=== PATIENT | male | born 1930 | race Caucasian/White ===

== ENCOUNTER → 2016-09-06 | Outpatient (CLI) | payer OTHER ==
[~2016-09-06] MED LIST: ACET-1311 PO; APR10 PO; ARC5 PO; ASPI81TA28 PO; CEPH500C2 PO; CEPH500T PO; FERR1TAB62 PO; FRS/40 PO; LISI-729 PO; LISI5TAB3 PO; LVQ500 PO; MECL1TAB40 PO; MIRT15TA3 PO; MULT-506 PO; NEOMOIN3 TOP; NTRGSL/4 UT; OMEP40CA PO; OMEP40CA41 PO; POLY335019 PO; PRVC40 PO; SENN-65 PO; SITA50TA3 PO; SULF800T23 PO; SYN25 PO; TRAM-10 PO; TRMCR515 TOP
[2016-09-06 15:57] LABS: BASO % 0.8 %; BASO ABS # 0.06 K/uL (0-0.2); COMPLETE YES; EOS % 3.6 %; HEMATOCRIT 30.8 % (42-52); IG% 0.3 %; LYMPH % 10.7 %; LYMPH ABS # 0.78 K/uL (1.2-3.4); MEAN CELL VOLUME 99.7 fL (80-100); MEAN CORPUSCULAR HGB CONC 33.1 g/dl (32-36); MEAN PLATELET VOLUME 11.6 fL (7.4-10.4); MONO % 6.4 %; NEUT % 78.2 %; PLATELET COUNT 205 K/uL (130-400); RED BLOOD COUNT 3.09 M/uL (4.7-6.1); WHITE BLOOD COUNT 7.29 K/uL (4.8-10.8)
[2016-09-06 16:05] LABS: BLOOD UREA NITROGEN 54 mg/dl (7-18); BUN/CREATININE RATIO 19.5 (10-20); CALCIUM 8.8 mg/dl (8.5-10.1); CARBON DIOXIDE 26 mmol/L (21-32); CHLORIDE 106 mmol/L (98-107); GLUCOSE 136 mg/dl (70-99); POTASSIUM 5.2 mmol/L (3.5-5.1); SODIUM 142 mmol/L (136-145)
== END | disposition home or self-care (01) ==
LOC: C.LABSPEC 14:30
PROVIDERS: ATTEND Family Medicine
DX: I50.33 Acute on chronic diastolic (congestive) heart failure (principal); I25.10 Atherosclerotic heart disease of native coronary artery without angina pectoris; D62 Acute posthemorrhagic anemia

== ENCOUNTER 2016-09-29 13:12 | Inpatient (IN) | payer OTHER ==
[~2016-09-29] VITALS: Ht 177.8 cm; Wt 74.9 kg
[~2016-09-29 13:12] MED LIST changes: -ARC5 PO; -CEPH500C2 PO; -CEPH500T PO; -FERR1TAB62 PO; +FERR325T PO; -LISI-729 PO; -LVQ500 PO; -NEOMOIN3 TOP; -OMEP40CA41 PO
--- NOTE | 2016-09-29 13:59 | DIAGNOSTIC IMAGING REPORT ---
CHEST ONE VIEW PORTABLE HISTORY: EVALUATE RESPIRATORY DISTRESS.DYSPNEA COMPARISON: Chest 08/08/2016. FINDINGS: The heart is mildly enlarged. Trace left pleural effusion is unchanged. Extensive bilateral calcified pleural plaques remain unchanged. No new focal lung consolidations. No pneumothorax. Right lower lobe density in the small right pleural effusion have slightly progressed. IMPRESSION: 1. Slight increase in size in the small right pleural effusion with associated right basilar density. This could represent compressive atelectasis from the pleural fluid. Recommend follow-up to ensure complete resolution. 2. Trace left pleural effusion persist. 3. Extensive bilateral pleural plaques, unchanged. Electronically signed by: Jimmy Aaron M.D. 09/29/2016 1:58 PM Dictated Date/Time: 09/29/2016 1:56 PM
[2016-09-29 14:02] LABS: BASO % 0.5 %; BASO ABS # 0.04 K/uL (0-0.2); COMPLETE YES; HEMATOCRIT 27.6 % (42-52); IG% 0.3 %; LYMPH % 5.8 %; LYMPH ABS # 0.45 K/uL (1.2-3.4); MEAN CELL VOLUME 96.8 fL (80-100); MEAN CORPUSCULAR HEMOGLOBIN 32.6 pg (25-34); MEAN CORPUSCULAR HGB CONC 33.7 g/dl (32-36); MEAN PLATELET VOLUME 11.5 fL (7.4-10.4); MONO % 14.9 %; NEUT % 77.5 %; PLATELET COUNT 201 K/uL (130-400); RED BLOOD COUNT 2.85 M/uL (4.7-6.1); WHITE BLOOD COUNT 7.72 K/uL (4.8-10.8)
[2016-09-29] MEDS ORDERED: ATROPINE SULFATE 0.1 MG/ML 5ML SYR IV STA (14:09)
[2016-09-29] MEDS ORDERED: ATROPINE SULFATE 0.1 MG/ML 5ML SYR ONE (14:10)
[2016-09-29 14:14] LABS: CKMB/CK RATIO 1.4 (0-3.0)
[2016-09-29] MEDS ORDERED: SODIUM BICARB 8.4% INJ 50 MEQ/50 ML SYR IV STA (14:26)
[2016-09-29] MEDS ORDERED: NovoLIN-R INSULIN PER UNIT CHARGE IV STA (14:26)
[2016-09-29] MEDS ORDERED: DEXTROSE 50% 50 ML SYR IV STA (14:26)
[2016-09-29] MEDS ORDERED: CALCIUM GLUCONATE 10% 10 ML VIAL IV STA (14:26)
[2016-09-29 14:37] LABS: ISTAT CREATININE 4.3 mg/dl (0.6-1.3); ISTAT HEMOGLOBIN 9.2 g/dl (14.0-18.0); ISTAT IONIZED CALCIUM 1.06 mmol/l (1.12-1.32)
[2016-09-29 14:46] LABS: BUN/CREATININE RATIO 15.1 (10-20); CALCIUM 8.7 mg/dl (8.5-10.1); CREATININE 4.3 mg/dl (0.60-1.40)
[2016-09-29 14:47] LABS: POTASSIUM 6.5 mmol/L (3.5-5.1)
[2016-09-29] MEDS ORDERED: SODIUM CHLORIDE 0.9% 500ML 500 ML IV STA (14:52)
[2016-09-29 15:06] LABS: INR 1.1 (0.9-1.1); PROTHROMBIN TIME (PATIENT) 11.8 SECONDS (9.0-12.0)
[2016-09-29] MEDS ORDERED: GLUCAGON FOR INJ 1 MG VIAL SQ PRN (15:30)
[2016-09-29] MEDS ORDERED: GLUCOSE 40% GEL 15 GM TUBE PO PRN (15:30)
[2016-09-29] MEDS ORDERED: GLUCOSE 10 TABS/TUBE PO PRN (15:30)
[2016-09-29] MEDS ORDERED: ACETAMINOPHEN 325 MG TAB PO PRN (15:30)
[2016-09-29] MEDS ORDERED: ONDANSETRON INJ 2 MG/ML 2 ML VIAL IV PRN (15:30)
[2016-09-29] MEDS ORDERED: DEXTROSE 50% 50 ML SYR IV PRN (15:30)
[2016-09-29] MEDS ORDERED: MECLIZINE HCL 12.5 MG TAB PO PRN (15:45)
[2016-09-29] MEDS ORDERED: NITROGLYCERIN 0.4 MG SL PER TAB CHARGE UT PRN (15:45)
[2016-09-29] MEDS ORDERED: POLYETHYLENE (MIRALAX) 17 GM PACK PO PRN (15:45)
[2016-09-29] MEDS ORDERED: TRAMADOL HCL 50 MG TAB PO PRN (15:45)
[2016-09-29] MEDS ORDERED: TRIAMCINOLONE ACET 0.5% CR 15 GM TUBE EXT PRN (15:45)
[2016-09-29] MEDS ORDERED: SODIUM POLYST. SULF SUSP 15G/60ML PO STA (15:54)
[2016-09-29] MEDS: INSULIN HUMAN REGULAR SC SCH ×2 (16:00→21:00)
[2016-09-29 16:05] VITALS: BP 94/52; PULSE 52; TEMP 36.3; O2SAT 93
--- NOTE | 2016-09-29 16:05 | EMERGENCY ROOM VISIT NOTE ---
History Report prepared by Silvio: Gabino Benedict Under the Supervision of: Dr. Latrell Barker M.D. First contact with patient: 13:15 Chief Complaint: SHORTNESS OF BREATH Stated Complaint: SOB, WEAK, DISORIENTED, ABNORMAL LABS History of Present Illness The patient is an 86 year old male who presents to the Emergency Room with recurrent hypoxia for the past week. The patient's oxygen saturation drops to the low 80s at time, especially when he is in the prone position. The patient has also been experiencing bradycardia and worsening generalized weakness. The patient saw Dr. Watt (Cardiology) and Dr. Ellison (Family Practice) yesterday, who both referred him to the ED. The patient initially refused to come to the ED until his son brought him in today. Dr. Ellison recommends a pacemaker for the patient. The patient does not wear oxygen at home. The patient recently had lab work that showed elevated potassium. 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 Pt denies LOC, headache, fevers, chills, diaphoresis, visual changes, neck pain, chest pain, nausea, vomiting, abdominal pain, back pain, melena, urinary symptoms, numbness, rash, or other complaints. Source of History: patient, family (son) Onset: one week Position: other (respiratory) Symptom Intensity: O2 saturation in the 80s Quality: other (hypoxia) Timing: other (recurrent) Modifying Factors (Worsening): other (laying flat) Associated Symptoms: + weakness Review of Systems See HPI for pertinent positives and negatives. A total of ten systems were reviewed and were otherwise negative. Past Medical & Surgical Medical Problems: (1) Abdominal aortic aneurysm (2) Acute exacerbation of CHF (congestive heart failure) (3) Asbestosis (4) Atrial fibrillation (5) Benign hypertension (6) Benign paroxysmal positional vertigo (7) Bradyarrhythmia (8) Cerebrovascular disease, arteriosclerotic, post-stroke (9) Chronic kidney disease stage 3 (10) Coronary artery disease (11) Dieulafoy lesion of stomach (12) DM type 2 (diabetes mellitus, type 2) (13) Dyslipidemia (14) HTN (hypertension) (15) Hx of gastric ulcer (16) Hyperkalemia Surgical Problems: (1) H/O cardiac catheterization (2) H/O esophagogastroduodenoscopy (3) H/O exploratory laparotomy (4) H/O hemicolectomy (5) S/p shoulder avulsion repair (6) S/P tonsillectomy (7) S/P total knee replacement Family History Patient reports no known family medical history. Social History Smoking Status: Former Smoker Alcohol Use: none Drug Use: none Marital Status: Occupation Status: retired Current/Historical Medications Scheduled Acetaminophen (Tylenol), 650 MG PO Q6 Aspirin (Aspirin Ec), 81 MG PO DAILY Ferrous Sulfate (Ferrous Sulfate), 325 MG PO BID Furosemide (Lasix), 40 MG PO DAILY Hydralazine HCl (Hydralazine HCl), 10 MG PO TID Levothyroxine Sodium (Synthroid), 25 MCG PO DAILYBB Lisinopril (Zestril), 5 MG PO DAILY Mirtazapine (Remeron), 15 MG PO HS Multivitamin (Multivitamin), 1 TAB PO DAILY Nitroglycerin (Nitrostat), 0.4 MG UT PRN Omeprazole (Prilosec), 40 MG PO BID Pravastatin Sod (Pravastatin Sodium), 40 MG PO HS Sitagliptin (Januvia), 50 MG PO DAILY Sulfa/Trimethoprim (Bactrim Ds 800MG/160MG), 1 TAB PO BID Scheduled PRN Meclizine Hcl (Meclizine Hcl), 12.5 MG PO Q8 PRN Polyethylene Glycol 3350 (Miralax), 17 GM PO DAILY PRN for Constipation Senna/Docusate Sod (Senokot S), 1 TAB PO DAILY PRN for Constipation Tramadol (Ultram), 25-50 MG PO TID PRN for Pain Triamcinolone Acet (Triamcinolone Acetonide), 1 APPLN TOP BID PRN for rash Allergies Coded Allergies: No Known Allergies (Unverified , 09/29/16) Physical Exam Vital Signs Date Time Temp Pulse Resp B/P Pulse Ox O2 Delivery O2 Flow Rate FiO2 09/29/16 15:54 46 18 93/51 96 09/29/16 15:21 47 18 92/48 97 Nasal Cannula 2.0 09/29/16 15:06 51 16 98/42 97 Nasal Cannula 2.0 09/29/16 14:54 51 16 83/41 97 Nasal Cannula 2.0 09/29/16 14:51 50 16 79/44 97 Nasal Cannula 2.0 09/29/16 14:41 51 18 98/46 09/29/16 14:23 64 18 122/60 09/29/16 14:09 39 18 82/48 09/29/16 14:08 40 09/29/16 13:45 93 Nasal Cannula 2.0 09/29/16 13:45 93 Nasal Cannula 2.0 09/29/16 13:14 36.6 59 20 96/54 95 Room Air Physical Exam GENERAL: Awake, alert, tired appearing, in no distress HENT: Normocephalic, atraumatic. Oropharynx unremarkable. EYES: Normal conjunctiva. Sclera non-icteric. NECK: Supple. No nuchal rigidity. FROM. No JVD. RESPIRATORY: Clear to auscultation. CARDIAC: Borderline bradycardic, normal rhythm. Extremities warm and well perfused. Pulses equal. Systolic ejection murmur. ABDOMEN: Soft, non-distended. No tenderness to palpation. No rebound or guarding. No masses. RECTAL: Deferred. MUSCULOSKELETAL: Chest examination reveals no tenderness. The back is kyphotic on inspection without obvious abnormality. There is no CVA tenderness to palpation. 1+ lower extremity edema. Chronic venous discoloration. Calves are equal size bilaterally and non-tender. There is an ulceration noted on the right lateral foot. No cellulitis. NEURO: Normal sensorium. No sensory or motor deficits noted. SKIN: No rash or jaundice noted. Medical Decision & Procedures ER Provider Diagnostic Interpretation: X-ray: Per my interpretation, radiologist review. CHEST ONE VIEW PORTABLE HISTORY: EVALUATE RESPIRATORY DISTRESS.DYSPNEA COMPARISON: Chest 08/08/2016. FINDINGS: The heart is mildly enlarged. Trace left pleural effusion is unchanged. Extensive bilateral calcified pleural plaques remain unchanged. No new focal lung consolidations. No pneumothorax. Right lower lobe density in the small right pleural effusion have slightly progressed. IMPRESSION: 1. Slight increase in size in the small right pleural effusion with associated right basilar density. This could represent compressive atelectasis from the pleural fluid. Recommend follow-up to ensure complete resolution. 2. Trace left pleural effusion persist. 3. Extensive bilateral pleural plaques, unchanged. Electronically signed by: Jimmy Aaron M.D. 09/29/2016 1:58 PM Dictated Date/Time: 09/29/2016 1:56 PM Laboratory Results 09/29/16 13:40 Red Blood Count 2.85, Mean Corpuscular Volume 96.8, Mean Corpuscular Hemoglobin 32.6, Mean Corpuscular Hemoglobin Concent 33.7, Mean Platelet Volume 11.5, Neutrophils (%) (Auto) 77.5, Lymphocytes (%) (Auto) 5.8, Monocytes (%) (Auto) 14.9, Eosinophils (%) (Auto) 1.0, Basophils (%) (Auto) 0.5, Neutrophils # (Auto ) 5.98, Lymphocytes # (Auto) 0.45, Monocytes # (Auto) 1.15, Eosinophils # (Auto ) 0.08, Basophils # (Auto) 0.04 Test 09/29/16 13:40 09/29/16 14:19 09/29/16 16:00 White Blood Count 7.72 K/uL (4.8-10.8) Red Blood Count 2.85 M/uL (4.7-6.1) Hemoglobin 9.3 g/dL (14.0-18.0) Hematocrit 27.6 % (42-52) Mean Corpuscular Volume 96.8 fL (80-100) Mean Corpuscular Hemoglobin 32.6 pg (25-34) Mean Corpuscular Hemoglobin Concent 33.7 g/dl (32-36) Platelet Count 201 K/uL (130-400) Mean Platelet Volume 11.5 fL (7.4-10.4) Neutrophils (%) (Auto) 77.5 % Lymphocytes (%) (Auto) 5.8 % Monocytes (%) (Auto) 14.9 % Eosinophils (%) (Auto) 1.0 % Basophils (%) (Auto) 0.5 % Neutrophils # (Auto) 5.98 K/uL (1.4-6.5) Lymphocytes # (Auto) 0.45 K/uL (1.2-3.4) Monocytes # (Auto) 1.15 K/uL (0.11-0.59) Eosinophils # (Auto) 0.08 K/uL (0-0.5) Basophils # (Auto) 0.04 K/uL (0-0.2) RDW Standard Deviation 54.7 fL (36.4-46.3) RDW Coefficient of Variation 15.6 % (11.5-14.5) Immature Granulocyte % (Auto) 0.3 % Immature Granulocyte # (Auto) 0.02 K/uL (0.00-0.02) Prothrombin Time 11.8 SECONDS (9.0-12.0) Prothromb Time International Ratio 1.1 (0.9-1.1) Activated Partial Thromboplast Time 27.0 SECONDS (21.0-31.0) Partial Thromboplastin Ratio 1.0 Est Creatinine Clear Calc Drug Dose 12.0 ml/min Total Bilirubin 0.3 mg/dl (0.2-1) Direct Bilirubin 0.2 mg/dl (0-0.2) Aspartate Amino Transf (AST/SGOT) 101 U/L (15-37) Alanine Aminotransferase (ALT/SGPT) 86 U/L (12-78) Alkaline Phosphatase 230 U/L (45-117) Total Creatine Kinase 213 U/L (39-308) Creatine Kinase MB 2.9 ng/ml (0.5-3.6) Creatine Kinase MB Ratio 1.4 (0-3.0) Troponin I 0.037 ng/ml (0-0.045) Total Protein 6.9 gm/dl (6.4-8.2) Albumin 3.1 gm/dl (3.4-5.0) Bedside Hemoglobin 9.2 g/dl (14.0-18.0) Bedside Hematocrit 27 % (42-52) Bedside Sodium 139 mEq/L (135-144) Bedside Potassium 6.8 mEq/L (3.3-5.0) Bedside Chloride 108 mEq/L (101-112) Bedside Total CO2 26 mEq/l (24-31) Bedside Blood Urea Nitrogen 57 mg/dl (7-18) Bedside Creatinine 4.3 mg/dl (0.6-1.3) Bedside Glucose (other) 74 mg/dl (70-99) Bedside Ionized Calcium (Tasha) 1.06 mmol/l (1.12-1.32) Laboratory results reviewed by me Medications Administered Medications (Trade) Dose Ordered Sig/Perla Route Start Time Stop Time Status Last Admin Dose Admin Atropine Sulfate (Atropine Sulfate 0.1MG/Ml Inj) 0.5 mg NOW STAT IV 09/29/16 14:09 09/29/16 14:10 DC 09/29/16 14:24 0.5 MG Calcium Gluconate (Calcium Gluconate 10%) 1,000 mg NOW STAT IV 09/29/16 14:26 09/29/16 14:28 DC 09/29/16 14:36 1,000 MG Sodium Bicarbonate (Sodium Bicarbonate 8.4% Inj) 50 ml NOW STAT IV 09/29/16 14:26 09/29/16 14:28 DC 09/29/16 14:36 50 ML Insulin Human Regular (novoLIN-R U-100 PER UNIT) 10 units NOW STAT IV 09/29/16 14:26 09/29/16 14:28 DC 09/29/16 14:35 10 UNITS Dextrose 50 ml 50 ml NOW STAT IV 09/29/16 14:26 09/29/16 14:28 DC 09/29/16 14:36 50 ML Sodium Chloride (Nss 500ml) 500 ml @ 999 mls/hr Q31M STAT IV 09/29/16 14:52 09/29/16 15:22 DC 09/29/16 15:00 999 MLS/HR ECG Indication: bradycardia Rate (beats per minute): 60 Rhythm: sinus rhythm Findings: 1st degree AV block, no acute ischemic change, left axis deviation, no ectopy, other (Non-specific intraventricular block.) ED Course 1325: The patient was evaluated in room A10. A complete history and physical exam was performed. 1409: Atropine Sulfate 0.5 mg IV. 1410: The patient became bradycardic. His mental status is normal. Repeat EKG showed idioventricular rhythm at 39, LAFB, no ischemic changes. 1415: Third EKG: Sinus rhythm at 64, 1st degree AV block, nonspecific intraventricular block, no ischemic changes. 1421: Discussed the case with Dr. Matute, Clinical Documentation Developer. He will offer consult. 1426: Dextrose 50% 50 ml IV, Insulin Human Regular 10 units IV, Sodium Bicarbonate 8.4% 50 ml Iv, Calcium Gluconate 10% 1000 mg IV. 1429: Discuss[facility] the case with Dr[facility] Gallagher[facility] The patient will be evaluated. 1450: The patient's blood pressure was lower after receiving his medications. He feels the same. The patient is getting a [address] Gallagher is in the room with the patient. 1452: NSS 500 ml @ 999 mls/hr. Medical Decision Triage Nursing notes reviewed. The patient's presentation and history were concerning for bradycardia and abnormal labs. Etiologies such as metabolic, infection, hypo/hyperglycemia, electrolyte abnormalities, cardiac sources, intracerebral event, toxicologic, neurologic, as well as others were entertained. The patient was evaluated. She was mildly bradycardic. He was generally weak. He had to be assisted by 3 staff members to get in bed. The patient has hyperkalemia and renal insufficiency noted on outpatient laboratory testing. An IV was established. The patient had an ECG performed. Blood work was obtained. An i-STAT was performed and he was found to be hyperkalemic to 6.8. The patient then became bradycardic with a junctional rhythm. Pacer pads applied. He received IV atropine. Repeat ECG revealed a sinus rhythm with a significant first-degree AV block. The patient was given IV dextrose, IV insulin, IV calcium, and IV bicarbonate. His blood pressure was mildly low as well and was given 500 mL of normal saline. Coags were normal. The patient's LFTs are mildly elevated. BNP was significantly elevated concerning for CHF. The patient also has an elevated d-dimer. Consultation was made with cardiology and internal medicine. The patient was evaluated in the Emergency Room and admitted for further treatment. The chart was completed utilizing [employer] Speech voice recognition software. Grammatical errors, random word insertions, pronoun errors, and incomplete sentences are an occasional consequence of this system due to software limitations, ambient noise, and hardware issues. Any formal questions or concerns about the content, text, or information contained within the body of this dictation should be directly addressed to the physician for clarification. Consults Time Called: 1415 Consulting Physician: Dr. Matute, Clinical Documentation Developer Returned Call: 1421 1421: Discussed the case with Dr. Matute Clinical Documentation Developer. He will offer consult. He recommended treating the hyperkalemia. Additional Consults: Time Called: 1422 Consulted Physician: Dr. Gallagher [facility] Returned Call: 1420 Additional Comments: 1429: Discussed the case with Dr. Gallagher [facility]. The patient will be evaluated. Impression Primary Impression: Hyperkalemia Additional Impressions: Bradycardia Renal failure Critical Care I have personally spent greater than 75 minutes of critical care time in the direct management of this patient. This includes bedside care, interpretation of diagnostic studies, and testing, discussion with consultants, patient, and family members, and other required patient management activities. This 75 minutes is in excess of all separately billable procedures. Scribe Attestation The scribe's documentation has been prepared under my direction and personally reviewed by me in its entirety. I confirm that the note above accurately reflects all work, treatment, procedures, and medical decision making performed by me. Departure Information Dispostion Being Evaluated By Hospitalist Referrals Spenser Ellison M.D. (MEDICAL) (PCP) Patient Instructions [facility] Problem Qualifiers
--- NOTE | 2016-09-29 16:06 | Progress Note ---
Progress Note ATTENDING NOTE : pt seen and examined, in agreement with above H&P by Bonnie fischer PA-C labs, images reviewed , 86 yo M with complex past medical hx of CKD stage 3-4 , Chronic diastolic heart failure , Type 2 Dm , Afib not on anticoagulation , rt foot wound sent to [facility] with abnormal lab finding in [facility] K 6.5 /Cr 3.8 ( Cr 1.6 on 07/20 ) found to be in Junctional rhythms HR in 39 , given atropine, Insulin, Dextrose , Bicarb , Ca gluconate for bradyarrhythmia was hypotensive HR in low 70's improved to 90's with 500 ml IV fluid bolus P/E: gen : chronically ill appearing HEENT: sclera non icteric HT: S1/S2 lungs: CTA , no rales , or wheeze abdomen : soft, non tender Ext : multiple skin tears in upper and lower ext left lower leg/deng area skin tear form fall -healed scab , mild surrounding erythema Rt foot : Rt 4th toe -toe nail absent -nail bed red with serosanguineous drainage -wound culture obtained white base ulcer in rt upper lateral foot approx 1 cm -wound culture obtained no sacral /pressure ulcer noted neuro: able to answer questions , as per son has baseline dementia, no focal neurological deficit noted A/P Junctional bradycardia : due to electrolyte derangements Hyperkalemia /JO given Insulin, Dextrose , Bicarb , Ca gluconate for bradyarrhythmia Admit to tele 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 pt was seen by Cardiology Dr Watt yesterday 09/28/16 -found to have symptomatic bradycardia with dizzy spell frequent falls pt refused to have any treatment of intervention refused to come to hospital for further evaluation after discussing with Son present at bedside , pt is willing to stay in hospital for treatment Hyperkalemia : due to worsening of renal function -due to dehydration /poor PO intake has not been eating or drinking for past few weeks acute management provided in ED Nephrology consulted -case D/w Dr Shabazz pt will be continued with Hco3 gtt , will order Kayexalate, ordered 1 x 20 mg Iv Lasix follow PPR q 4 hrs hold ACEI Acute renal failure on CKD stage 4 due to poor PO intake /dehydration IV fluid follow PRP Nephrology consulted Hypotension : due to dehydration R/o sepsis has rt foot infection blood culture rt foot wound culture ordered cont IV fluid Rt foot infection : has been going on for months wound culture ordered wound care consulted empiric abx with Zosyn /vancomycin Ambulatory dysfunction : bed bound on power chair , dose transfers only multiple falls at home PT/OT when appropriate Code status : DNR Disposition : over all very poor prognosis pt does not want to come to hospital for treatment or admission office of aging involved as pt was found not safe at home social service consulted for discharge planning
[2016-09-29] MEDS ORDERED: PIPERACILL/TAZOBAC CONSULT ACTIVE PRN (16:15)
[2016-09-29] MEDS ORDERED: VANCOMYCIN CONSULT ACTIVE PRN (16:15)
[2016-09-29] MEDS ORDERED: CALCIUM GLUCONATE IV ONE (16:30)
[2016-09-29] MEDS ORDERED: SODIUM CHLORIDE 0.9% IV ONE (16:30)
[2016-09-29] MEDS ORDERED: FUROSEMIDE INJ 20 MG in SYRINGE 0 ML IV ONE (16:30)
--- NOTE | 2016-09-29 16:32 | History and Physical ---
History & Physical Date & Time of Service: Sep 29, 2016 at 15:38 Chief Complaint: Sob, Weak, Disoriented, Abnormal Labs Primary Care Physician: Spenser Ellison M.D. (MEDICAL) History of Present Illness Source: patient This is an 86 y/o male with PMHx of CKD stage 3, DM 2, Chromic Afib, CAD, h/o CVA, Hypothyroidism, HTN, Dyslipidemia and other problems as outlined below who presents to the ED with worsening functional status. History is obtained from both patient and son at bedside. For the past month patient has fallen multiple times due to progressive generalized weakness. Generalized weakness is assoc with worsening exertional SOB and decreased appetite. Per son, patient is not on oxygen at home and O2 saturations have dipped down to 82% at times, especially when he is in prone position. Pt was on Metoprolol and Amiodarone for chronic afib however both meds were discontinued by cardiology in August due to bradycardia. Patient was seen by Dr. Watt (Cardiology) and Dr. Ellison ( Family Practice) yesterday, who both referred him to the ED. The patient initially refused to come to the ED until his son brought him in today. Dr. Ellison recommends a pacemaker for the patient for persistent bradycardia. Labwork drawn yesterday showed elevated potassium. 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 He goes to wound clinic every other week and is currently on 30 day course of Bactrim. Pt currently lives at home with significant other. He is wheelchair bound. Nursing coming to house three times weekly and son lives next door. Pt denies fever/chills, diaphoresis, chest pain , palpitations, wheezing, abd pain, N/V, constipation, diarrhea, hematochezia, melena, dysuria, LE edema, calf pain, lightheadedness/dizziness. In the ED, pt is kenia and hypotensive on arrival. HgB 9.3. K+ 6.8. creat 4.3. CXR + R pleural effusion. EKG junctional rhythm. Pt will be admitted for further evaluation and treatment. Past Medical/Surgical History Medical Problems: (1) Abdominal aortic aneurysm Status: Chronic (2) Asbestosis Status: Chronic (3) Atrial fibrillation Status: Chronic (4) Benign hypertension Status: Chronic (5) Benign paroxysmal positional vertigo Status: Chronic (6) Cerebrovascular disease, arteriosclerotic, post-stroke Status: Chronic (7) Chronic kidney disease stage 3 Status: Chronic (8) Coronary artery disease Status: Chronic (9) Dieulafoy lesion of stomach Status: Chronic (10) DM type 2 (diabetes mellitus, type 2) Status: Chronic (11) Dyslipidemia Status: Chronic (12) HTN (hypertension) Status: Chronic (13) Hx of gastric ulcer Status: Chronic Surgical Problems: (1) H/O cardiac catheterization Status: Resolved (2) H/O exploratory laparotomy Status: Resolved (3) H/O hemicolectomy Status: Resolved (4) S/p shoulder avulsion repair Status: Resolved (5) S/P tonsillectomy Status: Resolved (6) S/P total knee replacement Status: Resolved Family History Patient reports no known family medical history. Social History Smoking Status: Former Smoker (20 pack years; quit 1959) Alcohol Use: none Drug Use: none Marital Status: Housing status: lives with significant other Occupational Status: retired Immunizations History of Influenza Vaccine: Yes Influenza Vaccine Date: Oct 16, 2012 History of Tetanus Vaccine?: Unknown History of Pneumococcal: Yes History of Hepatitis B Vaccine: Unknown Allergies Coded Allergies: No Known Allergies (Unverified , 09/29/16) Home Medications Scheduled Acetaminophen (Tylenol), 650 MG PO Q6 Aspirin (Aspirin Ec), 81 MG PO DAILY Ferrous Sulfate (Ferrous Sulfate), 325 MG PO BID Furosemide (Lasix), 40 MG PO DAILY Hydralazine HCl (Hydralazine HCl), 10 MG PO TID Levothyroxine Sodium (Synthroid), 25 MCG PO DAILYBB Lisinopril (Zestril), 5 MG PO DAILY Mirtazapine (Remeron), 15 MG PO HS Multivitamin (Multivitamin), 1 TAB PO DAILY Nitroglycerin (Nitrostat), 0.4 MG UT PRN Omeprazole (Prilosec), 40 MG PO BID Pravastatin Sod (Pravastatin Sodium), 40 MG PO HS Sitagliptin (Januvia), 50 MG PO DAILY Sulfa/Trimethoprim (Bactrim Ds 800MG/160MG), 1 TAB PO BID Scheduled PRN Meclizine Hcl (Meclizine Hcl), 12.5 MG PO Q8 PRN Polyethylene Glycol 3350 (Miralax), 17 GM PO DAILY PRN for Constipation Senna/Docusate Sod (Senokot S), 1 TAB PO DAILY PRN for Constipation Tramadol (Ultram), 25-50 MG PO TID PRN for Pain Triamcinolone Acet (Triamcinolone Acetonide), 1 APPLN TOP BID PRN for rash Review of Systems Constitutional: + fatigue, + weakness, No chills, No fever, No sweats Eyes: No worsening of vision ENT: No hearing loss Respiratory: + dyspnea on exertion, + shortness of breath, No cough, No hemoptysis, No sputum, No wheezing Cardiovascular: No chest pain, No claudication, No edema, No palpitations Abdomen: + nausea, No GI bleeding, No constipation, No diarrhea, No pain, No vomiting Musculoskeletal: No calf pain, No swelling Genitourinary - Male: No dysuria Neurologic: + weakness Psychiatric: No depression symptoms Endocrine: + fatigue Hematologic / Lymphatic: No abnormal bleeding/bruising Integumentary: + new/changing skin lesions (see HPI) Physical Exam Vital Signs Date Time Temp Pulse Resp B/P Pulse Ox O2 Delivery O2 Flow Rate FiO2 09/29/16 15:21 47 18 92/48 97 Nasal Cannula 2.0 09/29/16 15:06 51 16 98/42 97 Nasal Cannula 2.0 09/29/16 14:54 51 16 83/41 97 Nasal Cannula 2.0 09/29/16 14:51 50 16 79/44 97 Nasal Cannula 2.0 09/29/16 14:41 51 18 98/46 09/29/16 14:23 64 18 122/60 09/29/16 14:09 39 18 82/48 09/29/16 14:08 40 09/29/16 13:45 93 Nasal Cannula 2.0 09/29/16 13:45 93 Nasal Cannula 2.0 09/29/16 13:14 36.6 59 20 96/54 95 Room Air General Appearance: WD/WN, no apparent distress, + pertinent finding (Pt is sitting up in bed with son at bedside; lethargic) Head: normocephalic, atraumatic Eyes: normal inspection, PERRL, EOMI ENT: hearing grossly normal Neck: supple Respiratory/Chest: chest non-tender, lungs clear, normal breath sounds, no respiratory distress Cardiovascular: no edema, no murmur, + bradycardia Abdomen/GI: normal bowel sounds, non tender, soft Back: normal inspection Extremities/Musculoskelatal: no calf tenderness, no pedal edema Neurologic/Psych: alert, normal mood/affect, oriented x 3, + pertinent finding (lethargic) Skin: + pallor, + pertinent finding (open wound noted to lateral aspect of R foot and 4th toe; scattered healing skin tears on upper and lower extremities) Diagnostics Laboratory Results Results Past 24 Hours Test 09/29/16 13:40 09/29/16 14:19 Range/Units White Blood Count 7.72 4.8-10.8 K/uL Red Blood Count 2.85 4.7-6.1 M/uL Hemoglobin 9.3 14.0-18.0 g/dL Hematocrit 27.6 42-52 % Mean Corpuscular Volume 96.8 80-100 fL Mean Corpuscular Hemoglobin 32.6 25-34 pg Mean Corpuscular Hemoglobin Concent 33.7 32-36 g/dl Platelet Count 201 130-400 K/uL Mean Platelet Volume 11.5 7.4-10.4 fL Neutrophils (%) (Auto) 77.5 % Lymphocytes (%) (Auto) 5.8 % Monocytes (%) (Auto) 14.9 % Eosinophils (%) (Auto) 1.0 % Basophils (%) (Auto) 0.5 % Neutrophils # (Auto) 5.98 1.4-6.5 K/uL Lymphocytes # (Auto) 0.45 1.2-3.4 K/uL Monocytes # (Auto) 1.15 0.11-0.59 K/uL Eosinophils # (Auto) 0.08 0-0.5 K/uL Basophils # (Auto) 0.04 0-0.2 K/uL RDW Standard Deviation 54.7 36.4-46.3 fL RDW Coefficient of Variation 15.6 11.5-14.5 % Immature Granulocyte % (Auto) 0.3 % Immature Granulocyte # (Auto) 0.02 0.00-0.02 K/uL Prothrombin Time 11.8 9.0-12.0 SECONDS Prothromb Time International Ratio 1.1 0.9-1.1 Activated Partial Thromboplast Time 27.0 21.0-31.0 SECONDS Partial Thromboplastin Ratio 1.0 Sodium Level 141 136-145 mmol/L Potassium Level 6.5 3.5-5.1 mmol/L Chloride Level 108 98-107 mmol/L Carbon Dioxide Level 21 21-32 mmol/L Anion Gap 12.0 12.0 16-25 mmol/L Blood Urea Nitrogen 65 7-18 mg/dl Creatinine 4.30 0.60-1.40 mg/dl Est Creatinine Clear Calc Drug Dose 12.0 ml/min Estimated GFR () 13.4 Estimated GFR (Non- 11.6 BUN/Creatinine Ratio 15.1 10-20 Random Glucose 70 70-99 mg/dl Calcium Level 8.7 8.5-10.1 mg/dl Total Bilirubin 0.3 0.2-1 mg/dl Direct Bilirubin 0.2 0-0.2 mg/dl Aspartate Amino Transf (AST/SGOT) 101 15-37 U/L Alanine Aminotransferase (ALT/SGPT) 86 12-78 U/L Alkaline Phosphatase 230 45-117 U/L Total Creatine Kinase 213 39-308 U/L Creatine Kinase MB 2.9 0.5-3.6 ng/ml Creatine Kinase MB Ratio 1.4 0-3.0 Troponin I 0.037 0-0.045 ng/ml Total Protein 6.9 6.4-8.2 gm/dl Albumin 3.1 3.4-5.0 gm/dl Bedside Hemoglobin 9.2 14.0-18.0 g/dl Bedside Hematocrit 27 42-52 % Bedside Sodium 139 135-144 mEq/L Bedside Potassium 6.8 3.3-5.0 mEq/L Bedside Chloride 108 101-112 mEq/L Bedside Total CO2 26 24-31 mEq/l Bedside Blood Urea Nitrogen 57 7-18 mg/dl Bedside Creatinine 4.3 0.6-1.3 mg/dl Bedside Glucose (other) 74 70-99 mg/dl Bedside Ionized Calcium (Tasha) 1.06 1.12-1.32 mmol/l Microbiology Results 09/29/16 Blood Culture, Received Pending 09/29/16 Blood Culture, Received Pending Diagnostic Radiology CXR IMPRESSION: 1. Slight increase in size in the small right pleural effusion with associated right basilar density. This could represent compressive atelectasis from the pleural fluid. Recommend follow-up to ensure complete resolution. 2. Trace left pleural effusion persist. 3. Extensive bilateral pleural plaques, unchanged. EKG EKG: junctional rhythm at 64bpm with LAD; junctional rhythm has replaced idioventricular rhythm when compared to previous EKG from 09/29/16 14:02 Impression Assessment and Plan BRADYCARDIA/JUNCTIONAL RHYTHM -admit to telemetry -? sinus node abnormality/electrolyte derangement -EKG: junctional rhythm -pt refusing intervention with pacemaker at this time -supportive care -consult cardiology, Dr. Matute->recommend holding off on serial enzymes and echo -continuos monitoring on tele HYPERKALEMIA -K+ 6.8; may be due to worsening renal function -EKG + peaked T waves -calcium gluconate, sodium bicarb and dextrose given in ED -give Kayexalate and one dose Lasix now -prp q 4 hrs -nephro consulted, Dr. Shabazz-appreciate input JO WITH H/O CKD STAGE 3 -baseline creatinine is 1.6; creatinine currently 4.3; likely elevated due to dehydration from decreased PO intake -hold PO Lasix, hydralazine and lisinopril -continue to monitor with prp and avoid nephrotoxic agents when able -nephro consulted HYPOTENSION -hypotensive in ED; h/o HTN on lisinopril and hydralazine at home -possibly due to infection; probable 2* wound; CXR no evidence of infection; will check UA -blood cx-pending -check lactic acid -broad spectrum abx coverage with Zosyn and Vanco -hold Lasix, hydralazine and lisinopril -cont IVF -monitor CXR R FOOT ULCER -wound present for 1 month; follows with wound clinic every other week; on Bactrim -wound cx + Group B beta strep and staph aureus -wound cx collected here is pending -start IV Vanco and Zosyn -consult wound care nurse ELEVATED LFTs -AST 101, ALT 86, Alk Phos 230 -hold statin -monitor LFTs CHRONIC AFIB -EKG + junctional rhythm -recently taken off metoprolol and amiodarone due to bradycardia -no longer on anticoagulation due to fall risk -cardio consulted -monitor WELL-CONTROLLED DM 2 -recent A1C 5.1 -hold Januvia -start ISS -monitor BSG AC HS CHRONIC DIASTOLIC HEART FAILURE -pt does not appear fluid overloaded -recent echo 08/2016 EF 55-60% with mod aortic regurg, mod-severe aortic stenosis and mod pulm hypertension -hold lasix and hydralazine for now -monitor volume status closely with I&Os and daily weights CORONARY ARTERY DISEASE -cont ASA -pt not on BB due to bradycardia -pt currently denies chest pain H/O CVA -cont ASA HYPOTHYROIDISM -cont levothyroxine DYSLIPIDEMIA -hold statin due to elevated LFTs DVT PROPHYLAXIS -subq heparin CODE STATUS -DNR per discussion with patient upon admission DISPO -discharge eval, PT/OT consults placed -Pt seen in collaboration with Dr. Gallagher. Please see her addendum for further details. Thanks! -Of note: patient will be followed by Dr. Kelsey starting tomorrow AM. ATTENDING NOTE : pt seen and examined, in agreement with above H&P by Bonnie fischer PA-C labs, images reviewed , 86 yo M with complex past medical hx of CKD stage 3-4 , Chronic diastolic heart failure , Type 2 Dm , Afib not on anticoagulation , rt foot wound sent to [facility] with abnormal lab finding in [facility] K 6.5 /Cr 3.8 ( Cr 1.6 on 07/20 ) found to be in Junctional rhythms HR in 39 , given atropine, Insulin, Dextrose , Bicarb , Ca gluconate for bradyarrhythmia was hypotensive HR in low 70's improved to 90's with 500 ml IV fluid bolus P/E: gen : chronically ill appearing HEENT: sclera non icteric HT: S1/S2 lungs: CTA , no rales , or wheeze abdomen : soft, non tender Ext : multiple skin tears in upper and lower ext left lower leg/deng area skin tear form fall -healed scab , mild surrounding erythema Rt foot : Rt 4th toe -toe nail absent -nail bed red with serosanguineous drainage -wound culture obtained white base ulcer in rt upper lateral foot approx 1 cm -wound culture obtained no sacral /pressure ulcer noted neuro: able to answer questions , as per son has baseline dementia, no focal neurological deficit noted A/P Junctional bradycardia : due to electrolyte derangements Hyperkalemia /JO given Insulin, Dextrose , Bicarb , Ca gluconate for bradyarrhythmia Admit to tele 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 pt was seen by Cardiology Dr Watt yesterday 09/28/16 -found to have symptomatic bradycardia with dizzy spell frequent falls pt refused to have any treatment of intervention refused to come to hospital for further evaluation after discussing with Son present at bedside , pt is willing to stay in hospital for treatment Hyperkalemia : due to worsening of renal function -due to dehydration /poor PO intake has not been eating or drinking for past few weeks acute management provided in ED Nephrology consulted -case D/w Dr Shabazz pt will be continued with Hco3 gtt , will order Kayexalate, ordered 1 x 20 mg Iv Lasix follow PPR q 4 hrs hold ACEI Acute renal failure on CKD stage 4 due to poor PO intake /dehydration IV fluid follow PRP Nephrology consulted Hypotension : due to dehydration R/o sepsis has rt foot infection blood culture rt foot wound culture ordered cont IV fluid Rt foot infection : has been going on for months wound culture ordered wound care consulted empiric abx with Zosyn /vancomycin Ambulatory dysfunction : bed bound on power chair , dose transfers only multiple falls at home PT/OT when appropriate Code status : DNR Disposition : over all very poor prognosis pt does not want to come to hospital for treatment or admission office of aging involved as pt was found not safe at home social service consulted for discharge planning Level of Care Telemetry Resuscitation Status DO NOT RESUSCITATE VTE Prophylaxis VTE Risk Assessment Done? Y/N: Yes Risk Level: Moderate Given or contraindicated: Unfractionated heparin SQ
[2016-09-29] MEDS ORDERED: PIPERACILL/TAZOBAC IV 3.375 GM in DEXTROSE 5% 100ML IV ONE (16:45)
[2016-09-29] MEDS ORDERED: VANCOMYCIN INJ 1,400 MG in SODIUM CHLORIDE 0.9% 500ML 500 ML IV ONE (16:45)
[2016-09-29 16:51] LABS: BUN/CREATININE RATIO 15.4 (10-20); CALCIUM 8.5 mg/dl (8.5-10.1); CREATININE 4.2 mg/dl (0.60-1.40); POTASSIUM 5.8 mmol/L (3.5-5.1)
[2016-09-29] MEDS: SODIUM BICARBONATE 8.4% INJ 150 MEQ in DEXTROSE 5% 1000ML 1,000 ML IV SCH (17:18)
[2016-09-29 17:23] LABS: URINE APPEARANCE CLEAR (CLEAR); URINE BILIRUBIN NEG (NEG); URINE COLOR YELLOW; URINE EPITHELIAL CELL AUTO 20-30 /lpf (0-5); URINE NITRITE NEG (NEG); URINE SPECIFIC GRAVITY 1.015 (1.000-1.030); UROBILINOGEN NEG (NEG); ZZUR CULT IF INDIC CLEAN CATCH NO
[2016-09-29] MEDS ORDERED: DAPTOMYCIN CONSULT ACTIVE PRN ×2 (17:30)
[2016-09-29] MEDS ORDERED: LEVOFLOXACIN CONSULT ACTIVE PRN (17:30)
[2016-09-29 17:33] LABS: MANUAL MICROSCOPIC REQUIRED? NO; REVIEW REQ? YES
[2016-09-29 17:34] VITALS: BP 94/52; PULSE 52; TEMP 36.3; Ht 177.8 cm; Wt 74.9 kg
[2016-09-29] MEDS ORDERED: SODIUM CHLORIDE 0.9% 500ML 500 ML IV ONE (18:00)
[2016-09-29] MEDS ORDERED: LEVOFLOXACIN 750MG / D5W IV ONE (18:00)
[2016-09-29] MEDS ORDERED: DAPTOmycin IV 275 MG in SODIUM CHLORIDE 0.9% 50ML 50 ML IV SCH (18:00)
[2016-09-29] MEDS ORDERED: DAPTOmycin IV 300 MG in SODIUM CHLORIDE 0.9% 50ML 50 ML IV SCH (18:00)
--- NOTE | 2016-09-29 18:03 | DIAGNOSTIC IMAGING REPORT ---
BILIARY ULTRASOUND CLINICAL HISTORY: Elevated liver function tests COMPARISON STUDY: CT scan dated 03/18/2013 FINDINGS: The study is performed in a portable fashion. The patient was unresponsive, and therefore not cooperative. The liver measures 15.7 cm in length. 2 hepatic calcifications are visualized. There is a septated hepatic cyst measuring 26 mm. This is present on the prior March 2013 CT scan. Hepatic calcifications are also visualized at that time. No pancreatic masses are visualized. No gallstones are visualized. There is no gallbladder wall thickening. There is no pericholecystic fluid. The common bile duct measured 5 mm. There is no right-sided hydronephrosis. The right kidney demonstrating cortical thinning. There is increased echogenicity consistent with medical renal disease.. IMPRESSION: 1. Septated 26 mm hepatic cyst, unchanged in size from 2013 2. No gallstones identified. No evidence of ductal dilatation. 3. Right renal cortical thinning. Increased right renal cortical echogenicity consistent with medical renal disease Electronically signed by: Travis Ramires M.D. 09/29/2016 6:01 PM Dictated Date/Time: 09/29/2016 5:59 PM
--- NOTE | 2016-09-29 18:09 | Progress Note ---
Progress Note ATTENDING NOTE : 1600 lab reviewed K improved to 5.8 , Cr remains unchanged Lactic acid elevated 2.1 possible due to persisted hypotension , need to rule out sepsis ( rt foot infection -no fever , normal white count ) ordered for IVF NSS 500 ml bolus increase IV NSS 100 ml /hr on Hco3 gtt 50 ml /hr follow lactic acid q 4hrs Abx adjusted to Levaquin /Daptomycin past wound culture 09/16/16 : coag negative staph , Stenotrophomonas ID consulted remains bradycardic , bed side atropine ordered Very poor Prognosis
[2016-09-29] MEDS ORDERED: ATROPINE SO4 1 MG/ML 1ML VIAL IV PRN (18:15)
[2016-09-29] MEDS ORDERED: NURSING VERBAL MED ORDER ONE (18:45)
[2016-09-29] MEDS: SODIUM CHLORIDE 0.9% 1000ML 1,000 ML IV SCH (19:32)
--- NOTE | 2016-09-29 19:47 | Progress Note ---
Progress Note ATTENDING NOTE : D/w Son Mr Herb Cantrell phone # [phone] updated pt's status and possible need for treatment for sepsis /hypotension with ongoing IV fluid resuscitation IV Dopamine gtt if needed which may need transfer to ICU SON ( POA ) is in agreement with above will cont to support pt with IV fluids , correct hyperkalemia if condition decline pt will be transferred to ICU Director Translational and night time seasonal package handler updated pt may need IV Dopamine gtt low dose 5 mcg /kg/min
[2016-09-29 19:48] VITALS: BP 111/60; PULSE 63; TEMP 36.3; O2SAT 96
[2016-09-29] MEDS: PANTOprazole SOD 40 MG TAB PO SCH (20:25)
[2016-09-29] MEDS: FERROUS SULFATE 325 MG TAB PO SCH (20:25)
[2016-09-29] MEDS: HEPARIN SOD 5000 UNIT/0.5 ML CARP SQ SCH (20:37)
[2016-09-29] MEDS ORDERED: PRAVASTATIN SOD 40 MG TAB PO SCH (21:00)
[2016-09-29 21:01] LABS: CREATININE 4.2 mg/dl (0.60-1.40)
[2016-09-29 21:02] LABS: BUN/CREATININE RATIO 15.7 (10-20); CALCIUM 8.9 mg/dl (8.5-10.1); POTASSIUM 5.8 mmol/L (3.5-5.1)
[2016-09-30] VITALS (9 sets, daily range): BP systolic 96–131; BP diastolic 51–68; PULSE 54–60; TEMP 36.4–36.6; O2SAT 92–98
[2016-09-30 00:23] LABS: BUN/CREATININE RATIO 15.3 (10-20); CALCIUM 8.6 mg/dl (8.5-10.1); POTASSIUM 5.6 mmol/L (3.5-5.1)
--- NOTE | 2016-09-30 02:13 | CARDIOLOGY CONSULTATION ---
DATE OF CONSULTATION: 09/29/2016 REFERRING PHYSICIAN: Dr. Yolande Gallagher. REASON FOR CONSULTATION: Bradycardia. HISTORY OF PRESENT ILLNESS: Mr. Cantrell is a complex 86-year-old gentleman who was brought to the Emergency Department by his family. The patient had been seen by his outpatient post doctoral fellow yesterday and found to be significantly bradycardic. His ECG demonstrated junctional bradycardia during that visit. He was recommended transfer to the Emergency Department; however, the patient declined. Outpatient lab testing demonstrated acute renal failure with hyperkalemia. The patient denies any loss of consciousness, chest discomfort or palpitations. He is a poor historian. He has a chronic right foot ulcer which has been present for several months. On admission through the Emergency Department, he was found to have acute renal failure, hyperkalemia as well as intermittent bradycardia. His heart rates have dipped down into the 30s intermittently. During his office visit with Dr. Watt yesterday, the patient voiced his wishes to become a DNR. He declined the possibility of any invasive therapies. There is no family at the bedside currently. The patient's heart rate is currently 50 beats per minute and appears to be in junctional rhythm. Systolic blood pressure currently 94 mmHg. The patient's initial labs listed below including a lactic acid level of 2.1. REVIEW OF SYSTEMS: Unable to obtain accurate review of systems as there is no family at bedside and the patient is a poor historian. PAST MEDICAL HISTORY: 1. Coronary artery disease, status post Cypher stents to the RCA in 2004, total of 5 stents implanted. 2. Multiple other cardiac catheterizations. 3. PCI to the circumflex with a Promus stent October 2011. 4. Residual coronary disease with significant LAD stenosis deemed non-hemodynamically significant with an FFR of 0.91. 5. Ischemic cardiomyopathy, ejection fraction as low as 20% in the past, now 50-54%. 6. Abdominal aortic aneurysm. 7. Paroxysmal atrial fibrillation -- anticoagulation recently discontinued due to recurrent GI bleeds. 8. History of asbestosis. 9. Hypertension. 10. Hyperlipidemia. 11. Mitral regurgitation. 12. Aortic stenosis / regurgitation. 13. Tricuspid regurgitation. 14. Pulmonary hypertension. 15. Diabetes type 2. 16. Hyperkalemia. PAST SURGICAL HISTORY: 1. Catheterization with PCI as noted above. 2. EGD. 3. Exploratory laparotomy. 4. Hemicolectomy. 5. Shoulder avulsion repair. 6. Tonsillectomy. 7. Total knee replacement. FAMILY HISTORY: Negative for premature CAD or sudden cardiac , however, noncontributory given the patient's advanced age. SOCIAL HISTORY: Former tobacco abuse. ALLERGIES: No known drug allergies. CURRENT OUTPATIENT MEDICATIONS: 1. Bactrim-DS 1 tablet twice daily. 2. Hydralazine 10 mg 3 times daily. 3. Pravachol 40 mg daily. 4. Lasix 40 mg Monday, Monday, , Monday and Monday, 20 mg on Wednesdays and Fridays. 5. Synthroid 25 mcg daily. 6. Prilosec 40 mg 2 times daily. 7. Tramadol 50 mg daily. 8. Januvia 50 mg daily. 9. Lisinopril 5 mg daily. 10. Antivert 12.5 mg every 8 hours as needed. 11. Aspirin 81 mg daily. 12. Ferrous sulfate 325 daily. ECG ON ADMISSION: Sinus rhythm with a first-degree AV block, nonspecific intraventricular conduction delay. Repeat ECG performed at 1414 demonstrates junctional bradycardia, heart rate of 39 beats per minute. ECG performed at 1417 demonstrates sinus rhythm with a first-degree AV block. Telemetry currently demonstrates intermittent sinus rhythm with first-degree AV block as well as junctional rhythm. LABORATORY DATA: Lactic acid 2.1. Sodium is 139, potassium is 6.8, chloride is 108, CO2 is 26, BUN is 57, creatinine is 4.3. White blood cell count is 7.72, his hemoglobin is 9.2, his platelet count is 201. Chest x-ray on admission demonstrates small right pleural effusion with right basilar density, trace left pleural effusion, extensive bilateral pleural plaques which are unchanged. Lower extremity wound culture and blood cultures are pending at this time. Urinalysis positive for leukocyte esterase. CURRENT INPATIENT MEDICATIONS: Include Levaquin IV, aspirin 81 mg, Synthroid 25 mcg, subcu heparin, daptomycin IV, ferrous sulfate p.o. twice daily, sodium bicarbonate infusion, insulin sliding scale, normal saline infusion. PHYSICAL EXAMINATION: VITAL SIGNS: Temperature is 36.3 degrees centigrade, pulse 52 beats per minute and regular, respiratory rate is 18 breaths per minute, blood pressure currently 94/52, SaO2 is 93% on 2 liters. GENERAL: Chronically ill, acutely ill. He is in no acute distress. HEENT: His mucous membranes are dry. No scleral icterus. Conjunctivae pink. NECK: Supple. There is no JVD or HJR. No carotid bruit appreciated. HEART: Regular with a normal S1 and S2. There is a 2-3/6 systolic murmur heard best at the cardiac base. LUNGS: Demonstrate diminished breath sounds at the bases. No rhonchi, rales or wheeze. ABDOMEN: Soft and nontender. No rebound or guarding. Normal bowel sounds. EXTREMITIES: Warm and dry, no edema, open wound on the lateral aspect of the right foot fourth toe, multiple healing skin tears of the lower extremities. NEUROLOGIC: Unable to assess, the patient is not cooperative. FINAL IMPRESSION: 1. Junctional bradycardia secondary to electrolyte derangement, hyperkalemia, acidosis, in setting of acute kidney injury. 2. Chronic right lower extremity wound. 3. Acute renal failure. 4. Hypotension secondary to volume depletion, also suspected sepsis related to right lower extremity infection. 5. History of chronic complex coronary artery disease as noted above. 6. History of paroxysmal atrial fibrillation, no longer a Coumadin candidate. 7. Moderate to severe aortic stenosis 8. Overall poor prognosis. PLAN AND RECOMMENDATIONS: Primary focus of acute treatment is to reduce serum potassium and rehydrate the patient. Nephrology input appreciated. Heart rate is stable currently. Recommend low- dose dopamine infusion at 5 mcg/kg/min for heart rate and blood pressure support if needed. Recommend maintain MAP > 65mmHg and HR > 49BPM. The patient previously declined invasive procedures. He is currently a DNR. Continue empiric antibiotics and follow cultures. ID consultation pending. We will continue to follow during hospitalization. KIYA
[2016-09-30] MEDS ORDERED: PIPERACILL/TAZOBAC IV 3.375 GM in DEXTROSE 5% 100ML IV SCH (03:00)
[2016-09-30 04:16] LABS: HEMATOCRIT 25.9 % (42-52); MEAN CELL VOLUME 98.5 fL (80-100); MEAN CORPUSCULAR HEMOGLOBIN 32.7 pg (25-34); MEAN CORPUSCULAR HGB CONC 33.2 g/dl (32-36); MEAN PLATELET VOLUME 10.7 fL (7.4-10.4); PLATELET COUNT 169 K/uL (130-400); RED BLOOD COUNT 2.63 M/uL (4.7-6.1); WHITE BLOOD COUNT 6.91 K/uL (4.8-10.8)
[2016-09-30 04:34] LABS: BUN/CREATININE RATIO 15.6 (10-20); CALCIUM 8.5 mg/dl (8.5-10.1); CREATININE 3.8 mg/dl (0.60-1.40); MAGNESIUM 2.6 mg/dl (1.8-2.4); POTASSIUM 5.3 mmol/L (3.5-5.1)
[2016-09-30] MEDS: LEVOTHYROXINE 25 MCG TAB PO SCH (06:04)
[2016-09-30] MEDS: SODIUM CHLORIDE 0.9% 1000ML 1,000 ML IV SCH ×2 (06:04→13:09)
[2016-09-30 07:06] LABS: ESTIMATED AVERAGE GLUCOSE 111 mg/dl; HA1C FLAG Normal (Normal)
[2016-09-30] MEDS: INSULIN HUMAN REGULAR SC SCH ×4 (07:40→20:22)
[2016-09-30] MEDS: DOCUSATE SODIUM/SENNA 50/8.6MG TAB PO PRN (07:41)
[2016-09-30] MEDS: ASPIRIN 81 MG ECTAB PO SCH (07:41)
[2016-09-30] MEDS: FERROUS SULFATE 325 MG TAB PO SCH ×2 (07:42→20:27)
[2016-09-30] MEDS: PANTOprazole SOD 40 MG TAB PO SCH (07:42)
[2016-09-30] MEDS: MULTIVITAMIN TAB PO SCH (07:42)
[2016-09-30] MEDS: HEPARIN SOD 5000 UNIT/0.5 ML CARP SQ SCH ×2 (07:46→20:27)
--- NOTE | 2016-09-30 08:40 | Clinical Documentation Query ---
Dr. [facility] : CLINICAL DOCUMENTATION QUERY Patient is an 86 year old male admitted with bradycardia in the setting of JO and hyperkalemia. Patient has recieved multiple IVF boluses (in both ED and in telemetry) and initial lactic acid on ED arrival was elevated. Antibiotics were adjusted to Levaquin and Daptomycin. Consideration of dopamine infusion and ICU transfer was entertained. Infectious disease consultation pending. Additionally, documentation includes "right foot ulcer", not otherwise specified. Wound clinic documentation from 09/23/16 characterizes this wound as "Salazar grade 2 diabetic foot ulcer,...,". Please clarify as clinically appropriate. Thank you. In your clinical opinion is this patient being managed for: (X ) (Likely/suspected ) Early sepsis due to staphylococcal infection of right lateral foot Salazar grade 2 diabetic foot ulcer ( ) Other explanation of clinical findings (Please Explain) ( ) Unable to determine (Please Define) ( ) Need to Discuss ( ) Not Agree The medical record reflects the following clinical findings, treatment, and risk factors. Clinical Indicators: As above Treatment: Serial labs, IVF, IV boluses, IV antibiotics, cultures Risk Factors: Age, DM type 2, known ulceration of right lateral foot. Please clarify and document your clinical opinion in the progress notes and discharge summary. Terms such as "probable", "suspected", "likely", "questionable", "possible", or "still to be ruled out" are acceptable. IF IN AGREEMENT, YOU MUST DOCUMENT ABOVE DIAGNOSTIC STATEMENT IN DAILY PROGRESS NOTES AND DISCHARGE SUMMARY. This document is not part of the patient's record. Thank You, Jesus Granados, ALBINO [phone]
--- NOTE | 2016-09-30 08:50 | NEPHROLOGY CONSULTATION ---
DATE OF CONSULTATION: 09/30/2016 ATTENDING OF RECORD: Dr. Gallagher. REASON FOR CONSULTATION: Hyperkalemia and JO. HISTORY OF PRESENT ILLNESS: This is an 86-year-old male who was last seen by my partner, Dr. Sole Cook in 2013. At that time, the patient had CKD stage III with microalbuminuria with diabetes since 2004, hypertension since 2004, heart disease x13 stents, AFib requiring cardioversion in 2012 on Coumadin at that time, history of AAA, history of gout, history of a perforated colon as well as calcium stones. He was living at [facility] at that time and moved here from [place] in September 2012 and was essentially wheelchair bound in 2013 and used Naprosyn on a daily basis from [phone]. The patient's creatinine at that time was around 1.8 and he is trying to control the blood pressure and diabetes as well as possible as well as control the significant edema and try to prevent future calcium kidney stones. However, the patient did not come back for any further followup visits. During this admission, the patient came in with shortness of breath, weakness and confusion, having fallen multiple times. The patient lives independently with a friend, was having generalized weakness and worsening shortness of breath and decreased appetite. The patient was having noted bradycardia with meds recently adjusted in August 2016. There is recommendation for a pacemaker; however, by cardiology who spoke to him last night-the patient does not want any aggressive measures including dialysis and/or a pacemaker. The patient continues to have decreased appetite. The patient on presentation was bradycardic, hypotensive with potassium level 6.8 and a creatinine of 4.3 with a junctional rhythm and pacemaker pads were placed, medications were given to help lower the potassium and as well as raise the blood pressure. Blood pressure is now up to 104/61 with a junctional rhythm in the 50s. The patient is awake and talking and eating breakfast, answering questions appropriately and overall looks remarkably better now compared to admission. PAST MEDICAL HISTORY: AAA, atrial fibrillation, hypertension, history of a stroke in the past and CKD stage III with baseline creatinine in the 2s, coronary artery disease with 13 stents in the past per patient. Per previous notes, diabetes, hyperlipidemia. PAST SURGICAL HISTORY: Hemicolectomy, multiple cardiac procedures, tonsillectomy, total knee replacements. FAMILY HISTORY: No renal disease in family. SOCIAL HISTORY: Former smoker, quit in 1959. No alcohol, no drugs. He is and lives with a friend now independently. HOME MEDICATIONS: Significant for Lisinopril 5 mg a day and was on Bactrim 1 tab p.o. twice a day. CURRENT MEDICATIONS: Levaquin 500 mg IV q. 48 hours, aspirin 81 mg a day, multivitamin daily, levothyroxine 25 mcg daily, heparin 5000 units subQ q.12, iron 325 mg p.o. b.i.d., Protonix 40 mg p.o. b.i.d., daptomycin 275 mg IV q. 48 hours, D5W with 150 mEq with bicarbonate at 50 mL an hour. REVIEW OF SYSTEMS: Positive fatigue. Positive decreased appetite. Positive shortness of breath with exertion. Positive falls. Positive ambulatory dysfunction. No nausea, vomiting, no chest pain. No rash or itching. No vision abnormalities. No difficulty swallowing. No diarrhea or constipation. All other review of systems otherwise negative. PHYSICAL EXAMINATION: VITAL SIGNS: Temperature 36.5, pulse 54, respiratory rate is 21, blood pressure is 104/61, and satting 92% on 2 liters. GENERAL: Awake, alert, oriented x3, much improved compared to admission. EYES: No scleral icterus. HEENT: Moist mucous membranes. NECK: Supple. PULMONARY: Decreased breath sounds at the bases. CARDIAC: Irregularly irregular and bradycardic. ABDOMEN: Bowel sounds positive, soft, nontender. EXTREMITIES: No clubbing, cyanosis or edema. NEUROLOGIC: Nonfocal. DERMATOLOGIC: No rash or ulcers noted. LABORATORY AND IMAGING DATA: Sodium is 144, potassium is 5.3, chloride is 108, bicarb is 26, BUN is 59, creatinine is 3.8, glucose 125. Latest lactic acid 1, on admission was 2.1. Magnesium level is elevated at 2.6, albumin is 2.5. White count 6.9, H\T\H 8.6 and 25.9, platelet count is 169. UA shows trace leukocyte esterase, 10-30 hyalines, 20-30 epithelials. INR is 1.1. Cultures are pending. Liver ultrasound showed a septated hepatic cyst unchanged from 2013. No gallstones as well as right renal cortical thinning, increased right renal cortical echogenicity consistent with medical renal disease. Chest x-ray shows extensive bilateral pleural plaques, trace left pleural effusion, small right pleural effusion. IMPRESSION: 1. Acute kidney injury on chronic kidney disease stage IV with a baseline creatinine around 1.8 to 2 and presents with a creatinine of 4.3 in the setting of hypotension and bradycardia. Likely acute kidney injury secondary to hemodynamic profusion abnormalities. Trying to raise the blood pressure through hydration. Attempting to improve the bradycardia by improving the hyperkalemia. Cardiology discussed options with the patient and patient currently does not want aggressive measures, i.e., no pacemaker, no dialysis. No indication for emergent dialysis at this time. We would continue the current IV fluids. Urine output is good. Patient with nonoliguric Acute kidney injury from hemodynamic profusion abnormalities with a blood pressure that is improving, kidney function that is also improving, and as a result, potassium levels should also improve as well. 2. Hyperkalemia. The patient is on D5W with 3 amps of bicarbonate and last bicarbonate was 26, up from 21 on presentation. If bicarb levels continue to trend up, we would eventually stop the bicarbonate drip and then switch over to just normal saline. Currently lowering the potassium through calcium, insulin, D50, Kayexalate and bicarbonate. I appreciate consultation. KIYA
[2016-09-30] MEDS ORDERED: SITAGLIPTIN 50 MG PO SCH (09:00)
[2016-09-30 09:14] LABS: BUN/CREATININE RATIO 15.3 (10-20); CALCIUM 8.3 mg/dl (8.5-10.1); CREATININE 3.8 mg/dl (0.60-1.40); MAGNESIUM 2.4 mg/dl (1.8-2.4); POTASSIUM 5.1 mmol/L (3.5-5.1)
--- NOTE | 2016-09-30 10:40 | Progress Note ---
Progress Note ID Consult Dictated #[id number] A/P: 1. Right foot ulcer 2. CKD with JO, likely related to outpt bactrim therapy -Continue IV abx for now, follow wound culture and adjust as needed -Continue local wound care -Suspect increased creat and K+ are secondary to bactrim, withhold additional bactrim -Will follow, thank you
--- NOTE | 2016-09-30 10:55 | INFECT. DISEASE CONSULTATION ---
DATE OF CONSULTATION: 09/30/2016 REQUESTING PHYSICIAN: Dr. Gallagher. HISTORY OF PRESENT ILLNESS: This is an 86-year-old gentleman who was admitted from home after he was found to be increasingly lethargic at home. He did follow up with both his sensitometrist and primary care physician and it was recommended that he be admitted to the hospital. He recently has been treated at the wound care center for right foot ulceration. He does have a wound culture from the 16 of September which grew Stenotrophomonas which was pansensitive and coagulase negative Staph. There were no sensitivities for the coag negative Staph. He was placed on Bactrim by the wound care center sometime ago. He has not been followed by infectious diseases there. He does have a history of chronic kidney disease with a baseline creatinine of 1.8. Upon admission yesterday, he was found to have a remarkably elevated creatinine of 4.3. He was also found to be hyperkalemic with potassium of 6.8. He was bradycardic and found to be in sinus rhythm which was thought to be secondary to his electrolyte abnormalities. He has been treated for his hyperkalemia and today his repeat potassium was 5.1. Today, he states he is feeling significantly better. He denies any chest pain, cough, shortness of breath, nausea, vomiting, diarrhea or abdominal pain. He states his appetite has been stable at home. He does not have any urinary complaints. He states that he did have significant aching in his right foot, but since he has been on antibiotics, this has improved significantly. He does admit to minimal drainage at home, but overall, states this has improved. He has not had any fevers or chills. He is currently on Levaquin and daptomycin. He initially received vancomycin and Zosyn over here. His white blood cell count was normal at 6.9. He does have blood cultures from the ER which are pending. The wound culture from the Emergency Room does have gram positive cocci on Gram stain, but the wound culture is pending at this time. The urinalysis was unremarkable. All remaining review of systems are reviewed and are negative except as noted. PAST MEDICAL HISTORY: Significant for aortic aneurysm, history of asbestosis, AFib, hypertension, vertigo, CVA, chronic kidney disease with a baseline creatinine of 1.8, coronary artery disease, type 2 diabetes, high cholesterol and history of gastric ulcer. PAST SURGICAL HISTORY: Significant for cardiac catheterization, exploratory laparotomy, hemicolectomy, shoulder surgery, tonsillectomy, and knee replacement. FAMILY HISTORY: Noncontributory. SOCIAL HISTORY: Significant for history of tobacco use. He quit in 1959. He denies any alcohol or drug use. He does live with his significant other and denies any sick contacts. ALLERGIES: He has no known drug allergies. CURRENT MEDICATIONS: Include levofloxacin every 48 hours, aspirin, multivitamins, Synthroid, subQ heparin, iron therapy, Protonix, daptomycin, sodium bicarbonate, insulin, Senokot, Ultram, Antivert, MiraLax, Tylenol, Zofran. PHYSICAL EXAMINATION: VITAL SIGNS: He is afebrile, pulse 57, respiratory rate is 27, blood pressure is 122/68, and oxygen saturation is 98% on 2 liters nasal cannula. GENERAL: He is awake, alert and oriented x3. On my exam, he is in no acute distress. HEENT: Mucous membranes are moist. HEART: Regular with systolic ejection murmur. LUNGS: Clear bilaterally. ABDOMEN: Soft, nontender, and nondistended. EXTREMITIES: There is no lower extremity edema. There is a superficial scabbing of the left lower extremity and examination of the right foot does reveal 2 x 2 cm ulceration at the area of the fifth toe. There is minimal weeping on the dressing; however, I am unable to express any drainage. There is no surrounding warmth, erythema, induration, edema or bleeding. LABORATORY AND IMAGING STUDIES: CBC today reveals a white blood cell count of 6.9, hemoglobin 8.6, hematocrit 25.9, and platelets of 169. Chemistry panel today reveals sodium of 144, potassium 5.1, chloride 107, bicarbonate 24, anion gap 13, BUN 58, creatinine 3.8 down from 4.3 on admission. Glucose is 81. LFTs were elevated on admission with an AST of 101 and an ALT of 86 and this has improved. LFTs done this morning revealed AST down to 74 and ALT is normal at 67. Again, urinalysis is unremarkable with 1-5 WBCs. Blood cultures are pending. Wound culture has moderate gram positive cocci and no white blood cells on Gram stain. Final wound culture is pending. Chest x-ray done in the Emergency Room shows a small increase in the right pleural effusion with no infiltrate. A Liver ultrasound shows no obstruction. ASSESSMENT AND PLAN: Right foot ulceration. He can remain on empiric IV antibiotics for now pending final results. I do suspect that his increasing creatinine as well as his hyperkalemia are likely due to outpatient Bactrim therapy and this should be withheld. Final recommendations will be made based on final culture results. Thank you for this consultation.
--- NOTE | 2016-09-30 11:03 | CARDIOLOGY PROGRESS NOTE ---
DATE: 09/30/2016 DATE: 09/30/2016. SUBJECTIVE: The patient is seen and examined at the bedside more alert today. He has received treatment for his hyperkalemia, hypotension and presumed sepsis. Blood pressure has improved. His heart rate has also improved overnight. Telemetry demonstrates sinus bradycardia with a first degree AV block. His ECG this morning confirms sinus bradycardia with a first degree AV block. Serum potassium this a.m. is 5.1. His blood pressure has now improved into the 120s. He denies any lightheadedness or dizziness. No chest pain or shortness of breath. Chronic right lower extremity wound is dressed and unchanged. ID consult has been obtained. He remains on empiric antibiotics. Blood cultures pending, as well as wound gram stains at this time. MEDICATIONS: Reviewed via EMR. Please see list for details. LABORATORY DATA: Sodium 144, potassium 5.1, chloride is 107, CO2 is 24, BUN is 58, creatinine 3.80. Repeat lactic acid level performed this a.m. is 1.0. Magnesium is 2.4. INR is 1.1. White blood cell count 6.91. His hemoglobin is 8.6. His platelet count is 169. PHYSICAL EXAMINATION: VITAL SIGNS: Temperature is 36.5 degrees centigrade, pulse 57 beats per minute and regular, respiratory rate is 21 breaths per minute, blood pressure 122/68, SAO2 is 98% on 2 liters. GENERAL: Chronically ill, no acute distress. HEAD, EYES, EARS, NOSE, AND THROAT: His mucous membranes are dry. No scleral icterus. Conjunctivae pink. NECK: Supple. There is no JVD or HJR in a supine position. HEART: Regular with a normal S1 and S2. There is a 2-3/6 systolic ejection murmur heard best at the right second intercostal space, although is audible throughout the precordium. LUNGS: Demonstrate diminished breath sounds at the bases. No rhonchi, rales, or wheeze. ABDOMEN: Soft and nontender. No distention. No rebound or guarding. EXTREMITIES: Warm and dry with right lateral foot wound which is dressed currently. NEUROLOGIC EXAMINATION: Demonstrates no focal motor deficit. FINAL IMPRESSION: 1. Complex 86-year-old patient admitted with hypotension, acute renal insufficiency, hyperkalemia, presumed sepsis with lactic acidosis and symptomatic bradycardia. His heart rate has improved with treatment of his underlying metabolic derangement. Blood pressure has also improved this a.m. Telemetry demonstrates sinus bradycardia with first degree AV block. 2. History of chronic complex coronary artery disease. 3. History of paroxysmal atrial fibrillation, however, no longer a long-term anticoagulation candidate. 4. Hisory of modrate to severe aortic stenosis and moderate AI. 5. Diabetes type 2. 6. Hyperkalemia -- resolved. PLAN AND RECOMMENDATIONS: We will continue to monitor telemetry closely for recurrent significant and symptomatic bradycardia. He appears stable in sinus bradycardia with a first degree AV block. There is no overt indication for pacemaker implantation at this time; however, will continue to follow closely and reassess on a daily basis. He has a chronic foot wound that requires attention. Cultures are pending as well at this time. Agree with continued empiric antibiotics. All AV faith blocking agents will be avoided at this time. I will continue to follow closely during hospitalization. The resting 2D transthoracic echo will be performed to assess aortic stenosis well as history of cardiomyopathy. KIYA
--- NOTE | 2016-09-30 16:12 | Progress Note ---
Internal Med Progress Note Date of Service: Sep 30, 2016. Provider Documentation: SUBJECTIVE: Patient is sitting in his bed in no apparent distress. he is confused about time , place but does recognize his son. No SOB & denies any chest pain/pressure. OBJECTIVE: Vital Signs-as noted below Examination General Appearance: WD/WN, no apparent distress, Pt is sitting up in bed with son at bedside; lethargic. Head: normocephalic, atraumatic Eyes: normal inspection, PERRL, EOMI ENT: Ears, Nose , Throat are normal looking. hard of hearing present. Neck: supple, Midline trachea, No JVD. Respiratory/Chest: chest non-tender, lungs clear, normal breath sounds, no respiratory distress, Decreased BS at lung bases. Cardiovascular: Regular rate, Normal S1,S2, a systolic ejection III/ murmur heard best at the right second intercostal space Abdomen/GI: normal bowel sounds, non tender, soft Back: normal inspection Extremities/Musculoskeletal: no calf tenderness, no pedal edema Neurologic/Psych: alert, normal mood/affect, Not well orented. Skin: open wound noted to lateral aspect of R foot and 4th toe; scattered healing skin tears on upper and lower extremities) Lab data as noted below. ASSESSMENT & PLAN: Bradycardia/Junctional Rhythm: HR is gradually improving now. -? sinus node abnormality/electrolyte derangement -EKG: junctional rhythm -Patient refusing intervention with pacemaker at this time but again his mental status is questionable. Son is POA. -Reviewed cardiology consult. Thanks for input. -Continuos monitoring on tele Hyperkalemia: Resolved. K+ 6.8; may be due to worsening renal function -EKG + peaked T waves which are normalizing in AM today. -calcium gluconate, sodium bicarb and dextrose given in ED -give Kayexalate and one dose Lasix now -Reviewed input by Nephrology. Thanks Dr. Leigh. Acute Kidney Injury With CKD Stage III: Baseline creatinine is 1.6; creatinine currently 4.3; likely elevated due to dehydration from decreased PO intake -Holding PO Lasix, hydralazine and lisinopril -continue to monitor with prp and avoid nephrotoxic agents when able History CAD: No acute cardiac issue. -Continue ASA -Patient not on BB due to bradycardia -Patient currently denies chest pain Hypotension: Hypotensive in ED; h/o HTN on lisinopril and hydralazine at home. Gradually improving. -Possibly due to infection; probable 2* wound; CXR no evidence of infection; will check UA -blood cx-pending -Lactic acid is normal -Continue Zosyn, Levaquin and Vanco -Hold Lasix, hydralazine and lisinopril -Cont IVF under close monitoring Right Foot Ulcer: Wound present for 1 month; follows with wound clinic every other week; on Bactrim which has been stopped. -wound cx growing Staph aureus. Will follow sensitivity -MRSA is negative -Continue current antibiotics for now & will change as per sensitivity. -Wound care is following the patient Elevated LFT: Reviewed Liver U/S. No clear etiology. -Holding Statin. Chronic Diastolic Heart Failure: No sign of fluid overload -Recent echo 08/2016 EF 55-60% with mod aortic regurg, mod-severe aortic stenosis and mod pulm hypertension -Holding lasix and hydralazine for now -monitor volume status closely with I&Os and daily weights - Chronic Atrial Fibrillation: EKG + junctional rhythm -Recently taken off metoprolol and amiodarone due to bradycardia -No longer on anticoagulation due to fall risk -Will follow Cardiology recommendations., Well Controlled Diabetes: Recent A1C 5.1 -Holding Januvia -Monitoring BS and cover as per Sliding scale. H/O CVA : Continue Aspirin. Hypothyroidism: Continue levothyroxine Dyslipidemia: Holding statin due to elevated LFTs Dementia: Likely due to Alzheimer. -Started Aricept 5 mg at bedtime. -Use Risperdal as needed for agitation. -Check B12/Folate DVT Prophylaxis: Sq Heparin CODE STATUS: DNR per discussion with patient upon admission Disposition: Pending. PT/OT evaluation in process. Discussed in detail with son who is POA. Vital Signs: Date Time Temp Pulse Resp B/P Pulse Ox O2 Delivery O2 Flow Rate FiO2 09/30/16 15:15 36.4 54 16 120/65 98 2.0 09/30/16 12:00 Nasal Cannula 2.0 09/30/16 12:00 Nasal Cannula 2.0 09/30/16 11:40 36.4 57 20 114/62 94 Nasal Cannula 2.0 09/30/16 08:00 98 Nasal Cannula 2.0 09/30/16 07:56 36.5 57 27 122/68 98 Nasal Cannula 2.0 09/30/16 04:01 36.5 54 21 104/61 92 Nasal Cannula 2.0 09/30/16 04:00 Room Air 09/30/16 00:30 36.6 55 21 96/51 93 Room Air 09/29/16 23:59 Room Air 09/29/16 19:54 Room Air 09/29/16 19:48 36.3 63 19 111/60 96 Nasal Cannula 2.0 09/29/16 17:34 36.3 52 18 94/52 Nasal Cannula 2.0 Lab Results: Results Past 24 Hours Test 09/29/16 16:45 09/29/16 16:58 09/29/16 17:17 09/29/16 20:15 Range/Units Urine Color YELLOW Urine Appearance CLEAR CLEAR Urine pH 6.0 4.5-7.5 Urine Specific [place] 1.015 1.000-1.030 Urine Protein TRACE NEG Urine Glucose (UA) NEG NEG Urine Ketones NEG NEG Urine Occult Blood NEG NEG Urine Nitrite NEG NEG Urine Bilirubin NEG NEG Urine Urobilinogen NEG NEG Urine Leukocyte Esterase TRACE NEG Urine WBC (Auto) 1-5 0-5 /hpf Urine RBC (Auto) 0-4 0-4 /hpf Urine Hyaline Casts (Auto) 10-30 0-5 /lpf Urine Epithelial Cells (Auto) 20-30 0-5 /lpf Urine Bacteria (Auto) NEG NEG Urine Pathogenic Casts 0 /lpf Lactic Acid Level 2.1 1.3 0.4-2.0 mmol/L Bedside Glucose 145 70-99 mg/dl Sodium Level 144 136-145 mmol/L Potassium Level 5.8 3.5-5.1 mmol/L Chloride Level 109 98-107 mmol/L Carbon Dioxide Level 24 21-32 mmol/L Anion Gap 11.0 3-11 mmol/L Blood Urea Nitrogen 66 7-18 mg/dl Creatinine 4.20 0.60-1.40 mg/dl Est Creatinine Clear Calc Drug Dose 12.3 ml/min Estimated GFR () 13.8 Estimated GFR (Non- 11.9 BUN/Creatinine Ratio 15.7 10-20 Random Glucose 97 70-99 mg/dl Calcium Level 8.9 8.5-10.1 mg/dl Test 09/29/16 21:07 09/29/16 23:58 09/30/16 04:06 09/30/16 06:41 Range/Units Bedside Glucose 125 79 70-99 mg/dl Sodium Level 146 144 136-145 mmol/L Potassium Level 5.6 5.3 3.5-5.1 mmol/L Chloride Level 109 108 98-107 mmol/L Carbon Dioxide Level 25 26 21-32 mmol/L Anion Gap 12.0 10.0 3-11 mmol/L Blood Urea Nitrogen 61 59 7-18 mg/dl Creatinine 4.00 3.80 0.60-1.40 mg/dl Est Creatinine Clear Calc Drug Dose 12.9 13.6 ml/min Estimated GFR () 14.6 15.5 Estimated GFR (Non- 12.6 13.4 BUN/Creatinine Ratio 15.3 15.6 10-20 Random Glucose 82 73 70-99 mg/dl Lactic Acid Level 1.3 1.0 0.4-2.0 mmol/L Calcium Level 8.6 8.5 8.5-10.1 mg/dl White Blood Count 6.91 4.8-10.8 K/uL Red Blood Count 2.63 4.7-6.1 M/uL Hemoglobin 8.6 14.0-18.0 g/dL Hematocrit 25.9 42-52 % Mean Corpuscular Volume 98.5 80-100 fL Mean Corpuscular Hemoglobin 32.7 25-34 pg Mean Corpuscular Hemoglobin Concent 33.2 32-36 g/dl RDW Standard Deviation 56.3 36.4-46.3 fL RDW Coefficient of Variation 15.8 11.5-14.5 % Platelet Count 169 130-400 K/uL Mean Platelet Volume 10.7 7.4-10.4 fL Estimated Average Glucose 111 mg/dl Hemoglobin A1c 5.5 4.5-5.6 % Magnesium Level 2.6 1.8-2.4 mg/dl Total Bilirubin 0.3 0.2-1 mg/dl Direct Bilirubin 0.2 0-0.2 mg/dl Aspartate Amino Transf (AST/SGOT) 74 15-37 U/L Alanine Aminotransferase (ALT/SGPT) 67 12-78 U/L Alkaline Phosphatase 187 45-117 U/L Total Protein 5.8 6.4-8.2 gm/dl Albumin 2.5 3.4-5.0 gm/dl Test 09/30/16 08:46 09/30/16 11:41 Range/Units Sodium Level 144 136-145 mmol/L Potassium Level 5.1 3.5-5.1 mmol/L Chloride Level 107 98-107 mmol/L Carbon Dioxide Level 24 21-32 mmol/L Anion Gap 13.0 3-11 mmol/L Blood Urea Nitrogen 58 7-18 mg/dl Creatinine 3.80 0.60-1.40 mg/dl Est Creatinine Clear Calc Drug Dose 14.1 ml/min Estimated GFR () 15.5 Estimated GFR (Non- 13.4 BUN/Creatinine Ratio 15.3 10-20 Random Glucose 81 70-99 mg/dl Calcium Level 8.3 8.5-10.1 mg/dl Magnesium Level 2.4 1.8-2.4 mg/dl Bedside Glucose 87 70-99 mg/dl Microbiology Results 09/29/16 MRSA DNA Surveillance Screen - Final, Complete Specimen Negative for MRSA by DNA Probe
[2016-09-30] MEDS ORDERED: RISPERIDONE 1 MG TAB PO PRN (16:15)
[2016-09-30] MEDS: SODIUM BICARBONATE 8.4% INJ 150 MEQ in DEXTROSE 5% 1000ML 1,000 ML IV SCH (18:42)
[2016-09-30 18:55] LABS: CALCIUM 7.9 mg/dl (8.5-10.1); CREATININE 3.7 mg/dl (0.60-1.40); POTASSIUM 5.2 mmol/L (3.5-5.1)
[2016-09-30] MEDS: DONEPEZIL HCL 5 MG TAB PO SCH (20:28)
[2016-10-01] VITALS (8 sets, daily range): BP systolic 97–133; BP diastolic 57–86; PULSE 52–108; TEMP 36–36.7; O2SAT 92–98
[2016-10-01] MEDS ORDERED: LEVALBUTEROL 0.63MG/3 ML NEB INH ONE (00:47)
[2016-10-01] MEDS ORDERED: LEVALBUTEROL 0.63MG/3 ML NEB INH PRN (01:00)
[2016-10-01] MEDS ORDERED: FUROSEMIDE INJ 80 MG in SYRINGE 0 ML IV STA (01:50)
[2016-10-01] MEDS: LEVOTHYROXINE 25 MCG TAB PO SCH (06:21)
[2016-10-01 06:43] LABS: HEMATOCRIT 28.1 % (42-52); MEAN CELL VOLUME 100.7 fL (80-100); MEAN CORPUSCULAR HGB CONC 32.7 g/dl (32-36); MEAN PLATELET VOLUME 11.3 fL (7.4-10.4); PLATELET COUNT 184 K/uL (130-400); RED BLOOD COUNT 2.79 M/uL (4.7-6.1); WHITE BLOOD COUNT 10.64 K/uL (4.8-10.8)
--- NOTE | 2016-10-01 06:51 | DIAGNOSTIC IMAGING REPORT ---
CHEST ONE VIEW PORTABLE CLINICAL HISTORY: SOB COMPARISON STUDY: 09/29/2016 FINDINGS: The heart is enlarged. There are calcified pleural plaques. There are bilateral pleural effusions right greater than left. Underlying pulmonary vascular congestion is suspected. There are right basilar airspace opacities, likely atelectatic.[ IMPRESSION: Cardiomegaly, bilateral pleural effusions, calcified pleural plaques, and persistent right basilar airspace opacities. Electronically signed by: Travis Ramires M.D. 10/01/2016 6:50 AM Dictated Date/Time: 10/01/2016 6:48 AM
[2016-10-01] MEDS: INSULIN HUMAN REGULAR SC SCH ×4 (07:00→20:14)
[2016-10-01 07:12] LABS: BUN/CREATININE RATIO 14.9 (10-20); CALCIUM 8.3 mg/dl (8.5-10.1); CREATININE 3.5 mg/dl (0.60-1.40); MAGNESIUM 2.5 mg/dl (1.8-2.4); POTASSIUM 4.6 mmol/L (3.5-5.1)
[2016-10-01] MEDS: DOCUSATE SODIUM/SENNA 50/8.6MG TAB PO PRN (08:04)
[2016-10-01] MEDS: FERROUS SULFATE 325 MG TAB PO SCH (08:04)
[2016-10-01] MEDS: MULTIVITAMIN TAB PO SCH (08:05)
[2016-10-01] MEDS: ASPIRIN 81 MG ECTAB PO SCH (08:05)
[2016-10-01] MEDS: PANTOprazole SOD 40 MG TAB PO SCH (08:05)
[2016-10-01] MEDS: HEPARIN SOD 5000 UNIT/0.5 ML CARP SQ SCH ×2 (08:06→20:17)
--- NOTE | 2016-10-01 08:59 | Cardiology Follow-Up ---
Subjective General Date of Service: Oct 01, 2016. Pt evaluation today including: conversation w/ patient, physical exam, chart review, lab review, review of studies, review of inpatient medication list History of Present Illness The patient is a 86 year old male seen in follow up. Heart rate continues to improve. No significant bradycardia on telemetry. Serum K WNL today. ECG demonstrates baseline artifact, probable sinus rhythm with PVC's. Patient offers no complaints. Allergies Coded Allergies: No Known Allergies (Unverified , 09/29/16) Social History Smoking Status: Former Smoker Hx Tobacco Use In Past Year?: No Hx Alcohol Use - Type And Amou: No Hx Substance Use - Type And Am: No Problem List Medical Problems: (1) Bradycardia Status: Acute (2) Bradycardia Status: Acute (3) Bradycardia Status: Acute (4) CHF (congestive heart failure) Status: Acute (5) GI bleed Status: Acute (6) Melena Status: Acute (7) Renal failure Status: Acute (8) Renal failure Status: Acute (9) Respiratory distress Status: Acute (10) SOB (shortness of breath) Status: Acute Review of Systems Respiratory: No cough, No dyspnea at rest, No hemoptysis, No shortness of breath, No wheezing Cardiac: No PND, No chest pain, No edema, No orthopnea, No palpitations Physical Exam Vital Signs Last Vital Signs Documentation Date Time Temp Pulse Resp B/P Pulse Ox O2 Delivery O2 Flow Rate FiO2 10/01/16 07:45 36.5 73 20 133/75 94 Nasal Cannula 2.5 Physical Exam Constitutional: General Apperance: too thin Level of Distress: chronically ill ENMT: normal ENT inspection Neck: supple, trachea midline Lungs: Auscultation: no wheezing, no rales/crackles, no rhonchi Cardiovascular: Heart Auscultation: RRR, normal S1, normal S2, III/ MARITZA Abdomen: Inspection & Palpation: soft, non-distended Extremities: no cyanosis, no edema, ulcers, pertinent finding (RLE chronic wound) Neurologic: Cranial Nerves: grossly intact Assessment and Plan Assessment and Plan IMPRESSION: 1. Complex 86-year-old patient admitted with hypotension, acute renal insufficiency, hyperkalemia, presumed sepsis with lactic acidosis and symptomatic bradycardia. - serum K now WNL - heart rate / rhythm stable 2. History of chronic complex coronary artery disease. 3. History of paroxysmal atrial fibrillation, however, no longer a long-term anticoagulation candidate. 4. Moderate to severe aortic stenosis with moderate aortic regurgitation. 5. Chronic RLE ulcer with +MSSA culture 6. DM-2 PLAN AND RECOMMENDATIONS: 2D echocardiogram. No indication for PPM currently. Avoid AV faith blocking agents. Antibiotics per ID. Continue telemetry monitoring. Repeat ECG in AM. Laboratory Results Last 24 Hours Test 09/30/16 11:41 09/30/16 17:31 09/30/16 18:24 09/30/16 20:07 Bedside Glucose 87 mg/dl 117 mg/dl 94 mg/dl Sodium Level 143 mmol/L Potassium Level 5.2 mmol/L Chloride Level 106 mmol/L Carbon Dioxide Level 24 mmol/L Anion Gap 13.0 mmol/L Blood Urea Nitrogen 55 mg/dl Creatinine 3.70 mg/dl Est Creatinine Clear Calc Drug Dose 14.5 ml/min Estimated GFR () 16.1 Estimated GFR (Non- 13.9 BUN/Creatinine Ratio 15.0 Random Glucose 92 mg/dl Calcium Level 7.9 mg/dl Test 10/01/16 05:55 10/01/16 06:50 White Blood Count 10.64 K/uL Red Blood Count 2.79 M/uL Hemoglobin 9.2 g/dL Hematocrit 28.1 % Mean Corpuscular Volume 100.7 fL Mean Corpuscular Hemoglobin 33.0 pg Mean Corpuscular Hemoglobin Concent 32.7 g/dl RDW Standard Deviation 57.0 fL RDW Coefficient of Variation 15.9 % Platelet Count 184 K/uL Mean Platelet Volume 11.3 fL Sodium Level 140 mmol/L Potassium Level 4.6 mmol/L Chloride Level 104 mmol/L Carbon Dioxide Level 27 mmol/L Anion Gap 9.0 mmol/L Blood Urea Nitrogen 52 mg/dl Creatinine 3.50 mg/dl Est Creatinine Clear Calc Drug Dose 15.4 ml/min Estimated GFR () 17.2 Estimated GFR (Non- 14.8 BUN/Creatinine Ratio 14.9 Random Glucose 104 mg/dl Calcium Level 8.3 mg/dl Magnesium Level 2.5 mg/dl Iron Level 35 mcg/dl Total Iron Binding Capacity 245 mcg/dl Total Bilirubin 0.4 mg/dl Direct Bilirubin 0.2 mg/dl Aspartate Amino Transf (AST/SGOT) 68 U/L Alanine Aminotransferase (ALT/SGPT) 62 U/L Alkaline Phosphatase 195 U/L Total Protein 6.3 gm/dl Albumin 2.7 gm/dl Vitamin B12 Level 852 pg/mL Folate 20.27 ng/mL Bedside Glucose 112 mg/dl
[2016-10-01] MEDS ORDERED: LEVOFLOXACIN 500 MG TAB PO SCH (11:00)
[2016-10-01] MEDS ORDERED: PERFLUTREN LIPID MICROSPHERE (DEFINITY) IV ONE (11:05)
[2016-10-01] MEDS ORDERED: NURSING VERBAL MED ORDER ONE (11:45)
--- NOTE | 2016-10-01 12:46 | ECHOCARDIOGRAM REPORT ---
*NOTICE TO RECEIVING REPUBLICAN AGENCY This information is strictly Confidential and protected under [place] law. [place] law prohibits you from making any further disclosure of this information unless further disclosure is expressly permitted by the written consent of the person to whom it pertains or is authorized by law. A general authorization for the release of medical or other information is not sufficient for this purpose. Hospital accepts no responsibility if the information is made available to any other person, INCLUDING THE PATIENT. Interpretation Summary * Name: KATHARINE GREEN Study Date: 10/01/2016 10:18 AM BP: 133/75 mmHg * [facility] HR: 73 * : 1930 (M/d/yyyy) Gender: Male Height: 70 in * Age: 86 yrs Ethnicity: CA Weight: 168 lb * Performed By: Rajni Cline RDCS * * Reason For Study: MURMURS * BSA: 1.9 m2 * History: MURMURS * The study was technically adequate. * Compared to prior study, there is no significant change. * -- Conclusions -- * Ejection Fraction = 60-65%. * There is mild concentric left ventricular hypertrophy. * The left atrium is mildly dilated. * Moderate to severe valvular aortic stenosis. * Mild to moderate aortic regurgitation. * Calcified mitral apparatus. * There is mild tricuspid regurgitation. * The estimated systolic PAP is 64mmHg. Procedure Details * A complete two-dimensional transthoracic echocardiogram was performed (2D, M-mode, Doppler and color flow Doppler). Left Ventricle * The left ventricle is normal in size. * There is mild concentric left ventricular hypertrophy. * Ejection Fraction = 60-65%. * Left ventricular systolic function is normal. * The left ventricular wall motion is normal. Right Ventricle * The right ventricle is normal size. * The right ventricular systolic function is normal as assessed by tricuspid annular plane systolic excursion (TAPSE) (normal >1.5 cm). Atria * The left atrium is mildly dilated. * Right atrial size is normal. * There is no evidence of atrial septal defect, but resolution does not allow assessment for a patent foramen ovale. Mitral Valve * There is mild mitral annular calcification. * Moderate focal calcification of the anterior mitral valve leaflet. * Calcified mitral apparatus. * There is no mitral valve stenosis. * Significant mitral regurgitation is absent. Tricuspid Valve * The tricuspid valve is normal. * There is no tricuspid stenosis. * There is mild tricuspid regurgitation. * The estimated systolic PAP is 64mmHg. Aortic Valve * The aortic valve is trileaflet. * Moderate to severe valvular aortic stenosis. * Mild to moderate aortic regurgitation. Pulmonic Valve * The pulmonary valve is not well seen, but the Doppler examination is normal without significant regurgitation or stenosis. Great Vessels * The aortic root and proximal ascending aorta are normal sized. Pericardium/Pleural * There is no pericardial effusion. Great Vessels * Dilated IVC with normal inspiratory collapse suggesting RA pressure of 8mmHg. Left Ventricular Diastolic Function * Pulse wave TDI of the anterior and posterior mitral annulas demonstrates abnormal LV relaxation MMode 2D Measurements and Calculations IVSd 1.5 cm IVSs 2.1 cm LVIDd 4.4 cm LVIDs 2.8 cm LVPWd 1.9 cm LVPWs 2.2 cm IVS/LVPW 0.79 FS 36.5 % EDV(Teich) 88.7 ml ESV(Teich) 29.7 ml EF(Teich) 66.5 % EDV(cubed) 86.4 ml ESV(cubed) 22.1 ml EF(cubed) 74.4 % % IVS thick 37.3 % % LVPW thick 15.9 % LV mass(C)d 333.5 grams LV mass(C)dI 172.0 grams/m\S\2 LV mass(C)s 283.0 grams LV mass(C)sI 146.0 grams/m\S\2 SV(Teich) 58.9 ml SI(Teich) 30.4 ml/m\S\2 SV(cubed) 64.3 ml SI(cubed) 33.2 ml/m\S\2 LA dimension 2.7 cm LVOT diam 2.0 cm LVOT area 3.3 cm\S\2 LVAd ap4 27.5 cm\S\2 LVLd ap4 7.8 cm EDV(MOD-sp4) 79.3 ml EDV(sp4-el) 82.5 ml LVAs ap4 14.8 cm\S\2 LVLs ap4 6.8 cm ESV(MOD-sp4) 26.5 ml ESV(sp4-el) 27.2 ml EF(MOD-sp4) 66.5 % EF(sp4-el) 67.1 % LVAd ap2 33.7 cm\S\2 LVLd ap2 8.9 cm EDV(MOD-sp2) 102.3 ml EDV(sp2-el) 108.5 ml LVAs ap2 18.4 cm\S\2 LVLs ap2 6.9 cm ESV(MOD-sp2) 40.8 ml ESV(sp2-el) 42.0 ml EF(MOD-sp2) 60.2 % EF(sp2-el) 61.3 % LVLd %diff 12.6 % EDV(MOD-bp) 96.6 ml LVLs %diff 0.91 % ESV(MOD-bp) 32.7 ml EF(MOD-bp) 66.2 % SV(MOD-sp4) 52.7 ml SI(MOD-sp4) 27.2 ml/m\S\2 SV(MOD-sp2) 61.5 ml SI(MOD-sp2) 31.7 ml/m\S\2 SV(MOD-bp) 63.9 ml SI(MOD-bp) 33.0 ml/m\S\2 SV(sp4-el) 55.4 ml SI(sp4-el) 28.6 ml/m\S\2 SV(sp2-el) 66.5 ml SI(sp2-el) 34.3 ml/m\S\2 Doppler Measurements and Calculations MV E max kei 134.8 cm/sec MV dec time 0.18 sec Ao V2 max 386.9 cm/sec Ao max PG 59.9 mmHg Ao max PG (full) 56.8 mmHg Ao V2 mean 265.3 cm/sec Ao mean PG 31.7 mmHg Ao mean PG (full) 30.2 mmHg Ao V2 VTI 89.7 cm DEVI(I,A) 0.78 cm\S\2 DEVI(I,D) 0.78 cm\S\2 DEVI(V,A) 0.74 cm\S\2 DEVI(V,D) 0.74 cm\S\2 LV V1 max PG 3.1 mmHg LV V1 mean PG 1.5 mmHg LV V1 max 87.8 cm/sec LV V1 mean 57.2 cm/sec LV V1 VTI 21.5 cm SV(LVOT) 70.4 ml SI(LVOT) 36.3 ml/m\S\2 TR max kei 373.8 cm/sec
--- NOTE | 2016-10-01 15:34 | Progress Note ---
Internal Med Progress Note Date of Service: Oct 01, 2016. Provider Documentation: SUBJECTIVE: Patient is lying in his bed in no apparent distress but is sleepy today. Confused about time, place but does recognize his son. No SOB & denies any chest pain/pressure.Son is at bedside. OBJECTIVE: Vital Signs-as noted below Examination General Appearance: WD/WN, no apparent distress, Pt is sitting up in bed with son at bedside; lethargic. Head: normocephalic, atraumatic Eyes: normal inspection, PERRL, EOMI ENT: Ears, Nose , Throat are normal looking. hard of hearing present. Neck: supple, Midline trachea, No JVD. Respiratory/Chest: chest non-tender, lungs clear, normal breath sounds, no respiratory distress, Decreased BS at lung bases. Cardiovascular: Regular rate, Normal S1,S2, a systolic ejection III/ murmur heard best at the right second intercostal space Abdomen/GI: normal bowel sounds, non tender, soft Back: normal inspection Extremities/Musculoskeletal: no calf tenderness, no pedal edema Neurologic/Psych: alert, normal mood/affect, Not well orented. Skin: open wound noted to lateral aspect of R foot and 4th toe; scattered healing skin tears on upper and lower extremities) Lab data as noted below. ASSESSMENT & PLAN: Echocardiogram Ejection Fraction = 60-65%. There is mild concentric left ventricular hypertrophy. The left atrium is mildly dilated. Moderate to severe valvular aortic stenosis. Mild to moderate aortic regurgitation. Calcified mitral apparatus. There is mild tricuspid regurgitation. The estimated systolic PAP is 64mmHg. SOURCE: ULCER ENTR: 09/29/16-[address]: Spenser Ellison M.D. (MEDICAL) SPDESC: FOOT RIGHT Paul Matute , Latrell Lloyd MD Mainali, Roshan, M.D. ORDERED: SURF WND CU/SMR COMMENTS: Has Specimen Been Obtained/Collected? Y Procedure Result Verified Site GRAM STAIN Final 09/30/16 RESULT MODERATE GRAM POSITIVE COCCI NO WBCs SEEN SURFACE WOUND CULTURE Preliminary 10/01/16 Organism 1 STAPHYLOCOCCUS AUREUS QUANITY MANY SENS SENSITIVITY TO FOLLOW +MIXWOUND PLUS HIGH COUNTS OF PROBABLE SKIN JENNY Organism 2 GRAM NEGATIVE BACILLI QUANITY MODERATE SENS SENSITIVITY TO FOLLOW 1. STAPHYLOCOCCUS AUREUS Target Route Dose RX AB Cost M.I.C. IQ ------ ----- ------ -- ------ -------- - ------ TRIMET/SULFA S <=0.5/ 9.5 * OXACILLIN S 0.5 VANCOMYCIN S 1 ERYTHROMYCIN S <=0.5 TETRACYCLINE S <=4 CLINDAMYCIN S <=0.5 DAPTOMYCIN S <=0.5 S = SENSITIVE I = INTERMEDIATE R = RESISTANT Bradycardia/Junctional Rhythm: HR is gradually improving now. -? sinus node abnormality/electrolyte derangement -EKG: junctional rhythm -Patient refusing intervention with pacemaker at this time but again his mental status is questionable. Son is POA. -Reviewed cardiology consult. Thanks for input. -Continuos monitoring on tele -Reviewed Echocardiogram Hyperkalemia: Resolved. K+ 6.8 on admission; may be due to worsening renal function -EKG + peaked T waves which are normalizing in AM today. -calcium gluconate, sodium bicarb and dextrose given in ED -give Kayexalate and one dose Lasix now -Reviewed input by Nephrology. Thanks Dr. Leigh. Acute Kidney Injury With CKD Stage III: Baseline creatinine is 1.6; creatinine currently 3.5; likely elevated due to dehydration from decreased PO intake -Holding PO Lasix, hydralazine and lisinopril -continue to monitor with prp and avoid nephrotoxic agents when able History CAD: No acute cardiac issue. -Continue ASA -Patient not on BB due to bradycardia -Patient currently denies chest pain Hypotension: Hypotensive in ED; h/o HTN on lisinopril and hydralazine at home. Gradually improving. -Possibly due to infection; probable 2* wound; CXR no evidence of infection; will check UA -blood cx-pending -Lactic acid is normal -Continue Zosyn, Levaquin and Vanco -Hold Lasix, hydralazine and lisinopril -Cont IVF under close monitoring Right Foot Ulcer: Wound present for 1 month; follows with wound clinic every other week; on Bactrim which has been stopped. -wound cx growing Staph aureus. Continue Daptomycin (Day # 2) as per sensitivity. D/Cd Levaquin. -MRSA is negative -Continue current antibiotics for now & will change as per sensitivity. -Wound care is following the patient Elevated LFT: Reviewed Liver U/S. No clear etiology. -Holding Statin. Chronic Diastolic Heart Failure: No sign of fluid overload -Recent echo 08/2016 EF 55-60% with mod aortic regurg, mod-severe aortic stenosis and mod pulm hypertension -Holding lasix and hydralazine for now -monitor volume status closely with I&Os and daily weights - Chronic Atrial Fibrillation: EKG + junctional rhythm -Recently taken off metoprolol and amiodarone due to bradycardia -No longer on anticoagulation due to fall risk -Will follow Cardiology recommendations., Well Controlled Diabetes: Recent A1C 5.1 -Holding Januvia -Monitoring BS and cover as per Sliding scale. H/O CVA : Continue Aspirin. Hypothyroidism: Continue levothyroxine Dyslipidemia: Holding statin due to elevated LFTs Dementia: Likely due to Alzheimer. -Started Aricept 5 mg at bedtime. -Use Risperdal as needed for agitation. -B12/Folate are normal. DVT Prophylaxis: Sq Heparin CODE STATUS: DNR per discussion with patient upon admission Disposition: Pending. PT/OT evaluation in process. Discussed in detail with son who is POA. Requested Palliative Care. Vital Signs: Date Time Temp Pulse Resp B/P Pulse Ox O2 Delivery O2 Flow Rate FiO2 10/01/16 12:34 Nasal Cannula 2.0 10/01/16 11:03 36.1 64 16 128/57 97 Nasal Cannula 2.0 1/28/17 08:00 Nasal Cannula 2.0 10/01/16 07:45 36.5 73 20 133/75 94 Nasal Cannula 2.5 10/01/16 04:15 36.5 76 18 97/60 92 Nasal Cannula 2.0 10/01/16 04:00 Nasal Cannula 2.0 10/01/16 01:02 66 18 96 Nasal Cannula 09/30/16 23:59 Nasal Cannula 2.0 09/30/16 23:35 36.6 60 18 118/59 96 Nasal Cannula 09/30/16 20:00 Nasal Cannula 2.0 09/30/16 19:39 36.6 60 16 131/67 95 2.0 09/30/16 16:00 98 Nasal Cannula 2.0 Lab Results: Results Past 24 Hours Test 09/30/16 17:31 09/30/16 18:24 09/30/16 20:07 10/01/16 05:55 Range/Units Bedside Glucose 117 94 70-99 mg/dl Sodium Level 143 140 136-145 mmol/L Potassium Level 5.2 4.6 3.5-5.1 mmol/L Chloride Level 106 104 98-107 mmol/L Carbon Dioxide Level 24 27 21-32 mmol/L Anion Gap 13.0 9.0 3-11 mmol/L Blood Urea Nitrogen 55 52 7-18 mg/dl Creatinine 3.70 3.50 0.60-1.40 mg/dl Est Creatinine Clear Calc Drug Dose 14.5 15.4 ml/min Estimated GFR () 16.1 17.2 Estimated GFR (Non- 13.9 14.8 BUN/Creatinine Ratio 15.0 14.9 10-20 Random Glucose 92 104 70-99 mg/dl Calcium Level 7.9 8.3 8.5-10.1 mg/dl White Blood Count 10.64 4.8-10.8 K/uL Red Blood Count 2.79 4.7-6.1 M/uL Hemoglobin 9.2 14.0-18.0 g/dL Hematocrit 28.1 42-52 % Mean Corpuscular Volume 100.7 80-100 fL Mean Corpuscular Hemoglobin 33.0 25-34 pg Mean Corpuscular Hemoglobin Concent 32.7 32-36 g/dl RDW Standard Deviation 57.0 36.4-46.3 fL RDW Coefficient of Variation 15.9 11.5-14.5 % Platelet Count 184 130-400 K/uL Mean Platelet Volume 11.3 7.4-10.4 fL Magnesium Level 2.5 1.8-2.4 mg/dl Iron Level 35 35-175 mcg/dl Total Iron Binding Capacity 245 250-450 mcg/dl Total Bilirubin 0.4 0.2-1 mg/dl Direct Bilirubin 0.2 0-0.2 mg/dl Aspartate Amino Transf (AST/SGOT) 68 15-37 U/L Alanine Aminotransferase (ALT/SGPT) 62 12-78 U/L Alkaline Phosphatase 195 45-117 U/L Total Protein 6.3 6.4-8.2 gm/dl Albumin 2.7 3.4-5.0 gm/dl Vitamin B12 Level 852 211-911 pg/mL Folate 20.27 >5.38 ng/mL Test 10/01/16 06:50 10/01/16 11:34 Range/Units Bedside Glucose 112 126 70-99 mg/dl
[2016-10-01] MEDS ORDERED: DAPTOmycin IV 300 MG in SODIUM CHLORIDE 0.9% 50ML 50 ML IV SCH (16:00)
[2016-10-01] MEDS: SODIUM FERRIC GLUCONATE IV 125 MG in SODIUM CHLORIDE 0.9% 100ML 100 ML IV SCH (16:45)
[2016-10-01] MEDS ORDERED: LEVOFLOXACIN 500MG / D5W IV SCH (18:00)
[2016-10-01] MEDS: DONEPEZIL HCL 5 MG TAB PO SCH (20:13)
[2016-10-01] MEDS ORDERED: RISPERIDONE 0.5 MG TAB PO PRN (21:00)
[2016-10-02] VITALS (7 sets, daily range): BP systolic 113–126; BP diastolic 52–70; PULSE 52–57; TEMP 36.2–36.8; O2SAT 93–98
[2016-10-02] MEDS: LEVOTHYROXINE 25 MCG TAB PO SCH (05:24)
[2016-10-02 06:17] LABS: HEMATOCRIT 27.6 % (42-52); MEAN CELL VOLUME 98.9 fL (80-100); MEAN CORPUSCULAR HEMOGLOBIN 32.3 pg (25-34); MEAN CORPUSCULAR HGB CONC 32.6 g/dl (32-36); MEAN PLATELET VOLUME 10.9 fL (7.4-10.4); PLATELET COUNT 166 K/uL (130-400); RED BLOOD COUNT 2.79 M/uL (4.7-6.1); WHITE BLOOD COUNT 6.89 K/uL (4.8-10.8)
[2016-10-02 06:42] LABS: BUN/CREATININE RATIO 16.1 (10-20); CALCIUM 8.1 mg/dl (8.5-10.1); CREATININE 3.1 mg/dl (0.60-1.40); MAGNESIUM 2.2 mg/dl (1.8-2.4)
[2016-10-02 06:45] LABS: ALB/GLOB RATIO 0.7 (0.9-2)
[2016-10-02] MEDS: INSULIN HUMAN REGULAR SC SCH ×4 (07:00→19:56)
[2016-10-02] MEDS: MULTIVITAMIN TAB PO SCH (07:20)
[2016-10-02] MEDS: ASPIRIN 81 MG ECTAB PO SCH (07:20)
[2016-10-02] MEDS: PANTOprazole SOD 40 MG TAB PO SCH (07:21)
[2016-10-02] MEDS: HEPARIN SOD 5000 UNIT/0.5 ML CARP SQ SCH ×2 (07:22→20:07)
--- NOTE | 2016-10-02 08:03 | Progress Note ---
Subjective Date of Service: Oct 02, 2016. Subjective wound with mssa and gnr, ID and sensitivities pending. levaquin stopped. remains on dapto, creat slightly improved to 3.10 blood cultures negative, afebrile. no events overnight. Problem List Medical Problems: (1) Bradycardia Status: Acute (2) Bradycardia Status: Acute (3) Bradycardia Status: Acute (4) CHF (congestive heart failure) Status: Acute (5) GI bleed Status: Acute (6) Melena Status: Acute (7) Renal failure Status: Acute (8) Renal failure Status: Acute (9) Respiratory distress Status: Acute (10) SOB (shortness of breath) Status: Acute Objective Vital Signs Date Time Temp Pulse Resp B/P Pulse Ox O2 Delivery O2 Flow Rate FiO2 10/02/16 07:36 36.4 57 18 113/62 96 2.0 10/02/16 04:12 36.4 54 18 113/52 93 Nasal Cannula 3.0 10/02/16 04:00 95 Nasal Cannula 2.0 10/01/16 23:59 Nasal Cannula 2.0 10/01/16 23:48 36.5 52 20 112/58 97 Nasal Cannula 2.0 10/01/16 20:00 95 Nasal Cannula 2.0 10/01/16 19:33 36.3 60 18 117/59 95 Nasal Cannula 2.0 10/01/16 16:08 36.0 55 18 133/76 98 Nasal Cannula 2.0 10/01/16 16:00 Nasal Cannula 2.0 10/01/16 12:34 Nasal Cannula 2.0 10/01/16 11:03 36.1 64 16 128/57 97 Nasal Cannula 2.0 Laboratory Results Last 24 Hours Test 10/01/16 11:34 10/01/16 16:13 10/01/16 20:13 10/02/16 05:30 Bedside Glucose 126 mg/dl 118 mg/dl 93 mg/dl White Blood Count 6.89 K/uL Red Blood Count 2.79 M/uL Hemoglobin 9.0 g/dL Hematocrit 27.6 % Mean Corpuscular Volume 98.9 fL Mean Corpuscular Hemoglobin 32.3 pg Mean Corpuscular Hemoglobin Concent 32.6 g/dl RDW Standard Deviation 56.5 fL RDW Coefficient of Variation 15.8 % Platelet Count 166 K/uL Mean Platelet Volume 10.9 fL Sodium Level 142 mmol/L Potassium Level 5.0 mmol/L Chloride Level 105 mmol/L Carbon Dioxide Level 27 mmol/L Anion Gap 10.0 mmol/L Blood Urea Nitrogen 50 mg/dl Creatinine 3.10 mg/dl Est Creatinine Clear Calc Drug Dose 17.3 ml/min Estimated GFR () 19.9 Estimated GFR (Non- 17.2 BUN/Creatinine Ratio 16.1 Random Glucose 61 mg/dl Calcium Level 8.1 mg/dl Magnesium Level 2.2 mg/dl Total Bilirubin 0.3 mg/dl Aspartate Amino Transf (AST/SGOT) 89 U/L Alanine Aminotransferase (ALT/SGPT) 66 U/L Alkaline Phosphatase 178 U/L Total Protein 5.9 gm/dl Albumin 2.5 gm/dl Globulin 3.4 gm/dl Albumin/Globulin Ratio 0.7 Test 10/02/16 07:01 Bedside Glucose 69 mg/dl Assessment and Plan (1) Foot ulcer Assessment & Plan: will change to ancef and restart levaquin pending ID of gnr , previous wound culture done as outpt grew stenotrophomonas, was previously on bactrim for this. would suggest x ray of foot r/o osteo.
--- NOTE | 2016-10-02 08:19 | DIAGNOSTIC IMAGING REPORT ---
CHEST ONE VIEW PORTABLE HISTORY: Short of breath. Follow up CHF COMPARISON: Chest 10/01/2016. FINDINGS: No pneumothorax. Bilateral calcified pleural plaques are again noted. Small moderate right and trace left pleural effusions are again noted. Right lower lobe airspace opacity remains unchanged. The heart is enlarged. IMPRESSION: No change compared to the prior study. Bilateral pleural effusions and right basilar density persists. Electronically signed by: Jimmy Aaron M.D. 10/02/2016 8:18 AM Dictated Date/Time: 10/02/2016 8:16 AM
[2016-10-02] MEDS: SODIUM FERRIC GLUCONATE IV 125 MG in SODIUM CHLORIDE 0.9% 100ML 100 ML IV SCH (10:07)
--- NOTE | 2016-10-02 10:37 | Cardiology Follow-Up ---
Subjective General Date of Service: Oct 02, 2016. Pt evaluation today including: conversation w/ patient, physical exam, chart review, lab review, review of studies, review of inpatient medication list History of Present Illness The patient is a 86 year old male seen in follow up. Sinus rhythm and sinus bradycardia with 1st degree AVB on telemetry. Patient resting comfortably. Awakens to verbal stimuli. Denies CP or SOB. Creatinine trending downward. Allergies Coded Allergies: No Known Allergies (Unverified , 09/29/16) Social History Smoking Status: Former Smoker Hx Tobacco Use In Past Year?: No Hx Alcohol Use - Type And Amou: No Hx Substance Use - Type And Am: No Problem List Medical Problems: (1) Bradycardia Status: Acute (2) Bradycardia Status: Acute (3) Bradycardia Status: Acute (4) CHF (congestive heart failure) Status: Acute (5) GI bleed Status: Acute (6) Melena Status: Acute (7) Renal failure Status: Acute (8) Renal failure Status: Acute (9) Respiratory distress Status: Acute (10) SOB (shortness of breath) Status: Acute Review of Systems Respiratory: No cough, No dyspnea at rest, No dyspnea on exertion, No hemoptysis, No shortness of breath, No sputum, No wheezing Cardiac: No PND, No chest pain, No claudication, No edema, No orthopnea, No palpitations Physical Exam Vital Signs Last Vital Signs Documentation Date Time Temp Pulse Resp B/P Pulse Ox O2 Delivery O2 Flow Rate FiO2 10/02/16 08:06 Nasal Cannula 2.0 10/02/16 07:36 36.4 57 18 113/62 96 Physical Exam Constitutional: General Apperance: too thin Level of Distress: chronically ill Head: normocephalic, atraumatic ENMT: normal ENT inspection Neck: supple, trachea midline Lungs: Auscultation: no wheezing, no rales/crackles, no rhonchi Cardiovascular: Heart Auscultation: RRR, normal S1, normal S2, III/ MARITZA Abdomen: Inspection & Palpation: soft, non-distended Extremities: no cyanosis, no edema, ulcers, pertinent finding (RLE chronic wound) Neurologic: Cranial Nerves: grossly intact Assessment and Plan Assessment and Plan IMPRESSION: 1. Complex 86-year-old patient admitted with hypotension, acute renal insufficiency, hyperkalemia, presumed sepsis with lactic acidosis and symptomatic bradycardia. - serum K now WNL - heart rate / rhythm stable - SR/SB with 1st degree AVB 2. History of chronic complex coronary artery disease. 3. History of paroxysmal atrial fibrillation, however, no longer a long-term anticoagulation candidate. 4. Moderate to severe aortic stenosis with moderate aortic regurgitation. 5. Chronic RLE ulcer with +MSSA culture 6. DM-2 PLAN AND RECOMMENDATIONS: No indication for PPM currently. Will continue to monitor telemetry. Avoid AV faith blocking agents. Antibiotics per ID. Repeat ECG in AM. Laboratory Results Last 24 Hours Test 10/01/16 11:34 10/01/16 16:13 10/01/16 20:13 10/02/16 05:30 Bedside Glucose 126 mg/dl 118 mg/dl 93 mg/dl White Blood Count 6.89 K/uL Red Blood Count 2.79 M/uL Hemoglobin 9.0 g/dL Hematocrit 27.6 % Mean Corpuscular Volume 98.9 fL Mean Corpuscular Hemoglobin 32.3 pg Mean Corpuscular Hemoglobin Concent 32.6 g/dl RDW Standard Deviation 56.5 fL RDW Coefficient of Variation 15.8 % Platelet Count 166 K/uL Mean Platelet Volume 10.9 fL Sodium Level 142 mmol/L Potassium Level 5.0 mmol/L Chloride Level 105 mmol/L Carbon Dioxide Level 27 mmol/L Anion Gap 10.0 mmol/L Blood Urea Nitrogen 50 mg/dl Creatinine 3.10 mg/dl Est Creatinine Clear Calc Drug Dose 17.3 ml/min Estimated GFR () 19.9 Estimated GFR (Non- 17.2 BUN/Creatinine Ratio 16.1 Random Glucose 61 mg/dl Calcium Level 8.1 mg/dl Magnesium Level 2.2 mg/dl Total Bilirubin 0.3 mg/dl Aspartate Amino Transf (AST/SGOT) 89 U/L Alanine Aminotransferase (ALT/SGPT) 66 U/L Alkaline Phosphatase 178 U/L Total Protein 5.9 gm/dl Albumin 2.5 gm/dl Globulin 3.4 gm/dl Albumin/Globulin Ratio 0.7 Test 10/02/16 07:01 Bedside Glucose 69 mg/dl
[2016-10-02] MEDS: CEFAZOLIN IV 500 MG in DEXTROSE 5% 50ML 50 ML IV SCH ×2 (11:50→19:56)
--- NOTE | 2016-10-02 12:53 | Progress Note ---
Internal Med Progress Note Date of Service: Oct 02, 2016. Provider Documentation: SUBJECTIVE: Patient is lying in his bed in no apparent distress but is sleepy today. Confused about time, place but does recognize his son. Ate his breakfast earlier today. No SOB & denies any chest pain/pressure.Son is at bedside. OBJECTIVE: Vital Signs-as noted below Examination General Appearance: WD/WN, no apparent distress, Pt is sitting up in bed with son at bedside; lethargic. Head: normocephalic, atraumatic Eyes: normal inspection, PERRL, EOMI ENT: Ears, Nose , Throat are normal looking. hard of hearing present. Neck: supple, Midline trachea, No JVD. Respiratory/Chest: chest non-tender, lungs clear, normal breath sounds, no respiratory distress, Decreased BS at lung bases. Cardiovascular: Regular rate, Normal S1,S2, a systolic ejection III/ murmur heard best at the right second intercostal space Abdomen/GI: normal bowel sounds, non tender, soft Back: normal inspection Extremities/Musculoskeletal: no calf tenderness, no pedal edema Neurologic/Psych: alert, normal mood/affect, Not well orented. Skin: open wound noted to lateral aspect of R foot and 4th toe; scattered healing skin tears on upper and lower extremities) Lab data as noted below. ASSESSMENT & PLAN: SOURCE: ULCER ENTR: 09/29/[address]: Spenser Ellison M.D. (MEDICAL) SPDESC: FOOT RIGHT Paul Matute , Latrell Lloyd MD Mainali, Roshan, M.D. ORDERED: SURF WND CU/[facility] COMMENTS: Has Specimen Been Obtained/Collected? Y Procedure Result Verified Site GRAM STAIN Final 09/30/16-820 RESULT MODERATE GRAM POSITIVE COCCI NO WBCs SEEN SURFACE WOUND CULTURE Preliminary 10/01/16-1244 Organism 1 STAPHYLOCOCCUS AUREUS QUANITY MANY SENS SENSITIVITY TO FOLLOW +MIXWOUND PLUS HIGH COUNTS OF PROBABLE SKIN JENNY Organism 2 GRAM NEGATIVE BACILLI QUANITY MODERATE SENS SENSITIVITY TO FOLLOW 1. STAPHYLOCOCCUS AUREUS Target Route Dose RX AB Cost M.I.C. IQ ------ ----- ------ -- ------ -------- - ------ TRIMET/SULFA S <=0.5/ 9.5 * OXACILLIN S 0.5 VANCOMYCIN S 1 ERYTHROMYCIN S <=0.5 TETRACYCLINE S <=4 CLINDAMYCIN S <=0.5 DAPTOMYCIN S <=0.5 S = SENSITIVE I = INTERMEDIATE R = RESISTANT Echocardiogram Ejection Fraction = 60-65%. There is mild concentric left ventricular hypertrophy. The left atrium is mildly dilated. Moderate to severe valvular aortic stenosis. Mild to moderate aortic regurgitation. Calcified mitral apparatus. There is mild tricuspid regurgitation. The estimated systolic PAP is 64mmHg. Bradycardia/Junctional Rhythm: HR is gradually improving now. -? sinus node abnormality/electrolyte derangement -EKG: junctional rhythm -Patient refusing intervention with pacemaker at this time but again his mental status is questionable. Son is POA. -Reviewed cardiology consult. Thanks for input. -Continuos monitoring on tele -Reviewed Echocardiogram Hyperkalemia: Resolved. K+ 6.8 on admission; may be due to worsening renal function -EKG + peaked T waves which are normalizing in AM today. -calcium gluconate, sodium bicarb and dextrose given in ED -give Kayexalate and one dose Lasix now -Reviewed input by Nephrology. Thanks Dr. Leigh. Acute Kidney Injury With CKD Stage III: Baseline creatinine is 1.6; creatinine currently 3.1; likely elevated due to dehydration from decreased PO intake -Holding PO Lasix, hydralazine and lisinopril -continue to monitor with prp and avoid nephrotoxic agents when able History CAD: No acute cardiac issue. -Continue ASA -Patient not on BB due to bradycardia -Patient currently denies chest pain Hypotension: Hypotensive in ED; h/o HTN on lisinopril and hydralazine at home. Gradually improving. -Possibly due to infection; probable 2* wound; CXR no evidence of infection; will check UA -blood cx-pending -Lactic acid is normal -Continue Zosyn, Levaquin and Vanco -Hold Lasix, hydralazine and lisinopril -Cont IVF under close monitoring Right Foot Ulcer: Wound present for 1 month; follows with wound clinic every other week; on Bactrim which has been stopped. -wound cx results reviewed. Off Daptomycin (Day # 2) and is on Ancef and Levaquin as per ID. -MRSA is negative -Continue current antibiotics for now & will change as per sensitivity. -Wound care is following the patient Elevated LFT: Reviewed Liver U/S. No clear etiology. -Holding Statin. Chronic Diastolic Heart Failure: No sign of fluid overload -Recent echo 08/2016 EF 55-60% with mod aortic regurg, mod-severe aortic stenosis and mod pulm hypertension -Holding lasix and hydralazine for now -monitor volume status closely with I&Os and daily weights - Chronic Atrial Fibrillation: EKG + junctional rhythm -Recently taken off metoprolol and amiodarone due to bradycardia -No longer on anticoagulation due to fall risk -Will follow Cardiology recommendations., Well Controlled Diabetes: Recent A1C 5.1 -Holding Januvia -Monitoring BS and cover as per Sliding scale. H/O CVA : Continue Aspirin. Hypothyroidism: Continue levothyroxine Dyslipidemia: Holding statin due to elevated LFTs Dementia: Likely due to Alzheimer. -Started Aricept 5 mg at bedtime. -Use Risperdal as needed for agitation. -B12/Folate are normal. DVT Prophylaxis: Sq Heparin CODE STATUS: DNR per discussion with patient upon admission Disposition: Pending. PT/OT evaluation in process. Discussed in detail with son who is POA. Requested Palliative Care. Vital Signs: Date Time Temp Pulse Resp B/P Pulse Ox O2 Delivery O2 Flow Rate FiO2 10/02/16 12:26 Nasal Cannula 2.0 10/02/16 11:28 36.6 52 18 120/55 94 Room Air 10/02/16 08:06 Nasal Cannula 2.0 10/02/16 07:36 36.4 57 18 113/62 96 2.0 10/02/16 04:12 36.4 54 18 113/52 93 Nasal Cannula 3.0 10/02/16 04:00 95 Nasal Cannula 2.0 10/01/16 23:59 Nasal Cannula 2.0 10/01/16 23:48 36.5 52 20 112/58 97 Nasal Cannula 2.0 10/01/16 20:00 95 Nasal Cannula 2.0 10/01/16 19:33 36.3 60 18 117/59 95 Nasal Cannula 2.0 10/01/16 16:08 36.0 55 18 133/76 98 Nasal Cannula 2.0 10/01/16 16:00 Nasal Cannula 2.0 Lab Results: Results Past 24 Hours Test 10/01/16 16:13 10/01/16 20:13 10/02/16 05:30 10/02/16 07:01 Range/Units Bedside Glucose 118 93 69 70-99 mg/dl White Blood Count 6.89 4.8-10.8 K/uL Red Blood Count 2.79 4.7-6.1 M/uL Hemoglobin 9.0 14.0-18.0 g/dL Hematocrit 27.6 42-52 % Mean Corpuscular Volume 98.9 80-100 fL Mean Corpuscular Hemoglobin 32.3 25-34 pg Mean Corpuscular Hemoglobin Concent 32.6 32-36 g/dl RDW Standard Deviation 56.5 36.4-46.3 fL RDW Coefficient of Variation 15.8 11.5-14.5 % Platelet Count 166 130-400 K/uL Mean Platelet Volume 10.9 7.4-10.4 fL Sodium Level 142 136-145 mmol/L Potassium Level 5.0 3.5-5.1 mmol/L Chloride Level 105 98-107 mmol/L Carbon Dioxide Level 27 21-32 mmol/L Anion Gap 10.0 3-11 mmol/L Blood Urea Nitrogen 50 7-18 mg/dl Creatinine 3.10 0.60-1.40 mg/dl Est Creatinine Clear Calc Drug Dose 17.3 ml/min Estimated GFR () 19.9 Estimated GFR (Non- 17.2 BUN/Creatinine Ratio 16.1 10-20 Random Glucose 61 70-99 mg/dl Calcium Level 8.1 8.5-10.1 mg/dl Magnesium Level 2.2 1.8-2.4 mg/dl Total Bilirubin 0.3 0.2-1 mg/dl Aspartate Amino Transf (AST/SGOT) 89 15-37 U/L Alanine Aminotransferase (ALT/SGPT) 66 12-78 U/L Alkaline Phosphatase 178 45-117 U/L Total Protein 5.9 6.4-8.2 gm/dl Albumin 2.5 3.4-5.0 gm/dl Globulin 3.4 2.5-4.0 gm/dl Albumin/Globulin Ratio 0.7 0.9-2 Test 10/02/16 11:06 Range/Units Bedside Glucose 105 70-99 mg/dl
--- NOTE | 2016-10-02 17:53 | DIAGNOSTIC IMAGING REPORT ---
RIGHT FOOT MIN 3 VIEWS ROUTINE CLINICAL HISTORY: R/O Osteomyelitis Right COMPARISON: None. DISCUSSION: Severe degenerative change of all major osseous structures. Potential erosive changes distal aspect fifth metatarsal, proximal and distal aspect fifth proximal phalanx, with similar but less prominent findings seen at the distal aspect proximal phalanx great toe. Mild generalized soft tissue edema. IMPRESSION: Severe degenerative change throughout all major osseous structures. 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 A component of osteomyelitis at any of the regions noted is possible Electronically signed by: Carlitos Kuhn M.D. 10/02/2016 5:52 PM Dictated Date/Time: 10/02/2016 5:50 PM
[2016-10-02] MEDS: DONEPEZIL HCL 5 MG TAB PO SCH (19:54)
[2016-10-03] VITALS (8 sets, daily range): BP systolic 107–142; BP diastolic 61–71; PULSE 54–57; TEMP 36.4–36.9; O2SAT 90–100
[2016-10-03] MEDS: LEVOTHYROXINE 25 MCG TAB PO SCH (06:00)
[2016-10-03 06:24] LABS: HEMATOCRIT 26.9 % (42-52); MEAN CELL VOLUME 100.4 fL (80-100); MEAN CORPUSCULAR HEMOGLOBIN 32.8 pg (25-34); MEAN CORPUSCULAR HGB CONC 32.7 g/dl (32-36); MEAN PLATELET VOLUME 10.9 fL (7.4-10.4); PLATELET COUNT 159 K/uL (130-400); RED BLOOD COUNT 2.68 M/uL (4.7-6.1); WHITE BLOOD COUNT 6.12 K/uL (4.8-10.8)
[2016-10-03 06:59] LABS: BUN/CREATININE RATIO 15.9 (10-20); CALCIUM 8.3 mg/dl (8.5-10.1); CREATININE 2.9 mg/dl (0.60-1.40); MAGNESIUM 2.3 mg/dl (1.8-2.4); POTASSIUM 5.2 mmol/L (3.5-5.1)
[2016-10-03] MEDS: INSULIN HUMAN REGULAR SC SCH ×4 (07:00→21:18)
[2016-10-03] MEDS: ASPIRIN 81 MG ECTAB PO SCH (08:07)
[2016-10-03] MEDS: DOCUSATE SODIUM/SENNA 50/8.6MG TAB PO PRN (08:07)
[2016-10-03] MEDS: MULTIVITAMIN TAB PO SCH (08:08)
[2016-10-03] MEDS: PANTOprazole SOD 40 MG TAB PO SCH (08:08)
[2016-10-03] MEDS: HEPARIN SOD 5000 UNIT/0.5 ML CARP SQ SCH ×2 (08:11→21:37)
[2016-10-03] MEDS: CEFAZOLIN IV 500 MG in DEXTROSE 5% 50ML 50 ML IV SCH ×2 (08:12→22:06)
[2016-10-03] MEDS: SODIUM FERRIC GLUCONATE IV 125 MG in SODIUM CHLORIDE 0.9% 100ML 100 ML IV SCH (09:00)
--- NOTE | 2016-10-03 09:42 | Cardiology Follow-Up ---
Subjective Subjective Date of Service: Oct 03, 2016. Pt evaluation today including: conversation w/ patient, physical exam, chart review, lab review, review of studies, review of inpatient medication list Additional Details: Pt seen and examined, states that he's feeling well. Cut his lip shaving this morning. Denies cp, sob, palpitations, lightheadedness or dizziness. Tele reviewed: sinus rhythm without arrhythmia or significant pauses/blocks. Problem List Medical Problems: (1) Bradycardia Status: Acute (2) Bradycardia Status: Acute (3) Bradycardia Status: Acute (4) CHF (congestive heart failure) Status: Acute (5) GI bleed Status: Acute (6) Melena Status: Acute (7) Renal failure Status: Acute (8) Renal failure Status: Acute (9) Respiratory distress Status: Acute (10) SOB (shortness of breath) Status: Acute Review of Systems ENT: + problem reported Respiratory: No cough, No dyspnea at rest, No dyspnea on exertion, No hemoptysis, No shortness of breath, No sputum, No wheezing Cardiac: No PND, No chest pain, No claudication, No edema, No orthopnea, No palpitations Objective Vital Signs Last Vital Signs Documentation Date Time Temp Pulse Resp B/P Pulse Ox O2 Delivery O2 Flow Rate FiO2 10/03/16 09:00 Nasal Cannula 2.0 10/03/16 07:23 36.5 55 16 123/63 99 Physical Exam: General Appearance: WD/WN, no apparent distress, + pertinent finding (lip bleeding) Eyes: bilateral eyes EOMI, bilateral eyes PERRL, bilateral eyes normal inspection ENT: normal ENT inspection, hearing grossly normal, pharynx normal Neck: supple, no adenopathy, thyroid normal, no JVD, no carotid bruits, trachea midline Respiratory/Chest: chest non-tender, lungs clear, normal breath sounds, no respiratory distress, no accessory muscle use Cardiovascular: regular rate, rhythm, no edema, no JVD, + systolic murmur Abdomen: normal bowel sounds, non tender, soft Extremities: normal inspection, no pedal edema 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 foot osteomyelitis palliative care consulted agree with this 2. 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 ben improving will sign off, please call with questions or concerns.
--- NOTE | 2016-10-03 10:17 | Progress Note ---
Internal Med Progress Note Date of Service: Oct 03, 2016. Provider Documentation: SUBJECTIVE: Patient is lying in his bed in no apparent distress & is very awake/ alert.Remembers me and knows that he is in hospital. Ate his breakfast earlier today. No SOB & denies any chest pain/pressure. OBJECTIVE: Vital Signs-as noted below Examination General Appearance: WD/WN, no apparent distress, Pt is sitting up in bed with son at bedside; lethargic. Head: normocephalic, atraumatic Eyes: normal inspection, PERRL, EOMI ENT: Ears, Nose , Throat are normal looking. hard of hearing present. Neck: supple, Midline trachea, No JVD. Respiratory/Chest: chest non-tender, lungs clear, normal breath sounds, no respiratory distress, Decreased BS at lung bases. Cardiovascular: Regular rate, Normal S1,S2, a systolic ejection III/ murmur heard best at the right second intercostal space Abdomen/GI: normal bowel sounds, non tender, soft Back: normal inspection Extremities/Musculoskeletal: no calf tenderness, no pedal edema Neurologic/Psych: alert, normal mood/affect, Not well orented. Skin: open wound noted to lateral aspect of R foot and 4th toe; scattered healing skin tears on upper and lower extremities) Lab data as noted below. ASSESSMENT & PLAN: SOURCE: ULCER ENTR: 09/29/[address]: Spenser Ellison M.D. (MEDICAL) SPDESC: FOOT RIGHT Paul Matute , Latrell Lloyd MD Mainali, Roshan, M.D. ORDERED: SURF [facility] COMMENTS: Has Specimen Been Obtained/Collected? Y Procedure Result Verified Site GRAM STAIN Final 09/30/16-820 RESULT MODERATE GRAM POSITIVE COCCI NO WBCs SEEN SURFACE WOUND CULTURE Preliminary 10/01/16-5654 Organism 1 STAPHYLOCOCCUS AUREUS QUANITY MANY SENS SENSITIVITY TO FOLLOW +MIXWOUND PLUS HIGH COUNTS OF PROBABLE SKIN JENNY Organism 2 GRAM NEGATIVE BACILLI QUANITY MODERATE SENS SENSITIVITY TO FOLLOW 1. STAPHYLOCOCCUS AUREUS Target Route Dose RX AB Cost M.I.C. IQ ------ ----- ------ -- ------ -------- - ------ TRIMET/SULFA S <=0.5/ 9.5 * OXACILLIN S 0.5 VANCOMYCIN S 1 ERYTHROMYCIN S <=0.5 TETRACYCLINE S <=4 CLINDAMYCIN S <=0.5 DAPTOMYCIN S <=0.5 S = SENSITIVE I = INTERMEDIATE R = RESISTANT Echocardiogram Ejection Fraction = 60-65%. There is mild concentric left ventricular hypertrophy. The left atrium is mildly dilated. Moderate to severe valvular aortic stenosis. Mild to moderate aortic regurgitation. Calcified mitral apparatus. There is mild tricuspid regurgitation. The estimated systolic PAP is 64mmHg. Bradycardia/Junctional Rhythm: HR is gradually improving now. -? sinus node abnormality/electrolyte derangement -EKG: junctional rhythm -Patient refusing intervention with pacemaker at this time but again his mental status is questionable. Son is POA. -Reviewed cardiology consult. Thanks for input. -Continuos monitoring on tele -Reviewed Echocardiogram Hyperkalemia: Resolved. K+ 6.8 on admission; may be due to worsening renal function -EKG + peaked T waves which are normalizing in AM today. -calcium gluconate, sodium bicarb and dextrose given in ED -give Kayexalate and one dose Lasix now -Reviewed input by Nephrology. Thanks Dr. Leigh. Acute Kidney Injury With CKD Stage III: Baseline creatinine is 1.6; creatinine currently 2.9; likely elevated due to dehydration from decreased PO intake -Holding PO Lasix, hydralazine and lisinopril -continue to monitor with prp and avoid nephrotoxic agents when able History CAD: No acute cardiac issue. -Continue ASA -Patient not on BB due to bradycardia -Patient currently denies chest pain Hypotension: Hypotensive in ED; h/o HTN on lisinopril and hydralazine at home. Gradually improving. -Possibly due to infection; probable 2* wound; CXR no evidence of infection; will check UA -blood cx-pending -Lactic acid is normal -Continue Zosyn, Levaquin and Vanco -Hold Lasix, hydralazine and lisinopril -Cont IVF under close monitoring Right Foot Ulcer: Has Osteomyelitis as per X-Ray. Wound present for 1 month; follows with wound clinic every other week; on Bactrim which has been stopped. -wound cx results reviewed. Off Daptomycin ( 2 days) and is on Ancef and Levaquin as per ID. -MRSA is negative -Continue current antibiotics for now & will change as per sensitivity. -Wound care is following the patient -Requested Orthopedics evaluation Elevated LFT: Reviewed Liver U/S. No clear etiology. -Holding Statin. Chronic Diastolic Heart Failure: No sign of fluid overload -Recent echo 08/2016 EF 55-60% with mod aortic regurg, mod-severe aortic stenosis and mod pulm hypertension -Holding lasix and hydralazine for now -monitor volume status closely with I&Os and daily weights - Chronic Atrial Fibrillation: EKG + junctional rhythm -Recently taken off metoprolol and amiodarone due to bradycardia -No longer on anticoagulation due to fall risk -Will follow Cardiology recommendations., Well Controlled Diabetes: Recent A1C 5.1 -Holding Januvia -Monitoring BS and cover as per Sliding scale. H/O CVA : Continue Aspirin. Hypothyroidism: Continue levothyroxine Dyslipidemia: Holding statin due to elevated LFTs Dementia: Likely due to Alzheimer. -Started Aricept 5 mg at bedtime. -Use Risperdal as needed for agitation. -B12/Folate are normal. DVT Prophylaxis: Sq Heparin CODE STATUS: DNR per discussion with patient upon admission Disposition: Pending. PT/OT evaluation in process. Discussed in detail with son who is POA. Requested Palliative Care at son's request to clarify goals.. Vital Signs: Date Time Temp Pulse Resp B/P Pulse Ox O2 Delivery O2 Flow Rate FiO2 10/03/16 09:00 Nasal Cannula 2.0 10/03/16 07:23 36.5 55 16 123/63 99 Room Air 10/03/16 04:00 36.5 57 18 107/61 94 Nasal Cannula 10/03/16 04:00 95 Nasal Cannula 2.0 10/03/16 00:13 36.9 56 18 113/66 96 Nasal Cannula 2.0 10/02/16 23:59 96 Nasal Cannula 2.0 10/02/16 20:00 Nasal Cannula 2.0 10/02/16 19:19 36.8 54 16 126/62 96 Nasal Cannula 3.0 10/02/16 16:06 Nasal Cannula 2.0 10/02/16 15:24 36.2 53 16 125/70 98 Nasal Cannula 3.0 10/02/16 12:26 Nasal Cannula 2.0 10/02/16 11:28 36.6 52 18 120/55 94 Room Air Lab Results: Results Past 24 Hours Test 10/02/16 11:06 10/02/16 16:42 10/02/16 20:16 10/03/16 05:50 Range/Units Bedside Glucose 105 104 123 70-99 mg/dl White Blood Count 6.12 4.8-10.8 K/uL Red Blood Count 2.68 4.7-6.1 M/uL Hemoglobin 8.8 14.0-18.0 g/dL Hematocrit 26.9 42-52 % Mean Corpuscular Volume 100.4 80-100 fL Mean Corpuscular Hemoglobin 32.8 25-34 pg Mean Corpuscular Hemoglobin Concent 32.7 32-36 g/dl RDW Standard Deviation 57.6 36.4-46.3 fL RDW Coefficient of Variation 15.9 11.5-14.5 % Platelet Count 159 130-400 K/uL Mean Platelet Volume 10.9 7.4-10.4 fL Sodium Level 143 136-145 mmol/L Potassium Level 5.2 3.5-5.1 mmol/L Chloride Level 105 98-107 mmol/L Carbon Dioxide Level 29 21-32 mmol/L Anion Gap 9.0 3-11 mmol/L Blood Urea Nitrogen 46 7-18 mg/dl Creatinine 2.90 0.60-1.40 mg/dl Est Creatinine Clear Calc Drug Dose 18.5 ml/min Estimated GFR () 21.6 Estimated GFR (Non- 18.6 BUN/Creatinine Ratio 15.9 10-20 Random Glucose 72 70-99 mg/dl Calcium Level 8.3 8.5-10.1 mg/dl Magnesium Level 2.3 1.8-2.4 mg/dl Test 10/03/16 07:02 Range/Units Bedside Glucose 81 70-99 mg/dl
[2016-10-03] MEDS ORDERED: GELATIN SPONGE 12-7MM ONE (10:32)
[2016-10-03] MEDS ORDERED: NURSING VERBAL MED ORDER ONE (11:30)
--- NOTE | 2016-10-03 11:41 | Progress Note ---
Subjective Date of Service: Oct 03, 2016. Subjective Pt evaluation today including: conversation w/ patient, conversation w/ family , physical exam, chart review, lab review pt seen in follow up. cut his lip this morning while shaving, now bleeding. no pain. no f/c. tolerating abx. change to ancef and levaquin yesterday. wound culture with mssa and stenotrophomonas. tolerating abx. Foot x ray with possible osteo. creat improving, wbc nml 6.1, blood cultures remain negative. no pain, no n/v/d, eating well. all remaining ros reviewed and are negative. Problem List Medical Problems: (1) Bradycardia Status: Acute (2) Bradycardia Status: Acute (3) Bradycardia Status: Acute (4) CHF (congestive heart failure) Status: Acute (5) GI bleed Status: Acute (6) Melena Status: Acute (7) Renal failure Status: Acute (8) Renal failure Status: Acute (9) Respiratory distress Status: Acute (10) SOB (shortness of breath) Status: Acute Objective Vital Signs Date Time Temp Pulse Resp B/P Pulse Ox O2 Delivery O2 Flow Rate FiO2 10/03/16 09:00 Nasal Cannula 2.0 10/03/16 07:23 36.5 55 16 123/63 99 Room Air 10/03/16 04:00 36.5 57 18 107/61 94 Nasal Cannula 10/03/16 04:00 95 Nasal Cannula 2.0 10/03/16 00:13 36.9 56 18 113/66 96 Nasal Cannula 2.0 10/02/16 23:59 96 Nasal Cannula 2.0 10/02/16 20:00 Nasal Cannula 2.0 10/02/16 19:19 36.8 54 16 126/62 96 Nasal Cannula 3.0 10/02/16 16:06 Nasal Cannula 2.0 10/02/16 15:24 36.2 53 16 125/70 98 Nasal Cannula 3.0 10/02/16 12:26 Nasal Cannula 2.0 Physical Exam General Appearance: WD/WN, no apparent distress Eyes: EOMI Neck: supple Respiratory/Chest: lungs clear Cardiovascular: no edema, + systolic murmur Abdomen: non tender, soft Extremities: no pedal edema Neurologic/Psychiatric: alert, oriented x 3 Laboratory Results Item Value Date Time Gram Stain - Final Complete 09/29/16 1510 Ulcer Foot Right Blood Culture - Preliminary Resulted 09/29/16 1430 Blood NO GROWTH TO DATE. Blood Culture - Preliminary Resulted 09/29/16 1340 Blood NO GROWTH TO DATE. Last 24 Hours Test 10/02/16 16:42 10/02/16 20:16 10/03/16 05:50 10/03/16 07:02 Bedside Glucose 104 mg/dl 123 mg/dl 81 mg/dl White Blood Count 6.12 K/uL Red Blood Count 2.68 M/uL Hemoglobin 8.8 g/dL Hematocrit 26.9 % Mean Corpuscular Volume 100.4 fL Mean Corpuscular Hemoglobin 32.8 pg Mean Corpuscular Hemoglobin Concent 32.7 g/dl RDW Standard Deviation 57.6 fL RDW Coefficient of Variation 15.9 % Platelet Count 159 K/uL Mean Platelet Volume 10.9 fL Sodium Level 143 mmol/L Potassium Level 5.2 mmol/L Chloride Level 105 mmol/L Carbon Dioxide Level 29 mmol/L Anion Gap 9.0 mmol/L Blood Urea Nitrogen 46 mg/dl Creatinine 2.90 mg/dl Est Creatinine Clear Calc Drug Dose 18.5 ml/min Estimated GFR () 21.6 Estimated GFR (Non- 18.6 BUN/Creatinine Ratio 15.9 Random Glucose 72 mg/dl Calcium Level 8.3 mg/dl Magnesium Level 2.3 mg/dl Test 10/03/16 11:07 Bedside Glucose 95 mg/dl Assessment and Plan (1) Foot ulcer Assessment & Plan: would continue abx for now, upon d/c can change to po levaquin and keflex. will continue with wound care post d/c, can follow with ID at wound center as well. would give 30 days and continue follow up as outpt. No contraindication to d/c from ID standpoint when medically clear
[2016-10-03] MEDS ORDERED: LEVOFLOXACIN / D5W 500 MG in PREMIXED IN D5W 100 ML IV SCH (12:00)
[2016-10-03] MEDS ORDERED: GELATIN SPONGE 12-7MM EXT PRN (12:30)
--- NOTE | 2016-10-03 12:33 | ORTHOPEDIC CONSULTATION REPORT ---
DATE OF CONSULTATION: 10/03/2016 CHIEF COMPLAINT: Right foot ulcer with osteomyelitis. HISTORY OF PRESENT ILLNESS: This 86-year-old white male who is seen in room 234 for evaluation of his right foot. The patient has had an ulcer on the lateral aspect of his right foot for approximately a month. He has been treated at the wound care center and is currently receiving dressing changes every 3 days. The patient was admitted through the ED on 09/29/2016 for shortness of breath, abnormal labs, and abnormal cardiac rhythm. He has a known history of chronic renal failure as well as atrial fibrillation. He currently states that his right foot hurts if it is pressed on, otherwise there is no significant discomfort. He denies any fevers or chills. No sweats. The wound was dressed this morning by the wound care nurse. He denies any numbness or tingling. No other ulcerations are reported. PAST MEDICAL HISTORY: Significant for history of abdominal aortic aneurysm, CHF, asbestoses, atrial fibrillation, hypertension, benign paroxysmal positional vertigo, bradyarrhythmia, arteriosclerotic cerebral vascular disease, chronic kidney disease stage III, coronary artery disease, peripheral artery disease, Dieulafoy lesion of stomach, type 2 diabetes, elevated lipids, history of gastric ulcer, and hyperkalemia. PREVIOUS SURGERIES: Cardiac catheterization, esophagogastroduodenoscopy, exploratory laparotomy, hemicolectomy, bilateral knee replacement in 1992, right knee total knee replacement revision [place] [address] Gage, tonsillectomy, and shoulder repair. FAMILY HISTORY: Noncontributory. SOCIAL HISTORY: The patient is . Retired. No tobacco use, no ETOH use. Former smoker. CURRENT MEDICATIONS: Ancef q. 12 hours IV, Levaquin q. 48 hours IV, Risperdal 0.5 mg t.i.d. p.r.n., iron IV daily, Protonix 40 mg p.o. daily, Xopenex inhaler q. 2 hours p.r.n., Aricept 5 mg p.o. at bedtime, aspirin 81 mg p.o. daily, multivitamin daily, Synthroid 25 mcg p.o. daily, regular insulin sliding scale, nitroglycerin 0.4 mg sublingual p.r.n. chest pain, Senokot 1 tablet p.o. daily p.r.n. constipation, tramadol 25 mg p.o. t.i.d. p.r.n., Kenalog 0.5% cream applied b.i.d., meclizine 12.5 mg p.o. q. 8 hours p.r.n., MiraLax powder 17 grams p.o. daily p.r.n., Tylenol 650 mg p.o. q. 4 hours p.r.n., Zofran 4 mg IV q. 6 hours p.r.n., and glucose rescue gel and tablets p.r.n. hypoglycemia. ALLERGIES: NKDA. REVIEW OF SYSTEMS: Significant for above-stated conditions, otherwise unremarkable. PHYSICAL EXAMINATION: GENERAL: Well-developed, well-nourished elderly white male in no acute distress. Sitting in a bed. Alert and oriented. In no acute distress. MUSCULOSKELETAL: Right lower extremity reveals no peripheral edema. He does have chronic venous stasis changes. He has a 15 x 15 mm ulceration present at the lateral aspect of the fifth metatarsal distally. It is at the MTP joint. There is a surrounding area of softened skin approximately 5 mm larger in all directions. Area is tender to touch. There is a stable base in the ulceration. No fluid is expressible. No significant drainage. An Aquacel dressing is in place. Upon removal, the base is stable to probing with a sterile Q-tip. No surrounding warmth or erythema. No edema. Bone is not visible. The patient does have some minor scabbing present on his left anterior deng as well as around his toes. No additional ulcerations are noted. Webspaces are clean. He does have some nail fungus present. Third toe nail is partially broken and fourth toe nail is absent. The patient has no pain with palpation on the plantar surface or dorsal surface of this foot. Motor function of the toes is intact. Ankle function is also intact. NEUROLOGIC: Gross sensation is intact across all aspects of the foot and toes by soft touch. He has some decreased subjective sensation toward the distal portion of his foot, but gross sensation is clearly intact. Peripheral pulses are 2+. Dorsalis pedis and tibialis posterior are clearly palpable. DATA: Radiographic imaging previously obtained shows obvious erosive arthritic changes at the great toe, fourth toe, and fifth MTP joint. Possibility of osteomyelitis was acknowledged. Labs show a normal white count of 6.1 with an H\T\H of 8.8 and 26.9. Coagulation is currently 1.1 INR, glucose currently controlled at 95. Hemoglobin A1c is 5.5, potassium currently elevated at 5.2, BUN and creatinine are both elevated at 46 and 2.9. IMPRESSION: 1. Right foot fifth metatarsal ulceration with likely osteomyelitis of the fifth metatarsal and proximal phalanx of the fifth toe. 2. Diabetes type 2. 3. Chronic renal insufficiency 4. Anemia. PLAN: The patient was educated regarding today's findings. Conservative care measures were discussed. Wound was redressed using the Aquacel. Treatment options were discussed with the patient. He is emphatic that he does not want surgical intervention at this time. Given his comorbidities, it is reasonable to address this with IV antibiotics. Infectious disease has already been involved with his care. He is already on Ancef and Levaquin. It was explained to the patient that he may ultimately require surgical intervention. He again is adamant that he does not want surgery at this time. Ulcer cultures from September 29 were reviewed. He has staph aureus as well as high counts of probable skin valencia and gram negative bacilli. Staph aureus is sensitive to Bactrim, clindamycin, tetracycline, erythromycin, oxacillin, and vancomycin. MRSA culture is negative. The patient will be seen later today by Dr. Hua to confirm his desire for treatment. Continue with wound care nursing evaluation. KIYA
--- NOTE | 2016-10-03 14:40 | Palliative Care Consultation ---
Consultation Date of Consultation: Oct 03, 2016. Requesting Physician: Dr. Kelsey Attending Physician: Dr. Kelsey Reason for Consultation: Goals of care History of Present Illness This 86 year old male patient presented to the ED four days ago with complaints of shortness of breath. History obtained from record and from family. Apparently this patient was recently hospitalized with upper GI bleed at which time he received 4 units of packed RBCs. EGD at that time showed a bleeding gastric ulcer which couldn't be stabilized. Patient was sent to [facility] in [place] where he had a Dieulafoy's lesion clipped. He was discharged on 08/02. He became short of breath on 08/04 which progressed over the next few days. He returned to the hospital on 08/08 with CHF exac and bradycardia per the son, Herb. At that time, patient refused a pacemaker which was recommended by physicians. He was discharged back to his apartment where he has nursing coming in a few times a week. Over the past month, the patient has fallen several times. He lives with his girlfriend who is also elderly and is unable able to help the patient up. The son, Herb, has had to go to patient's house to pick him up off the floor, and the most recent time Herb's had to come as well because the patient was so weak. Recently, he's had progressive weakness and shortness of breath. Was seen on the day of admission by his PCP and popcorn candy maker who both advised patient to come to the emergency room. Here, patient has had a kenia/junctional arrhythmia, had hypotension, increased creatinine of 4.3, and hyperkalemia. Of note, patient was on outpatient Bactrim for a chronic right foot ulcer, which Dr. Mayen (infectious disease) believes could have been causing the increased creatinine and hyperkalemia. Dr. Leigh also following patient for the JO-- patient is non-oliguric and creatinine has been improving. The patient again does not want a pacemaker and does not want any aggressive treatment. With his overall decline recently, palliative care was consulted to assist with goals of care. I met with the patient's son, Herb, and girlfriend, first Liliane. They state that the patient in fact does not want any aggressive or heroic measures and declines a pacemaker. The patient just wants to be at home and be comfortable. However, the patient is too much for Liliane to handle at home with his increased weakness, decreased functional status, and frequent falls. The patient has been adamantly refusing placement or even rehab. I then met with the patient. He confirmed with me that he would not want aggressive medical treatment such as invasive procedures or surgeries, CPR, intubation, feeding tube and most likely would not want dialysis either. He wants to be home and be comfortable. We discussed his medical issues and also safety concerns for home. Patient is willing to go to SNF (preferably [facility]) for rehab and use that time to evaluation if he is going to be able to go home safely. I presented options such as long-term placement at SNF vs. home with hospice if possible. The family will talk about this. I also discussed advance directive issues and encouraged the son, Herb, to look for patient's will so we could go over it and be sure it coincides with patient's wishes. I explained POLST and sent one home with Herb to look over. Past Medical/Surgical History Medical History: CAD Ischemic cardiomyopathy Valvular heart disease Paroxysmal atrial fibrillation- no anticoagulation Bradycardia GI Bleed Asbestos exposure with pleural plaque BPPVertigo CVA Gastric ulcer (Dieulafoy) DM type 2 AAA Surgical History: Knee replacement Tonsillectomy Cardiac catheterization Exploratory laparotomy Hemicolectomy Right shoulder repair Social History Smoking Status: Former Smoker History of Alcohol Use: No Drug Use: none Marital Status: Housing Status: lives with significant other Occupation Status: retired Review of Systems Constitutional: + weakness, No chills, No fever Respiratory: No cough, No dyspnea on exertion (improved), No shortness of breath Cardiac: No chest pain, No edema Abdomen: No nausea, No pain, No vomiting Male : No problem reported Psychiatric: No anxiety Allergies Coded Allergies: No Known Allergies (Unverified , 09/29/16) Medications Current Inpatient Medications Medications (Trade) Dose Ordered Sig/Perla Route Start Time Stop Time Status Last Admin Dose Admin Heparin Sodium (Porcine) (Heparin Sq 5000 Unit/0.5ml) 5,000 unit Q12 SQ 09/29/16 21:00 10/29/16 20:59 10/03/16 08:11 5,000 UNIT Acetaminophen (Tylenol Tab) 650 mg Q4H PRN PO 09/29/16 15:30 10/29/16 15:29 10/02/16 07:25 650 MG Ondansetron HCl (Zofran Inj) 4 mg Q6H PRN IV 09/29/16 15:30 10/29/16 15:29 Insulin Human Regular (novoLIN-R) SLIDING SCALE IF C... ACHS SC 09/29/16 16:00 10/29/16 15:59 Glucose (Glucose 40% Gel) 15-30 GRAMS 15 GRAMS... UD PRN PO 09/29/16 15:30 10/29/16 15:29 Glucose (Glucose Chew Tab) 4-8 Tablets 4 Tabl... UD PRN PO 09/29/16 15:30 10/29/16 15:29 Dextrose (Dextrose 50% 50ML Syringe) 25-50ML OF 50% DW IV FOR... UD PRN IV 09/29/16 15:30 10/29/16 15:29 09/29/16 17:19 50 ML Glucagon (Glucagon Inj) 1 mg UD PRN SQ 09/29/16 15:30 10/29/16 15:29 Aspirin (Ecotrin Tab) 81 mg DAILY PO 09/30/16 09:00 10/30/16 08:59 10/03/16 08:07 81 MG Levothyroxine Sodium (Synthroid Tab) 25 mcg DAILYBB PO 09/30/16 06:00 10/30/16 06:59 10/03/16 06:00 25 MCG Multivitamins (Multivitamin Tab) 1 tab DAILY PO 09/30/16 09:00 10/30/16 08:59 10/03/16 08:08 1 TAB Nitroglycerin (Nitrostat Tab) 0.4 mg UD PRN UT 09/29/16 15:45 10/29/16 15:44 Senna/Docusate Sodium (Senokot S Tab) 1 tab DAILY PRN PO 09/29/16 15:45 10/29/16 15:44 10/03/16 08:07 1 TAB Triamcinolone Acetonide (Kenalog 0.5% Crm) 1 appln BID PRN EXT 09/29/16 15:45 10/29/16 15:44 Meclizine HCl (Antivert Tab) 12.5 mg Q8 PRN PO 09/29/16 15:45 10/29/16 15:44 Polyethylene (Miralax Powder Packet) 17 gm DAILY PRN PO 09/29/16 15:45 10/29/16 15:44 Pantoprazole Sodium (Protonix Tab) 40 mg DAILY PO 10/01/16 09:00 10/31/16 08:59 10/03/16 08:08 40 MG Donepezil HCl (Aricept Tab) 5 mg HS PO 09/30/16 21:00 10/30/16 20:59 10/02/16 19:54 5 MG Levalbuterol (Xopenex 0.63 Mg/ 3 Ml Neb) 0.63 mg Q2H PRN INH 10/01/16 01:00 10/31/16 00:59 Risperidone 0.5 mg 0.5 mg TID PRN PO 10/01/16 21:00 10/31/16 20:59 Ferric Sodium Gluconate 125 mg/ Sodium Chloride 110 ml @ 110 mls/hr DAILY IV 10/01/16 16:00 10/03/16 09:59 10/03/16 09:00 110 MLS/HR Levofloxacin 500 mg/Prmx 100 ml @ 100 mls/hr Q48H IV 10/03/16 12:00 10/13/16 11:59 10/03/16 12:50 100 MLS/HR Cefazolin Sodium/ Dextrose (Ancef Iv/D5 50ml) 52.5 ml @ 100 mls/hr Q12 IV 10/02/16 10:00 10/12/16 09:59 10/03/16 08:12 100 MLS/HR Gelatin (Surgifoam Sponge 12-7MM (SMALL)) 1 ea DAILY PRN EXT 10/03/16 12:30 11/02/16 12:29 Physical Exam Date Time Temp Pulse Resp B/P Pulse Ox O2 Delivery O2 Flow Rate FiO2 10/03/16 12:16 Nasal Cannula 1.0 10/03/16 11:33 36.4 57 16 142/70 99 Room Air 10/03/16 09:00 Nasal Cannula 2.0 10/03/16 07:23 36.5 55 16 123/63 99 Room Air 10/03/16 04:00 36.5 57 18 107/61 94 Nasal Cannula 10/03/16 04:00 95 Nasal Cannula 2.0 10/03/16 00:13 36.9 56 18 113/66 96 Nasal Cannula 2.0 10/02/16 23:59 96 Nasal Cannula 2.0 10/02/16 20:00 Nasal Cannula 2.0 10/02/16 19:19 36.8 54 16 126/62 96 Nasal Cannula 3.0 10/02/16 16:06 Nasal Cannula 2.0 10/02/16 15:24 36.2 53 16 125/70 98 Nasal Cannula 3.0 General Appearance: no apparent distress Neck: no JVD, trachea midline Respiratory: no respiratory distress, no accessory muscle use, + decreased breath sounds, + pertinent finding (2LNC) Cardiovascular: regular rate, rhythm, no edema, + systolic murmur Abdomen: normal bowel sounds, non tender, soft Musculoskeletal: pertinent finding (weakness) Neurologic/Psychiatric: alert, normal mood/affect, oriented x 3 Skin: + pertinent finding (right lateral foot ulcer covered with dressing, C/D/ I) Laboratory Results Last 24 Hours Test 10/02/16 16:42 10/02/16 20:16 10/03/16 05:50 10/03/16 07:02 Bedside Glucose 104 mg/dl 123 mg/dl 81 mg/dl White Blood Count 6.12 K/uL Red Blood Count 2.68 M/uL Hemoglobin 8.8 g/dL Hematocrit 26.9 % Mean Corpuscular Volume 100.4 fL Mean Corpuscular Hemoglobin 32.8 pg Mean Corpuscular Hemoglobin Concent 32.7 g/dl RDW Standard Deviation 57.6 fL RDW Coefficient of Variation 15.9 % Platelet Count 159 K/uL Mean Platelet Volume 10.9 fL Sodium Level 143 mmol/L Potassium Level 5.2 mmol/L Chloride Level 105 mmol/L Carbon Dioxide Level 29 mmol/L Anion Gap 9.0 mmol/L Blood Urea Nitrogen 46 mg/dl Creatinine 2.90 mg/dl Est Creatinine Clear Calc Drug Dose 18.5 ml/min Estimated GFR () 21.6 Estimated GFR (Non- 18.6 BUN/Creatinine Ratio 15.9 Random Glucose 72 mg/dl Calcium Level 8.3 mg/dl Magnesium Level 2.3 mg/dl Test 10/03/16 11:07 Bedside Glucose 95 mg/dl Assessment & Plan Problem list: Weakness, frequent falls at home Decreased PO intake SOB/VENEGAS Bradycardia/junctional rhythm- refuses pacemaker Acute kidney injury Hypotension Right foot ulcer with osteomyelitis Elevated LFT CHF Chronic atrial fibrillation Goals of care (Z51.5) Palliative care plan: After a lengthy discussion between myself, case sealer, patient's son/POCleveland Estevez Tamia, and patient's significant other Liliane, the family and patient are on board with rehab at SNF. Patient prefers [facility]. The patient tells me that his goal is to stay out of the hospital, he ultimately would like to be at home. However, with patient's weakness and falls at home, he understands that this may not be a possibility. We did discuss hospice, but the patient is not ready for that as of yet. We started conversation on patient's wishes as far as medical care, we will continue this tomorrow. For now, continue to give support to patient and family. He remains a DNR/DNI, would not want a feeding tube, and most likely would not want dialysis. He denies any pain or discomfort at this time, his right foot only hurts when it's been touched. Thank you for this consult. I will continue to follow.
--- NOTE | 2016-10-03 18:22 | Nephrology Progress Note ---
Nephrology Progress Note Date of Service: Oct 03, 2016. Subjective seen on rounds this am 0815; concern for osteomyelitis R foot on XR as of this am -- palliative care, ortho, and ID following actively today. pt w/ few complaints this am > ate most breakfast; still dyspneic but stable; no musculoskeletal or chest or abd pain. he had worsenign dyspnea over the weekend adn his bicarb gtt was shut off 10/01 early AM > had a dose of lasix at that time too. Objective Date Time Temp Pulse Resp B/P Pulse Ox O2 Delivery O2 Flow Rate FiO2 10/03/16 16:40 36.5 54 18 117/71 90 Room Air 10/03/16 16:23 36.4 54 16 95 2.0 10/03/16 16:01 95 Room Air 10/03/16 15:45 36.4 54 16 122/64 100 Nasal Cannula 2.0 10/03/16 12:16 Nasal Cannula 1.0 10/03/16 11:33 36.4 57 16 142/70 99 Room Air 10/03/16 09:00 Nasal Cannula 2.0 10/03/16 07:23 36.5 55 16 123/63 99 Room Air 10/03/16 04:00 36.5 57 18 107/61 94 Nasal Cannula 10/03/16 04:00 95 Nasal Cannula 2.0 10/03/16 00:13 36.9 56 18 113/66 96 Nasal Cannula 2.0 10/02/16 23:59 96 Nasal Cannula 2.0 10/02/16 20:00 Nasal Cannula 2.0 10/02/16 19:19 36.8 54 16 126/62 96 Nasal Cannula 3.0 Physical Exam: GENERAL: Awake, interactive, appropriate, sitting in bed EYES: No scleral icterus. HEENT: Moist mucous membranes. NECK: Supple. PULMONARY: minimal air mvt through out with L crackles CARDIAC: RRR in 50s; III/ SM ABDOMEN: Bowel sounds positive, soft, nontender. vargas present EXTREMITIES: No edema. NEUROLOGIC: butler, fluent/slightly delayed speech; ? insight? DERMATOLOGIC: lateral R heel ulcer and L deng wound both dressed Current Inpatient Medications Medications (Trade) Dose Ordered Sig/Perla Route Start Time Stop Time Status Last Admin Dose Admin Heparin Sodium (Porcine) (Heparin Sq 5000 Unit/0.5ml) 5,000 unit Q12 SQ 09/29/16 21:00 10/29/16 20:59 10/03/16 08:11 5,000 UNIT Acetaminophen (Tylenol Tab) 650 mg Q4H PRN PO 09/29/16 15:30 10/29/16 15:29 10/02/16 07:25 650 MG Ondansetron HCl (Zofran Inj) 4 mg Q6H PRN IV 09/29/16 15:30 10/29/16 15:29 Insulin Human Regular (novoLIN-R) SLIDING SCALE IF C... ACHS SC 09/29/16 16:00 10/29/16 15:59 Glucose (Glucose 40% Gel) 15-30 GRAMS 15 GRAMS... UD PRN PO 09/29/16 15:30 10/29/16 15:29 Glucose (Glucose Chew Tab) 4-8 Tablets 4 Tabl... UD PRN PO 09/29/16 15:30 10/29/16 15:29 Dextrose (Dextrose 50% 50ML Syringe) 25-50ML OF 50% DW IV FOR... UD PRN IV 09/29/16 15:30 10/29/16 15:29 09/29/16 17:19 50 ML Glucagon (Glucagon Inj) 1 mg UD PRN SQ 09/29/16 15:30 10/29/16 15:29 Aspirin (Ecotrin Tab) 81 mg DAILY PO 09/30/16 09:00 10/30/16 08:59 10/03/16 08:07 81 MG Levothyroxine Sodium (Synthroid Tab) 25 mcg DAILYBB PO 09/30/16 06:00 10/30/16 06:59 10/03/16 06:00 25 MCG Multivitamins (Multivitamin Tab) 1 tab DAILY PO 09/30/16 09:00 10/30/16 08:59 10/03/16 08:08 1 TAB Nitroglycerin (Nitrostat Tab) 0.4 mg UD PRN UT 09/29/16 15:45 10/29/16 15:44 Senna/Docusate Sodium (Senokot S Tab) 1 tab DAILY PRN PO 09/29/16 15:45 10/29/16 15:44 10/03/16 08:07 1 TAB Triamcinolone Acetonide (Kenalog 0.5% Crm) 1 appln BID PRN EXT 09/29/16 15:45 10/29/16 15:44 Meclizine HCl (Antivert Tab) 12.5 mg Q8 PRN PO 09/29/16 15:45 10/29/16 15:44 Polyethylene (Miralax Powder Packet) 17 gm DAILY PRN PO 09/29/16 15:45 10/29/16 15:44 Pantoprazole Sodium (Protonix Tab) 40 mg DAILY PO 10/01/16 09:00 10/31/16 08:59 10/03/16 08:08 40 MG Donepezil HCl (Aricept Tab) 5 mg HS PO 09/30/16 21:00 10/30/16 20:59 10/02/16 19:54 5 MG Levalbuterol (Xopenex 0.63 Mg/ 3 Ml Neb) 0.63 mg Q2H PRN INH 10/01/16 01:00 10/31/16 00:59 Risperidone 0.5 mg 0.5 mg TID PRN PO 10/01/16 21:00 10/31/16 20:59 Levofloxacin 500 mg/Prmx 100 ml @ 100 mls/hr Q48H IV 10/03/16 12:00 10/13/16 11:59 10/03/16 12:50 100 MLS/HR Cefazolin Sodium/ Dextrose (Ancef Iv/D5 50ml) 52.5 ml @ 100 mls/hr Q12 IV 10/02/16 10:00 10/12/16 09:59 10/03/16 08:12 100 MLS/HR Gelatin (Surgifoam Sponge 12-7MM (SMALL)) 1 ea DAILY PRN EXT 10/03/16 12:30 11/02/16 12:29 Enteral Nutritional Formula (Boost Breeze Nutritional Drink) 1 box BIDM PO 10/03/16 16:45 11/02/16 16:44 Last 24 Hours Test 10/02/16 20:16 10/03/16 05:50 10/03/16 07:02 10/03/16 11:07 Bedside Glucose 123 mg/dl 81 mg/dl 95 mg/dl White Blood Count 6.12 K/uL Red Blood Count 2.68 M/uL Hemoglobin 8.8 g/dL Hematocrit 26.9 % Mean Corpuscular Volume 100.4 fL Mean Corpuscular Hemoglobin 32.8 pg Mean Corpuscular Hemoglobin Concent 32.7 g/dl RDW Standard Deviation 57.6 fL RDW Coefficient of Variation 15.9 % Platelet Count 159 K/uL Mean Platelet Volume 10.9 fL Sodium Level 143 mmol/L Potassium Level 5.2 mmol/L Chloride Level 105 mmol/L Carbon Dioxide Level 29 mmol/L Anion Gap 9.0 mmol/L Blood Urea Nitrogen 46 mg/dl Creatinine 2.90 mg/dl Est Creatinine Clear Calc Drug Dose 18.5 ml/min Estimated GFR () 21.6 Estimated GFR (Non- 18.6 BUN/Creatinine Ratio 15.9 Random Glucose 72 mg/dl Calcium Level 8.3 mg/dl Magnesium Level 2.3 mg/dl Test 10/03/16 16:46 Bedside Glucose 101 mg/dl Assessment & Plan 86 y/o M w/ CKD 3, a fib, AAA, longstanding DM, HTN, CAD admitted 09/29 w/ K 6.8 , creatinine 4.3 and junctional bradycardia after falling multiple times w/ confusion and dyspnea at home. He refused a pacemaker at admission; baseline creatinine mid-high 1's as recently as 07/2016. 1. nonoliguric acute kidney injury on chronic kidney disease stage IV -likely ischemic origin w/ hypotension/bradycardia -pt refuses aggressive interventions including pacemaker, dialysis > palliative care following -IVF off and his renal function continues to improve slowly 2. Hyperkalemia. on a renal diet; high K had resolved but creeping up again > may need to resume low rate of bicarb gtt if continues to climb at least briefly; if dramatic change, may need more intensive medical therapy but no HD -daily bmp 3. Osteomyelitis to be managed w/ abtx; ID, ortho, primary service following
[2016-10-03] MEDS: BOOST BREEZE NUTRITION DRINK 1 BOX PO SCH (18:30)
--- NOTE | 2016-10-03 18:53 | PROGRESS NOTE ---
DATE: 10/03/2016 The patient is seen in conjunction with Brant Simeon. For further details, please refer to his orthopedic consultation of the same date. He and I saw and evaluated the patient and I am in agreement with the treatment plan. The patient is an 86-year-old male admitted to the hospital for declining functional status. He has multiple medical problems including kidney disease, diabetes, AFib, coronary artery disease, hypothyroidism, hypertension, etc. He has been treated for the past 2 months for an ulceration on the lateral aspect of his right foot which he believes came from shoe wear. He is minimally ambulatory. He transfers from bed to chair using a stick and has a motorized wheelchair. [facility] is [facility]. He has been afebrile for the past several days. He has not had an abnormal white blood cell count. He has excellent range of motion of the ankle. There is no Achilles tightness. He can wiggle his toes. He is examined lying in bed. There does not appear to be any obvious foot deformity. He has intact sensation throughout the foot. Capillary refill is less than 2 seconds. I cannot palpate pedal pulses and they are in the process of being Dopplered by the nurse. He has a 1 cm ulceration over the lateral aspect of the right foot in the region of the MTP joint. The lesion goes through the skin and into the subcutaneous tissues. There is some chalky white substance in the base which could be gout. The area is tender. There is no surrounding erythema. There is no notable swelling. There is no drainage. I cannot palpate any exposed bone. Radiographs of the right foot show soft tissue ulceration. There is radiolucency at the fifth metatarsophalangeal joint, but I do not see any distinct bony destruction, although it could be present. There are some marginally erosive changes noted at the IP joint of the fifth toe and also at the big toe. There is no acute fracture noted. There is calcification of his vessels. Examination of the hand reveals severe arthritis. He also reports having history of gout many years ago. IMPRESSION: 1. Right foot fifth metatarsophalangeal joint ulceration. 2. Possible underlying fifth metatarsophalangeal joint osteomyelitis. 3. Diffuse erosive changes possibly consistent with arthritis/gout. PLAN: I discussed my findings with patient. He does have an ulceration. There are some underlying nearby bone changes. There is no clear cut evidence of cellulitis or ongoing infection. It is possible that he has an infection and if so, I discussed with him that a partial fifth ray resection would likely be necessary. It might be possible to temporarily address this with antibiotics. He is not very eager to proceed with surgery and wanted some time to think about it. There is a chance that this is simply a superficial soft tissue ulceration and that he also has some underlying erosive changes related to gout. I have ordered x-rays of his other foot and both of his hands to further evaluate. For now, I think let us monitor, continue the antibiotics. We will likely repeat an x-ray of his foot at some point to see if there are any changes which might be indicative of osteomyelitis. An MRI could also be considered. There is really not much in the surrounding area which would indicate infection. There is no erythema or drainage noted. There is no swelling. Continue treatments in local treatments for the foot and continue treatments in wound care clinic, continue dressings.
--- NOTE | 2016-10-03 20:29 | DIAGNOSTIC IMAGING REPORT ---
RIGHT HAND MIN 3 VIEWS ROUTINE CLINICAL HISTORY: Right hand pain COMPARISON: None. DISCUSSION: The bones are severely osteopenic. No acute fractures are visualized. There are multiple bony erosions. There is joint space narrowing at the level of the proximal mid and distal interphalangeal joints. There is subluxation at the level the proximal interphalangeal joint of the second finger. The bony erosion involving the first metacarpal head demonstrates overhanging margins. While nonspecific, this appearance raises the possibility of gout. IMPRESSION: Osteopenia. Advanced erosive osteoarthropathy. No acute fractures identified. Subluxation at the level the proximal interphalangeal joint of the second finger joint Electronically signed by: Travis Ramires M.D. 10/03/2016 8:28 PM Dictated Date/Time: 10/03/2016 8:26 PM
--- NOTE | 2016-10-03 20:38 | DIAGNOSTIC IMAGING REPORT ---
LEFT FOOT MIN 3 VIEWS ROUTINE CLINICAL HISTORY: Left foot pain COMPARISON: None. DISCUSSION: The bones are osteopenic. There are bony erosive changes involving the first metatarsal head and proximal phalanx of the great toe. There are overhanging margins. While nonspecific, the radiographic findings raise the possibility of gout. There is soft tissue swelling the region of the Achilles tendon. There are vascular calcifications present. There is an old fracture of the fifth metatarsal tarsal neck. IMPRESSION: 1. Bony erosive changes involving the first metatarsal head and proximal phalanx the great toe. While nonspecific the radiographic findings raise the possibility of gout. Electronically signed by: Travis Ramires M.D. 10/03/2016 8:36 PM Dictated Date/Time: 10/03/2016 8:35 PM
--- NOTE | 2016-10-03 20:44 | DIAGNOSTIC IMAGING REPORT ---
LEFT HAND MIN 3 VIEWS ROUTINE CLINICAL HISTORY: Left hand pain. Arthritis. COMPARISON: None. DISCUSSION: There is joint space narrowing at the level of the metacarpal phalangeal joints. There are multiple cystic/lytic changes present. There are destructive changes involving the middle phalanx of the fifth finger. IMPRESSION: 1. Osteopenia. 2. Multiple cystic/lytic foci. 3. While nonspecific, Gout most be considered.. Electronically signed by: Travis Ramires M.D. 10/03/2016 8:43 PM Dictated Date/Time: 10/03/2016 8:38 PM
[2016-10-03] MEDS: DONEPEZIL HCL 5 MG TAB PO SCH (21:30)
[2016-10-04 00:05] VITALS: BP 155/75; PULSE 58; TEMP 36.6; O2SAT 92
[2016-10-04] MEDS: LEVOTHYROXINE 25 MCG TAB PO SCH (05:43)
[2016-10-04 07:07] VITALS: BP 121/64; PULSE 69; TEMP 36.4; O2SAT 90
[2016-10-04] MEDS: ASPIRIN 81 MG ECTAB PO SCH (07:51)
[2016-10-04] MEDS: MULTIVITAMIN TAB PO SCH (07:52)
[2016-10-04] MEDS: BOOST BREEZE NUTRITION DRINK 1 BOX PO SCH ×2 (07:52→09:06)
[2016-10-04] MEDS: PANTOprazole SOD 40 MG TAB PO SCH (07:52)
[2016-10-04 08:17] LABS: BASO % 0.1 %; BASO ABS # 0.01 K/uL (0-0.2); COMPLETE YES; EOS % 1.1 %; HEMATOCRIT 29.6 % (42-52); IG% 0.6 %; LYMPH % 8.5 %; MEAN CELL VOLUME 100.3 fL (80-100); MEAN CORPUSCULAR HEMOGLOBIN 32.5 pg (25-34); MEAN CORPUSCULAR HGB CONC 32.4 g/dl (32-36); MEAN PLATELET VOLUME 10.7 fL (7.4-10.4); MONO % 9.6 %; NEUT % 80.1 %; PLATELET COUNT 174 K/uL (130-400); RED BLOOD COUNT 2.95 M/uL (4.7-6.1); WHITE BLOOD COUNT 7.05 K/uL (4.8-10.8)
[2016-10-04 08:50] LABS: C-REACTIVE PROTEIN 7.01 mg/dl (0-0.29); CALCIUM 8.4 mg/dl (8.5-10.1); CREATININE 2.5 mg/dl (0.60-1.40); POTASSIUM 4.9 mmol/L (3.5-5.1)
[2016-10-04 08:53] LABS: ALB/GLOB RATIO 0.6 (0.9-2)
[2016-10-04] MEDS: INSULIN HUMAN REGULAR SC SCH ×4 (09:05→22:00)
[2016-10-04] MEDS: CEFAZOLIN IV 500 MG in DEXTROSE 5% 50ML 50 ML IV SCH ×2 (09:06→21:23)
[2016-10-04] MEDS: HEPARIN SOD 5000 UNIT/0.5 ML CARP SQ SCH ×2 (09:32→21:13)
[2016-10-04] MEDS ORDERED: DOCUSATE SODIUM 100 MG CAP PO ONE (09:45)
[2016-10-04] MEDS ORDERED: BISACODYL 5 MG TABEC PO ONE (09:45)
[2016-10-04] MEDS ORDERED: BISACODYL 5 MG TABEC PO PRN (09:45)
--- NOTE | 2016-10-04 10:05 | Progress Note ---
Subjective Date of Service: Oct 04, 2016. Subjective Pt evaluation today including: conversation w/ patient, physical exam, lab review, review of studies, review of inpatient medication list Saw/examined the patient in room 457 Doing well today; no complaints Denies chest pain/palpitations Eager to get out of the hospital Problem List Medical Problems: (1) Bradycardia Status: Acute (2) Bradycardia Status: Acute (3) Bradycardia Status: Acute (4) CHF (congestive heart failure) Status: Acute (5) GI bleed Status: Acute (6) Melena Status: Acute (7) Renal failure Status: Acute (8) Renal failure Status: Acute (9) Respiratory distress Status: Acute (10) SOB (shortness of breath) Status: Acute Review of Systems Constitutional: No chills, No fever Respiratory: No cough, No shortness of breath, No sputum Cardiac: No chest pain, No palpitations Abdomen: No diarrhea, No nausea, No pain, No vomiting Medications Current Inpatient Medications Medications (Trade) Dose Ordered Sig/Perla Route Start Time Stop Time Status Last Admin Dose Admin Heparin Sodium (Porcine) (Heparin Sq 5000 Unit/0.5ml) 5,000 unit Q12 SQ 09/29/16 21:00 10/29/16 20:59 10/04/16 09:32 5,000 UNIT Acetaminophen (Tylenol Tab) 650 mg Q4H PRN PO 09/29/16 15:30 10/29/16 15:29 10/02/16 07:25 650 MG Ondansetron HCl (Zofran Inj) 4 mg Q6H PRN IV 09/29/16 15:30 10/29/16 15:29 Insulin Human Regular (novoLIN-R) SLIDING SCALE IF C... ACHS SC 09/29/16 16:00 10/29/16 15:59 Glucose (Glucose 40% Gel) 15-30 GRAMS 15 GRAMS... UD PRN PO 09/29/16 15:30 10/29/16 15:29 Glucose (Glucose Chew Tab) 4-8 Tablets 4 Tabl... UD PRN PO 09/29/16 15:30 10/29/16 15:29 Dextrose (Dextrose 50% 50ML Syringe) 25-50ML OF 50% DW IV FOR... UD PRN IV 09/29/16 15:30 10/29/16 15:29 09/29/16 17:19 50 ML Glucagon (Glucagon Inj) 1 mg UD PRN SQ 09/29/16 15:30 10/29/16 15:29 Aspirin (Ecotrin Tab) 81 mg DAILY PO 09/30/16 09:00 10/30/16 08:59 10/04/16 07:51 81 MG Levothyroxine Sodium (Synthroid Tab) 25 mcg DAILYBB PO 09/30/16 06:00 10/30/16 06:59 10/04/16 05:43 25 MCG Multivitamins (Multivitamin Tab) 1 tab DAILY PO 09/30/16 09:00 10/30/16 08:59 10/04/16 07:52 1 TAB Nitroglycerin (Nitrostat Tab) 0.4 mg UD PRN UT 09/29/16 15:45 10/29/16 15:44 Senna/Docusate Sodium (Senokot S Tab) 1 tab DAILY PRN PO 09/29/16 15:45 10/29/16 15:44 10/03/16 08:07 1 TAB Triamcinolone Acetonide (Kenalog 0.5% Crm) 1 appln BID PRN EXT 09/29/16 15:45 10/29/16 15:44 Meclizine HCl (Antivert Tab) 12.5 mg Q8 PRN PO 09/29/16 15:45 10/29/16 15:44 Polyethylene (Miralax Powder Packet) 17 gm DAILY PRN PO 09/29/16 15:45 10/29/16 15:44 Pantoprazole Sodium (Protonix Tab) 40 mg DAILY PO 10/01/16 09:00 10/31/16 08:59 10/04/16 07:52 40 MG Donepezil HCl (Aricept Tab) 5 mg HS PO 09/30/16 21:00 10/30/16 20:59 10/03/16 21:30 5 MG Levalbuterol (Xopenex 0.63 Mg/ 3 Ml Neb) 0.63 mg Q2H PRN INH 10/01/16 01:00 10/31/16 00:59 Risperidone 0.5 mg 0.5 mg TID PRN PO 10/01/16 21:00 10/31/16 20:59 Levofloxacin 500 mg/Prmx 100 ml @ 100 mls/hr Q48H IV 10/03/16 12:00 10/13/16 11:59 10/03/16 12:50 100 MLS/HR Cefazolin Sodium/ Dextrose (Ancef Iv/D5 50ml) 52.5 ml @ 100 mls/hr Q12 IV 10/02/16 10:00 10/12/16 09:59 10/04/16 09:06 100 MLS/HR Gelatin (Surgifoam Sponge 12-7MM (SMALL)) 1 ea DAILY PRN EXT 10/03/16 12:30 11/02/16 12:29 Enteral Nutritional Formula (Boost Breeze Nutritional Drink) 1 box BIDM PO 10/03/16 16:45 11/02/16 16:44 10/04/16 09:06 1 BOX Objective Vital Signs Date Time Temp Pulse Resp B/P Pulse Ox O2 Delivery O2 Flow Rate FiO2 10/04/16 07:07 36.4 69 18 121/64 90 Room Air 10/04/16 00:05 36.6 58 18 155/75 92 Room Air 10/03/16 19:20 Room Air 10/03/16 16:40 36.5 54 18 117/71 90 Room Air 10/03/16 16:40 Room Air 10/03/16 16:23 36.4 54 16 95 2.0 10/03/16 16:01 95 Room Air 10/03/16 15:45 36.4 54 16 122/64 100 Nasal Cannula 2.0 10/03/16 12:16 Nasal Cannula 1.0 10/03/16 11:33 36.4 57 16 142/70 99 Room Air Physical Exam General Appearance: no apparent distress ENT: + pertinent finding (hard of hearing) Respiratory/Chest: lungs clear, normal breath sounds, no respiratory distress, no accessory muscle use Cardiovascular: regular rate, rhythm, no edema, + systolic murmur (+2/6 ejection murmur) Abdomen: non tender, soft, + abnormal bowel sounds (decreased bowel sounds) Extremities: no pedal edema, + pertinent finding (+open wound; right lateral fifth toe) Laboratory Results Last 24 Hours Test 10/03/16 11:07 10/03/16 16:46 10/03/16 19:49 10/04/16 07:28 Bedside Glucose 95 mg/dl 101 mg/dl 90 mg/dl 80 mg/dl Test 10/04/16 08:10 White Blood Count 7.05 K/uL Red Blood Count 2.95 M/uL Hemoglobin 9.6 g/dL Hematocrit 29.6 % Mean Corpuscular Volume 100.3 fL Mean Corpuscular Hemoglobin 32.5 pg Mean Corpuscular Hemoglobin Concent 32.4 g/dl Platelet Count 174 K/uL Mean Platelet Volume 10.7 fL Neutrophils (%) (Auto) 80.1 % Lymphocytes (%) (Auto) 8.5 % Monocytes (%) (Auto) 9.6 % Eosinophils (%) (Auto) 1.1 % Basophils (%) (Auto) 0.1 % Neutrophils # (Auto) 5.64 K/uL Lymphocytes # (Auto) 0.60 K/uL Monocytes # (Auto) 0.68 K/uL Eosinophils # (Auto) 0.08 K/uL Basophils # (Auto) 0.01 K/uL RDW Standard Deviation 57.7 fL RDW Coefficient of Variation 15.8 % Immature Granulocyte % (Auto) 0.6 % Immature Granulocyte # (Auto) 0.04 K/uL Sodium Level 140 mmol/L Potassium Level 4.9 mmol/L Chloride Level 105 mmol/L Carbon Dioxide Level 25 mmol/L Anion Gap 10.0 mmol/L Blood Urea Nitrogen 40 mg/dl Creatinine 2.50 mg/dl Est Creatinine Clear Calc Drug Dose 21.5 ml/min Estimated GFR () 25.8 Estimated GFR (Non- 22.3 BUN/Creatinine Ratio 16.0 Random Glucose 74 mg/dl Calcium Level 8.4 mg/dl Total Bilirubin 0.5 mg/dl Aspartate Amino Transf (AST/SGOT) 85 U/L Alanine Aminotransferase (ALT/SGPT) 49 U/L Alkaline Phosphatase 224 U/L C-Reactive Protein 7.01 mg/dl Total Protein 6.4 gm/dl Albumin 2.5 gm/dl Globulin 3.9 gm/dl Albumin/Globulin Ratio 0.6 Vitamin B12 Level 926 pg/mL 25-Hydroxy Vitamin D Total 25.9 ng/ml Assessment and Plan This is an 86 year old male with PMH of CAD, valvular heart disease and diastolic CHF, paroxysmal atrial fibrillation, DM2, CKD stage 3, HTN, HLD, hx. of CVA presented with weakness, falls and functional decline Functional Decline Generalized Weakness Presented due to weakness and multiple falls Appreciate palliative care consult for goals of treatment Pt. is DNR status Plan is for SNF at [facility] Put in for PT/OT evaluation Discharge planning eval Bradycardia/Junctional Rhythm HR is gradually improving now. Likely related to acute kidney injury/electrolyte abnormality Appreciate cardiology input No further intervention needed at this time, no indication for pacemaker Hyperkalemia Patient presented with K > 6; was given calcium gluconate, sodium bicarb and dextrose in the ER likely related to acute tubular injury potassium improving - required Kayexalate and Lasix yesterday (10/03) K < 5 today Acute Kidney Injury superimposed on CKD stage 4 baseline creat at 4.3 on presentation slowly improving down to 2.5 this AM (10/04) hold diuretics appreciate nephrology input Right Foot Ulceration Right Foot X-Ray 1. Right foot fifth metatarsophalangeal joint ulceration. 2. 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 on discharge for 30 days; outpatient wound care and ID input Hx. of CAD No current chest pain clinically stable continue aspirin, hold b-lakia due to junctional/bradycardia Hypotension, resolved Blood pressure improving now Combination of infection and blood pressure medications Lactic acid wnl blood cultures pending Hold lisinopril, hydralazine and Lasix Elevated LFTs, improving Liver U/S done, no clear etiology Statin is held Chronic Diastolic Heart Failure secondary to Valvular Heart Disease No sign of fluid overload Recent echo 08/2016 EF 55-60% with mod aortic regurg, mod-severe aortic stenosis and mod pulm hypertension Holding Lasix and hydralazine for now monitor volume status closely with I&Os and daily weights Chronic Atrial Fibrillation EKG + junctional rhythm Recently taken off metoprolol and amiodarone due to bradycardia No longer on anticoagulation due to fall risk DM2 Last Ha1c ~ 5.0% May need to discontinue Januvia on discharge insulin sliding scale Hypothyroidism Continue levothyroxine Dyslipidemia: Holding statin due to elevated LFTs 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 Use Risperdal as needed for agitation. B12/Folate are normal. DVT ppx subq heparin DNR Discharge planning to [facility] PT/OT evals pending
[2016-10-04 14:51] VITALS: BP 151/76; PULSE 62; TEMP 36.3; O2SAT 93
--- NOTE | 2016-10-04 17:30 | PROGRESS NOTE ---
DATE: 10/04/2016 SUBJECTIVE: Dash is resting comfortably in bed. No problems reported. He is afebrile. His vital signs are stable. White count is 7. His C-reactive protein is 7. The wound is inspected. There is erosion through the skin into the subcutaneous tissues. I do not palpate any bone. There is some chalky substance which could be gout. There is some edema around, but no drainage, odor or erythema. The little toe was not swollen. Radiographs of the other foot and both hands demonstrate diffuse arthritic changes and periarticular erosions consistent with gout. I think that some of these same changes are present in the right foot. IMPRESSION: Ulceration of the right foot fifth metatarsophalangeal joint, possible underlying osteomyelitis, gout. PLAN: Continue with protection in a shoe or boot, offloading, local wound care and followup in the wound care clinic. He should also continue his antibiotics. I would like to see him back in my office in approximately 2 weeks, sooner if his condition were to worsen. At that time, we will get followup x-rays to compare. An MRI might be a consideration if there is any question. 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 I asked him if recommended surgery he would proceed and he said no. We did discuss yesterday about some of the adverse consequences of untreated osteomyelitis if it were present. Follow up in my office in 12-14 days from now.
--- NOTE | 2016-10-04 18:17 | Nephrology Progress Note ---
Nephrology Progress Note Date of Service: Oct 04, 2016. Subjective seen on rounds this am 1015; no complaints this am > ate full breakfast; less dyspnea today; no musculoskeletal or chest or abd pain. moved out of tele Objective Date Time Temp Pulse Resp B/P Pulse Ox O2 Delivery O2 Flow Rate FiO2 10/04/16 16:00 Room Air 10/04/16 14:51 36.3 62 18 151/76 93 Room Air 10/04/16 08:00 Room Air 10/04/16 07:07 36.4 69 18 121/64 90 Room Air 10/04/16 00:05 36.6 58 18 155/75 92 Room Air 10/03/16 19:20 Room Air Physical Exam: GENERAL: Awake, interactive, appropriate, sitting in bed EYES: No scleral icterus. HEENT: Moist mucous membranes. NECK: Supple. PULMONARY: minimal air mvt through out CARDIAC: RRR; III/ SM ABDOMEN: Bowel sounds positive, soft, nontender. vargas present EXTREMITIES: No edema. NEUROLOGIC: butler, fluent/slightly delayed speech; ? insight? DERMATOLOGIC: lateral R heel ulcer and L deng wound both dressed Current Inpatient Medications Medications (Trade) Dose Ordered Sig/Perla Route Start Time Stop Time Status Last Admin Dose Admin Heparin Sodium (Porcine) (Heparin Sq 5000 Unit/0.5ml) 5,000 unit Q12 SQ 09/29/16 21:00 10/29/16 20:59 10/04/16 09:32 5,000 UNIT Acetaminophen (Tylenol Tab) 650 mg Q4H PRN PO 09/29/16 15:30 10/29/16 15:29 10/02/16 07:25 650 MG Ondansetron HCl (Zofran Inj) 4 mg Q6H PRN IV 09/29/16 15:30 10/29/16 15:29 Insulin Human Regular (novoLIN-R) SLIDING SCALE IF C... ACHS SC 09/29/16 16:00 10/29/16 15:59 10/04/16 14:01 2 UNITS Glucose (Glucose 40% Gel) 15-30 GRAMS 15 GRAMS... UD PRN PO 09/29/16 15:30 10/29/16 15:29 Glucose (Glucose Chew Tab) 4-8 Tablets 4 Tabl... UD PRN PO 09/29/16 15:30 10/29/16 15:29 Dextrose (Dextrose 50% 50ML Syringe) 25-50ML OF 50% DW IV FOR... UD PRN IV 09/29/16 15:30 10/29/16 15:29 09/29/16 17:19 50 ML Glucagon (Glucagon Inj) 1 mg UD PRN SQ 09/29/16 15:30 10/29/16 15:29 Aspirin (Ecotrin Tab) 81 mg DAILY PO 09/30/16 09:00 10/30/16 08:59 10/04/16 07:51 81 MG Levothyroxine Sodium (Synthroid Tab) 25 mcg DAILYBB PO 09/30/16 06:00 10/30/16 06:59 10/04/16 05:43 25 MCG Multivitamins (Multivitamin Tab) 1 tab DAILY PO 09/30/16 09:00 10/30/16 08:59 10/04/16 07:52 1 TAB Nitroglycerin (Nitrostat Tab) 0.4 mg UD PRN UT 09/29/16 15:45 10/29/16 15:44 Senna/Docusate Sodium (Senokot S Tab) 1 tab DAILY PRN PO 09/29/16 15:45 10/29/16 15:44 10/03/16 08:07 1 TAB Triamcinolone Acetonide (Kenalog 0.5% Crm) 1 appln BID PRN EXT 09/29/16 15:45 10/29/16 15:44 Meclizine HCl (Antivert Tab) 12.5 mg Q8 PRN PO 09/29/16 15:45 10/29/16 15:44 Polyethylene (Miralax Powder Packet) 17 gm DAILY PRN PO 09/29/16 15:45 10/29/16 15:44 Pantoprazole Sodium (Protonix Tab) 40 mg DAILY PO 10/01/16 09:00 10/31/16 08:59 10/04/16 07:52 40 MG Donepezil HCl (Aricept Tab) 5 mg HS PO 09/30/16 21:00 10/30/16 20:59 10/03/16 21:30 5 MG Levalbuterol (Xopenex 0.63 Mg/ 3 Ml Neb) 0.63 mg Q2H PRN INH 10/01/16 01:00 10/31/16 00:59 Risperidone 0.5 mg 0.5 mg TID PRN PO 10/01/16 21:00 10/31/16 20:59 Cefazolin Sodium/ Dextrose (Ancef Iv/D5 50ml) 52.5 ml @ 100 mls/hr Q12 IV 10/02/16 10:00 10/12/16 09:59 10/04/16 09:06 100 MLS/HR Gelatin (Surgifoam Sponge 12-7MM (SMALL)) 1 ea DAILY PRN EXT 10/03/16 12:30 11/02/16 12:29 Enteral Nutritional Formula (Boost Breeze Nutritional Drink) 1 box BIDM PO 10/03/16 16:45 11/02/16 16:44 10/04/16 09:06 1 BOX Docusate Sodium (coLACE CAP) 100 mg BID PO 10/04/16 20:00 11/03/16 19:59 Senna (Senokot Tab) 8.6 mg QAM PO 10/05/16 08:00 11/04/16 07:59 Bisacodyl (Dulcolax Tab) 5 mg DAILY PRN PO 10/04/16 09:45 11/03/16 09:44 Levofloxacin (Levaquin Tab) 500 mg Q48H PO 10/05/16 11:00 10/13/16 10:59 Last 24 Hours Test 10/03/16 19:49 10/04/16 07:28 10/04/16 08:10 10/04/16 11:33 Bedside Glucose 90 mg/dl 80 mg/dl 157 mg/dl White Blood Count 7.05 K/uL Red Blood Count 2.95 M/uL Hemoglobin 9.6 g/dL Hematocrit 29.6 % Mean Corpuscular Volume 100.3 fL Mean Corpuscular Hemoglobin 32.5 pg Mean Corpuscular Hemoglobin Concent 32.4 g/dl Platelet Count 174 K/uL Mean Platelet Volume 10.7 fL Neutrophils (%) (Auto) 80.1 % Lymphocytes (%) (Auto) 8.5 % Monocytes (%) (Auto) 9.6 % Eosinophils (%) (Auto) 1.1 % Basophils (%) (Auto) 0.1 % Neutrophils # (Auto) 5.64 K/uL Lymphocytes # (Auto) 0.60 K/uL Monocytes # (Auto) 0.68 K/uL Eosinophils # (Auto) 0.08 K/uL Basophils # (Auto) 0.01 K/uL RDW Standard Deviation 57.7 fL RDW Coefficient of Variation 15.8 % Immature Granulocyte % (Auto) 0.6 % Immature Granulocyte # (Auto) 0.04 K/uL Sodium Level 140 mmol/L Potassium Level 4.9 mmol/L Chloride Level 105 mmol/L Carbon Dioxide Level 25 mmol/L Anion Gap 10.0 mmol/L Blood Urea Nitrogen 40 mg/dl Creatinine 2.50 mg/dl Est Creatinine Clear Calc Drug Dose 21.5 ml/min Estimated GFR () 25.8 Estimated GFR (Non- 22.3 BUN/Creatinine Ratio 16.0 Random Glucose 74 mg/dl Calcium Level 8.4 mg/dl Total Bilirubin 0.5 mg/dl Aspartate Amino Transf (AST/SGOT) 85 U/L Alanine Aminotransferase (ALT/SGPT) 49 U/L Alkaline Phosphatase 224 U/L C-Reactive Protein 7.01 mg/dl Total Protein 6.4 gm/dl Albumin 2.5 gm/dl Globulin 3.9 gm/dl Albumin/Globulin Ratio 0.6 Vitamin B12 Level 926 pg/mL 25-Hydroxy Vitamin D Total 25.9 ng/ml Test 10/04/16 16:37 Bedside Glucose 117 mg/dl Assessment & Plan 86 y/o M w/ CKD 3, a fib, AAA, longstanding DM, HTN, CAD admitted 09/29 w/ K 6.8 , creatinine 4.3 and junctional bradycardia after falling multiple times w/ confusion and dyspnea at home. He refused a pacemaker at admission; baseline creatinine mid-high 1's as recently as 07/2016. Foot sores from either gout versus osteomyelitis. 1. nonoliguric acute kidney injury on chronic kidney disease stage IV -likely ischemic origin w/ hypotension/bradycardia -pt refuses aggressive interventions including pacemaker, dialysis > palliative care following -his renal function continues to improve slowly 2. Hyperkalemia. on a renal diet; high K had resolved but creeping up again at high limits of normal > may need to resume low rate of bicarb gtt if continues to climb at least briefly; if dramatic change, may need more intensive medical therapy but no HD -daily bmp 3. Osteomyelitis versus foot lesions other origin to be managed w/ abtx; ID, ortho, primary service following
[2016-10-04] MEDS: DOCUSATE SODIUM 100 MG CAP PO SCH (21:09)
[2016-10-04] MEDS: DONEPEZIL HCL 5 MG TAB PO SCH (22:36)
[2016-10-04 23:51] VITALS: O2SAT 93
[2016-10-05 00:19] VITALS: BP 148/77; PULSE 77; TEMP 36.6; O2SAT 95
[2016-10-05] MEDS: LEVOTHYROXINE 25 MCG TAB PO SCH (05:38)
[2016-10-05 07:29] VITALS: BP 116/71; PULSE 77; TEMP 36.5; O2SAT 96
[2016-10-05] MEDS ORDERED: SENNA 8.6 MG TAB PO SCH (08:00)
[2016-10-05 08:26] LABS: HEMATOCRIT 29.7 % (42-52); MEAN CELL VOLUME 99.3 fL (80-100); MEAN CORPUSCULAR HEMOGLOBIN 32.4 pg (25-34); MEAN CORPUSCULAR HGB CONC 32.7 g/dl (32-36); MEAN PLATELET VOLUME 10.7 fL (7.4-10.4); PLATELET COUNT 163 K/uL (130-400); RED BLOOD COUNT 2.99 M/uL (4.7-6.1); WHITE BLOOD COUNT 7.46 K/uL (4.8-10.8)
[2016-10-05] MEDS: MULTIVITAMIN TAB PO SCH (08:43)
[2016-10-05] MEDS: ASPIRIN 81 MG ECTAB PO SCH (08:43)
[2016-10-05] MEDS: PANTOprazole SOD 40 MG TAB PO SCH (08:44)
[2016-10-05] MEDS: CEFAZOLIN IV 500 MG in DEXTROSE 5% 50ML 50 ML IV SCH (08:45)
[2016-10-05] MEDS: DOCUSATE SODIUM 100 MG CAP PO SCH (08:45)
[2016-10-05] MEDS: BOOST BREEZE NUTRITION DRINK 1 BOX PO SCH (08:45)
[2016-10-05] MEDS: HEPARIN SOD 5000 UNIT/0.5 ML CARP SQ SCH (08:47)
[2016-10-05 08:59] LABS: CREATININE 2.2 mg/dl (0.60-1.40)
[2016-10-05 09:00] LABS: BUN/CREATININE RATIO 14.8 (10-20); CALCIUM 8.5 mg/dl (8.5-10.1); MAGNESIUM 2.1 mg/dl (1.8-2.4)
[2016-10-05] MEDS: INSULIN HUMAN REGULAR SC SCH ×2 (09:09→13:21)
--- NOTE | 2016-10-05 09:09 | Progress Note ---
Subjective Date of Service: Oct 05, 2016. Subjective Pt evaluation today including: conversation w/ patient, physical exam, lab review, review of studies, review of inpatient medication list Saw/examined the patient in room 457 Doing well, no significant complaints Tired this morning Denies any pain Problem List Medical Problems: (1) Bradycardia Status: Acute (2) Bradycardia Status: Acute (3) Bradycardia Status: Acute (4) CHF (congestive heart failure) Status: Acute (5) GI bleed Status: Acute (6) Melena Status: Acute (7) Renal failure Status: Acute (8) Renal failure Status: Acute (9) Respiratory distress Status: Acute (10) SOB (shortness of breath) Status: Acute Review of Systems Constitutional: No chills, No fever Respiratory: No cough, No shortness of breath, No sputum Cardiac: No chest pain, No edema, No palpitations Abdomen: No diarrhea, No nausea, No pain, No vomiting Medications Current Inpatient Medications Medications (Trade) Dose Ordered Sig/Perla Route Start Time Stop Time Status Last Admin Dose Admin Heparin Sodium (Porcine) (Heparin Sq 5000 Unit/0.5ml) 5,000 unit Q12 SQ 09/29/16 21:00 10/29/16 20:59 10/05/16 08:47 5,000 UNIT Acetaminophen (Tylenol Tab) 650 mg Q4H PRN PO 09/29/16 15:30 10/29/16 15:29 10/02/16 07:25 650 MG Ondansetron HCl (Zofran Inj) 4 mg Q6H PRN IV 09/29/16 15:30 10/29/16 15:29 Insulin Human Regular (novoLIN-R) SLIDING SCALE IF C... ACHS SC 09/29/16 16:00 10/29/16 15:59 10/04/16 14:01 2 UNITS Glucose (Glucose 40% Gel) 15-30 GRAMS 15 GRAMS... UD PRN PO 09/29/16 15:30 10/29/16 15:29 Glucose (Glucose Chew Tab) 4-8 Tablets 4 Tabl... UD PRN PO 09/29/16 15:30 10/29/16 15:29 Dextrose (Dextrose 50% 50ML Syringe) 25-50ML OF 50% DW IV FOR... UD PRN IV 09/29/16 15:30 10/29/16 15:29 09/29/16 17:19 50 ML Glucagon (Glucagon Inj) 1 mg UD PRN SQ 09/29/16 15:30 10/29/16 15:29 Aspirin (Ecotrin Tab) 81 mg DAILY PO 09/30/16 09:00 10/30/16 08:59 10/05/16 08:43 81 MG Levothyroxine Sodium (Synthroid Tab) 25 mcg DAILYBB PO 09/30/16 06:00 10/30/16 06:59 10/05/16 05:38 25 MCG Multivitamins (Multivitamin Tab) 1 tab DAILY PO 09/30/16 09:00 10/30/16 08:59 10/05/16 08:43 1 TAB Nitroglycerin (Nitrostat Tab) 0.4 mg UD PRN UT 09/29/16 15:45 10/29/16 15:44 Senna/Docusate Sodium (Senokot S Tab) 1 tab DAILY PRN PO 09/29/16 15:45 10/29/16 15:44 10/03/16 08:07 1 TAB Triamcinolone Acetonide (Kenalog 0.5% Crm) 1 appln BID PRN EXT 09/29/16 15:45 10/29/16 15:44 Meclizine HCl (Antivert Tab) 12.5 mg Q8 PRN PO 09/29/16 15:45 10/29/16 15:44 Polyethylene (Miralax Powder Packet) 17 gm DAILY PRN PO 09/29/16 15:45 10/29/16 15:44 Pantoprazole Sodium (Protonix Tab) 40 mg DAILY PO 10/01/16 09:00 10/31/16 08:59 10/05/16 08:44 40 MG Donepezil HCl (Aricept Tab) 5 mg HS PO 09/30/16 21:00 10/30/16 20:59 10/04/16 22:36 5 MG Levalbuterol (Xopenex 0.63 Mg/ 3 Ml Neb) 0.63 mg Q2H PRN INH 10/01/16 01:00 10/31/16 00:59 Risperidone 0.5 mg 0.5 mg TID PRN PO 10/01/16 21:00 10/31/16 20:59 Cefazolin Sodium/ Dextrose (Ancef Iv/D5 50ml) 52.5 ml @ 100 mls/hr Q12 IV 10/02/16 10:00 10/12/16 09:59 10/05/16 08:45 100 MLS/HR Gelatin (Surgifoam Sponge 12-7MM (SMALL)) 1 ea DAILY PRN EXT 10/03/16 12:30 11/02/16 12:29 Enteral Nutritional Formula (Boost Breeze Nutritional Drink) 1 box BIDM PO 10/03/16 16:45 11/02/16 16:44 10/04/16 09:06 1 BOX Docusate Sodium (coLACE CAP) 100 mg BID PO 10/04/16 20:00 11/03/16 19:59 10/05/16 08:45 100 MG Senna (Senokot Tab) 8.6 mg QAM PO 10/05/16 08:00 11/04/16 07:59 10/05/16 08:46 8.6 MG Bisacodyl (Dulcolax Tab) 5 mg DAILY PRN PO 10/04/16 09:45 11/03/16 09:44 Levofloxacin (Levaquin Tab) 500 mg Q48H PO 10/05/16 11:00 10/13/16 10:59 Objective Vital Signs Date Time Temp Pulse Resp B/P Pulse Ox O2 Delivery O2 Flow Rate FiO2 10/05/16 07:29 36.5 77 20 116/71 96 Nasal Cannula 2.0 10/05/16 00:19 36.6 77 18 148/77 95 2.0 10/04/16 23:51 93 Nasal Cannula 2.0 10/04/16 16:00 Room Air 10/04/16 14:51 36.3 62 18 151/76 93 Room Air Physical Exam General Appearance: no apparent distress, + thin Respiratory/Chest: lungs clear, normal breath sounds, no respiratory distress, no accessory muscle use Cardiovascular: regular rate, rhythm, no edema, no murmur Abdomen: normal bowel sounds, non tender, soft Extremities: normal inspection, no pedal edema, + pertinent finding (+ ulceration on lateral right foot) Neurologic/Psychiatric: no motor/sensory deficits, alert, normal mood/affect Laboratory Results Last 24 Hours Test 10/04/16 11:33 10/04/16 16:37 10/04/16 20:43 2/1/17 07:34 Bedside Glucose 157 mg/dl 117 mg/dl 154 mg/dl 99 mg/dl Test 10/05/16 07:53 White Blood Count 7.46 K/uL Red Blood Count 2.99 M/uL Hemoglobin 9.7 g/dL Hematocrit 29.7 % Mean Corpuscular Volume 99.3 fL Mean Corpuscular Hemoglobin 32.4 pg Mean Corpuscular Hemoglobin Concent 32.7 g/dl RDW Standard Deviation 57.0 fL RDW Coefficient of Variation 15.7 % Platelet Count 163 K/uL Mean Platelet Volume 10.7 fL Sodium Level 141 mmol/L Potassium Level 5.0 mmol/L Chloride Level 106 mmol/L Carbon Dioxide Level 26 mmol/L Anion Gap 9.0 mmol/L Blood Urea Nitrogen 33 mg/dl Creatinine 2.20 mg/dl Est Creatinine Clear Calc Drug Dose 24.4 ml/min Estimated GFR () 30.1 Estimated GFR (Non- 26.0 BUN/Creatinine Ratio 14.8 Random Glucose 93 mg/dl Calcium Level 8.5 mg/dl Magnesium Level 2.1 mg/dl Assessment and Plan This is an 86 year old male with PMH of CAD, valvular heart disease and diastolic CHF, paroxysmal atrial fibrillation, DM2, CKD stage 3, HTN, HLD, hx. of CVA presented with weakness, falls and functional decline Functional Decline Generalized Weakness 10/05 patient presented with weakness continue PT/OT evaluations discharge planning to [facility] 10/04 Presented due to weakness and multiple falls Appreciate palliative care consult for goals of treatment Pt. is DNR status Plan is for SNF at [facility] Put in for PT/OT evaluation Discharge planning eval Bradycardia/Junctional Rhythm HR is gradually improving now. Likely related to acute kidney injury/electrolyte abnormality Appreciate cardiology input No further intervention needed at this time, no indication for pacemaker Hyperkalemia 10/05 K slightly rising again to 5.0 this morning if okay with nephrology, will discharge to [facility] with outpatient labs drawn in a few days to assure potassium level is wnl 10/04 Patient presented with K > 6; was given calcium gluconate, sodium bicarb and dextrose in the ER likely related to acute tubular injury potassium improving - required Kayexalate and Lasix yesterday (10/03) K < 5 today Acute Kidney Injury superimposed on CKD stage 4 10/05 Kidney function continues to improve slowly creat at 2.2 today - a lot closer to baseline 10/04 baseline creat at 4.3 on presentation slowly improving down to 2.5 this AM (10/04) hold diuretics appreciate nephrology input Right Foot Ulceration Right Foot X-Ray 1. Right foot fifth metatarsophalangeal joint ulceration. 2. 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 on discharge for 30 days; outpatient wound care and ID input Hx. of CAD No current chest pain clinically stable continue aspirin, hold b-lakia due to junctional/bradycardia Hypotension, resolved Blood pressure improving now Combination of infection and blood pressure medications Lactic acid wnl blood cultures pending Hold lisinopril, hydralazine and Lasix Elevated LFTs, improving Liver U/S done, no clear etiology Statin is held Chronic Diastolic Heart Failure secondary to Valvular Heart Disease No sign of fluid overload Recent echo 08/2016 EF 55-60% with mod aortic regurg, mod-severe aortic stenosis and mod pulm hypertension Holding Lasix and hydralazine for now monitor volume status closely with I&Os and daily weights Chronic Atrial Fibrillation EKG + junctional rhythm Recently taken off metoprolol and amiodarone due to bradycardia No longer on anticoagulation due to fall risk DM2 Last Ha1c ~ 5.0% May need to discontinue Januvia on discharge insulin sliding scale Hypothyroidism Continue levothyroxine Dyslipidemia: Holding statin due to elevated LFTs 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 Use Risperdal as needed for agitation. B12/Folate are normal. DVT ppx subq heparin DNR Discharge planning to [facility] PT/OT evals pending
[2016-10-05] MEDS ORDERED: LEVOFLOXACIN 500 MG TAB PO SCH (11:00)
[2016-10-05] MEDS ORDERED: LVQ500 PO (11:03)
[2016-10-05] MEDS ORDERED: CEPH500C2 PO (11:03)
[2016-10-05] MEDS ORDERED: ARC5 PO (11:03)
--- NOTE | 2016-10-05 11:05 | Discharge Instructions ---
Discharge Instructions Admission Reason for Admission: Bradyarrhythmia, Hyperkalemia Discharge Discharge Diagnosis / Problem: Osteomyelitis, bradyarrythmias, hyperkalemia, ben on ckd stage iv Discharge Goals Goal(s): Decrease discomfort, Improve function, Diagnostic testing, Therapeutic intervention Activity Recommendations Activity Limitations: resume your previous activity . Instructions / Follow-Up Instructions / Follow-Up Please obtain a basic metabolic profile weekly for the patient to check kidney function and potassium levels Patient will be discharged on Levaquin and Keflex for 30 days - wound care center follow-up as well as ID follow-up regarding right foot Should follow-up with orthopedic surgery in 2 weeks Current Hospital Diet Patient's current hospital diet: Renal Diet, Diabetes Type 2 Diet Discharge Diet Recommended Diet: Renal Diet, Low Potassium Diet (2g K) Pending Studies Studies pending at discharge: no Laboratory Results Hemoglobin A1c Test 09/30/16 04:06 Range/Units Estimated Average Glucose 111 mg/dl Hemoglobin A1c 5.5 4.5-5.6 % Medical Emergencies . Who to Call and When: Medical Emergencies: If at any time you feel your situation is an emergency, please call 911 immediately. . Non-Emergent Contact Non-Emergency issues call your: Primary Care Provider . . "Provider Documentation" section prepared by Nadeem Osuna. VTE Core Measure Inpt VTE Proph given/why not?: Unfractionated heparin SQ
--- NOTE | 2016-10-05 11:07 | Discharge Summary ---
Discharge Summary Admission Date: Sep 29, 2016 at 14:32 Discharge Date: Oct 05, 2016 Discharge Disposition: long-term facility Principal Diagnosis: Osteomyelitis Bradyarrhythmia JO on CKD stage IV Hyperkalemia Medication Reconciliation New Medications: Cephalexin Monohydrate (Keflex) 500 Mg Cap 250 MG PO Q12 for 30 Days, #30 CAP Donepezil HCl (Donepezil HCl) 5 Mg Tab 5 MG PO HS for 30 Days, #30 TAB Levofloxacin (Levofloxacin) 500 Mg Tab 500 MG PO Q48H for 30 Days, #15 TAB Continued Medications: Acetaminophen (Tylenol) 325 Mg Tab 650 MG PO Q6, TAB Aspirin (Aspirin Ec) 81 Mg Tab 81 MG PO DAILY Ferrous Sulfate (Ferrous Sulfate) 325 Mg Tab 325 MG PO BID Furosemide (Lasix) 40 Mg Tab 40 MG PO DAILY, TAB Hydralazine HCl (Hydralazine HCl) 10 Mg Tab 10 MG PO TID for 30 Days, #90 TAB Levothyroxine Sodium (Synthroid) 25 Mcg Tab 25 MCG PO DAILYBB for 30 Days, #30 TAB Lisinopril (Zestril) 5 Mg Tab 5 MG PO DAILY, TAB Meclizine Hcl (Meclizine Hcl) 12.5 Mg Tab 12.5 MG PO Q8 PRN, #30 1 Refill Take as needed for vertigo. Mirtazapine (Remeron) 15 Mg Tab 15 MG PO HS Multivitamin (Multivitamin) Tab 1 TAB PO DAILY, TAB Nitroglycerin (Nitrostat) 0.4 Mg Tab 0.4 MG UT PRN, BTL Omeprazole (Prilosec) 40 Mg Capcr 40 MG PO BID, CAP Polyethylene Glycol 3350 (Miralax) 1 Pow Pow 17 GM PO DAILY PRN for Constipation, #255 GM Pravastatin Sod (Pravastatin Sodium) 40 Mg Tab 40 MG PO HS Senna/Docusate Sod (Senokot S) 1 Tab Tab 1 TAB PO DAILY PRN for Constipation take at noon Sitagliptin (Januvia) 50 Mg Tab 50 MG PO DAILY, TAB Tramadol (Ultram) 50 Mg Tab 25-50 MG PO TID PRN for Pain take with 500-1000mg of acetaminophen Triamcinolone Acet (Triamcinolone Acetonide) 45 Appln/15 Gm Cr 1 APPLN TOP BID PRN for rash, 1 Refill apply to affected area Discontinued Medications: Sulfa/Trimethoprim (Bactrim Ds 800MG/160MG) Tab 1 TAB PO BID, #28 Admission Information HPI (per Admitting provider): This is an 86 y/o male with PMHx of CKD stage 3, DM 2, Chromic Afib, CAD, h/o CVA, Hypothyroidism, HTN, Dyslipidemia and other problems as outlined below who presents to the ED with worsening functional status. History is obtained from both patient and son at bedside. For the past month patient has fallen multiple times due to progressive generalized weakness. Generalized weakness is assoc with worsening exertional SOB and decreased appetite. Per son, patient is not on oxygen at home and O2 saturations have dipped down to 82% at times, especially when he is in prone position. Pt was on Metoprolol and Amiodarone for chronic afib however both meds were discontinued by cardiology in August due to bradycardia. Patient was seen by Dr. Watt (Cardiology) and Dr. Ellison ( Family Practice) yesterday, who both referred him to the ED. The patient initially refused to come to the ED until his son brought him in today. Dr. Ellison recommends a pacemaker for the patient for persistent bradycardia. Labwork drawn yesterday showed elevated potassium. 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 He goes to wound clinic every other week and is currently on 30 day course of Bactrim. Pt currently lives at home with significant other. He is wheelchair bound. Nursing coming to house three times weekly and son lives next door. Pt denies fever/chills, diaphoresis, chest pain , palpitations, wheezing, abd pain, N/V, constipation, diarrhea, hematochezia, melena, dysuria, LE edema, calf pain, lightheadedness/dizziness. In the ED, pt is kenia and hypotensive on arrival. HgB 9.3. K+ 6.8. creat 4.3. CXR + R pleural effusion. EKG junctional rhythm. Pt will be admitted for further evaluation and treatment. Physical Exam (per Admitting): General Appearance: WD/WN, no apparent distress, + pertinent finding (Pt is sitting up in bed with son at bedside; lethargic) Head: normocephalic, atraumatic Eyes: normal inspection, PERRL, EOMI ENT: hearing grossly normal Neck: supple Respiratory/Chest: chest non-tender, lungs clear, normal breath sounds, no respiratory distress Cardiovascular: no edema, no murmur, + bradycardia Abdomen/GI: normal bowel sounds, non tender, soft Back: normal inspection Extremities/Musculoskelatal: no calf tenderness, no pedal edema Neurologic/Psych: alert, normal mood/affect, oriented x 3, + pertinent finding (lethargic) Skin: + pallor, + pertinent finding (open wound noted to lateral aspect of R foot and 4th toe; scattered healing skin tears on upper and lower extremities) Hospital Course This is an 86 year old male with PMH of CAD, valvular heart disease and diastolic CHF, paroxysmal atrial fibrillation, DM2, CKD stage 3, HTN, HLD, hx. of CVA presented with weakness, falls and functional decline Functional Decline Generalized Weakness 2 patient presented with weakness continue PT/OT evaluations discharge planning to [facility] 10/04 Presented due to weakness and multiple falls Appreciate palliative care consult for goals of treatment Pt. is DNR status Plan is for SNF at [facility] Put in for PT/OT evaluation Discharge planning eval Bradycardia/Junctional Rhythm HR is gradually improving now. Likely related to acute kidney injury/electrolyte abnormality Appreciate cardiology input No further intervention needed at this time, no indication for pacemaker Hyperkalemia 10/05 K slightly rising again to 5.0 this morning if okay with nephrology, will discharge to [facility] with outpatient labs drawn in a few days to assure potassium level is wnl 10/04 Patient presented with K > 6; was given calcium gluconate, sodium bicarb and dextrose in the ER likely related to acute tubular injury potassium improving - required Kayexalate and Lasix yesterday (10/03) K < 5 today Acute Kidney Injury superimposed on CKD stage 4 2 Kidney function continues to improve slowly creat at 2.2 today - a lot closer to baseline 10/04 baseline creat at 4.3 on presentation slowly improving down to 2.5 this AM (10/04) hold diuretics appreciate nephrology input Right Foot Ulceration Right Foot X-Ray 1. Right foot fifth metatarsophalangeal joint ulceration. 2. 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 on discharge for 30 days; outpatient wound care and ID input Hx. of CAD No current chest pain clinically stable continue aspirin, hold b-lakia due to junctional/bradycardia Hypotension, resolved Blood pressure improving now Combination of infection and blood pressure medications Lactic acid wnl blood cultures pending Hold lisinopril, hydralazine and Lasix Elevated LFTs, improving Liver U/S done, no clear etiology Statin is held Chronic Diastolic Heart Failure secondary to Valvular Heart Disease No sign of fluid overload Recent echo 08/2016 EF 55-60% with mod aortic regurg, mod-severe aortic stenosis and mod pulm hypertension Holding Lasix and hydralazine for now monitor volume status closely with I&Os and daily weights Chronic Atrial Fibrillation EKG + junctional rhythm Recently taken off metoprolol and amiodarone due to bradycardia No longer on anticoagulation due to fall risk DM2 Last Ha1c ~ 5.0% May need to discontinue Januvia on discharge insulin sliding scale Hypothyroidism Continue levothyroxine Dyslipidemia: Holding statin due to elevated LFTs 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 Use Risperdal as needed for agitation. B12/Folate are normal. DVT ppx subq heparin DNR Discharge planning to [facility] PT/OT evals pending Total time spent on discharge = 45 minutes This includes examination of the patient, discharge planning, medication reconciliation, and communication with other providers. Discharge Instructions Please obtain a basic metabolic profile weekly for the patient to check kidney function and potassium levels Patient will be discharged on Levaquin and Keflex for 30 days - wound care center follow-up as well as ID follow-up regarding right foot Should follow-up with orthopedic surgery in 2 weeks
[2016-10-05 12:01] VITALS: BP 116/71; PULSE 77; TEMP 36.5; O2SAT 96
[2016-10-18] MEDS ORDERED: LEVOFLOXACIN / D5W 750 MG in PREMIXED IN D5W 150 ML IV SCH (15:30)
== END 2016-10-05 13:45 | DRG 872 ==
LOC: ENRESERVTM → ENRESERVDT → C.EDB 13:13 → C.2T 14:32 → C.MS4W 10-03 16:35
PROVIDERS: ADMIT Emergency Medicine; ATTEND Family Medicine
DX: A41.2 Sepsis due to unspecified staphylococcus (principal); M86.9 Osteomyelitis, unspecified; N17.9 Acute kidney failure, unspecified; N18.4 Chronic kidney disease, stage 4 (severe); I13.0 Hypertensive heart and chronic kidney disease with heart failure and stage 1 through stage 4 chronic kidney disease, or unspecified chronic kidney disease; I50.32 Chronic diastolic (congestive) heart failure; E87.2 Acidosis; I49.8 Other specified cardiac arrhythmias; I48.2 Chronic atrial fibrillation; I48.0 Paroxysmal atrial fibrillation; E86.0 Dehydration; I25.10 Atherosclerotic heart disease of native coronary artery without angina pectoris; E87.5 Hyperkalemia; E11.621 Type 2 diabetes mellitus with foot ulcer; E03.9 Hypothyroidism, unspecified; Z79.82 Long term (current) use of aspirin; I25.5 Ischemic cardiomyopathy; Z86.73 Personal history of transient ischemic attack (TIA), and cerebral infarction without residual deficits; R26.9 Unspecified abnormalities of gait and mobility; I35.2 Nonrheumatic aortic (valve) stenosis with insufficiency; Z87.891 Personal history of nicotine dependence; Z51.5 Encounter for palliative care; F02.80 Dementia in other diseases classified elsewhere, unspecified severity, without behavioral disturbance, psychotic disturbance, mood disturbance, and anxiety; G30.9 Alzheimer's disease, unspecified; Z66 Do not resuscitate; I44.0 Atrioventricular block, first degree; E86.1 Hypovolemia; M10.9 Gout, unspecified; Z79.01 Long term (current) use of anticoagulants; E78.00 Pure hypercholesterolemia, unspecified; Z96.659 Presence of unspecified artificial knee joint

== ENCOUNTER → 2016-10-13 | Outpatient (CLI) | payer OTHER ==
[~2016-10-13] MED LIST changes: +ARC5 PO; +CEPH500C2 PO; +LISI-729 PO; +LVQ500 PO; +OMEP40CA41 PO; -SULF800T23 PO
[2016-10-13 09:11] LABS: BASO % 0.6 %; BASO ABS # 0.04 K/uL (0-0.2); COMPLETE YES; EOS % 3.8 %; HEMATOCRIT 27.8 % (42-52); IG% 0.3 %; LYMPH % 13.2 %; LYMPH ABS # 0.84 K/uL (1.2-3.4); MEAN CELL VOLUME 96.5 fL (80-100); MEAN CORPUSCULAR HGB CONC 34.2 g/dl (32-36); MEAN PLATELET VOLUME 11.6 fL (7.4-10.4); MONO % 14.3 %; NEUT % 67.8 %; PLATELET COUNT 123 K/uL (130-400); RED BLOOD COUNT 2.88 M/uL (4.7-6.1); WHITE BLOOD COUNT 6.35 K/uL (4.8-10.8)
[2016-10-13 09:18] LABS: BLOOD UREA NITROGEN 44 mg/dl (7-18); BUN/CREATININE RATIO 18.4 (10-20); CALCIUM 8.5 mg/dl (8.5-10.1); CARBON DIOXIDE 24 mmol/L (21-32); CHLORIDE 102 mmol/L (98-107); GLUCOSE 70 mg/dl (70-99); SODIUM 136 mmol/L (136-145)
== END ==
LOC: C.LABCC 08:07
PROVIDERS: ATTEND Internal Medicine
DX: D64.9 Anemia, unspecified (principal); N18.4 Chronic kidney disease, stage 4 (severe)

== ENCOUNTER 2016-10-18 10:09 | Inpatient (IN) | payer OTHER ==
[~2016-10-18] VITALS: Ht 177.8 cm; Wt 70.2 kg
[~2016-10-18 10:09] MED LIST changes: -LISI-729 PO; -OMEP40CA41 PO
[2016-10-18] MEDS ORDERED: SODIUM CHLORIDE 0.9% 1000ML 1,000 ML IV SCH ×2 (10:34→16:00)
[2016-10-18] MEDS ORDERED: OMEP40CA41 PO (11:00)
[2016-10-18] MEDS ORDERED: LISI-729 PO (11:00)
--- NOTE | 2016-10-18 11:03 | DIAGNOSTIC IMAGING REPORT ---
CHEST ONE VIEW PORTABLE CLINICAL HISTORY: Stroke mental status change COMPARISON STUDY: 10/02/2016 FINDINGS: Chronic fibrocalcific and pleural reactive changes left midlung and right base. Small right pleural effusion and to a lesser extent small left pleural effusion slightly increased in prominence. IMPRESSION: Bilateral pleural effusions slightly increased in volume from the prior study. Chronic pleural and fibrocalcific change. Electronically signed by: Carlitos Kuhn M.D. 10/18/2016 11:01 AM Dictated Date/Time: 10/18/2016 10:58 AM
[2016-10-18 11:09] LABS: HEMATOCRIT 29.1 % (42-52); MEAN CORPUSCULAR HEMOGLOBIN 33.7 pg (25-34); MEAN CORPUSCULAR HGB CONC 33.3 g/dl (32-36); RED BLOOD COUNT 2.88 M/uL (4.7-6.1); WHITE BLOOD COUNT 8.35 K/uL (4.8-10.8)
[2016-10-18 11:28] LABS: MEAN PLATELET VOLUME 11.9 fL (7.4-10.4); PLATELET COUNT 91 K/uL (130-400)
[2016-10-18 11:29] LABS: BASO % 0.2 %; BASO ABS # 0.02 K/uL (0-0.2); COMPLETE YES; EOS % 2.5 %; IG% 0.2 %; LYMPH % 6.2 %; LYMPH ABS # 0.52 K/uL (1.2-3.4); MONO % 10.1 %; NEUT % 80.8 %; PLT ESTIMATE DECREASED
[2016-10-18 11:33] LABS: BUN/CREATININE RATIO 20.8 (10-20); CALCIUM 8.5 mg/dl (8.5-10.1); CKMB/CK RATIO 11.4 (0-3.0); CREATININE 2.5 mg/dl (0.60-1.40); POTASSIUM 5.8 mmol/L (3.5-5.1)
[2016-10-18 12:03] LABS: PARTIAL THROMBOPLASTIN RATIO 1.3; PROTHROMBIN TIME (PATIENT) 11.1 SECONDS (9.0-12.0)
--- NOTE | 2016-10-18 12:06 | DIAGNOSTIC IMAGING REPORT ---
HEAD CT NONCONTRAST CT DOSE: 823.94 mGycm HISTORY: Stroke symptoms. TECHNIQUE: Multiaxial CT images of the head were performed without the use of intravenous contrast. Automated exposure control was utilized for this study. Comparison: Head CT 03/18/2013. Findings: The paranasal sinuses and mastoid air cells are clear. The calvarium and skull base are intact. There is no mass, hematoma, midline shift, acute infarct. White matter hypodensity is nonspecific but suggestive of microvascular ischemic change. The ventricles and sulci demonstrate moderate age-related involutional changes. Impression: No acute intracranial abnormality. Atrophy and microvascular ischemic changes. Electronically signed by: Jimmy Aaron M.D. 10/18/2016 12:05 PM Dictated Date/Time: 10/18/2016 12:00 PM
[2016-10-18] MEDS ORDERED: DEXTROSE 50% 50 ML SYR IV STA (12:11)
[2016-10-18] MEDS ORDERED: NovoLIN-R INSULIN PER UNIT CHARGE IV STA (12:11)
[2016-10-18] MEDS ORDERED: NITROGLYCERIN 0.4 MG SL PER TAB CHARGE SL PRN (13:00)
[2016-10-18] MEDS ORDERED: ACETAMINOPHEN 325 MG TAB PO PRN (13:00)
[2016-10-18] MEDS ORDERED: ONDANSETRON INJ 2 MG/ML 2 ML VIAL IV PRN (13:00)
[2016-10-18] MEDS ORDERED: PHARMACIST DISCHARGE MED REC CONSULT PRN (13:00)
[2016-10-18] MEDS ORDERED: IV FLUIDS COMPLETED PRN (13:15)
[2016-10-18] MEDS ORDERED: TRIAMCINOLONE ACET 0.5% CR 15 GM TUBE EXT PRN (13:45)
[2016-10-18] MEDS ORDERED: MECLIZINE HCL 12.5 MG TAB PO PRN (13:45)
[2016-10-18] MEDS ORDERED: DAPTOMYCIN CONSULT ACTIVE PRN ×4 (13:45→19:15)
[2016-10-18] MEDS ORDERED: DOCUSATE SODIUM/SENNA 50/8.6MG TAB PO PRN (13:45)
[2016-10-18] MEDS ORDERED: TRAMADOL HCL 50 MG TAB PO PRN (13:45)
[2016-10-18] MEDS ORDERED: SODIUM POLYST. SULF SUSP 15G/60ML PO STA (13:45)
[2016-10-18] MEDS ORDERED: HEPARIN SOD 5000 UNIT/0.5 ML CARP SQ SCH (14:00)
[2016-10-18] MEDS ORDERED: DEXTROSE 50% 50 ML SYR IV PRN (14:00)
[2016-10-18] MEDS ORDERED: DAPTOmycin IV 450 MG in SODIUM CHLORIDE 0.9% 50ML 50 ML IV SCH ×2 (14:00→21:00)
[2016-10-18] MEDS ORDERED: GLUCAGON FOR INJ 1 MG VIAL SQ PRN (14:00)
[2016-10-18] MEDS ORDERED: GLUCOSE 10 TABS/TUBE PO PRN (14:00)
[2016-10-18] MEDS ORDERED: LORAZEPAM 0.5 MG TAB PO SCH (14:00)
[2016-10-18] MEDS ORDERED: GLUCOSE 40% GEL 15 GM TUBE PO PRN (14:00)
[2016-10-18 14:09] LABS: ESTIMATED AVERAGE GLUCOSE 97 mg/dl; HA1C FLAG Normal (Normal)
--- NOTE | 2016-10-18 14:22 | EMERGENCY ROOM VISIT NOTE ---
History Report prepared by Silvio: Denis Zepeda Under the Supervision of: Dr. Paul Walter M.D. First contact with patient: 10:15 Chief Complaint: WEAKNESS Stated Complaint: ILLNESS History of Present Illness This HPI is limited as the patient is a poor historian. The patient is an 86 year old male who presents to the Emergency Room with complaints of generalized weakness. He also complains of numbness in his legs and jaw that began last night. Initially the patient stated that the numbness was on the right side of his jaw and legs. Then at one point he said it was both legs. His son had previously indicated that he had complained of left leg numbness. The patient was at the wound clinic this morning before coming to the emergency department. At the wound clinic the patient had a low blood sugar level, and was noted to be very lethargic. The patient's son states that he has been starting to experience memory problems within the past month although denies any history of dementia. 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 Past Medical & Surgical Medical Problems: (1) Abdominal aortic aneurysm (2) Asbestosis (3) Atrial fibrillation (4) Benign hypertension (5) Benign paroxysmal positional vertigo (6) Cerebrovascular disease, arteriosclerotic, post-stroke (7) Chronic kidney disease stage 3 (8) Coronary artery disease (9) Dieulafoy lesion of stomach (10) DM type 2 (diabetes mellitus, type 2) (11) Dyslipidemia (12) Foot ulcer (13) HTN (hypertension) (14) Hx of gastric ulcer (15) Hyperkalemia (16) Weakness Surgical Problems: (1) H/O cardiac catheterization (2) H/O esophagogastroduodenoscopy (3) H/O exploratory laparotomy (4) H/O hemicolectomy (5) S/p shoulder avulsion repair (6) S/P tonsillectomy (7) S/P total knee replacement Family History Patient reports no known family medical history. Social History Smoking Status: Former Smoker Alcohol Use: none Drug Use: none Marital Status: Occupation Status: retired Current/Historical Medications Scheduled Acetaminophen (Tylenol), 650 MG PO Q6 Aspirin (Aspirin Ec), 81 MG PO DAILY Cephalexin Monohydrate (Keflex), 250 MG PO Q12 Donepezil HCl (Donepezil HCl), 5 MG PO HS Ferrous Sulfate (Ferrous Sulfate), 325 MG PO BID Furosemide (Lasix), 40 MG PO DAILY Hydralazine HCl (Hydralazine HCl), 10 MG PO TID Levofloxacin (Levofloxacin), 500 MG PO Q48H Levothyroxine Sodium (Synthroid), 25 MCG PO DAILYBB Lisinopril (Zestril), 5 MG PO DAILY Mirtazapine (Remeron), 15 MG PO HS Multivitamin (Multivitamin), 1 TAB PO DAILY Nitroglycerin (Nitrostat), 0.4 MG UT PRN Omeprazole (Prilosec), 40 MG PO DAILY Pravastatin Sod (Pravastatin Sodium), 40 MG PO HS Sitagliptin (Januvia), 50 MG PO DAILY Scheduled PRN Meclizine Hcl (Meclizine Hcl), 12.5 MG PO Q8 PRN Polyethylene Glycol 3350 (Miralax), 17 GM PO DAILY PRN for Constipation Senna/Docusate Sod (Senokot S), 1 TAB PO DAILY PRN for Constipation Tramadol (Ultram), 25-50 MG PO TID PRN for Pain Triamcinolone Acet (Triamcinolone Acetonide), 1 APPLN TOP BID PRN for rash Allergies Coded Allergies: No Known Allergies (Unverified , 10/18/16) Physical Exam Vital Signs Date Time Temp Pulse Resp B/P Pulse Ox O2 Delivery O2 Flow Rate FiO2 10/18/16 13:56 60 18 104/71 96 Nasal Cannula 2.0 10/18/16 11:29 59 18 126/56 98 Nasal Cannula 2.0 10/18/16 10:54 100 Room Air 10/18/16 10:18 33.7 64 16 98/60 100 Nasal Cannula 2.0 Physical Exam Constitutional: Vital signs reviewed. Eyes: Pupils are equal round reactive to light. Conjunctiva are noninjected. ENT: Pharynx is clear without erythema or exudate. Mucous membranes are dry. Neck supple without meningeal signs. Respiratory: Clear to auscultation bilaterally. Breath sounds are equal bilaterally. Cardiovascular: Regular rate and rhythm. No rubs or gallops. GI: Soft, nondistended with mild left abdominal tenderness without guarding. Bowel sounds are present. Musculoskeletal: No peripheral edema. Right foot and a dressing. Integumentary: No cyanosis. Neurological: The patient is awake and alert. Cranial nerves II-12 are intact. Sensation is intact in all extremities. Motor is 3 out of 3 in the upper extremities. 2 out of 3 in the lower extremities. Psychiatric: Unable to assess. Medical Decision & Procedures ER Provider Diagnostic Interpretation: X-ray results as stated below per interpretation by me and the radiologist: CHEST ONE VIEW PORTABLE CLINICAL HISTORY: Stroke mental status change COMPARISON STUDY: 10/02/2016 FINDINGS: Chronic fibrocalcific and pleural reactive changes left midlung and right base. Small right pleural effusion and to a lesser extent small left pleural effusion slightly increased in prominence. IMPRESSION: Bilateral pleural effusions slightly increased in volume from the prior study. Chronic pleural and fibrocalcific change. Electronically signed by: Carlitos Kuhn M.D. 10/18/2016 11:01 AM Dictated Date/Time: 10/18/2016 10:58 AM+ HEAD CT NONCONTRAST CT DOSE: 823.94 mGycm HISTORY: Stroke symptoms. TECHNIQUE: Multiaxial CT images of the head were performed without the use of intravenous contrast. Automated exposure control was utilized for this study. Comparison: Head CT 03/18/2013. Findings: The paranasal sinuses and mastoid air cells are clear. The calvarium and skull base are intact. There is no mass, hematoma, midline shift, acute infarct. White matter hypodensity is nonspecific but suggestive of microvascular ischemic change. The ventricles and sulci demonstrate moderate age-related involutional changes. Impression: No acute intracranial abnormality. Atrophy and microvascular ischemic changes. Electronically signed by: Jimmy Aaron M.D. 10/18/2016 12:05 PM Dictated Date/Time: 10/18/2016 12:00 PM Laboratory Results 10/18/16 11:02 Red Blood Count 2.88, Mean Corpuscular Volume 101.0, Mean Corpuscular Hemoglobin 33.7, Mean Corpuscular Hemoglobin Concent 33.3, Mean Platelet Volume 11.9, Neutrophils (%) (Auto) 80.8, Lymphocytes (%) (Auto) 6.2, Monocytes (%) ( Auto) 10.1, Eosinophils (%) (Auto) 2.5, Basophils (%) (Auto) 0.2, Neutrophils # (Auto) 6.74, Lymphocytes # (Auto) 0.52, Monocytes # (Auto) 0.84, Eosinophils # ( Auto) 0.21, Basophils # (Auto) 0.02 10/18/16 11:02 10/18/16 11:39 Test 10/18/16 10:20 10/18/16 10:41 10/18/16 11:02 10/18/16 11:39 Bedside Glucose 96 mg/dl (70-99) Bedside Prothrombin Time INR 1.2 (0.9-1.1) White Blood Count 8.35 K/uL (4.8-10.8) Red Blood Count 2.88 M/uL (4.7-6.1) Hemoglobin 9.7 g/dL (14.0-18.0) Hematocrit 29.1 % (42-52) Mean Corpuscular Volume 101.0 fL (80-100) Mean Corpuscular Hemoglobin 33.7 pg (25-34) Mean Corpuscular Hemoglobin Concent 33.3 g/dl (32-36) Platelet Count 91 K/uL (130-400) Mean Platelet Volume 11.9 fL (7.4-10.4) Neutrophils (%) (Auto) 80.8 % Lymphocytes (%) (Auto) 6.2 % Monocytes (%) (Auto) 10.1 % Eosinophils (%) (Auto) 2.5 % Basophils (%) (Auto) 0.2 % Neutrophils # (Auto) 6.74 K/uL (1.4-6.5) Lymphocytes # (Auto) 0.52 K/uL (1.2-3.4) Monocytes # (Auto) 0.84 K/uL (0.11-0.59) Eosinophils # (Auto) 0.21 K/uL (0-0.5) Basophils # (Auto) 0.02 K/uL (0-0.2) RDW Standard Deviation 63.9 fL (36.4-46.3) RDW Coefficient of Variation 17.4 % (11.5-14.5) Immature Granulocyte % (Auto) 0.2 % Immature Granulocyte # (Auto) 0.02 K/uL (0.00-0.02) Platelet Estimate DECREASED Anion Gap 11.0 mmol/L (3-11) Est Creatinine Clear Calc Drug Dose 21.5 ml/min Estimated GFR () 25.8 Estimated GFR (Non- 22.3 BUN/Creatinine Ratio 20.8 (10-20) Estimated Average Glucose 97 mg/dl Hemoglobin A1c 5.0 % (4.5-5.6) Calcium Level 8.5 mg/dl (8.5-10.1) Total Creatine Kinase 58 U/L (39-308) Creatine Kinase MB 6.6 ng/ml (0.5-3.6) Creatine Kinase MB Ratio 11.4 (0-3.0) Troponin I 0.022 ng/ml (0-0.045) Chemistry Specimen Hemolysis Prothrombin Time 11.1 SECONDS (9.0-12.0) Prothromb Time International Ratio 1.0 (0.9-1.1) Activated Partial Thromboplast Time 34.5 SECONDS (21.0-31.0) Partial Thromboplastin Ratio 1.3 Test 10/18/16 13:14 Laboratory results as reviewed by me. Medications Administered Medications (Trade) Dose Ordered Sig/Perla Route Start Time Stop Time Status Last Admin Dose Admin Sodium Chloride (Nss 1000ml) 1,000 ml @ 50 mls/hr Q20H IV 10/18/16 10:34 11/17/16 10:33 10/18/16 10:34 50 MLS/HR Insulin Human Regular (novoLIN-R U-100 PER UNIT) 7 units NOW STAT IV 10/18/16 12:11 10/18/16 12:12 DC 10/18/16 12:28 7 UNITS Dextrose (Dextrose 50% 50ML Syringe) 50 ml NOW STAT IV 10/18/16 12:11 10/18/16 12:12 DC 10/18/16 12:25 50 ML ECG Indication: weakness Rate (beats per minute): 59 Rhythm: sinus bradycardia Findings: 1st degree AV block, no ectopy Comparison ECG Date: 10/05/2016 Change: no significant change ED Course 1019: The patient was evaluated in room B9. A complete history and physical exam was performed. 1034: Ordered Sodium Chloride 1000 mL @ 50 mL/hr IV. 1211: Ordered Dextrose 50 mL IV, Human Insulin Regular 7 units IV. 1214: I checked on the patient at this time. I discussed results with the patient and his family. The are agreeable to hospitalization. 1216: I discussed the case with Dr. Chauncey Sewell, she will evaluate the patient for further treatment. Medical Decision This is an 86-year-old male who presents with generalized weakness, focal numbness and some degree of confusion. Differential diagnosis includes TIA, CVA , intracranial mass, intracranial hemorrhage, metabolic derangement, anemia, infection. I did perform a limited focused review of portions of the patient's old chart on the electronic medical record. The patient was seen by Dr. Mayen earlier today in the wound clinic. The patient was very lethargic at this visit and was exhibiting generalized weakness and numbness in the feet and jaw. He also had a blood sugar of 65. He was admitted to the hospital on September 29 of this year for osteomyelitis of the right foot and was noted to have generalized weakness, bradycardia, and hyperkalemia on this visit. The patient has a history of kidney injury, hypotension, elevated, LFTs, and CHF. I did evaluate the patient as noted above. I did obtain history from the patient as well as his son. Bedside blood sugar is 96. IV access was established. The patient was placed on a continuous bass string winder. I did order and personally review the patient's 12-lead EKG and chest x-ray as described above. I did order and review the patient's blood work as noted in the electronic medical record. He has some chronic findings but his potassium is elevated at 5.8. I did repeat this in case it was secondary to hemolysis. It was still elevated and so the patient was treated with IV glucose and insulin. I did order a CT of the head. I did review the images myself as well as the radiology report as described above. I did discuss the test results with the patient and his family. I did recommend hospitalization for further evaluation of his symptoms. I did discuss the case with the hospitalist and casework supervisor. Consults Time Called: 1212 Consulting Physician: Dr. Chauncey Sewell Returned Call: 1216 I discussed the case with Dr. Chauncey Sewell, she will evaluate the patient for further treatment. Impression Primary Impression: Generalized weakness Additional Impressions: Numbness Chronic kidney disease Hyperkalemia Anemia Thrombocytopenia Scribe Attestation The scribe's documentation has been prepared under my direct and personally reviewed by me in its entirety. I confirm that the note above accurately reflects all work, treatment, procedures, and medical decision making performed by me. Departure Information Dispostion Being Evaluated By Hospitalist Referrals [facility] ([facility] Patient Instructions My [facility] Problem Qualifiers
--- NOTE | 2016-10-18 14:24 | DIAGNOSTIC IMAGING REPORT ---
EFFUSION-CHEST/MEDIASTINUM ULTRASOUND CLINICAL HISTORY: evaluate pleural effusions COMPARISON STUDY: Chest 10/18/2016. FINDINGS: Moderate right pleural effusion with a total of 500 mL of fluid which was marked for thoracentesis. Small left pleural effusion with a total volume of 256 mL. This was not marked for thoracentesis due to the intervening lung. IMPRESSION: 1. Moderate right pleural effusion which was marked for thoracentesis. 2. Small left pleural effusion which was not marked for thoracentesis. Electronically signed by: Jimmy Aaron M.D. 10/18/2016 2:22 PM Dictated Date/Time: 10/18/2016 2:17 PM
[2016-10-18 14:37] VITALS: BP 111/68; PULSE 60; TEMP 33.5; Ht 177.8 cm; Wt 70.2 kg
[2016-10-18] MEDS ORDERED: POLYETHYLENE (MIRALAX) 17 GM PACK PO PRN (15:15)
[2016-10-18] MEDS ORDERED: PIPERACILL/TAZOBAC IV 3.375 GM in DEXTROSE 5% 100ML 100 ML IV SCH (15:15)
[2016-10-18] MEDS ORDERED: LEVOFLOXACIN 500 MG TAB PO SCH (16:00)
--- NOTE | 2016-10-18 16:01 | Neurology Consultation ---
Neurology Consultation Date of Consultation: Oct 18, 2016. Attending Physician: Kwesi Deleon MD Primary Care Physician: Tracey Owusu Reason for Consultation: CVA r/o History of Present Illness Source: patient, friend Dash is an 86 year old male who has a PMH of CKD stage 3, DM 2, Chromic Afib, CAD, Hypothyroidism, HTN, DL presented to his wound clinic with complaints of generalized weakness. He is a poor historian and there is no family in room. He states he has numbness in his legs and jaw. At the wound clinic the patient had a low blood sugar level, and was noted to be very lethargic. It was reported he was experiencing memory problems within the past month. On 09/29 he was admitted for bradycardia, hyperkalemia, JO and R foot osteomyelities, He was discharged to [facility] on Keflex and Levaquin. He reportedly developed R sided weakness and numbness however he states he is just generally weak. He has a history of CVA and on a aspirin daily. he is wheelchair bound. Currently he states he is very cold and it is noted that he is hypothermic. his girlfriend is in the room but she does not know details of event or his medical issues. Past Medical/Surgical History Medical Problems: (1) Anemia Status: Acute (2) Bradycardia Status: Acute (3) Bradycardia Status: Acute (4) Bradycardia Status: Acute (5) CHF (congestive heart failure) Status: Acute (6) Chronic kidney disease Status: Acute (7) Generalized weakness Status: Acute (8) GI bleed Status: Acute (9) Melena Status: Acute (10) Numbness Status: Acute (11) Renal failure Status: Acute (12) Renal failure Status: Acute (13) Respiratory distress Status: Acute (14) SOB (shortness of breath) Status: Acute (15) Thrombocytopenia Status: Acute Social History Smoking Status: Former smoker Drug Use: none Marital Status: Occupation Status: retired Allergies Coded Allergies: No Known Allergies (Unverified , 10/18/16) Current Inpatient Medications Current Inpatient Medications Medications (Trade) Dose Ordered Sig/Perla Route Start Time Stop Time Status Last Admin Dose Admin Miscellaneous Information (Pharmacist Discharge Med Rec Consult) 1 ea UD PRN N/A 10/18/16 13:00 11/17/16 12:59 Acetaminophen (Tylenol Tab) 650 mg Q4H PRN PO 10/18/16 13:00 11/17/16 12:59 Ondansetron HCl (Zofran Inj) 4 mg Q6H PRN IV 10/18/16 13:00 11/17/16 12:59 Nitroglycerin (Nitrostat Tab) 0.4 mg UD PRN SL 10/18/16 13:00 11/17/16 12:59 Miscellaneous (Iv Fluids Completed) 1 ea PRN PRN N/A 10/18/16 13:15 10/18/17 13:14 Clopidogrel Bisulfate (plAVix TAB) 75 mg QAM PO 10/19/16 09:00 11/18/16 08:59 Lorazepam (Ativan Tab) 0.5 mg TODAY@1400 PO 10/18/16 14:00 10/18/16 23:59 Aspirin (Ecotrin Tab) 81 mg DAILY PO 10/19/16 09:00 11/18/16 08:59 Donepezil HCl (Aricept Tab) 5 mg HS PO 10/18/16 21:00 11/17/16 20:59 Levothyroxine Sodium (Synthroid Tab) 25 mcg DAILYBB PO 10/19/16 06:00 11/18/16 06:59 Mirtazapine (Remeron Tab) 15 mg HS PO 10/18/16 21:00 11/17/16 20:59 Pravastatin Sodium (Pravachol Tab) 40 mg HS PO 10/18/16 21:00 11/17/16 20:59 Senna/Docusate Sodium (Senokot S Tab) 1 tab DAILY PRN PO 10/18/16 13:45 11/17/16 13:44 Tramadol HCl (Ultram Tab) 50 mg TID PRN PO 10/18/16 13:45 11/17/16 13:44 Triamcinolone Acetonide (Kenalog 0.5% Crm) 1 appln BID PRN EXT 10/18/16 13:45 11/17/16 13:44 Ferrous Sulfate (Feosol Tab) 325 mg BID PO 10/18/16 21:00 11/17/16 20:59 Meclizine HCl (Antivert Tab) 12.5 mg Q8 PRN PO 10/18/16 13:45 11/17/16 13:44 Pantoprazole Sodium (Protonix Tab) 40 mg QAM PO 10/19/16 09:00 11/18/16 08:59 Polyethylene (Miralax Powder Packet) 17 gm DAILY PRN PO 10/18/16 15:15 11/17/16 15:14 Insulin Aspart (novoLOG ASPART) SLIDING SCALE If C... ACHS SC 10/18/16 16:15 11/17/16 16:14 Glucose (Glucose 40% Gel) 15-30 GRAMS 15 GRAMS... UD PRN PO 10/18/16 14:00 11/17/16 13:59 Glucose (Glucose Chew Tab) 4-8 Tablets 4 Tabl... UD PRN PO 10/18/16 14:00 11/17/16 13:59 Dextrose (Dextrose 50% 50ML Syringe) 25-50ML OF 50% DW IV FOR... UD PRN IV 10/18/16 14:00 11/17/16 13:59 Glucagon 1 mg 1 mg UD PRN SQ 10/18/16 14:00 11/17/16 13:59 Daptomycin 450 mg/ Sodium Chloride 59 ml @ 100 mls/hr DAILY IV 10/18/16 15:15 10/20/16 15:14 UNV Piperacillin Sod/ Tazobactam Sod 3.375 gm/Dextrose 115 ml @ 200 mls/hr Q6 IV 10/18/16 15:15 10/20/16 15:14 UNV Levofloxacin/Prmx (Levaquin / D5W/ Premixed D5W) 150 ml @ 100 mls/hr Q24H IV 10/18/16 15:30 10/20/16 15:29 UNV Physical Exam Vital Signs (Past 24 Hrs): Date Time Temp Pulse Resp B/P Pulse Ox O2 Delivery O2 Flow Rate FiO2 10/18/16 14:37 33.5 60 22 111/68 Nasal Cannula 2.0 10/18/16 13:56 60 18 104/71 96 Nasal Cannula 2.0 10/18/16 11:29 59 18 126/56 98 Nasal Cannula 2.0 10/18/16 10:54 100 Room Air 10/18/16 10:18 33.7 64 16 98/60 100 Nasal Cannula 2.0 Physical Exam: Constitutional: , appearance pale weak ill appearing Ears, Nose, Mouth and Throat: mucous membranes moist, no injection and skin normal, eyes normal Cardiovascular: irregular Respiratory: shallow breath sounds Musculoskeletal: right foot wrapped with gauze, Skin: no stigmata of neurocutaneous disease noted and normal and intact Eyes: extraocular muscles intact (EOMI) and pupils equal, round and reactive to light (PERRL) miotic NEUROLOGIC EXAMINATION: Mental status: Alert and interactive he knows he is in the hospital but not year Cranial Nerves smile slightly a symmetric on right flattening of nasolabial fold, tongue midline Reflexes: decrease reflexes throughout, plantar neutral Sensory: vibration and cool touch decrease bilaterally LE, GT proprioception absent Coordination: finger to nose with dysmetric and essential tremor bilaterally no cogwheeling Gait/Stance: Posture lying in bed Motor: hold hands in air with eyes open Strength: hand psychiatric cns and biceps triceps bilaterally 3/5, hip flex 1/5 bilaterally Laboratory Results Past 24 Hours: 10/18/16 11:02 Red Blood Count 2.88, Mean Corpuscular Volume 101.0, Mean Corpuscular Hemoglobin 33.7, Mean Corpuscular Hemoglobin Concent 33.3, Mean Platelet Volume 11.9, Neutrophils (%) (Auto) 80.8, Lymphocytes (%) (Auto) 6.2, Monocytes (%) ( Auto) 10.1, Eosinophils (%) (Auto) 2.5, Basophils (%) (Auto) 0.2, Neutrophils # (Auto) 6.74, Lymphocytes # (Auto) 0.52, Monocytes # (Auto) 0.84, Eosinophils # ( Auto) 0.21, Basophils # (Auto) 0.02 Test 10/18/16 10:20 10/18/16 10:41 10/18/16 11:02 10/18/16 11:39 Bedside Glucose 96 mg/dl (70-99) Bedside Prothrombin Time INR 1.2 (0.9-1.1) White Blood Count 8.35 K/uL (4.8-10.8) Red Blood Count 2.88 M/uL (4.7-6.1) Hemoglobin 9.7 g/dL (14.0-18.0) Hematocrit 29.1 % (42-52) Mean Corpuscular Volume 101.0 fL (80-100) Mean Corpuscular Hemoglobin 33.7 pg (25-34) Mean Corpuscular Hemoglobin Concent 33.3 g/dl (32-36) Platelet Count 91 K/uL (130-400) Mean Platelet Volume 11.9 fL (7.4-10.4) Neutrophils (%) (Auto) 80.8 % Lymphocytes (%) (Auto) 6.2 % Monocytes (%) (Auto) 10.1 % Eosinophils (%) (Auto) 2.5 % Basophils (%) (Auto) 0.2 % Neutrophils # (Auto) 6.74 K/uL (1.4-6.5) Lymphocytes # (Auto) 0.52 K/uL (1.2-3.4) Monocytes # (Auto) 0.84 K/uL (0.11-0.59) Eosinophils # (Auto) 0.21 K/uL (0-0.5) Basophils # (Auto) 0.02 K/uL (0-0.2) RDW Standard Deviation 63.9 fL (36.4-46.3) RDW Coefficient of Variation 17.4 % (11.5-14.5) Immature Granulocyte % (Auto) 0.2 % Immature Granulocyte # (Auto) 0.02 K/uL (0.00-0.02) Platelet Estimate DECREASED Est Creatinine Clear Calc Drug Dose 21.5 ml/min Estimated Average Glucose 97 mg/dl Hemoglobin A1c 5.0 % (4.5-5.6) Total Creatine Kinase 58 U/L (39-308) Creatine Kinase MB 6.6 ng/ml (0.5-3.6) Creatine Kinase MB Ratio 11.4 (0-3.0) Troponin I 0.022 ng/ml (0-0.045) Chemistry Specimen Hemolysis Prothrombin Time 11.1 SECONDS (9.0-12.0) Prothromb Time International Ratio 1.0 (0.9-1.1) Activated Partial Thromboplast Time 34.5 SECONDS (21.0-31.0) Partial Thromboplastin Ratio 1.3 Test 10/18/16 13:14 10/18/16 15:15 10/18/16 15:[address] head with no acute findings Impression 86 year old male with hypothermia, generalized weakness, hx osteomyelitis right foot. extensive medical history Plan 1. warming essential at this point 2. would work up for sepsis 3. watch hyperkalemia-see nephrology note 4. MRI with and without brain and MRA head and neck ordered 5. would make sure patient is stable medically before imaging is done 6. chronic memory issues with warm may be back to baseline further recommendations to follow I have seen and discussed above patient with Dr Haritha Stephen, neurology Pt seen and examined. Hx elicited varies from examiner to examiner. Pt admits to vertigo and numbness from chin to toes. Awake, alert, no dysarthria, nml EOM , no nystagmsu, nml moreno, facial symm. Pt is modestly diffusely weak. The pt may have genl weakness related to his multiple metabolic abnl and hypothermia. whether the complaint of vertigo localizes a new process to the brainstem is unclear. I would correct the correctable, continue antiplt tx and have an MRI of brain noncontrast, with further workup depending on the desires of pt and family. JOSEPH Stephen MD
[2016-10-18 16:10] VITALS: BP 110/70; PULSE 61; O2SAT 97
[2016-10-18 17:01] LABS: URINE APPEARANCE CLEAR (CLEAR); URINE BILIRUBIN NEG (NEG); URINE COLOR YELLOW; URINE NITRITE NEG (NEG); URINE SPECIFIC GRAVITY 1.013 (1.000-1.030); UROBILINOGEN NEG (NEG)
[2016-10-18 17:05] LABS: MANUAL MICROSCOPIC REQUIRED? NO; REVIEW REQ? NO
[2016-10-18] MEDS ORDERED: LEVOFLOXACIN / D5W 750 MG in PREMIXED IN D5W 150 ML IV ONE (17:15)
[2016-10-18] MEDS: INSULIN ASPART 100 UNITS/ML 3 ML PEN SC SCH ×2 (17:22→22:02)
[2016-10-18 17:54] LABS: BUN/CREATININE RATIO 23.1 (10-20); CALCIUM 8.6 mg/dl (8.5-10.1); CREATININE 2.3 mg/dl (0.60-1.40); POTASSIUM 5.3 mmol/L (3.5-5.1)
[2016-10-18 18:04] LABS: THYROID STIMULATING HORMONE 62.5 uIu/ml (0.300-4.500)
[2016-10-18 18:45] VITALS: BP 91/50; PULSE 63; O2SAT 98
[2016-10-18] MEDS ORDERED: LEVOFLOXACIN CONSULT ACTIVE PRN (19:15)
[2016-10-18] MEDS ORDERED: PIPERACILL/TAZOBAC CONSULT ACTIVE PRN (19:15)
[2016-10-18 20:00] VITALS: TEMP 34.3
[2016-10-18] MEDS ORDERED: PIPERACILL/TAZOBAC IV 3.375 GM in DEXTROSE 5% 100ML IV ONE (20:00)
[2016-10-18] MEDS: DONEPEZIL HCL 5 MG TAB PO SCH (20:14)
[2016-10-18] MEDS: MIRTAZAPINE TAB 15 MG TAB PO SCH (20:14)
[2016-10-18] MEDS: FERROUS SULFATE 325 MG TAB PO SCH (20:16)
[2016-10-18] MEDS: PRAVASTATIN SOD 40 MG TAB PO SCH (20:17)
--- NOTE | 2016-10-18 20:25 | History and Physical ---
History & Physical Date & Time of Service: Oct 18, 2016 at 13:19 Chief Complaint: Illness Primary Care Physician: Tracey Owusu History of Present Illness Source: patient, family This is an 86 y/o male with PMHx of CKD stage 3, DM 2, Chromic Afib, CAD, Hypothyroidism, HTN, Dyslipidemia and other problems as outlined below who presents to the ED with R sided weakness/numbness that began yesterday. Pt is a poor historian due to dementia therefore history is obtained from both patient and son at bedside. Pt was recently admitted to [facility] from 09/29-10/05 with bradycardia, hyperkalemia, JO and R foot osteomyelitis. Pt was discharged to [facility] on Keflex and Levaquin. Pt reports that yesterday he developed R sided weakness and numbness. This morning patient was seen at the wound care clinic and they sent him to the ED for his sxs. Patient now states that his weakness is "all over his body" from his "toes to his jaw". His sxs are assoc with some blurred vision like there are "spider webs in my eyes". Pt has no history of CVA per son at bedside. Pt takes baby ASA daily but is not on any other anticoagulation. Pt was on Metoprolol and Amiodarone for chronic afib however both meds were discontinued by cardiology in August due to bradycardia. His is currently on Keflex and Levaquin for R foot osteomyelitis. He follows He is wheelchair bound. Pt denies fever/chills, diplopia, chest pain , SOB, abd pain, N/V, constipation, diarrhea, hematochezia, melena, dysuria, LE edema, calf pain, slurred speech, facial droop, difficulty swallowing, lightheadedness/dizziness. In the ED, pt is hypotensive on arrival. He is afebrile with no leukocytosis. HgB 9.7. creat 2.5. K+ 5.8. CT head is negative. CXR bilateral pleural effusions. EKG: sinus kenia with 1* Av block. Pt is stable and will be admitted for further evaluation and treatment. Past Medical/Surgical History Medical Problems: (1) Abdominal aortic aneurysm Status: Chronic (2) Asbestosis Status: Chronic (3) Atrial fibrillation Status: Chronic (4) Benign hypertension Status: Chronic (5) Benign paroxysmal positional vertigo Status: Chronic (6) Cerebrovascular disease, arteriosclerotic, post-stroke Status: Chronic (7) Chronic kidney disease stage 3 Status: Chronic (8) Coronary artery disease Status: Chronic (9) Dieulafoy lesion of stomach Status: Chronic (10) DM type 2 (diabetes mellitus, type 2) Status: Chronic (11) Dyslipidemia Status: Chronic (12) HTN (hypertension) Status: Chronic (13) Hx of gastric ulcer Status: Chronic Surgical Problems: (1) H/O cardiac catheterization Status: Resolved (2) H/O esophagogastroduodenoscopy Status: Resolved (3) H/O exploratory laparotomy Status: Resolved (4) H/O hemicolectomy Status: Resolved (5) S/p shoulder avulsion repair Status: Resolved (6) S/P tonsillectomy Status: Resolved (7) S/P total knee replacement Status: Resolved Family History Patient reports no known family medical history. Social History Smoking Status: Former Smoker Drug Use: none Marital Status: Housing status: lives with significant other Occupational Status: retired Immunizations History of Influenza Vaccine: Yes Influenza Vaccine Date: Oct 16, 2012 History of Tetanus Vaccine?: Unknown History of Pneumococcal: Yes History of Hepatitis B Vaccine: Unknown Allergies Coded Allergies: No Known Allergies (Unverified , 10/18/16) Home Medications Scheduled Acetaminophen (Tylenol), 650 MG PO Q6 Aspirin (Aspirin Ec), 81 MG PO DAILY Cephalexin Monohydrate (Keflex), 250 MG PO Q12 Donepezil HCl (Donepezil HCl), 5 MG PO HS Ferrous Sulfate (Ferrous Sulfate), 325 MG PO BID Furosemide (Lasix), 40 MG PO DAILY Hydralazine HCl (Hydralazine HCl), 10 MG PO TID Levofloxacin (Levofloxacin), 500 MG PO Q48H Levothyroxine Sodium (Synthroid), 25 MCG PO DAILYBB Lisinopril (Zestril), 5 MG PO DAILY Mirtazapine (Remeron), 15 MG PO HS Multivitamin (Multivitamin), 1 TAB PO DAILY Nitroglycerin (Nitrostat), 0.4 MG UT PRN Omeprazole (Prilosec), 40 MG PO DAILY Pravastatin Sod (Pravastatin Sodium), 40 MG PO HS Sitagliptin (Januvia), 50 MG PO DAILY Scheduled PRN Meclizine Hcl (Meclizine Hcl), 12.5 MG PO Q8 PRN Polyethylene Glycol 3350 (Miralax), 17 GM PO DAILY PRN for Constipation Senna/Docusate Sod (Senokot S), 1 TAB PO DAILY PRN for Constipation Tramadol (Ultram), 25-50 MG PO TID PRN for Pain Triamcinolone Acet (Triamcinolone Acetonide), 1 APPLN TOP BID PRN for rash Physical Exam Vital Signs Date Time Temp Pulse Resp B/P Pulse Ox O2 Delivery O2 Flow Rate FiO2 10/18/16 11:29 59 18 126/56 98 Room Air 10/18/16 10:54 100 Room Air 10/18/16 10:18 33.7 64 16 98/60 100 Room Air Diagnostics Laboratory Results Results Past 24 Hours Test 10/18/16 10:20 10/18/16 10:41 10/18/16 11:02 10/18/16 11:39 Range/Units Bedside Glucose 96 70-99 mg/dl Bedside Prothrombin Time INR 1.2 0.9-1.1 White Blood Count 8.35 4.8-10.8 K/uL Red Blood Count 2.88 4.7-6.1 M/uL Hemoglobin 9.7 14.0-18.0 g/dL Hematocrit 29.1 42-52 % Mean Corpuscular Volume 101.0 80-100 fL Mean Corpuscular Hemoglobin 33.7 25-34 pg Mean Corpuscular Hemoglobin Concent 33.3 32-36 g/dl Platelet Count 91 130-400 K/uL Mean Platelet Volume 11.9 7.4-10.4 fL Neutrophils (%) (Auto) 80.8 % Lymphocytes (%) (Auto) 6.2 % Monocytes (%) (Auto) 10.1 % Eosinophils (%) (Auto) 2.5 % Basophils (%) (Auto) 0.2 % Neutrophils # (Auto) 6.74 1.4-6.5 K/uL Lymphocytes # (Auto) 0.52 1.2-3.4 K/uL Monocytes # (Auto) 0.84 0.11-0.59 K/uL Eosinophils # (Auto) 0.21 0-0.5 K/uL Basophils # (Auto) 0.02 0-0.2 K/uL RDW Standard Deviation 63.9 36.4-46.3 fL RDW Coefficient of Variation 17.4 11.5-14.5 % Immature Granulocyte % (Auto) 0.2 % Immature Granulocyte # (Auto) 0.02 0.00-0.02 K/uL Platelet Estimate DECREASED Sodium Level 136 136-145 mmol/L Potassium Level 5.8 5.6 3.5-5.1 mmol/L Chloride Level 101 98-107 mmol/L Carbon Dioxide Level 24 21-32 mmol/L Anion Gap 11.0 3-11 mmol/L Blood Urea Nitrogen 52 7-18 mg/dl Creatinine 2.50 0.60-1.40 mg/dl Est Creatinine Clear Calc Drug Dose 21.5 ml/min Estimated GFR () 25.8 Estimated GFR (Non- 22.3 BUN/Creatinine Ratio 20.8 10-20 Random Glucose 95 70-99 mg/dl Calcium Level 8.5 8.5-10.1 mg/dl Total Creatine Kinase 58 39-308 U/L Creatine Kinase MB 6.6 0.5-3.6 ng/ml Creatine Kinase MB Ratio 11.4 0-3.0 Troponin I 0.022 0-0.045 ng/ml Chemistry Specimen Hemolysis Prothrombin Time 11.1 9.0-12.0 SECONDS Prothromb Time International Ratio 1.0 0.9-1.1 Activated Partial Thromboplast Time 34.5 21.0-31.0 SECONDS Partial Thromboplastin Ratio 1.3 Test 10/18/16 13:14 Range/Units Impression Assessment and Plan R SIDED WEAKNESS/NUMBNESS; R/O CVA pt presented with R sided weakness/numbness -admit observation status to telemetry -RFs include HTN, Dyslipidemia, age -head CT is negative; obtain brain MRI and MRA head and neck for further evaluation -obtain echo to r/o any cardiac abnormalities -neuro checks q4h -fasting lipids in AM -cont ASA and start Plavix -PT/OT -consult speech to evaluate swallowing -NPO until speech eval is complete -Pt is not a candidate for Tpa at this time 2* to time elapsed since onset of sxs -consult neuro, Dr. Haritha Stephen-pending input -allow for permissive HTN in setting of possible CVA -continue to monitor. Hypothermia sepsis? warm bear hug iv abx daptomycin, Zosyn and Levaquin iv fluids f/u lactic acid hold po abx. f/u cx ID consulted HYPERKALEMIA -K+ 5.8; may be due to worsening renal function -EKG no evidence of peaked T waves -insulin and dextrose given in ED -give Kayexalate now -repeat prp q 4 hrs -nephro consulted, Dr. Leigh-appreciate input JO WITH H/O CKD STAGE 3 -baseline creatinine is 1.6; creatinine currently 2.5 (was 2.4 10/13/16); ? new baseline -hold PO Lasix, hydralazine and lisinopril -start gentle IVF -continue to monitor with prp and avoid nephrotoxic agents when able -nephro consulted HYPOTENSION -hypotensive in ED; h/o HTN on lisinopril and hydralazine at home -possibly due to infection vs. volume depletion -CXR no consolidation; check UA -check lactic acid -hold Lasix, hydralazine and lisinopril -cont IVF BILATERAL PLEURAL EFFUSIONS -CXR + bilateral pleural effusions; increased from last admission -obtain mediastinum US for further evaluation R FOOT ULCER -wound present for 1.5 months; follows with wound clinic every other week; on Keflex and Levaquin which are hold now iv abx as above -consult wound care nurse -consult ID THROMBOCYTOPENIA -plt count 91 -avoid any pharmacologic anticoagulation -pt denies active bleed -monitor daily CHRONIC ANEMIA -HgB stable at 9.7 (bl=9-10) -pt denies active bleed -continue to monitor HgB CHRONIC AFIB -EKG + sinus kenia -recently taken off metoprolol and amiodarone due to bradycardia -no longer on anticoagulation due to fall risk -monitor WELL-CONTROLLED DM 2 -recent A1C 5.1 -hold Januvia -start ISS -monitor BSG AC HS CHRONIC DIASTOLIC HEART FAILURE -pt does not appear fluid overloaded -recent echo 08/2016 EF 55-60% with mod aortic regurg, mod-severe aortic stenosis and mod pulm hypertension -hold lasix and hydralazine for now -monitor volume status closely as patnet on iv fluids now with I&Os and daily weights CORONARY ARTERY DISEASE -cont ASA -pt not on BB due to bradycardia -pt currently denies chest pain HYPOTHYROIDISM -cont levothyroxine DYSLIPIDEMIA -cont statin DVT PROPHYLAXIS -SCDs only due to thrombocytopenia CODE STATUS -DNR per discussion with patient upon admission DISPO -discharge eval, PT/OT consults placed -Pt seen in collaboration with Dr. Ryan. Please see his addendum for further details. Thanks! -Of note: patient will be followed by Dr. Deleon starting tomorrow AM. Agree with above h and P. briefly 86 was brought in form wound c,linic because of complaining of right sided weakness. Patient says he is weak all over. Patient is wheel chair bound. Was recently in hospital for Bradycardia, hyperkalemia, JO and osteomyelitis of right foot.Patient is hypothermic. Complains of visual disturbance with seeing cobwebs and roof moving. Has some headache. Denies chest pain or sob. Speech is clear. p/e Ge seems in mild distress Cvs s1 and s2 heard ESM Rs cta b/l no added sounds Abd mild abdominal discomfort, no distension soft Pcas weakness in extremities a/p Weakness brought in because of right sided weakness ct head negative added Plavix to aspirin will f/u MRI/mRA head neuro checks consulted neurology Hypothermia bear hug f/u tsh possible sepsis started on iv abx and held po abx Keflex and Levaquin which were started on last admission for right foot osteomyelitis f/u lactic acid ID consulted will f/u cx. Hyperkalemia JO received insulin and dextrose in er will give Kayexalate iv fluids nephrology consulted hX O F Diastolic chf HOLDING LASIX FOR ARF AND POSSIBLE SEPSIS ON FLUIDS MONITOR OR VOLUME OVERLOAD PLEURAL EFFUSION F/U CHEST US VTE Prophylaxis VTE Risk Assessment Done? Y/N: Yes Risk Level: Moderate
[2016-10-18] MEDS ORDERED: LEVOTHYROXINE SODIUM INJ 12.5 MCG in SYRINGE 0 ML IV ONE (20:30)
[2016-10-18] MEDS ORDERED: CEPHALEXIN MONOHYDRATE 250 MG CAP PO SCH (21:00)
[2016-10-18 22:24] VITALS: TEMP 36.3
[2016-10-18] MEDS ORDERED: LEVOTHYROXINE SODIUM INJ 50 MCG in SYRINGE 0 ML IV ONE (23:15)
--- NOTE | 2016-10-18 23:51 | NEPHROLOGY CONSULTATION ---
DATE OF CONSULTATION: 10/18/2016 ATTENDING OF RECORD: Dr. Deleon. REASON FOR CONSULTATION: Hyperkalemia and CKD. HISTORY OF PRESENT ILLNESS: This is an 86-year-old male, who lives at [facility], who is followed by my partner, Dr. Sole Cook, previously seen in 2013 by her. The patient had a recent admission at the end of September for JO with creatinine up to 4.3 and hyperkalemia with potassium level of 6.8 with a junctional rhythm. The patient was given fluids and medications to help improve the kidney function and hyperkalemia. The patient left with a creatinine of 2.2 and a potassium level of 5. The patient presents again with hyperkalemia this time with a potassium level of 5.8 and a creatinine of 2.5. The patient is confused and states that he has seen hallucinations. During previous admission, the patient did not want dialysis and did not want a pacemaker. No aggressive measures to be taken at this time. The patient is stating that when it is time for the Lord to take him, he is ready. The patient with CKD stage IV with baseline creatinine now in the low 2s with microalbuminuria with diabetes since 2004, hypertension since 2004, coronary artery disease with history of 13 stents, atrial fibrillation requiring cardioversion in 2012, history of AAA, history of gout, history of perforated colon as well as nephrolithiasis. The patient moved from [place] in September 2012 and was wheelchair bound in 2013. Using aggressive NSAIDs from 1991 to 2011. There was a thought that the patient would benefit from a pacemaker; however, the patient did not want any aggressive measures. The patient's potassium at the time of discharge was 5 and we were following potassium levels as an outpatient. REVIEW OF SYSTEMS: Unreliable at this time, given the patient's confusion. PAST MEDICAL HISTORY: CKD stage IV with baseline creatinine in the low 2's, coronary artery disease with 13 stents in the past, history of a stroke in the past, atrial fibrillation, hypertension, AAA, hyperlipidemia, diabetes. PAST SURGICAL HISTORY: Hemicolectomy, multiple cardiac procedures, total knee replacement, tonsillectomy. FAMILY HISTORY: No renal disease in family. SOCIAL HISTORY: Former smoker, quit in 1959. No alcohol, no drugs. , lives with his girlfriend now, independently, at [facility]. CURRENT MEDICATIONS: 1. Plavix 75 mg a day. 2. Aspirin 81 mg a day. 3. Protonix 40 mg a day. 4. Synthroid 25 mcg a day. 5. Aricept 5 mg at night. 6. Remeron 15 mg at night. 7. Pravachol 40 mg at night. 8. Iron 325 p.o. b.i.d.. 9. Sliding scale insulin. 10. Levaquin 750 mg IV every day. 11. Daptomycin 450 mg IV daily. 12. Zosyn 3.375 IV q. 6 h. PHYSICAL EXAMINATION: VITAL SIGNS: Temperature 33.5, pulse 60, respiratory rate is 22, blood pressure 111/68, saturating 96% on 2 liters. GENERAL: Awake, confused, difficulty hearing, follows commands. EYES: No scleral icterus. ENT: Mucous membranes are dry. NECK: Supple. PULMONARY: Clear to auscultation. CARDIAC: Sinus with a first-degree AV block, which is quite pronounced on telemetry. ABDOMEN: Bowel sounds positive, soft, nontender, nondistended. EXTREMITIES: No significant clubbing, cyanosis or edema. NEUROLOGICALLY: Nonfocal, other than significant confusion with hallucinations. DERMATOLOGIC: No rash or ulcers noted. LABORATORY DATA: White count 8, H/H 9.7 and 29.1, platelet count 91. Labs are pending for this afternoon. Last potassium was 5.6, hemoglobin A1c of 5. CK 58. Sodium was 136, chloride is 101, bicarb is 24, BUN is 52, creatinine is 2.5, GFR of 22. INR is 1. Head CT showed no acute intracranial abnormality, significant atrophy with microvascular ischemic changes. Chest x-ray shows bilateral pleural effusions, slightly increased in volume from the prior study, chronic pleural and fibrocalcific changes. Chest ultrasound showed moderate right pleural effusion, which was marked for thoracentesis, small left pleural effusion, which was not marked for thoracentesis. HOME MEDICATIONS: Significant for lisinopril 5 mg a day. There is a note of right-sided weakness and numbness, rule out stroke. Head CT is negative and trying to obtain a brain MRI/MRA and checking echo with bubble study. ASSESSMENT AND PLAN: 1. Hyperkalemia. We have the patient's potassium of 5.8, which is improved to 5.6 and giving insulin, D50 and Kayexalate, should continue to improve on a low-potassium diet. Would like to give some gentle IV hydration to help lower the potassium. 2. Chronic kidney disease, stage IV. We have a baseline creatinine around 2.2, with a creatinine now of 2.5, which is mildly above baseline. Holding the Lasix and the lisinopril. I do not feel the patient would benefit from lisinopril with the recurrent admissions for hyperkalemia. Continue gentle IV fluids. 3. A right foot ulcer was evaluated during that previous admission and being followed with the wound clinic. Overall, the patient did not want aggressive measures on previous admission and does not want dialysis, no indication for emergent dialysis at this time. I would continue a low-potassium diet, gentle IV fluids, Kayexalate, insulin and D50 and following labs periodically. I would aim for a baseline creatinine of 2.2, which is what he was at upon discharge and is likely more his new baseline compared to the previous one of1.6 prior to admission. The patient is also hypothermic and so, as we re-warm the patient, the hyperkalemia may worsen. We have to be careful to monitor for worsening high potassium, which may lead to a junctional rhythm, similar to the previous admission. I personally feel the hyperkalemia is purely from dietary indiscretion in the setting of chronic kidney disease and hopefully, with IV fluids, screening for sepsis and treating conservatively, potassium level will start to improve and kidney function restores back to the baseline of a creatinine of 2.2. Appreciate consultation. KIYA
[2016-10-19] VITALS (44 sets, daily range): BP systolic 61–142; BP diastolic 40–103; PULSE 61–125; TEMP 34.8–36.8; O2SAT 2–100
[2016-10-19] MEDS ORDERED: LEVOTHYROXINE SODIUM INJ 100 MCG in SYRINGE 0 ML IV ONE
[2016-10-19] MEDS ORDERED: ALBUT/IPRATROP 3MG/0.5MG NEB 3 ML VIAL INH ONE (00:15)
[2016-10-19] MEDS: HYDROCORTISONE IV 50 MG in SYRINGE 0 ML IV SCH ×5 (00:57→23:59)
[2016-10-19] MEDS ORDERED: VANCOMYCIN INJ 1,900 MG in SODIUM CHLORIDE 0.9% 500ML 500 ML IV STA (01:18)
[2016-10-19] MEDS ORDERED: VANCOMYCIN CONSULT ACTIVE PRN (01:30)
[2016-10-19 02:07] LABS: ALLEN TEST POS (POS); ARTERIAL BLD GAS O2 SATURATION 83.5 % (90-95); ARTERIAL BLOOD GAS BASE EXCESS -0.9 mEq/L (-9-1.8); ARTERIAL BLOOD GAS HCO3 25 mmol/L (19-24); ARTERIAL BLOOD GAS PO2 53 mm/Hg (80-95); ARTERIAL BLOOD GAS pH 7.33 (7.35-7.45); O2 ADMINISTRATION 5 L
[2016-10-19 02:22] LABS: BUN/CREATININE RATIO 22.5 (10-20); CALCIUM 8.1 mg/dl (8.5-10.1); CREATININE 2.4 mg/dl (0.60-1.40); POTASSIUM 5.6 mmol/L (3.5-5.1)
[2016-10-19] MEDS ORDERED: HALOPERIDOL 1 MG TAB PO PRN (02:30)
[2016-10-19] MEDS ORDERED: HALOPERIDOL LACTATE 5 MG/ML 1 ML VIAL IM PRN (02:30)
[2016-10-19] MEDS ORDERED: INSULIN HUMAN REGULAR PER UNIT 10 UNITS in SYRINGE 0 ML IV STA (02:59)
[2016-10-19] MEDS ORDERED: FUROSEMIDE INJ 60 MG in SYRINGE 0 ML IV STA (02:59)
[2016-10-19] MEDS ORDERED: DEXTROSE 50% 50 ML SYR IV ONE (03:00)
[2016-10-19] MEDS ORDERED: FUROSEMIDE INJ 80 MG in SYRINGE 0 ML IV ONE (03:30)
[2016-10-19] MEDS ORDERED: DEXTROSE 50% 50 ML SYR IV SCH (03:30)
[2016-10-19] MEDS ORDERED: INSULIN HUMAN REGULAR PER UNIT 10 UNITS in SYRINGE 9.9 ML IV SCH (03:30)
[2016-10-19] MEDS ORDERED: ALBUT/IPRATROP 3MG/0.5MG NEB 3 ML VIAL INH STA (03:32)
[2016-10-19] MEDS: PIPERACILL/TAZOBAC IV 3.375 GM in DEXTROSE 5% 100ML IV SCH ×2 (03:50→10:37)
[2016-10-19 05:42] LABS: ARTERIAL BLD GAS O2 SATURATION 99.6 % (90-95); ARTERIAL BLOOD GAS BASE EXCESS -2.6 mEq/L (-9-1.8); ARTERIAL BLOOD GAS HCO3 26 mmol/L (19-24); ARTERIAL BLOOD GAS PO2 241 mm/Hg (80-95)
[2016-10-19 05:48] LABS: ARTERIAL BLOOD GAS pH 7.19 (7.35-7.45)
[2016-10-19 05:49] LABS: ALLEN TEST POS (POS); O2 ADMINISTRATION 100%
[2016-10-19 05:59] LABS: HEMATOCRIT 27.1 % (42-52); MEAN CELL VOLUME 98.5 fL (80-100); MEAN CORPUSCULAR HEMOGLOBIN 32.7 pg (25-34); MEAN CORPUSCULAR HGB CONC 33.2 g/dl (32-36); PLATELET COUNT 93 K/uL (130-400); RED BLOOD COUNT 2.75 M/uL (4.7-6.1); WHITE BLOOD COUNT 11.95 K/uL (4.8-10.8)
[2016-10-19 06:00] LABS: COMPLETE YES; EOS % 0.1 %; IG% 0.3 %; LYMPH % 2.1 %; LYMPH ABS # 0.25 K/uL (1.2-3.4); MONO % 4.8 %; NEUT % 92.7 %; PLT ESTIMATE DECREASED
[2016-10-19] MEDS ORDERED: LEVOTHYROXINE 25 MCG TAB PO SCH (06:00)
[2016-10-19 06:09] LABS: BUN/CREATININE RATIO 20.5 (10-20); CALCIUM 7.9 mg/dl (8.5-10.1); CREATININE 2.6 mg/dl (0.60-1.40); POTASSIUM 5.3 mmol/L (3.5-5.1)
[2016-10-19 06:19] LABS: THYROID STIMULATING HORMONE 70.1 uIu/ml (0.300-4.500)
[2016-10-19 07:23] LABS: ARTERIAL BLD GAS O2 SATURATION 93.9 % (90-95); ARTERIAL BLOOD GAS BASE EXCESS -1.1 mEq/L (-9-1.8); ARTERIAL BLOOD GAS HCO3 24 mmol/L (19-24); ARTERIAL BLOOD GAS PO2 73 mm/Hg (80-95); ARTERIAL BLOOD GAS pH 7.37 (7.35-7.45)
[2016-10-19 07:25] LABS: ALLEN TEST POS (POS); O2 ADMINISTRATION 100%
--- NOTE | 2016-10-19 07:30 | DIAGNOSTIC IMAGING REPORT ---
SINGLE VIEW CHEST CLINICAL HISTORY: Hypoxia. FINDINGS: An AP, portable, upright chest radiograph is compared to study dated 10/18/2016 and correlated with chest CT dated 03/22/2013. The examination is significantly degraded by portable technique and patient rotation. The heart is enlarged and there is atherosclerotic calcification with uncoiling of the thoracic aorta. The pulmonary vasculature is noncongested. Large bilateral calcified pleural plaques are similar to previous. There are layering pleural effusions with bibasilar consolidation. No pneumothorax is seen. The skeletal structures are osteopenic. Advanced arthritic change is noted in the shoulders and thoracic spine. IMPRESSION: 1. Cardiomegaly without radiographic evidence of congestive failure. 2. Layering pleural effusions with bibasilar consolidation. This has not significant change from 10/18/2016. 3. Large calcified pleural plaques are similar to previous. Electronically signed by: Mark Jc M.D. 10/19/2016 7:28 AM Dictated Date/Time: 10/19/2016 7:27 AM
[2016-10-19] MEDS ORDERED: ALBUT/IPRATROP 3MG/0.5MG NEB 3 ML VIAL INH SCH ×2 (08:00)
[2016-10-19] MEDS ORDERED: CLOPIDOGREL BISULFATE 75 MG TAB PO SCH (09:00)
[2016-10-19] MEDS ORDERED: PANTOprazole SOD 40 MG TAB PO SCH (09:00)
[2016-10-19] MEDS ORDERED: ASPIRIN 81 MG ECTAB PO SCH (09:00)
[2016-10-19] MEDS ORDERED: LEVOTHYROXINE SODIUM INJ 50 MCG in SYRINGE 0 ML IV SCH (09:00)
[2016-10-19] MEDS ORDERED: MULTIVITAMIN TAB PO SCH (09:00)
[2016-10-19] MEDS ORDERED: LEVOTHYROXINE SODIUM INJ 100 MCG in SYRINGE 0 ML IV SCH (09:00)
--- NOTE | 2016-10-19 09:25 | Nephrology Progress Note ---
Nephrology Progress Note Date of Service: Oct 19, 2016. Subjective 86 yo male who is a level 5 presented with worsening confusion, jo, hyperkalemia, hypothermia with complaints of arm weakness. placed on arnel hugger and given iv fluids and marie exalate and insulin and d50. required bipap overnight with respiratory acidosis. pt is arousable but still confused. urinating with vargas catheter in place. off iv fluids. arnel hugger also off. pt found to be significantly hypothyroid and on iv synthroid now. Objective Date Time Temp Pulse Resp B/P Pulse Ox O2 Delivery O2 Flow Rate FiO2 10/19/16 08:00 92 BiPAP 100 10/19/16 07:35 63 89 35 10/19/16 07:30 63 20 89 BiPAP/CPAP 35 10/19/16 06:03 61 100 35 10/19/16 04:00 92 BiPAP 100 10/19/16 03:55 80 94 100 10/19/16 03:54 80 22 94 BiPAP/CPAP 100 10/19/16 03:54 36.3 94 21 90/57 98 Non-Rebreather 15.0 10/19/16 01:02 86 20 93 Nasal Cannula 5.0 10/19/16 00:23 36.4 72 22 142/60 2 Nasal Cannula 6.0 10/19/16 00:00 92 Nasal Cannula 6.0 10/18/16 22:24 36.3 10/18/16 20:00 Nasal Cannula 2.0 10/18/16 20:00 34.3 10/18/16 18:45 63 18 91/50 98 10/18/16 16:10 61 18 110/70 97 Nasal Cannula 2.0 10/18/16 16:00 Nasal Cannula 2.0 10/18/16 14:37 33.5 60 22 111/68 Nasal Cannula 2.0 10/18/16 13:56 60 18 104/71 96 Nasal Cannula 2.0 10/18/16 11:29 59 18 126/56 98 Nasal Cannula 2.0 10/18/16 10:54 100 Room Air 10/18/16 10:18 33.7 64 16 98/60 100 Nasal Cannula 2.0 Physical Exam: General-lethargic, confused on bipap Eyes-no scleral icterus ENT-mmm Neck-supple Lungs-decreased breath sounds at bases, some coarse breath sounds-sounds better compared to last night Heart-irregular Abdomen-hypoactive bowel sounds Extremities-mild edema Neuro-lethargic Current Inpatient Medications Medications (Trade) Dose Ordered Sig/Perla Route Start Time Stop Time Status Last Admin Dose Admin Miscellaneous Information (Pharmacist Discharge Med Rec Consult) 1 ea UD PRN N/A 10/18/16 13:00 11/17/16 12:59 Acetaminophen (Tylenol Tab) 650 mg Q4H PRN PO 10/18/16 13:00 11/17/16 12:59 Ondansetron HCl (Zofran Inj) 4 mg Q6H PRN IV 10/18/16 13:00 11/17/16 12:59 Nitroglycerin (Nitrostat Tab) 0.4 mg UD PRN SL 10/18/16 13:00 11/17/16 12:59 Miscellaneous (Iv Fluids Completed) 1 ea PRN PRN N/A 10/18/16 13:15 10/18/17 13:14 Clopidogrel Bisulfate (plAVix TAB) 75 mg QAM PO 10/19/16 09:00 11/18/16 08:59 Aspirin (Ecotrin Tab) 81 mg DAILY PO 10/19/16 09:00 11/18/16 08:59 Donepezil HCl (Aricept Tab) 5 mg HS PO 10/18/16 21:00 11/17/16 20:59 10/18/16 20:14 5 MG Mirtazapine (Remeron Tab) 15 mg HS PO 10/18/16 21:00 11/17/16 20:59 10/18/16 20:14 15 MG Pravastatin Sodium (Pravachol Tab) 40 mg HS PO 10/18/16 21:00 11/17/16 20:59 10/18/16 20:17 40 MG Senna/Docusate Sodium (Senokot S Tab) 1 tab DAILY PRN PO 10/18/16 13:45 11/17/16 13:44 Tramadol HCl (Ultram Tab) 50 mg TID PRN PO 10/18/16 13:45 11/17/16 13:44 Triamcinolone Acetonide (Kenalog 0.5% Crm) 1 appln BID PRN EXT 10/18/16 13:45 11/17/16 13:44 Ferrous Sulfate (Feosol Tab) 325 mg BID PO 10/18/16 21:00 11/17/16 20:59 10/18/16 20:16 325 MG Meclizine HCl (Antivert Tab) 12.5 mg Q8 PRN PO 10/18/16 13:45 11/17/16 13:44 Pantoprazole Sodium (Protonix Tab) 40 mg QAM PO 10/19/16 09:00 11/18/16 08:59 Polyethylene (Miralax Powder Packet) 17 gm DAILY PRN PO 10/18/16 15:15 11/17/16 15:14 Insulin Aspart (novoLOG ASPART) SLIDING SCALE If C... ACHS SC 10/18/16 16:15 11/17/16 16:14 Glucose (Glucose 40% Gel) 15-30 GRAMS 15 GRAMS... UD PRN PO 10/18/16 14:00 11/17/16 13:59 Glucose (Glucose Chew Tab) 4-8 Tablets 4 Tabl... UD PRN PO 10/18/16 14:00 11/17/16 13:59 Dextrose (Dextrose 50% 50ML Syringe) 25-50ML OF 50% DW IV FOR... UD PRN IV 10/18/16 14:00 11/17/16 13:59 Glucagon 1 mg 1 mg UD PRN SQ 10/18/16 14:00 11/17/16 13:59 Sodium Chloride (Nss 1000ml) 1,000 ml @ 100 mls/hr Q10H IV 10/18/16 16:00 11/17/16 15:59 Future Hold 10/18/16 16:57 100 MLS/HR Levofloxacin (Consult) 1 ea UD PRN N/A 10/18/16 19:15 11/17/16 19:14 Piperacillin Sod/ Tazobactam Sod 1 ea 1 ea UD PRN N/A 10/18/16 19:15 11/17/16 19:14 Piperacillin Sod/ Tazobactam Sod 3.375 gm/Dextrose 115 ml @ 28.75 mls/ hr Q8H IV 10/19/16 02:00 10/20/16 01:59 10/19/16 03:50 28.75 MLS/HR Levofloxacin 750 mg/Prmx 150 ml @ 100 mls/hr Q2D@1800 IV 10/20/16 18:00 10/20/16 18:01 Levothyroxine Sodium 100 mcg/ Syringe 5 ml @ 2 mls/min DAILY@09 IV 10/19/16 09:00 11/18/16 08:59 Hydrocortisone Sodium Succinate/ Syringe (Solu-Cortef IV/ Syringe) 1 ml @ 4 mls/min Q6H IV 10/19/16 00:00 11/18/16 00:00 10/19/16 05:46 4 MLS/MIN Albuterol/ Ipratropium (Duoneb) 3 ml QIDR INH 10/19/16 08:00 11/18/16 07:59 10/19/16 07:28 3 ML Vancomycin HCl (Consult) 1 ea UD PRN N/A 10/19/16 01:30 11/18/16 01:29 Haloperidol Lactate (Haldol Inj) 2 mg Q2H PRN IM 10/19/16 02:30 11/18/16 02:29 10/19/16 03:06 2 MG Haloperidol (Haldol Tab) 2 mg Q4H PRN PO 10/19/16 02:30 11/18/16 02:29 Albuterol/ Ipratropium (Duoneb) 3 ml QIDR INH 10/19/16 08:00 11/18/16 07:59 Last 24 Hours Test 10/18/16 10:20 10/18/16 10:41 10/18/16 11:02 10/18/16 11:11 Bedside Glucose 96 mg/dl Bedside Prothrombin Time INR 1.2 White Blood Count 8.35 K/uL Red Blood Count 2.88 M/uL Hemoglobin 9.7 g/dL Hematocrit 29.1 % Mean Corpuscular Volume 101.0 fL Mean Corpuscular Hemoglobin 33.7 pg Mean Corpuscular Hemoglobin Concent 33.3 g/dl Platelet Count 91 K/uL Mean Platelet Volume 11.9 fL Neutrophils (%) (Auto) 80.8 % Lymphocytes (%) (Auto) 6.2 % Monocytes (%) (Auto) 10.1 % Eosinophils (%) (Auto) 2.5 % Basophils (%) (Auto) 0.2 % Neutrophils # (Auto) 6.74 K/uL Lymphocytes # (Auto) 0.52 K/uL Monocytes # (Auto) 0.84 K/uL Eosinophils # (Auto) 0.21 K/uL Basophils # (Auto) 0.02 K/uL RDW Standard Deviation 63.9 fL RDW Coefficient of Variation 17.4 % Immature Granulocyte % (Auto) 0.2 % Immature Granulocyte # (Auto) 0.02 K/uL Platelet Estimate DECREASED Sodium Level 136 mmol/L Potassium Level 5.8 mmol/L Chloride Level 101 mmol/L Carbon Dioxide Level 24 mmol/L Anion Gap 11.0 mmol/L Blood Urea Nitrogen 52 mg/dl Creatinine 2.50 mg/dl Est Creatinine Clear Calc Drug Dose 21.5 ml/min Estimated GFR () 25.8 Estimated GFR (Non- 22.3 BUN/Creatinine Ratio 20.8 Random Glucose 95 mg/dl Estimated Average Glucose 97 mg/dl Hemoglobin A1c 5.0 % Calcium Level 8.5 mg/dl Total Creatine Kinase 58 U/L Creatine Kinase MB 6.6 ng/ml Creatine Kinase MB Ratio 11.4 Troponin I 0.022 ng/ml Chemistry Specimen Hemolysis Urine Color YELLOW Urine Appearance CLEAR Urine pH 5.0 Urine Specific [place] 1.013 Urine Protein NEG Urine Glucose (UA) NEG Urine Ketones NEG Urine Occult Blood NEG Urine Nitrite NEG Urine Bilirubin NEG Urine Urobilinogen NEG Urine Leukocyte Esterase NEG Test 10/18/16 11:39 10/18/16 16:36 10/18/16 17:15 10/18/16 17:18 Prothrombin Time 11.1 SECONDS Prothromb Time International Ratio 1.0 Activated Partial Thromboplast Time 34.5 SECONDS Partial Thromboplastin Ratio 1.3 Potassium Level 5.6 mmol/L 5.3 mmol/L Lactic Acid Level 0.8 mmol/L Sodium Level 137 mmol/L Chloride Level 102 mmol/L Carbon Dioxide Level 24 mmol/L Anion Gap 11.0 mmol/L Blood Urea Nitrogen 53 mg/dl Creatinine 2.30 mg/dl Est Creatinine Clear Calc Drug Dose 23.4 ml/min Estimated GFR () 28.5 Estimated GFR (Non- 24.6 BUN/Creatinine Ratio 23.1 Random Glucose 69 mg/dl Calcium Level 8.6 mg/dl Thyroid Stimulating Hormone (TSH) 62.500 uIu/ml Bedside Glucose 72 mg/dl Test 10/18/16 20:30 10/19/16 00:15 10/19/16 01:55 10/19/16 05:15 Bedside Glucose 73 mg/dl Arterial Blood pH 7.33 Arterial Blood Partial Pressure CO2 50 mmHg Arterial Blood Partial Pressure O2 53 mm/Hg Arterial Blood HCO3 25 mmol/L Arterial Blood Oxygen Saturation 83.5 % Arterial Blood Base Excess -0.9 mEq/L Arterial Blood Gas Delivery 5 L Earnest Test POS Sodium Level 137 mmol/L 138 mmol/L Potassium Level 5.6 mmol/L 5.3 mmol/L Chloride Level 103 mmol/L 103 mmol/L Carbon Dioxide Level 25 mmol/L 28 mmol/L Anion Gap 9.0 mmol/L 7.0 mmol/L Blood Urea Nitrogen 54 mg/dl 53 mg/dl Creatinine 2.40 mg/dl 2.60 mg/dl Est Creatinine Clear Calc Drug Dose 22.4 ml/min 19.9 ml/min Estimated GFR () 27.1 24.6 Estimated GFR (Non- 23.4 21.2 BUN/Creatinine Ratio 22.5 20.5 Random Glucose 72 mg/dl 89 mg/dl Lactic Acid Level 1.0 mmol/L Calcium Level 8.1 mg/dl 7.9 mg/dl White Blood Count 11.95 K/uL Red Blood Count 2.75 M/uL Hemoglobin 9.0 g/dL Hematocrit 27.1 % Mean Corpuscular Volume 98.5 fL Mean Corpuscular Hemoglobin 32.7 pg Mean Corpuscular Hemoglobin Concent 33.2 g/dl Platelet Count 93 K/uL Mean Platelet Volume 12.0 fL Neutrophils (%) (Auto) 92.7 % Lymphocytes (%) (Auto) 2.1 % Monocytes (%) (Auto) 4.8 % Eosinophils (%) (Auto) 0.1 % Basophils (%) (Auto) 0.0 % Neutrophils # (Auto) 11.09 K/uL Lymphocytes # (Auto) 0.25 K/uL Monocytes # (Auto) 0.57 K/uL Eosinophils # (Auto) 0.01 K/uL Basophils # (Auto) 0.00 K/uL RDW Standard Deviation 61.6 fL RDW Coefficient of Variation 17.3 % Immature Granulocyte % (Auto) 0.3 % Immature Granulocyte # (Auto) 0.03 K/uL Platelet Estimate DECREASED Pappenheimer Bodies OCCASIONAL Triglycerides Level 77 mg/dl Cholesterol Level 94 mg/dl HDL Cholesterol 48 mg/dl LDL Cholesterol, Calculated 31 mg/dl VLDL Cholesterol, Calculated 15 mg/dl Cholesterol/HDL Ratio 2.0 Thyroid Stimulating Hormone (TSH) 70.100 uIu/ml Free Thyroxine 0.69 ng/dl Free Triiodothyronine 1.57 pg/ml Test 10/19/16 05:24 10/19/16 06:19 10/19/16 07:09 Arterial Blood pH 7.19 7.37 Arterial Blood Partial Pressure CO2 70 mmHg 44 mmHg Arterial Blood Partial Pressure O2 241 mm/Hg 73 mm/Hg Arterial Blood HCO3 26 mmol/L 24 mmol/L Arterial Blood Oxygen Saturation 99.6 % 93.9 % Arterial Blood Base Excess -2.6 mEq/L -1.1 mEq/L Arterial Blood Gas Delivery 100% 100% Earnest Test POS POS Bedside Glucose 71 mg/dl Date/Time Source Procedure Growth Status 10/18/16 19:44 Blood Blood Culture Pending Received 10/18/16 19:38 Blood Blood Culture Pending Received 10/19/16 00:00 Urine , Clean Catch Urine Culture Pending Received Assessment & Plan JO-baseline creatinine of 2.2. pt does not want dialysis. creatinine up to 2.6. likely element of atn. no iv fluids at this time for concern of volume overload. Hyperkalemia-k 5.8 and his improved to 5.3. with the hypoactive bowel sounds- likely an ileus forming. no more kayexalate. Sepsis-hypothermia, blood and urine cultures pending. on levaquin, zosyn and vanco. stress dose iv steroids. Hypothyroidism-on iv synthroid replacement. Overall poor prognosis given comorbidities and constellation of findings. continue aggressive measures. will follow calcium levels and check an ionized calcium tomorrow.
[2016-10-19] MEDS ORDERED: NOREPINEPHRINE BIT INJ 8 MG in DEXTROSE 5% 500ML 500 ML IV PRN (10:02)
--- NOTE | 2016-10-19 10:43 | Progress Note ---
Medicine Progress Note Date & Time of Visit: Oct 19, 2016 at 10:30. Subjective noted to be hypercapneic this morning Bipap setting increased, pH and CO2 improved BP noted to have decreased this morning- systolic 60s-70s Temp also decreased to 35.7 on exam, patient was lethargic, not in distress on the Bipap Objective Last 8 Hrs Date Time Temp Pulse Resp B/P Pulse Ox O2 Delivery O2 Flow Rate FiO2 10/19/16 10:20 35.7 10/19/16 09:40 36.5 10/19/16 08:00 36.8 86 24 123/63 94 BiPAP 15.0 10/19/16 08:00 92 BiPAP 100 10/19/16 07:35 63 89 35 10/19/16 07:30 63 20 89 BiPAP/CPAP 35 10/19/16 06:03 61 100 35 10/19/16 04:00 92 BiPAP 100 10/19/16 03:55 80 94 100 10/19/16 03:54 80 22 94 BiPAP/CPAP 100 10/19/16 03:54 36.3 94 21 90/57 98 Non-Rebreather 15.0 Physical Exam: General- lethargic,awakens for a short while to tactile and verbal stimuli, not in distress, on the bipap Head- atraumatic Eyes- anicteric Neck- no JVD Lungs- mild rales bilateral bases Heart- normal rate, regular rhythm Abdomen- normal bowel sounds, soft, nontender Extremities- no pretibial edema, no calf tenderness Neuro- lethargic Skin- warm & dry Laboratory Results: Last 24 Hours Test 10/18/16 10:41 10/18/16 11:02 10/18/16 11:11 10/18/16 11:39 Bedside Prothrombin Time INR 1.2 White Blood Count 8.35 K/uL Red Blood Count 2.88 M/uL Hemoglobin 9.7 g/dL Hematocrit 29.1 % Mean Corpuscular Volume 101.0 fL Mean Corpuscular Hemoglobin 33.7 pg Mean Corpuscular Hemoglobin Concent 33.3 g/dl Platelet Count 91 K/uL Mean Platelet Volume 11.9 fL Neutrophils (%) (Auto) 80.8 % Lymphocytes (%) (Auto) 6.2 % Monocytes (%) (Auto) 10.1 % Eosinophils (%) (Auto) 2.5 % Basophils (%) (Auto) 0.2 % Neutrophils # (Auto) 6.74 K/uL Lymphocytes # (Auto) 0.52 K/uL Monocytes # (Auto) 0.84 K/uL Eosinophils # (Auto) 0.21 K/uL Basophils # (Auto) 0.02 K/uL RDW Standard Deviation 63.9 fL RDW Coefficient of Variation 17.4 % Immature Granulocyte % (Auto) 0.2 % Immature Granulocyte # (Auto) 0.02 K/uL Platelet Estimate DECREASED Sodium Level 136 mmol/L Potassium Level 5.8 mmol/L 5.6 mmol/L Chloride Level 101 mmol/L Carbon Dioxide Level 24 mmol/L Anion Gap 11.0 mmol/L Blood Urea Nitrogen 52 mg/dl Creatinine 2.50 mg/dl Est Creatinine Clear Calc Drug Dose 21.5 ml/min Estimated GFR () 25.8 Estimated GFR (Non- 22.3 BUN/Creatinine Ratio 20.8 Random Glucose 95 mg/dl Estimated Average Glucose 97 mg/dl Hemoglobin A1c 5.0 % Calcium Level 8.5 mg/dl Total Creatine Kinase 58 U/L Creatine Kinase MB 6.6 ng/ml Creatine Kinase MB Ratio 11.4 Troponin I 0.022 ng/ml Chemistry Specimen Hemolysis Urine Color YELLOW Urine Appearance CLEAR Urine pH 5.0 Urine Specific [place] 1.013 Urine Protein NEG Urine Glucose (UA) NEG Urine Ketones NEG Urine Occult Blood NEG Urine Nitrite NEG Urine Bilirubin NEG Urine Urobilinogen NEG Urine Leukocyte Esterase NEG Prothrombin Time 11.1 SECONDS Prothromb Time International Ratio 1.0 Activated Partial Thromboplast Time 34.5 SECONDS Partial Thromboplastin Ratio 1.3 Test 10/18/16 16:36 10/18/16 17:15 10/18/16 17:18 10/18/16 20:30 Lactic Acid Level 0.8 mmol/L Sodium Level 137 mmol/L Potassium Level 5.3 mmol/L Chloride Level 102 mmol/L Carbon Dioxide Level 24 mmol/L Anion Gap 11.0 mmol/L Blood Urea Nitrogen 53 mg/dl Creatinine 2.30 mg/dl Est Creatinine Clear Calc Drug Dose 23.4 ml/min Estimated GFR () 28.5 Estimated GFR (Non- 24.6 BUN/Creatinine Ratio 23.1 Random Glucose 69 mg/dl Calcium Level 8.6 mg/dl Thyroid Stimulating Hormone (TSH) 62.500 uIu/ml Bedside Glucose 72 mg/dl 73 mg/dl Test 10/19/16 00:15 10/19/16 01:55 10/19/16 05:15 10/19/16 05:24 Arterial Blood pH 7.33 7.19 Arterial Blood Partial Pressure CO2 50 mmHg 70 mmHg Arterial Blood Partial Pressure O2 53 mm/Hg 241 mm/Hg Arterial Blood HCO3 25 mmol/L 26 mmol/L Arterial Blood Oxygen Saturation 83.5 % 99.6 % Arterial Blood Base Excess -0.9 mEq/L -2.6 mEq/L Arterial Blood Gas Delivery 5 L 100% Earnest Test POS POS Sodium Level 137 mmol/L 138 mmol/L Potassium Level 5.6 mmol/L 5.3 mmol/L Chloride Level 103 mmol/L 103 mmol/L Carbon Dioxide Level 25 mmol/L 28 mmol/L Anion Gap 9.0 mmol/L 7.0 mmol/L Blood Urea Nitrogen 54 mg/dl 53 mg/dl Creatinine 2.40 mg/dl 2.60 mg/dl Est Creatinine Clear Calc Drug Dose 22.4 ml/min 19.9 ml/min Estimated GFR () 27.1 24.6 Estimated GFR (Non- 23.4 21.2 BUN/Creatinine Ratio 22.5 20.5 Random Glucose 72 mg/dl 89 mg/dl Lactic Acid Level 1.0 mmol/L Calcium Level 8.1 mg/dl 7.9 mg/dl White Blood Count 11.95 K/uL Red Blood Count 2.75 M/uL Hemoglobin 9.0 g/dL Hematocrit 27.1 % Mean Corpuscular Volume 98.5 fL Mean Corpuscular Hemoglobin 32.7 pg Mean Corpuscular Hemoglobin Concent 33.2 g/dl Platelet Count 93 K/uL Mean Platelet Volume 12.0 fL Neutrophils (%) (Auto) 92.7 % Lymphocytes (%) (Auto) 2.1 % Monocytes (%) (Auto) 4.8 % Eosinophils (%) (Auto) 0.1 % Basophils (%) (Auto) 0.0 % Neutrophils # (Auto) 11.09 K/uL Lymphocytes # (Auto) 0.25 K/uL Monocytes # (Auto) 0.57 K/uL Eosinophils # (Auto) 0.01 K/uL Basophils # (Auto) 0.00 K/uL RDW Standard Deviation 61.6 fL RDW Coefficient of Variation 17.3 % Immature Granulocyte % (Auto) 0.3 % Immature Granulocyte # (Auto) 0.03 K/uL Platelet Estimate DECREASED Pappenheimer Bodies OCCASIONAL Triglycerides Level 77 mg/dl Cholesterol Level 94 mg/dl HDL Cholesterol 48 mg/dl LDL Cholesterol, Calculated 31 mg/dl VLDL Cholesterol, Calculated 15 mg/dl Cholesterol/HDL Ratio 2.0 Thyroid Stimulating Hormone (TSH) 70.100 uIu/ml Free Thyroxine 0.69 ng/dl Free Triiodothyronine 1.57 pg/ml Test 10/19/16 06:19 10/19/16 07:09 10/19/16 09:53 Bedside Glucose 71 mg/dl 85 mg/dl Arterial Blood pH 7.37 Arterial Blood Partial Pressure CO2 44 mmHg Arterial Blood Partial Pressure O2 73 mm/Hg Arterial Blood HCO3 24 mmol/L Arterial Blood Oxygen Saturation 93.9 % Arterial Blood Base Excess -1.1 mEq/L Arterial Blood Gas Delivery 100% Earnest Test POS Date/Time Source Procedure Growth Status 10/18/16 19:44 Blood Blood Culture Pending Received 10/18/16 19:38 Blood Blood Culture Pending Received 10/19/16 00:00 Urine , Clean Catch Urine Culture Pending Received Assessment & Plan 86 year old male with history of Dementia, Chronic A fib, DM, HTN, CKD 3 other problems noted below for right sided weakness. RIGHT SIDED WEAKNESS R/O CVA HYPOTHERMIA, HYPOTENSION LIKELY SECONDARY TO SEPTIC SHOCK, PROFOUND HYPOTHYROIDISM - POSSIBLE ETIOLOGY OF SEPSIS: PNEUMONIA, OSTEOMYELITIS, R/O BACTEREMIA, UTI ff up blood and urine cultures, sputum cultures continue Vanco, Zosyn, Levaquin start Levophed, 250cc IV fluid bolus also on Hydrocortisone 50mg QID - HYPOTHYROIDISM usually on Lthyroxine 25mcg daily Lthyroxine 100mcg given last night, another dose given this AM ACUTE RENAL FAILURE ON CKD 3 HYPERKALEMIA patient has declined dialysis IV fluids contraindicated at this time due to bilateral pleural effusion appreciate Nephro eval ACUTE HYPERCAPNEIC RESPIRATORY FAILURE SECONDARY TO PLEURAL EFFUSIONS ABG improving with Bipap, continue Bipap Lasix contraindicated due to acute renal failure appreciate Pulm consult RIGHT FOOT OSTEOMYELITIS, ULCER - on antibiotics as noted above THROMBOCYTOPENIA new likely from Sepsis monitor while on Aspirin, Plavix CHRONIC ANEMIA stable CHRONIC AFIB -EKG + sinus kenia -recently taken off metoprolol and amiodarone due to bradycardia -no longer on anticoagulation due to fall risk -monitor WELL-CONTROLLED DM 2 -recent A1C 5.1 -hold Januvia - ISS -monitor BSG AC HS CHRONIC DIASTOLIC HEART FAILURE -recent echo 08/2016 EF 55-60% with mod aortic regurg, mod-severe aortic stenosis and mod pulm hypertension -hold lasix and hydralazine for now due to acute renal failure and hypotension CORONARY ARTERY DISEASE -cont ASA -pt not on BB due to bradycardia -pt currently denies chest pain DVT PROPHYLAXIS -SCDs only due to thrombocytopenia discussed with son at length on the phone, including critical state, recommended for family to come over as soon as possible as patient is critically ill he is agreeable with vasopressors and central line placement he verbalized understanding Current Inpatient Medications: Current Inpatient Medications Medications (Trade) Dose Ordered Sig/Perla Route Start Time Stop Time Status Last Admin Dose Admin Miscellaneous Information (Pharmacist Discharge Med Rec Consult) 1 ea UD PRN N/A 10/18/16 13:00 11/17/16 12:59 Acetaminophen (Tylenol Tab) 650 mg Q4H PRN PO 10/18/16 13:00 11/17/16 12:59 Ondansetron HCl (Zofran Inj) 4 mg Q6H PRN IV 10/18/16 13:00 11/17/16 12:59 Nitroglycerin (Nitrostat Tab) 0.4 mg UD PRN SL 10/18/16 13:00 11/17/16 12:59 Miscellaneous (Iv Fluids Completed) 1 ea PRN PRN N/A 10/18/16 13:15 10/18/17 13:14 Clopidogrel Bisulfate (plAVix TAB) 75 mg QAM PO 10/19/16 09:00 11/18/16 08:59 Aspirin (Ecotrin Tab) 81 mg DAILY PO 10/19/16 09:00 11/18/16 08:59 Donepezil HCl (Aricept Tab) 5 mg HS PO 10/18/16 21:00 11/17/16 20:59 10/18/16 20:14 5 MG Mirtazapine (Remeron Tab) 15 mg HS PO 10/18/16 21:00 11/17/16 20:59 10/18/16 20:14 15 MG Pravastatin Sodium (Pravachol Tab) 40 mg HS PO 10/18/16 21:00 11/17/16 20:59 10/18/16 20:17 40 MG Senna/Docusate Sodium (Senokot S Tab) 1 tab DAILY PRN PO 10/18/16 13:45 11/17/16 13:44 Tramadol HCl (Ultram Tab) 50 mg TID PRN PO 10/18/16 13:45 11/17/16 13:44 Triamcinolone Acetonide (Kenalog 0.5% Crm) 1 appln BID PRN EXT 10/18/16 13:45 11/17/16 13:44 Ferrous Sulfate (Feosol Tab) 325 mg BID PO 10/18/16 21:00 11/17/16 20:59 10/18/16 20:16 325 MG Meclizine HCl (Antivert Tab) 12.5 mg Q8 PRN PO 10/18/16 13:45 11/17/16 13:44 Pantoprazole Sodium (Protonix Tab) 40 mg QAM PO 10/19/16 09:00 11/18/16 08:59 Polyethylene (Miralax Powder Packet) 17 gm DAILY PRN PO 10/18/16 15:15 11/17/16 15:14 Insulin Aspart (novoLOG ASPART) SLIDING SCALE If C... ACHS SC 10/18/16 16:15 11/17/16 16:14 Glucose (Glucose 40% Gel) 15-30 GRAMS 15 GRAMS... UD PRN PO 10/18/16 14:00 11/17/16 13:59 Glucose (Glucose Chew Tab) 4-8 Tablets 4 Tabl... UD PRN PO 10/18/16 14:00 11/17/16 13:59 Dextrose (Dextrose 50% 50ML Syringe) 25-50ML OF 50% DW IV FOR... UD PRN IV 10/18/16 14:00 11/17/16 13:59 Glucagon 1 mg 1 mg UD PRN SQ 10/18/16 14:00 11/17/16 13:59 Sodium Chloride (Nss 1000ml) 1,000 ml @ 100 mls/hr Q10H IV 10/18/16 16:00 11/17/16 15:59 Future Hold 10/18/16 16:57 100 MLS/HR Levofloxacin (Consult) 1 ea UD PRN N/A 10/18/16 19:15 11/17/16 19:14 Piperacillin Sod/ Tazobactam Sod 1 ea 1 ea UD PRN N/A 10/18/16 19:15 11/17/16 19:14 Piperacillin Sod/ Tazobactam Sod 3.375 gm/Dextrose 115 ml @ 28.75 mls/ hr Q8H IV 10/19/16 02:00 10/20/16 01:59 10/19/16 03:50 28.75 MLS/HR Levofloxacin 750 mg/Prmx 150 ml @ 100 mls/hr Q2D@1800 IV 10/20/16 18:00 10/20/16 18:01 Levothyroxine Sodium 100 mcg/ Syringe 5 ml @ 2 mls/min DAILY@09 IV 10/19/16 09:00 11/18/16 08:59 Hydrocortisone Sodium Succinate/ Syringe (Solu-Cortef IV/ Syringe) 1 ml @ 4 mls/min Q6H IV 10/19/16 00:00 11/18/16 00:00 10/19/16 05:46 4 MLS/MIN Albuterol/ Ipratropium (Duoneb) 3 ml QIDR INH 10/19/16 08:00 11/18/16 07:59 10/19/16 07:28 3 ML Vancomycin HCl (Consult) 1 ea UD PRN N/A 10/19/16 01:30 11/18/16 01:29 Haloperidol Lactate (Haldol Inj) 2 mg Q2H PRN IM 10/19/16 02:30 11/18/16 02:29 10/19/16 03:06 2 MG Haloperidol (Haldol Tab) 2 mg Q4H PRN PO 10/19/16 02:30 11/18/16 02:29 Albuterol/ Ipratropium 3 ml 3 ml QIDR INH 10/19/16 08:00 11/18/16 07:59 Norepinephrine Bitartrate/ Dextrose (Levophed Inj/ D5W 500ml) 508 ml @ 0 mls/hr Q0M PRN IV 10/19/16 10:02 11/18/16 10:01
--- NOTE | 2016-10-19 12:00 | Critical Care Consultation ---
Critical Care Consultation Date of Consultation: Oct 19, 2016. Attending Physician: Kwesi Deleon MD Reason for Consultation: Hypothermia and Hypotension History of Present Illness Jose Ramon Cantrell is a 86-year-old male with a past medical history of Chronic A. Fib, CAD, HTN, dyslipidemia, CKD stage III with a baseline creatinine of 2.2, DM type 2. Patient was admitted to the ICU today based on a sudden drop in systolic blood pressures into the 50-60 range after also requiring increased oxygenation on BiPAP. Approximately 1 hour after patient arrived in the ICU his son also arrived and had a long discussion with Dr. Irvin. It was expressed at this time that this is indeed an end-stage terminal illness on top of the already documented decline in his physical health. During this discussion the son expressed his fathers wishes and the decision was made to hold treatment as it currently is; pending his other son's (Carlitos) arrival from [facility]. It was discussed with the son at bedside that we would not increase any current medications and that even with these measures the patient may prior to his brothers arrival. The son expressed understanding and spoke about his father's last wishes which would've been to not pursue aggressive measures. After speaking with DIEUDONNE Wade who has seen this patient during his most recent admission for osteomyelitis; he had expressed that he would not wish to endure such measures. He was previously admitted to [facility] September 29 for bradycardia, hyperkalemia, acute on chronic kidney knee injury and right foot osteomyelitis he was later discharged to [facility] on Keflex and Levaquin and was followed with wound care. Patient reentered [facility] yesterday, 10/18, for right sided weakness and numbness that had began the previous day. Since that time the weakness had progressed and was "all over his body" from his "toes to his jaw" and he felt like he had blurred vision. According to records, patient, and son he has no history of CVA he does take a baby aspirin but no other anticoagulation. His metoprolol and amiodarone for his chronic A. fib had been discontinued previously in August due to his bradycardia. Upon his arrival in the ICU, nursing here was told that the patient received a 250 mL fluid bolus; however we do not see this in the medical record nor was it running when the patient arrived for nursing in the ICU to physically observe. We presume that the patient did in fact receive said bolus; as orders were placed for Levophed but not started and the patient's MAP were in the 80s upon arrival. He continued to have a low temperature below 35C and requires the bear hugger. Patient's lab values remained irregular this morning; with potassium at 5.3, his creatinine still elevated at 2.6. A TSH of 70.1 and a FT4 of 0.69 and T3 of 1.57. Ultimately the patient's blood pressure took another dive and was below 70 systolically and at that time levo fed was started via peripheral line a low dose. We will continue to run the review of fed at its current dose and will not escalate our current care based on family wishes. Comfort measures will be started upon arrival of family. Pt has been followed by neurology for his symptoms. His Head CT was negative. Neurology's thoughts were to correct any correctable metabolic abnormalities/ hypothermia. They were not about to state if there is a new brainstem process causing the vertigo. They recommended an MRI if issue continue afterwards. Can not currently assess pt for ROS secondary to pt condition. Past Medical/Surgical History Medical Problems: (1) Abdominal aortic aneurysm (2) Asbestosis (3) Atrial fibrillation (4) Benign hypertension (5) Benign paroxysmal positional vertigo (6) Cerebrovascular disease, arteriosclerotic, post-stroke (7) Chronic kidney disease stage 3 (8) Coronary artery disease (9) Dieulafoy lesion of stomach (10) DM type 2 (diabetes mellitus, type 2) (11) Dyslipidemia (12) Foot ulcer (13) HTN (hypertension) (14) Hx of gastric ulcer (15) Hyperkalemia (16) Respiratory failure (17) Weakness Surgical Problems: (1) H/O cardiac catheterization (2) H/O esophagogastroduodenoscopy (3) H/O exploratory laparotomy (4) H/O hemicolectomy (5) S/p shoulder avulsion repair (6) S/P tonsillectomy (7) S/P total knee replacement Family History Patient reports no known family medical history. Non-Contributory Social History Smoking Status: Former Smoker Drug Use: none Marital Status: Occupation Status: retired Allergies Coded Allergies: No Known Allergies (Unverified , 10/18/16) Home Medications Scheduled Acetaminophen (Tylenol), 650 MG PO Q6 Aspirin (Aspirin Ec), 81 MG PO DAILY Cephalexin Monohydrate (Keflex), 250 MG PO Q12 Donepezil HCl (Donepezil HCl), 5 MG PO HS Ferrous Sulfate (Ferrous Sulfate), 325 MG PO BID Furosemide (Lasix), 40 MG PO DAILY Hydralazine HCl (Hydralazine HCl), 10 MG PO TID Levofloxacin (Levofloxacin), 500 MG PO Q48H Levothyroxine Sodium (Synthroid), 25 MCG PO DAILYBB Lisinopril (Zestril), 5 MG PO DAILY Mirtazapine (Remeron), 15 MG PO HS Multivitamin (Multivitamin), 1 TAB PO DAILY Nitroglycerin (Nitrostat), 0.4 MG UT PRN Omeprazole (Prilosec), 40 MG PO DAILY Pravastatin Sod (Pravastatin Sodium), 40 MG PO HS Sitagliptin (Januvia), 50 MG PO DAILY Scheduled PRN Meclizine Hcl (Meclizine Hcl), 12.5 MG PO Q8 PRN Polyethylene Glycol 3350 (Miralax), 17 GM PO DAILY PRN for Constipation Senna/Docusate Sod (Senokot S), 1 TAB PO DAILY PRN for Constipation Tramadol (Ultram), 25-50 MG PO TID PRN for Pain Triamcinolone Acet (Triamcinolone Acetonide), 1 APPLN TOP BID PRN for rash Current Inpatient Medications Current Inpatient Medications Medications (Trade) Dose Ordered Sig/Perla Route Start Time Stop Time Status Last Admin Dose Admin Miscellaneous Information (Pharmacist Discharge Med Rec Consult) 1 ea UD PRN N/A 10/18/16 13:00 11/17/16 12:59 Acetaminophen (Tylenol Tab) 650 mg Q4H PRN PO 10/18/16 13:00 11/17/16 12:59 Ondansetron HCl (Zofran Inj) 4 mg Q6H PRN IV 10/18/16 13:00 11/17/16 12:59 Nitroglycerin (Nitrostat Tab) 0.4 mg UD PRN SL 10/18/16 13:00 11/17/16 12:59 Miscellaneous (Iv Fluids Completed) 1 ea PRN PRN N/A 10/18/16 13:15 10/18/17 13:14 Clopidogrel Bisulfate (plAVix TAB) 75 mg QAM PO 10/19/16 09:00 11/18/16 08:59 Aspirin (Ecotrin Tab) 81 mg DAILY PO 10/19/16 09:00 11/18/16 08:59 Donepezil HCl (Aricept Tab) 5 mg HS PO 10/18/16 21:00 11/17/16 20:59 10/18/16 20:14 5 MG Mirtazapine (Remeron Tab) 15 mg HS PO 10/18/16 21:00 11/17/16 20:59 10/18/16 20:14 15 MG Pravastatin Sodium (Pravachol Tab) 40 mg HS PO 10/18/16 21:00 11/17/16 20:59 10/18/16 20:17 40 MG Senna/Docusate Sodium (Senokot S Tab) 1 tab DAILY PRN PO 10/18/16 13:45 11/17/16 13:44 Tramadol HCl (Ultram Tab) 50 mg TID PRN PO 10/18/16 13:45 11/17/16 13:44 Triamcinolone Acetonide (Kenalog 0.5% Crm) 1 appln BID PRN EXT 10/18/16 13:45 11/17/16 13:44 Ferrous Sulfate (Feosol Tab) 325 mg BID PO 10/18/16 21:00 11/17/16 20:59 10/18/16 20:16 325 MG Meclizine HCl (Antivert Tab) 12.5 mg Q8 PRN PO 10/18/16 13:45 11/17/16 13:44 Pantoprazole Sodium (Protonix Tab) 40 mg QAM PO 10/19/16 09:00 11/18/16 08:59 Polyethylene (Miralax Powder Packet) 17 gm DAILY PRN PO 10/18/16 15:15 11/17/16 15:14 Insulin Aspart (novoLOG ASPART) SLIDING SCALE If C... ACHS SC 10/18/16 16:15 11/17/16 16:14 Glucose (Glucose 40% Gel) 15-30 GRAMS 15 GRAMS... UD PRN PO 10/18/16 14:00 11/17/16 13:59 Glucose (Glucose Chew Tab) 4-8 Tablets 4 Tabl... UD PRN PO 10/18/16 14:00 11/17/16 13:59 Dextrose (Dextrose 50% 50ML Syringe) 25-50ML OF 50% DW IV FOR... UD PRN IV 10/18/16 14:00 11/17/16 13:59 Glucagon 1 mg 1 mg UD PRN SQ 10/18/16 14:00 11/17/16 13:59 Sodium Chloride (Nss 1000ml) 1,000 ml @ 100 mls/hr Q10H IV 10/18/16 16:00 11/17/16 15:59 Future Hold 10/18/16 16:57 100 MLS/HR Levofloxacin (Consult) 1 ea UD PRN N/A 10/18/16 19:15 11/17/16 19:14 Piperacillin Sod/ Tazobactam Sod 1 ea 1 ea UD PRN N/A 10/18/16 19:15 11/17/16 19:14 Piperacillin Sod/ Tazobactam Sod 3.375 gm/Dextrose 115 ml @ 28.75 mls/ hr Q8H IV 10/19/16 02:00 10/19/16 15:00 10/19/16 10:37 28.75 MLS/HR Levofloxacin 750 mg/Prmx 150 ml @ 100 mls/hr Q2D@1800 IV 10/20/16 18:00 10/28/16 17:59 Levothyroxine Sodium 100 mcg/ Syringe 5 ml @ 2 mls/min DAILY@09 IV 10/19/16 09:00 11/18/16 08:59 10/19/16 10:36 2 MLS/MIN Hydrocortisone Sodium Succinate/ Syringe (Solu-Cortef IV/ Syringe) 1 ml @ 4 mls/min Q6H IV 10/19/16 00:00 11/18/16 00:00 10/19/16 05:46 4 MLS/MIN Albuterol/ Ipratropium (Duoneb) 3 ml QIDR INH 10/19/16 08:00 11/18/16 07:59 10/19/16 07:28 3 ML Vancomycin HCl (Consult) 1 ea UD PRN N/A 10/19/16 01:30 11/18/16 01:29 Haloperidol Lactate (Haldol Inj) 2 mg Q2H PRN IM 10/19/16 02:30 11/18/16 02:29 10/19/16 03:06 2 MG Haloperidol (Haldol Tab) 2 mg Q4H PRN PO 10/19/16 02:30 11/18/16 02:29 Albuterol/ Ipratropium 3 ml 3 ml QIDR INH 10/19/16 08:00 11/18/16 07:59 Norepinephrine Bitartrate 8 mg/ Dextrose 508 ml @ 0 mls/hr Q0M PRN IV 10/19/16 10:02 11/18/16 10:01 Piperacillin Sod/ Tazobactam Sod/ Dextrose (Zosyn Iv/D5 100ml) 115 ml @ 28.75 mls/ hr Q12@1000,2200 IV 10/19/16 22:00 10/28/16 21:59 Review of Systems Not assessable secondary to patient condition. Physical Exam Date Time Temp Pulse Resp B/P Pulse Ox O2 Delivery O2 Flow Rate FiO2 10/19/16 10:40 35.7 86 24 94 15.0 10/19/16 10:20 35.7 10/19/16 09:40 36.5 10/19/16 08:00 36.8 86 24 123/63 94 BiPAP 15.0 10/19/16 08:00 92 BiPAP 100 10/19/16 07:35 63 89 35 10/19/16 07:30 63 20 89 BiPAP/CPAP 35 10/19/16 06:03 61 100 35 10/19/16 04:00 92 BiPAP 100 10/19/16 03:55 80 94 100 10/19/16 03:54 80 22 94 BiPAP/CPAP 100 10/19/16 03:54 36.3 94 21 90/57 98 Non-Rebreather 15.0 10/19/16 01:02 86 20 93 Nasal Cannula 5.0 10/19/16 00:23 36.4 72 22 142/60 2 Nasal Cannula 6.0 10/19/16 00:00 92 Nasal Cannula 6.0 10/18/16 22:24 36.3 10/18/16 20:00 Nasal Cannula 2.0 10/18/16 20:00 34.3 10/18/16 18:45 63 18 91/50 98 10/18/16 16:10 61 18 110/70 97 Nasal Cannula 2.0 10/18/16 16:00 Nasal Cannula 2.0 10/18/16 14:37 33.5 60 22 111/68 Nasal Cannula 2.0 10/18/16 13:56 60 18 104/71 96 Nasal Cannula 2.0 Vital Signs - as noted Laboratory Data - as noted Physical Exam: General - Pt is laying in bed with BiPap mask in place, minimal movement or response noted. Eyes - Pupils equal approx 2mm, minimal responsiveness to light, No icterus, gaze conjugate ENT - Mucosa dry, no lesions or candidiasis Neck - Supple, trachea midline, no masses or lymphadenopathy, no JVD or bruits Lungs - No paradoxical chest wall movement, significantly decreased breath sounds throughout, no wheezes, rales, or rhonchi Heart - Irregularly Irregular, No murmur, rubs, clicks, or gallops appreciated Abdomen - BS minimal, no bruits noted, tympanic to percussion, soft, nontender, nondistended, no organomegaly Extremities - No edema, pedal pulses intact Neuro - A&O X 0 Strength: Not moving limbs on his own, does withdraw and verbally respond "Ow" to pain CN: Pupils equal approx 2mm, minimal responsiveness to light, no facial asymmetry noted Laboratory Results Last 24 Hours Test 10/18/16 11:39 10/18/16 16:36 10/18/16 17:15 10/18/16 17:18 Prothrombin Time 11.1 SECONDS Prothromb Time International Ratio 1.0 Activated Partial Thromboplast Time 34.5 SECONDS Partial Thromboplastin Ratio 1.3 Potassium Level 5.6 mmol/L 5.3 mmol/L Lactic Acid Level 0.8 mmol/L Sodium Level 137 mmol/L Chloride Level 102 mmol/L Carbon Dioxide Level 24 mmol/L Anion Gap 11.0 mmol/L Blood Urea Nitrogen 53 mg/dl Creatinine 2.30 mg/dl Est Creatinine Clear Calc Drug Dose 23.4 ml/min Estimated GFR () 28.5 Estimated GFR (Non- 24.6 BUN/Creatinine Ratio 23.1 Random Glucose 69 mg/dl Calcium Level 8.6 mg/dl Thyroid Stimulating Hormone (TSH) 62.500 uIu/ml Bedside Glucose 72 mg/dl Test 10/18/16 20:30 10/19/16 00:15 10/19/16 01:55 10/19/16 05:15 Bedside Glucose 73 mg/dl Arterial Blood pH 7.33 Arterial Blood Partial Pressure CO2 50 mmHg Arterial Blood Partial Pressure O2 53 mm/Hg Arterial Blood HCO3 25 mmol/L Arterial Blood Oxygen Saturation 83.5 % Arterial Blood Base Excess -0.9 mEq/L Arterial Blood Gas Delivery 5 L Earnest Test POS Sodium Level 137 mmol/L 138 mmol/L Potassium Level 5.6 mmol/L 5.3 mmol/L Chloride Level 103 mmol/L 103 mmol/L Carbon Dioxide Level 25 mmol/L 28 mmol/L Anion Gap 9.0 mmol/L 7.0 mmol/L Blood Urea Nitrogen 54 mg/dl 53 mg/dl Creatinine 2.40 mg/dl 2.60 mg/dl Est Creatinine Clear Calc Drug Dose 22.4 ml/min 19.9 ml/min Estimated GFR () 27.1 24.6 Estimated GFR (Non- 23.4 21.2 BUN/Creatinine Ratio 22.5 20.5 Random Glucose 72 mg/dl 89 mg/dl Lactic Acid Level 1.0 mmol/L Calcium Level 8.1 mg/dl 7.9 mg/dl White Blood Count 11.95 K/uL Red Blood Count 2.75 M/uL Hemoglobin 9.0 g/dL Hematocrit 27.1 % Mean Corpuscular Volume 98.5 fL Mean Corpuscular Hemoglobin 32.7 pg Mean Corpuscular Hemoglobin Concent 33.2 g/dl Platelet Count 93 K/uL Mean Platelet Volume 12.0 fL Neutrophils (%) (Auto) 92.7 % Lymphocytes (%) (Auto) 2.1 % Monocytes (%) (Auto) 4.8 % Eosinophils (%) (Auto) 0.1 % Basophils (%) (Auto) 0.0 % Neutrophils # (Auto) 11.09 K/uL Lymphocytes # (Auto) 0.25 K/uL Monocytes # (Auto) 0.57 K/uL Eosinophils # (Auto) 0.01 K/uL Basophils # (Auto) 0.00 K/uL RDW Standard Deviation 61.6 fL RDW Coefficient of Variation 17.3 % Immature Granulocyte % (Auto) 0.3 % Immature Granulocyte # (Auto) 0.03 K/uL Platelet Estimate DECREASED Pappenheimer Bodies OCCASIONAL Triglycerides Level 77 mg/dl Cholesterol Level 94 mg/dl HDL Cholesterol 48 mg/dl LDL Cholesterol, Calculated 31 mg/dl VLDL Cholesterol, Calculated 15 mg/dl Cholesterol/HDL Ratio 2.0 Thyroid Stimulating Hormone (TSH) 70.100 uIu/ml Free Thyroxine 0.69 ng/dl Free Triiodothyronine 1.57 pg/ml Test 10/19/16 05:24 10/19/16 06:19 10/19/16 07:09 10/19/16 09:53 Arterial Blood pH 7.19 7.37 Arterial Blood Partial Pressure CO2 70 mmHg 44 mmHg Arterial Blood Partial Pressure O2 241 mm/Hg 73 mm/Hg Arterial Blood HCO3 26 mmol/L 24 mmol/L Arterial Blood Oxygen Saturation 99.6 % 93.9 % Arterial Blood Base Excess -2.6 mEq/L -1.1 mEq/L Arterial Blood Gas Delivery 100% 100% Earnest Test POS POS Bedside Glucose 71 mg/dl 85 mg/dl Diagnostic Results SINGLE VIEW CHEST CLINICAL HISTORY: Hypoxia. FINDINGS: An AP, portable, upright chest radiograph is compared to study dated 10/18/2016 and correlated with chest CT dated 03/22/2013. The examination is significantly degraded by portable technique and patient rotation. The heart is enlarged and there is atherosclerotic calcification with uncoiling of the thoracic aorta. The pulmonary vasculature is noncongested. Large bilateral calcified pleural plaques are similar to previous. There are layering pleural effusions with bibasilar consolidation. No pneumothorax is seen. The skeletal structures are osteopenic. Advanced arthritic change is noted in the shoulders and thoracic spine. IMPRESSION: 1. Cardiomegaly without radiographic evidence of congestive failure. 2. Layering pleural effusions with bibasilar consolidation. This has not significant change from 10/18/2016. 3. Large calcified pleural plaques are similar to previous. Electronically signed by: Mark Jc M.D. 10/19/2016 7:28 AM Dictated Date/Time: 10/19/2016 7:27 AM EFFUSION-CHEST/MEDIASTINUM ULTRASOUND CLINICAL HISTORY: evaluate pleural effusions COMPARISON STUDY: Chest 10/18/2016. FINDINGS: Moderate right pleural effusion with a total of 500 mL of fluid which was marked for thoracentesis. Small left pleural effusion with a total volume of 256 mL. This was not marked for thoracentesis due to the intervening lung. IMPRESSION: 1. Moderate right pleural effusion which was marked for thoracentesis. 2. Small left pleural effusion which was not marked for thoracentesis. Electronically signed by: Jimmy Aaron M.D. 10/18/2016 2:22 PM Dictated Date/Time: 10/18/2016 2:[address]AST CT DOSE: 823.94 mGycm HISTORY: Stroke symptoms. TECHNIQUE: Multiaxial CT images of the head were performed without the use of intravenous contrast. Automated exposure control was utilized for this study. Comparison: Head CT 03/18/2013. Findings: The paranasal sinuses and mastoid air cells are clear. The calvarium and skull base are intact. There is no mass, hematoma, midline shift, acute infarct. White matter hypodensity is nonspecific but suggestive of microvascular ischemic change. The ventricles and sulci demonstrate moderate age-related involutional changes. Impression: No acute intracranial abnormality. Atrophy and microvascular ischemic changes. Electronically signed by: Jimmy Aaron M.D. 10/18/2016 12:05 PM Dictated Date/Time: 10/18/2016 12:00 PM Assessment & Plan (1) Hypotension (2) Hypothermia (3) Myxedema (4) Respiratory failure (5) Dyslipidemia (6) Coronary artery disease (7) HTN (hypertension) (8) DM type 2 (diabetes mellitus, type 2) (9) Chronic kidney disease stage 3 (10) Hyperkalemia (11) Atrial fibrillation (12) Benign hypertension Dash Cantrell presented to the ICU based on hypotension and hypothermia with multiple end-stage issues. After long discussion with the family it has been decided that we will not escalate current care as the patient would not have wanted aggressive measures taken for such an end-stage terminal illness. At this time we will continue with norepinephrine via his peripheral IV site and will not add any further medical management. Comfort Care has been decided on once his son Carlitos arrives from [facility]. Lisa Jason has been consult and and has spoken at length with his son at bedside. Neuro: Pt admitted for unilateral weakness that progressed to whole body sensations. Neuro consulted and following. Plan to correct current abnormalities after initial negative Head CT, would discuss future MRI if symptoms don't resolve after other corrections are made. Symptoms could like be caused by the hyperkalemia due to his chronic kidney disease stage III and a combination of current abnormalities. * Neuro Checks per nursing protocol * Neuro Consulted * D/C all oral medication secondary to NPO status * Cancel MRI/MRA/Carotid U/S Cards: Idiopathic cause of hypothermia/hypotension. Blood/Urine cultures pending: * Continue Levophed; do not escalate dosage * Continue stress dose steroids at this time * Solu-Cortef 50 mg IV every 6 * Monitor on telemetry Resp: * Continue BiPAP at this time * Plan to remove mask and begin comfort measures with arrival of son, Carlitos * Continue Zosyn 3.375 g IV every 8 hours * Continue current respiratory management at this time Endo: Patient's lab work did present with elevated TSH and minimal free T4. He was being treated with IV doses of levothyroxine. * Continue current levothyroxine 100 mcg IV daily : Chronic kidney disease stage III presenting with hyperkalemia and weakness and refusal of dialysis per nephrology. According to medical record pt is +800mL with 300mL out in 24hrs. Pt is not currently receiving IV fluids. * No changes in current management Electrolytes: Hyperkalemia on admission. Received Kayexalate and later discontinued. Potassium of 5.8 on admission; 5.3 this morning. * Cancel Labs at this time. ID: [id number]: Trending up 11.95 today; hypothermic Lactic acid: 1.0; procalcitonin pending * Continue current management as listed above and respiratory until initiation of comfort care Heme: Anemia noted: H&H: 9.0/27.1; platelets 93 History of recent bleeding gastric ulcer requiring [facility] for care GI: * NPO CCT: 47 minutes; Not including any billable procedures. Thank you for including us in the care of this patient. Please review Dr. Irvin's addendum for further recommendations. I have personally evaluated and examined this patient. I agree with assessment and plan of Amy Kuo PA-C. I had an extensive discussion with the patient's son francisco due to the patient being altered secondary to metabolic encephalopathy likely secondary to sepsis. Patient was initially seen for right-sided weakness with a concern for a possible CVA. He was noted to be hypothermic at that time and the concern for sepsis had been raised. Auto reports that the patient has been having increasing frequency in his hospitalizations and the patient had previously stated he would not want life prolonging procedures should he not be able to return home. The patient and family wrestled with the decision upon his last admission a few weeks ago with regards to sending him to rehabilitation versus going home the patient was sent to rehabilitation in an effort to increase his strength to allow him to safely function at home. With his current hypotension and history of diastolic heart failure the patient was started on vasoactive medications. With the obvious concern for extravasation the hospitalist team discussed with the patient's son regarding central line placement as well as possible intubation. Upon the patient's transfer to the ICU I discussed with the patient's son regarding advanced procedures. Auto was concerned that we are on a slippery slope and exceeding what his father would've already desired. Auto reported that he has not had the quality of life that he has been looking for, patient would not want dight analysis under any circumstances, would not want long-term antibiotics (he would likely be facing this with active osteomyelitis). Joint medical decision-making we arrived at no escalation of care she'll occur will continue the current pressor level through the peripheral IV. Advanced axis will not be obtained, and we'll continue to focus on patient comfort as we anticipate rest of the family arriving from [place] later today or early tomorrow. At that time and is then intention to stop all active medical interventions and allow the natural dying process to proceed. I feel the patient is in a terminal endstage condition without chance of meaning full recovery as expressed by the patient's son Herb.
[2016-10-19 12:07] LABS: IPAP 18; ISTAT ALLEN TEST Pass; ISTAT ARTERIAL BLOOD GAS HCO3 24 meq/L (19-24); ISTAT ARTERIAL BLOOD GAS PCO2 68 mmHg (35-46); ISTAT ARTERIAL BLOOD GAS PO2 96 mmHg (80-95); ISTAT ARTERIAL BLOOD GAS pH 7.15 (7.35-7.45); ISTAT CARBON DIOXIDE 26 mEq/l (24-31); ISTAT DELIVERY SYSTEM BIPAP; ISTAT FIO2 35 %; ISTAT RATE 20; ISTAT SITE L Radial
--- NOTE | 2016-10-19 12:11 | PULMONARY CONSULTATION ---
DATE OF CONSULTATION: 10/19/2016 TIME: 10:10 a.m. REPORT OF CONSULTATION: The patient was seen in room 238, bed 1. He is an 86-year-old male who is currently unresponsive. He presented to the Emergency Room yesterday. His complaints at that time included right-sided weakness and numbness, as well as blurred vision. The patient recently had an osteomyelitis. He had been at the wound clinic on the morning of the . They referred him to the Emergency Department. The patient has been found to be hypothermic. His initial temperature in the ER was 33.7 degrees. Yesterday, the patient was able to verbalize apparently. Over night time his situation worsened. He began to develop marked hypoxia. Nasal cannula was increased from 2-6 liters because his sats were down to 82%. Subsequently, his saturations were down to 52% on 6 liters. He was then started on BiPAP 18/5. His oxygenation did improve. Unfortunately, he has become more and more obtunded. I believe he has been unarousable for a few hours. His blood pressure has been very low. The most recent blood pressure is only 64/40. The patient is known to have multisystem disease. From a pulmonary perspective, he is reported to have asbestosis and indeed his x-rays show prominent pleural calcifications and scarring bilaterally. I do not have a history of where he might have been exposed to asbestos. It did not appear that he was on any chronic breathing medications. PAST MEDICAL HISTORY: 1. Hypertension. 2. Hyperlipidemia. 3. Diabetes type 2. 4. Chronic kidney disease, type 3. 5. Atrial fibrillation. 6. Hypothyroidism. 7. Dementia. 8. Abdominal aortic aneurysm 9. Vertigo 10. Prior CVA. 11. Peptic ulcer disease. 12. Gout. PAST SURGICAL HISTORY: 1. Exploratory lap. 2. Cardiac catheterization. 3. Reportedly he has had numerous stents. 4. Hemicolectomy. 5. Left total knee repair. 6. Tonsillectomy. 7. Shoulder avulsion repair. SOCIAL HISTORY: Tobacco, reportedly nonsmoker since 1959. Any ETOH use is none. FAMILY HISTORY: Noncontributory. ALLERGIES: No known allergies. REVIEW OF SYSTEMS: Unobtainable. MEDICATIONS: At home: 1. Aspirin 81 mg daily. 2. Keflex 250 mg q. 12 hours. 3. Donepezil 5 mg at bedtime. 4. Ferrous sulfate 325 mg b.i.d. 5. Lasix 40 mg daily. 6. Hydralazine 10 mg t.i.d. 7. Levofloxacin 500 mg q. 48 hours. 8. Levothyroxine 25 mcg daily. 9. Lisinopril 5 mg daily. 10. Remeron 15 mg at bedtime. 11. Nitro p.r.n. 12. Omeprazole 40 mg daily. 13. Pravastatin 40 mg at bedtime. 14. Januvia 50 mg daily. 15. Meclizine p.r.n. 16. MiraLax p.r.n. 17. Senna p.r.n. 18. Tramadol p.r.n. PHYSICAL EXAMINATION: GENERAL: The patient is an 86-year-old male who is totally obtunded. The patient's pupils are myotic. They were minimally responsive. He has a BiPAP mask in place. Thus, I was not able to evaluate the nasal passages or the oropharynx. NECK: Veins are distended, but this is affected by the strap used from the BiPAP. CHEST: Showed somewhat diminished excursions. His heart rate is 66. The rhythm was irregular. Blood pressure most recently is 64/40. LUNGS: The lung moreno revealed severely diminished breath sounds bilaterally. No active wheezing was heard. Oxygen saturation was 92% on BiPAP, +100% oxygen. The patient was supine. This was related to his blood pressure being critically low. I could not examine the lung moreno as far posteriorly as I would like. Percussion could not be done. ABDOMEN: Reveals areas of ecchymosis. There are several scars from prior surgeries. He has what appears to be some degree of abdominal herniations. The bowel sounds were present. There was no pain response to palpatory attempts, but the patient is unresponsive already. There is a Rivera catheter in place. 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 The right lower leg is wrapped. I am assuming this is where the osteomyelitis was recently. There are brown skin discoloration of both lower extremities with the possibility of having some ecchymosis that might be chronic from weeks ago. The patient has had numerous x-rays over the past 3 months. I reviewed most of them. All of them show fibrocalcific changes involving primarily the pleura. However, back on July 29, the right lower lung field was nearly clear and there has been a gradual increasing opacity in the right lower lung field and to a lesser degree in the left. He did have ultrasound of the chest done yesterday that showed 500 mL of fluid on the right and 256 mL of fluid on the left. A repeat chest x-ray done today showed overall no significant change compared with 1 day earlier. It is notable that the patient's most recent temperature was 36.5. This is with a heating blanket in place. White count today is 11.95. Hemoglobin 9.0. Platelets 93,000. Protime was 11.1 with an INR of 1. PTT was 34.5. Urinalysis was negative. Arterial blood gas done at 12:15 a.m. today showed a pH of 7.33 with a pCO2 of 50 and a pO2 of 53 on 5 liter cannula. Blood gas at 5:24 a.m. showed a pH severely decreased to 7.19 with a pCO2 elevated at 70 and a pO2 of 241. I am assuming this was done on BiPAP. Blood gas at 7:09 a.m. showed a pH of 7.37 with a pCO2 of 44 and a pO2 of 73, again on the BiPAP. That also was on 100% oxygen reportedly. Electrolytes show sodium 138, potassium 5.3, chloride 103, bicarb 28. BUN 53 with a creatinine of 2.6. Random sugar was 89. TSH level yesterday was 62.5 and today is severely elevated at 70.1. IMPRESSION: 1. Respiratory failure -- hypoxia and hypercarbia -- acute. 2. Bilateral pleural effusions, right greater than left. 3. Asbestosis. 4. Severe hypothyroidism. 5. Hypothermia. 6. Chronic kidney disease stage 3. 7. Rule out sepsis. COMMENTS: The patient is doing very poorly. He is hypothermic, hypotensive, and unresponsive. He has had poor blood gases this morning. The patient is a DNR. However, Dr. Deleon has discussed with the family and they wish to have a trial of vasopressors. Thus, he will be moved to the Intensive Care Unit. In terms of his respiratory status, will change his BiPAP settings to 18/10. He is severely hypotensive. In spite of the fact he has pleural effusions, I believe a trial short term of IV fluids by bolus is indicated. Ultimately the pressors can be started once he gets to the ICU. He has had a dose of IV Synthroid, but he may need repetitive doses. The patient is not a candidate for a thoracentesis at present based upon his poor status. If he improves hemodynamically, than that could be a consideration. He is ordered nebulizer treatments. He has been getting some hydrocortisone. He is already ordered levofloxacin. He is also ordered Zosyn. Status however is very poor and I believe his prognosis is poor.
[2016-10-19] MEDS: INSULIN ASPART 100 UNITS/ML 3 ML PEN SC SCH ×3 (12:19→21:23)
[2016-10-19] MEDS: FERROUS SULFATE 325 MG TAB PO SCH ×2 (12:19→21:00)
--- NOTE | 2016-10-19 14:26 | Neurology Progress Notes ---
Neurology Progress Note Date of Service Oct 19, 2016. Fernandez Bowling is an 86 year old male who has a PMH of CKD stage 3, DM 2, Chromic Afib, CAD, Hypothyroidism, HTN, DL presented to his wound clinic with complaints of generalized weakness. He is a poor historian and there is no family in room. He states he has numbness in his legs and jaw. At the wound clinic the patient had a low blood sugar level, and was noted to be very lethargic. It was reported he was experiencing memory problems within the past month. On 09/29 he was admitted for bradycardia, hyperkalemia, JO and R foot osteomyelities, He was discharged to [facility] on Keflex and Levaquin. He reportedly developed R sided weakness and numbness however he states he is just generally weak. He has a history of CVA and on a aspirin daily. he is wheelchair bound. this am he was transferred to the unit due to hypotension. he was placed on bipap. His son is in the room and they are waiting for his brother to come tomorrow for decision making. He is a DNR and palliative medicine has been consulted for direction of care. Objective Date Time Temp Pulse Resp B/P Pulse Ox O2 Delivery O2 Flow Rate FiO2 10/19/16 14:01 36.1 113 16 78/56 98 BiPAP 35 10/19/16 13:56 36.1 125 17 88/59 98 10/19/16 13:55 36.1 124 18 84/61 98 10/19/16 13:51 36.0 125 17 90/62 98 10/19/16 13:46 36.0 123 17 91/58 98 10/19/16 13:44 36.0 124 18 100/60 99 10/19/16 13:39 35.9 113 17 86/64 98 10/19/16 13:32 35.8 112 19 65/55 98 10/19/16 13:15 35.6 105 17 83/43 98 10/19/16 12:43 35.2 96 18 87/54 96 BiPAP 35 10/19/16 12:39 35.2 83 17 72/46 98 BiPAP 35 10/19/16 12:32 35.1 88 15 73/44 99 BiPAP 35 10/19/16 12:28 35.1 85 18 81/45 98 BiPAP 35 10/19/16 12:00 83 10/19/16 12:00 BiPAP 35 10/19/16 11:59 34.9 78 17 90/53 98 BiPAP 35 10/19/16 11:44 34.8 81 15 121/103 98 BiPAP 35 10/19/16 11:28 34.8 80 16 90/56 100 BiPAP 35 10/19/16 11:13 34.8 69 21 105/58 95 BiPAP 35 10/19/16 10:56 87 13 102/86 99 BiPAP 35 10/19/16 10:52 72 15 95/55 10/19/16 10:50 87 10/19/16 10:40 35.7 86 24 94 15.0 10/19/16 10:20 35.7 10/19/16 10:05 72 64/41 10/19/16 09:51 76 64/40 10/19/16 09:40 36.5 10/19/16 08:00 36.8 86 24 123/63 94 BiPAP 15.0 10/19/16 08:00 92 BiPAP 100 10/19/16 07:35 63 89 35 10/19/16 07:30 63 20 89 BiPAP/CPAP 35 10/19/16 06:03 61 100 35 10/19/16 04:00 92 BiPAP 100 10/19/16 03:55 80 94 100 10/19/16 03:54 80 22 94 BiPAP/CPAP 100 10/19/16 03:54 36.3 94 21 90/57 98 Non-Rebreather 15.0 10/19/16 01:02 86 20 93 Nasal Cannula 5.0 10/19/16 00:23 36.4 72 22 142/60 2 Nasal Cannula 6.0 10/19/16 00:00 92 Nasal Cannula 6.0 10/18/16 22:24 36.3 10/18/16 20:00 Nasal Cannula 2.0 10/18/16 20:00 34.3 10/18/16 18:45 63 18 91/50 98 10/18/16 16:10 61 18 110/70 97 Nasal Cannula 2.0 10/18/16 16:00 Nasal Cannula 2.0 10/18/16 14:37 33.5 60 22 111/68 Nasal Cannula 2.0 Last 24 Hours Test 10/18/16 16:36 2/14/17 17:15 10/18/16 17:18 10/18/16 20:30 Lactic Acid Level 0.8 mmol/L Sodium Level 137 mmol/L Potassium Level 5.3 mmol/L Chloride Level 102 mmol/L Carbon Dioxide Level 24 mmol/L Anion Gap 11.0 mmol/L Blood Urea Nitrogen 53 mg/dl Creatinine 2.30 mg/dl Est Creatinine Clear Calc Drug Dose 23.4 ml/min Estimated GFR () 28.5 Estimated GFR (Non- 24.6 BUN/Creatinine Ratio 23.1 Random Glucose 69 mg/dl Calcium Level 8.6 mg/dl Thyroid Stimulating Hormone (TSH) 62.500 uIu/ml Bedside Glucose 72 mg/dl 73 mg/dl Test 10/19/16 00:15 10/19/16 01:55 10/19/16 05:15 10/19/16 05:24 Arterial Blood pH 7.33 7.19 Arterial Blood Partial Pressure CO2 50 mmHg 70 mmHg Arterial Blood Partial Pressure O2 53 mm/Hg 241 mm/Hg Arterial Blood HCO3 25 mmol/L 26 mmol/L Arterial Blood Oxygen Saturation 83.5 % 99.6 % Arterial Blood Base Excess -0.9 mEq/L -2.6 mEq/L Arterial Blood Gas Delivery 5 L 100% Earnest Test POS POS Sodium Level 137 mmol/L 138 mmol/L Potassium Level 5.6 mmol/L 5.3 mmol/L Chloride Level 103 mmol/L 103 mmol/L Carbon Dioxide Level 25 mmol/L 28 mmol/L Anion Gap 9.0 mmol/L 7.0 mmol/L Blood Urea Nitrogen 54 mg/dl 53 mg/dl Creatinine 2.40 mg/dl 2.60 mg/dl Est Creatinine Clear Calc Drug Dose 22.4 ml/min 19.9 ml/min Estimated GFR () 27.1 24.6 Estimated GFR (Non- 23.4 21.2 BUN/Creatinine Ratio 22.5 20.5 Random Glucose 72 mg/dl 89 mg/dl Lactic Acid Level 1.0 mmol/L Calcium Level 8.1 mg/dl 7.9 mg/dl White Blood Count 11.95 K/uL Red Blood Count 2.75 M/uL Hemoglobin 9.0 g/dL Hematocrit 27.1 % Mean Corpuscular Volume 98.5 fL Mean Corpuscular Hemoglobin 32.7 pg Mean Corpuscular Hemoglobin Concent 33.2 g/dl Platelet Count 93 K/uL Mean Platelet Volume 12.0 fL Neutrophils (%) (Auto) 92.7 % Lymphocytes (%) (Auto) 2.1 % Monocytes (%) (Auto) 4.8 % Eosinophils (%) (Auto) 0.1 % Basophils (%) (Auto) 0.0 % Neutrophils # (Auto) 11.09 K/uL Lymphocytes # (Auto) 0.25 K/uL Monocytes # (Auto) 0.57 K/uL Eosinophils # (Auto) 0.01 K/uL Basophils # (Auto) 0.00 K/uL RDW Standard Deviation 61.6 fL RDW Coefficient of Variation 17.3 % Immature Granulocyte % (Auto) 0.3 % Immature Granulocyte # (Auto) 0.03 K/uL Platelet Estimate DECREASED Pappenheimer Bodies OCCASIONAL Triglycerides Level 77 mg/dl Cholesterol Level 94 mg/dl HDL Cholesterol 48 mg/dl LDL Cholesterol, Calculated 31 mg/dl VLDL Cholesterol, Calculated 15 mg/dl Cholesterol/HDL Ratio 2.0 Thyroid Stimulating Hormone (TSH) 70.100 uIu/ml Free Thyroxine 0.69 ng/dl Free Triiodothyronine 1.57 pg/ml Test 10/19/16 06:19 10/19/16 07:09 10/19/16 09:53 10/19/16 11:38 Bedside Glucose 71 mg/dl 85 mg/dl Arterial Blood pH 7.37 Arterial Blood Partial Pressure CO2 44 mmHg Arterial Blood Partial Pressure O2 73 mm/Hg Arterial Blood HCO3 24 mmol/L Arterial Blood Oxygen Saturation 93.9 % Arterial Blood Base Excess -1.1 mEq/L Arterial Blood Gas Delivery 100% Earnest Test POS Pass Blood Gas Sample Site L Radial Bedside Blood Gas pH (LAB) 7.15 Bedside Blood Gas pCO2 (LAB) 68 mmHg Bedside Blood Gas pO2 (LAB) 96 mmHg Bedside Blood Gas HCO3 (LAB) 24 meq/L Bedside Blood Gas Total CO2 26 mEq/l Bedside Blood Gas Base Excess (LAB) -5.0 meq/L Bedside Blood Gas O2 Saturation 95.0 % Oxygen Delivery Device BIPAP Bedside Oxygen Rate (breaths/min) 20 Bedside FiO2 35 % Blood Gas IPAP 18 Test 10/19/16 11:53 10/19/16 12:45 Bedside Glucose 109 mg/dl Imaging: CXR - Cardiomegaly without radiographic evidence of congestive failure. Layering pleural effusions with bibasilar consolidation. This has not significant change from 10/18/2016. Large calcified pleural plaques are similar to previous. Exam: patient is on bi pap is responsive lungs with assistance of bi pap CV [place] Current Inpatient Medications Medications (Trade) Dose Ordered Sig/Perla Route Start Time Stop Time Status Last Admin Dose Admin Miscellaneous Information (Pharmacist Discharge Med Rec Consult) 1 ea UD PRN N/A 10/18/16 13:00 11/17/16 12:59 Acetaminophen (Tylenol Tab) 650 mg Q4H PRN PO 10/18/16 13:00 11/17/16 12:59 Ondansetron HCl (Zofran Inj) 4 mg Q6H PRN IV 10/18/16 13:00 11/17/16 12:59 Nitroglycerin (Nitrostat Tab) 0.4 mg UD PRN SL 10/18/16 13:00 11/17/16 12:59 Miscellaneous (Iv Fluids Completed) 1 ea PRN PRN N/A 10/18/16 13:15 10/18/17 13:14 Clopidogrel Bisulfate (plAVix TAB) 75 mg QAM PO 10/19/16 09:00 11/18/16 08:59 Aspirin (Ecotrin Tab) 81 mg DAILY PO 10/19/16 09:00 11/18/16 08:59 Donepezil HCl (Aricept Tab) 5 mg HS PO 10/18/16 21:00 11/17/16 20:59 10/18/16 20:14 5 MG Mirtazapine (Remeron Tab) 15 mg HS PO 10/18/16 21:00 11/17/16 20:59 10/18/16 20:14 15 MG Pravastatin Sodium (Pravachol Tab) 40 mg HS PO 10/18/16 21:00 11/17/16 20:59 10/18/16 20:17 40 MG Senna/Docusate Sodium (Senokot S Tab) 1 tab DAILY PRN PO 10/18/16 13:45 11/17/16 13:44 Tramadol HCl (Ultram Tab) 50 mg TID PRN PO 10/18/16 13:45 11/17/16 13:44 Triamcinolone Acetonide (Kenalog 0.5% Crm) 1 appln BID PRN EXT 10/18/16 13:45 11/17/16 13:44 Ferrous Sulfate (Feosol Tab) 325 mg BID PO 10/18/16 21:00 11/17/16 20:59 10/18/16 20:16 325 MG Meclizine HCl (Antivert Tab) 12.5 mg Q8 PRN PO 10/18/16 13:45 11/17/16 13:44 Pantoprazole Sodium (Protonix Tab) 40 mg QAM PO 10/19/16 09:00 11/18/16 08:59 Polyethylene (Miralax Powder Packet) 17 gm DAILY PRN PO 10/18/16 15:15 11/17/16 15:14 Insulin Aspart (novoLOG ASPART) SLIDING SCALE If C... ACHS SC 10/18/16 16:15 11/17/16 16:14 Glucose (Glucose 40% Gel) 15-30 GRAMS 15 GRAMS... UD PRN PO 10/18/16 14:00 11/17/16 13:59 Glucose (Glucose Chew Tab) 4-8 Tablets 4 Tabl... UD PRN PO 10/18/16 14:00 11/17/16 13:59 Dextrose (Dextrose 50% 50ML Syringe) 25-50ML OF 50% DW IV FOR... UD PRN IV 10/18/16 14:00 11/17/16 13:59 Glucagon 1 mg 1 mg UD PRN SQ 10/18/16 14:00 11/17/16 13:59 Sodium Chloride (Nss 1000ml) 1,000 ml @ 100 mls/hr Q10H IV 10/18/16 16:00 11/17/16 15:59 Future Hold 10/18/16 16:57 100 MLS/HR Levofloxacin (Consult) 1 ea UD PRN N/A 10/18/16 19:15 11/17/16 19:14 Piperacillin Sod/ Tazobactam Sod 1 ea 1 ea UD PRN N/A 10/18/16 19:15 11/17/16 19:14 Piperacillin Sod/ Tazobactam Sod 3.375 gm/Dextrose 115 ml @ 28.75 mls/ hr Q8H IV 10/19/16 02:00 10/19/16 15:00 10/19/16 10:37 28.75 MLS/HR Levofloxacin 750 mg/Prmx 150 ml @ 100 mls/hr Q2D@1800 IV 10/20/16 18:00 10/28/16 17:59 Levothyroxine Sodium 100 mcg/ Syringe 5 ml @ 2 mls/min DAILY@09 IV 10/19/16 09:00 11/18/16 08:59 10/19/16 10:36 2 MLS/MIN Hydrocortisone Sodium Succinate/ Syringe (Solu-Cortef IV/ Syringe) 1 ml @ 4 mls/min Q6H IV 10/19/16 00:00 11/18/16 00:00 10/19/16 12:27 4 MLS/MIN Albuterol/ Ipratropium (Duoneb) 3 ml QIDR INH 10/19/16 08:00 11/18/16 07:59 10/19/16 07:28 3 ML Vancomycin HCl (Consult) 1 ea UD PRN N/A 10/19/16 01:30 11/18/16 01:29 Haloperidol Lactate (Haldol Inj) 2 mg Q2H PRN IM 10/19/16 02:30 11/18/16 02:29 10/19/16 03:06 2 MG Haloperidol (Haldol Tab) 2 mg Q4H PRN PO 10/19/16 02:30 11/18/16 02:29 Albuterol/ Ipratropium 3 ml 3 ml QIDR INH 10/19/16 08:00 11/18/16 07:59 Norepinephrine Bitartrate 8 mg/ Dextrose 508 ml @ 0 mls/hr Q0M PRN IV 10/19/16 10:02 11/18/16 10:01 10/19/16 12:43 26.3 MLS/HR Piperacillin Sod/ Tazobactam Sod/ Dextrose (Zosyn Iv/D5 100ml) 115 ml @ 28.75 mls/ hr Q12@1000,2200 IV 10/19/16 22:00 10/28/16 21:59 Impression 86 year old male with hypothermia, generalized weakness, hx osteomyelitis right foot. extensive medical history Plan 1. warming essential at this point- dtill on warming blanket 2. currently working toward comfort care 3. watch hyperkalemia-see nephrology note 4. MRI with and without brain and MRA head and neck ordered- no longer needed due to comfort care measures 5. would make sure patient is stable medically before imaging is done 6. chronic memory issues with warm may be back to baseline 7. will be available for further questions as needed. I have discussed above patient with Dr Haritha Stephen, neurology Discussed with CLARISSE Johnson. Will sign off for now. JOSEPH Stephen MD
--- NOTE | 2016-10-19 15:44 | Palliative Care Consultation ---
Consultation Date of Consultation: Oct 19, 2016. Requesting Physician: Ro Kuo PA-C Attending Physician: Dr. Deleon Reason for Consultation: Goals of care, symptom management History of Present Illness This 86 year old male patient presented to the ED yesterday from [facility] with complaints of right sided weakness and numbness that had began the day before. He has a history of afib, CAD, htn, CKD stage III, asbestosis, right foot osteomyelitis, and other problems listed below who was just admitted to the hospital at the end of September for bradycardia, osteomyelitis, JO, and hyperkalemia. At that time, patient indicated that he would not want a pacemaker and was leaning more toward conservative care. Prior to that he was in the hospital with a bleeding ulcer which couldn't be stabilized here, was sent to [place] and had a Dieulafoy lesion clipped. He normally lives at home with his significant other, Liliane, but his care is becoming too much for her to handle. The patient was frequently falling and was unable to get up. On this admission, patient was admitted with this right sided weakness to r/o CVA, CT head was negative. MRI/MRA was scheduled to be done and patient had neuro consult. Shortly after admission, patient had a sudden drop in blood pressure, was sent to the ICU. He required bipap and norepinephrine infusion to maintain. The patient's son/POA, Herb Tamia, arrived shortly after and requested no escalation of care per his father's wishes. Palliative care consulted to assist in establishing goals of care. This patient and family are known to me from previous admission. At that time, patient had decided that he did not want aggressive measures or invasive procedures; and if he were to enter an end-stage medical condition, he would want to be made comfortable and allow natural . At the time, patient's son/ POA, Herb, and patient's girlfriend, Liliane, were also in agreement with this and they had all decided that the goal was for comfort. He was discharged to [facility] for some rehab to see if he could gain enough strength back to get home with hospice. Unfortunately, he came back to the hospital before that was determined. I met first with Herb today. He confirmed that the patient's wishes still stood- - he would not want any escalation of care at this time and the decision had already been made to make patient comfort measures only once the family from out of town arrived. I then assessed the patient. His eyes were closed with bipap mask on. He was able to communicate somewhat with head nods and indicated that he was not in pain or discomfort, but he would like the mask off. He did not follow all commands or answer all questions, so orientation difficult to assess. See plan below. Past Medical/Surgical History Medical History: Abdominal aortic aneurysm Asbestosis Atrial fibrillation Benign hypertension Benign paroxysmal positional vertigo Cerebrovascular disease Chronic kidney disease stage 3 Coronary artery disease Dieulafoy lesion of stomach DM type 2 Dyslipidemia Gastric ulcer HTN Surgical History: Cardiac catheterization EGD Exploratory laparotomy Hemicolectomy Shoulder repair Tonsillectomy Knee replacement Social History Smoking Status: Former Smoker History of Alcohol Use: No Drug Use: none Marital Status: Housing Status: lives with significant other Occupation Status: retired Review of Systems unable to obtain due to lethargy Allergies Coded Allergies: No Known Allergies (Unverified , 10/18/16) Medications Current Inpatient Medications Medications (Trade) Dose Ordered Sig/Perla Route Start Time Stop Time Status Last Admin Dose Admin Miscellaneous Information (Pharmacist Discharge Med Rec Consult) 1 ea UD PRN N/A 10/18/16 13:00 11/17/16 12:59 Acetaminophen (Tylenol Tab) 650 mg Q4H PRN PO 10/18/16 13:00 11/17/16 12:59 Ondansetron HCl (Zofran Inj) 4 mg Q6H PRN IV 10/18/16 13:00 11/17/16 12:59 Nitroglycerin (Nitrostat Tab) 0.4 mg UD PRN SL 10/18/16 13:00 11/17/16 12:59 Miscellaneous (Iv Fluids Completed) 1 ea PRN PRN N/A 10/18/16 13:15 10/18/17 13:14 Clopidogrel Bisulfate (plAVix TAB) 75 mg QAM PO 10/19/16 09:00 11/18/16 08:59 Aspirin (Ecotrin Tab) 81 mg DAILY PO 10/19/16 09:00 11/18/16 08:59 Donepezil HCl (Aricept Tab) 5 mg HS PO 10/18/16 21:00 11/17/16 20:59 10/18/16 20:14 5 MG Mirtazapine (Remeron Tab) 15 mg HS PO 10/18/16 21:00 11/17/16 20:59 10/18/16 20:14 15 MG Pravastatin Sodium (Pravachol Tab) 40 mg HS PO 10/18/16 21:00 11/17/16 20:59 10/18/16 20:17 40 MG Senna/Docusate Sodium (Senokot S Tab) 1 tab DAILY PRN PO 10/18/16 13:45 11/17/16 13:44 Tramadol HCl (Ultram Tab) 50 mg TID PRN PO 10/18/16 13:45 11/17/16 13:44 Triamcinolone Acetonide (Kenalog 0.5% Crm) 1 appln BID PRN EXT 10/18/16 13:45 11/17/16 13:44 Ferrous Sulfate (Feosol Tab) 325 mg BID PO 10/18/16 21:00 11/17/16 20:59 10/18/16 20:16 325 MG Meclizine HCl (Antivert Tab) 12.5 mg Q8 PRN PO 10/18/16 13:45 11/17/16 13:44 Pantoprazole Sodium (Protonix Tab) 40 mg QAM PO 10/19/16 09:00 11/18/16 08:59 Polyethylene (Miralax Powder Packet) 17 gm DAILY PRN PO 10/18/16 15:15 11/17/16 15:14 Insulin Aspart (novoLOG ASPART) SLIDING SCALE If C... ACHS SC 10/18/16 16:15 11/17/16 16:14 Glucose (Glucose 40% Gel) 15-30 GRAMS 15 GRAMS... UD PRN PO 10/18/16 14:00 11/17/16 13:59 Glucose (Glucose Chew Tab) 4-8 Tablets 4 Tabl... UD PRN PO 10/18/16 14:00 11/17/16 13:59 Dextrose (Dextrose 50% 50ML Syringe) 25-50ML OF 50% DW IV FOR... UD PRN IV 10/18/16 14:00 11/17/16 13:59 Glucagon 1 mg 1 mg UD PRN SQ 10/18/16 14:00 11/17/16 13:59 Sodium Chloride (Nss 1000ml) 1,000 ml @ 100 mls/hr Q10H IV 10/18/16 16:00 11/17/16 15:59 Future Hold 10/18/16 16:57 100 MLS/HR Levofloxacin (Consult) 1 ea UD PRN N/A 10/18/16 19:15 11/17/16 19:14 Piperacillin Sod/ Tazobactam Sod 1 ea 1 ea UD PRN N/A 10/18/16 19:15 11/17/16 19:14 Levofloxacin 750 mg/Prmx 150 ml @ 100 mls/hr Q2D@1800 IV 10/20/16 18:00 10/28/16 17:59 Levothyroxine Sodium 100 mcg/ Syringe 5 ml @ 2 mls/min DAILY@09 IV 10/19/16 09:00 11/18/16 08:59 10/19/16 10:36 2 MLS/MIN Hydrocortisone Sodium Succinate/ Syringe (Solu-Cortef IV/ Syringe) 1 ml @ 4 mls/min Q6H IV 10/19/16 00:00 11/18/16 00:00 10/19/16 12:27 4 MLS/MIN Albuterol/ Ipratropium (Duoneb) 3 ml QIDR INH 10/19/16 08:00 11/18/16 07:59 10/19/16 07:28 3 ML Vancomycin HCl (Consult) 1 ea UD PRN N/A 10/19/16 01:30 11/18/16 01:29 Haloperidol Lactate (Haldol Inj) 2 mg Q2H PRN IM 10/19/16 02:30 11/18/16 02:29 10/19/16 03:06 2 MG Haloperidol (Haldol Tab) 2 mg Q4H PRN PO 10/19/16 02:30 11/18/16 02:29 Albuterol/ Ipratropium 3 ml 3 ml QIDR INH 10/19/16 08:00 11/18/16 07:59 Norepinephrine Bitartrate 8 mg/ Dextrose 508 ml @ 0 mls/hr Q0M PRN IV 10/19/16 10:02 11/18/16 10:01 10/19/16 12:43 26.3 MLS/HR Piperacillin Sod/ Tazobactam Sod/ Dextrose (Zosyn Iv/D5 100ml) 115 ml @ 28.75 mls/ hr Q12@1000,2200 IV 10/19/16 22:00 10/28/16 21:59 Physical Exam Date Time Temp Pulse Resp B/P Pulse Ox O2 Delivery O2 Flow Rate FiO2 10/19/16 14:01 36.1 113 16 78/56 98 BiPAP 35 10/19/16 13:56 36.1 125 17 88/59 98 10/19/16 13:55 36.1 124 18 84/61 98 10/19/16 13:51 36.0 125 17 90/62 98 10/19/16 13:46 36.0 123 17 91/58 98 10/19/16 13:44 36.0 124 18 100/60 99 10/19/16 13:39 35.9 113 17 86/64 98 10/19/16 13:32 35.8 112 19 65/55 98 10/19/16 13:15 35.6 105 17 83/43 98 10/19/16 12:43 35.2 96 18 87/54 96 BiPAP 35 10/19/16 12:39 35.2 83 17 72/46 98 BiPAP 35 10/19/16 12:32 35.1 88 15 73/44 99 BiPAP 35 10/19/16 12:28 35.1 85 18 81/45 98 BiPAP 35 10/19/16 12:00 83 10/19/16 12:00 BiPAP 35 10/19/16 11:59 34.9 78 17 90/53 98 BiPAP 35 10/19/16 11:44 34.8 81 15 121/103 98 BiPAP 35 10/19/16 11:28 34.8 80 16 90/56 100 BiPAP 35 10/19/16 11:13 34.8 69 21 105/58 95 BiPAP 35 10/19/16 10:56 87 13 102/86 99 BiPAP 35 10/19/16 10:52 72 15 95/55 10/19/16 10:50 87 10/19/16 10:40 35.7 86 24 94 15.0 10/19/16 10:20 35.7 10/19/16 10:05 72 64/41 10/19/16 09:51 76 64/40 10/19/16 09:40 36.5 10/19/16 08:00 36.8 86 24 123/63 94 BiPAP 15.0 10/19/16 08:00 92 BiPAP 100 10/19/16 07:35 63 89 35 10/19/16 07:30 63 20 89 BiPAP/CPAP 35 10/19/16 06:03 61 100 35 10/19/16 04:00 92 BiPAP 100 10/19/16 03:55 80 94 100 10/19/16 03:54 80 22 94 BiPAP/CPAP 100 10/19/16 03:54 36.3 94 21 90/57 98 Non-Rebreather 15.0 10/19/16 01:02 86 20 93 Nasal Cannula 5.0 10/19/16 00:23 36.4 72 22 142/60 2 Nasal Cannula 6.0 10/19/16 00:00 92 Nasal Cannula 6.0 10/18/16 22:24 36.3 10/18/16 20:00 Nasal Cannula 2.0 10/18/16 20:00 34.3 10/18/16 18:45 63 18 91/50 98 10/18/16 16:10 61 18 110/70 97 Nasal Cannula 2.0 10/18/16 16:00 Nasal Cannula 2.0 General Appearance: + pertinent finding (critically ill in ICU) Neck: no JVD Respiratory: + decreased breath sounds, + accessory muscle use, + rhonchi ( coarse upper anterior breath sounds), + pertinent finding (bipap on at this time ) Cardiovascular: + tachycardia, + irregularly irregular, + normal peripheral pulses Abdomen: normal bowel sounds, soft, + distended (obese abdomen) Musculoskeletal: pertinent finding (moves all extremities) Neurologic/Psychiatric: + pertinent finding (lethargic, almost obtunded. no verbal response but communicated with head nods ) Laboratory Results Last 24 Hours Test 10/18/16 16:36 10/18/16 17:15 10/18/16 17:18 10/18/16 20:30 Lactic Acid Level 0.8 mmol/L Sodium Level 137 mmol/L Potassium Level 5.3 mmol/L Chloride Level 102 mmol/L Carbon Dioxide Level 24 mmol/L Anion Gap 11.0 mmol/L Blood Urea Nitrogen 53 mg/dl Creatinine 2.30 mg/dl Est Creatinine Clear Calc Drug Dose 23.4 ml/min Estimated GFR () 28.5 Estimated GFR (Non- 24.6 BUN/Creatinine Ratio 23.1 Random Glucose 69 mg/dl Calcium Level 8.6 mg/dl Thyroid Stimulating Hormone (TSH) 62.500 uIu/ml Bedside Glucose 72 mg/dl 73 mg/dl Test 10/19/16 00:15 10/19/16 01:55 10/19/16 05:15 10/19/16 05:24 Arterial Blood pH 7.33 7.19 Arterial Blood Partial Pressure CO2 50 mmHg 70 mmHg Arterial Blood Partial Pressure O2 53 mm/Hg 241 mm/Hg Arterial Blood HCO3 25 mmol/L 26 mmol/L Arterial Blood Oxygen Saturation 83.5 % 99.6 % Arterial Blood Base Excess -0.9 mEq/L -2.6 mEq/L Arterial Blood Gas Delivery 5 L 100% Earnest Test POS POS Sodium Level 137 mmol/L 138 mmol/L Potassium Level 5.6 mmol/L 5.3 mmol/L Chloride Level 103 mmol/L 103 mmol/L Carbon Dioxide Level 25 mmol/L 28 mmol/L Anion Gap 9.0 mmol/L 7.0 mmol/L Blood Urea Nitrogen 54 mg/dl 53 mg/dl Creatinine 2.40 mg/dl 2.60 mg/dl Est Creatinine Clear Calc Drug Dose 22.4 ml/min 19.9 ml/min Estimated GFR () 27.1 24.6 Estimated GFR (Non- 23.4 21.2 BUN/Creatinine Ratio 22.5 20.5 Random Glucose 72 mg/dl 89 mg/dl Lactic Acid Level 1.0 mmol/L Calcium Level 8.1 mg/dl 7.9 mg/dl White Blood Count 11.95 K/uL Red Blood Count 2.75 M/uL Hemoglobin 9.0 g/dL Hematocrit 27.1 % Mean Corpuscular Volume 98.5 fL Mean Corpuscular Hemoglobin 32.7 pg Mean Corpuscular Hemoglobin Concent 33.2 g/dl Platelet Count 93 K/uL Mean Platelet Volume 12.0 fL Neutrophils (%) (Auto) 92.7 % Lymphocytes (%) (Auto) 2.1 % Monocytes (%) (Auto) 4.8 % Eosinophils (%) (Auto) 0.1 % Basophils (%) (Auto) 0.0 % Neutrophils # (Auto) 11.09 K/uL Lymphocytes # (Auto) 0.25 K/uL Monocytes # (Auto) 0.57 K/uL Eosinophils # (Auto) 0.01 K/uL Basophils # (Auto) 0.00 K/uL RDW Standard Deviation 61.6 fL RDW Coefficient of Variation 17.3 % Immature Granulocyte % (Auto) 0.3 % Immature Granulocyte # (Auto) 0.03 K/uL Platelet Estimate DECREASED Pappenheimer Bodies OCCASIONAL Triglycerides Level 77 mg/dl Cholesterol Level 94 mg/dl HDL Cholesterol 48 mg/dl LDL Cholesterol, Calculated 31 mg/dl VLDL Cholesterol, Calculated 15 mg/dl Cholesterol/HDL Ratio 2.0 Thyroid Stimulating Hormone (TSH) 70.100 uIu/ml Free Thyroxine 0.69 ng/dl Free Triiodothyronine 1.57 pg/ml Test 10/19/16 06:19 10/19/16 07:09 10/19/16 09:53 10/19/16 11:38 Bedside Glucose 71 mg/dl 85 mg/dl Arterial Blood pH 7.37 Arterial Blood Partial Pressure CO2 44 mmHg Arterial Blood Partial Pressure O2 73 mm/Hg Arterial Blood HCO3 24 mmol/L Arterial Blood Oxygen Saturation 93.9 % Arterial Blood Base Excess -1.1 mEq/L Arterial Blood Gas Delivery 100% Earnest Test POS Pass Blood Gas Sample Site L Radial Bedside Blood Gas pH (LAB) 7.15 Bedside Blood Gas pCO2 (LAB) 68 mmHg Bedside Blood Gas pO2 (LAB) 96 mmHg Bedside Blood Gas HCO3 (LAB) 24 meq/L Bedside Blood Gas Total CO2 26 mEq/l Bedside Blood Gas Base Excess (LAB) -5.0 meq/L Bedside Blood Gas O2 Saturation 95.0 % Oxygen Delivery Device BIPAP Bedside Oxygen Rate (breaths/min) 20 Bedside FiO2 35 % Blood Gas IPAP 18 Test 10/19/16 11:53 10/19/16 12:45 10/19/16 14:30 Bedside Glucose 109 mg/dl Assessment & Plan Palliative Performance Scale: 10 % Problem list: Lethargy/altered mental status Hypotension Osteomyelitis of right foot Respiratory failure Atrial fibrillation CAD Asbestosis Acute on chronic kidney disease Goals of care (Z51.5) Palliative care plan: Discussed with Dr. Irvin and patient's son/POA, Herb Tamia. -Remains DNR/DNI -No escalation of care: patient is currently on Levophed, receiving IV abx, and on Bipap. No CPR or intubation to be initiated. This is consistent with patient' s wishes that I was fortunate enough to discuss with patient, Herb, and patient' s girlfriend Liliane, on previous admission. -Once family arrives from out of town, decision has been made by patient's son/ POA, Herb, to make patient comfort measures only. Again, the patient's wish was to be made comfortable and allow natural if he was in an end-stage medical condition with little chance of meaningful recovery. -When ready to transition to [employer]: IV morphine 1mg Q1h PRN pain or SOB (this can be increased/titrated as needed), remove bipap after morphine initiated, discontinue all medications/IVs unrelated to comfort including abx and levophed and transfer to fourth floor if possible depending on patient's clinical course. This was all discussed with Herb. Thank you kindly for this consult and allowing me to participate in his care.
--- NOTE | 2016-10-19 16:16 | Medical Consult ---
Consultation Date of Consultation: Oct 19, 2016. Attending Physician: Kwesi Deleon MD Reason for Consultation: osteomyelitis right foot, followed at [facility] History of Present Illness 86-year-old male with complicated past medical history including diabetes mellitus, stage 3 chronic kidney disease, asbestos related lung disease, has been followed at the [facility] for [facility] care because of osteomyelitis of the right foot. He was recently hospitalized in September for kidney problems as well as osteomyelitis, and was discharged on combination of cephalexin and levofloxacin. Over the past day, patient has developed right-sided weakness with hypotension. He was brought to the hospital and found to be severely hypotensive and hypothermic and now found to have TSH that is markedly elevated. He has been started on broad-spectrum antibiotic therapy, and now we are awaiting decision regarding possible transition to comfort care. Cultures unrevealing to date. Past Medical/Surgical History Medical Problems: (1) Anemia Status: Acute (2) Bradycardia Status: Acute (3) Bradycardia Status: Acute (4) Bradycardia Status: Acute (5) CHF (congestive heart failure) Status: Acute (6) Chronic kidney disease Status: Acute (7) Generalized weakness Status: Acute (8) GI bleed Status: Acute (9) Melena Status: Acute (10) Numbness Status: Acute (11) Renal failure Status: Acute (12) Renal failure Status: Acute (13) Respiratory distress Status: Acute (14) SOB (shortness of breath) Status: Acute (15) Thrombocytopenia Status: Acute Medical Problems: (1) Abdominal aortic aneurysm (2) Asbestosis (3) Atrial fibrillation (4) Benign hypertension (5) Benign paroxysmal positional vertigo (6) Cerebrovascular disease, arteriosclerotic, post-stroke (7) Chronic kidney disease stage 3 (8) Coronary artery disease (9) Dieulafoy lesion of stomach (10) DM type 2 (diabetes mellitus, type 2) (11) Dyslipidemia (12) Foot ulcer (13) HTN (hypertension) (14) Hx of gastric ulcer (15) Hyperkalemia (16) Hypotension (17) Hypothermia (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 Social History Smoking Status: Former Smoker Drug Use: none Marital Status: Occupation Status: retired Allergies Coded Allergies: No Known Allergies (Unverified , 10/18/16) Current Inpatient Medications Current Inpatient Medications Medications (Trade) Dose Ordered Sig/Perla Route Start Time Stop Time Status Last Admin Dose Admin Miscellaneous Information (Pharmacist Discharge Med Rec Consult) 1 ea UD PRN N/A 10/18/16 13:00 11/17/16 12:59 Acetaminophen (Tylenol Tab) 650 mg Q4H PRN PO 10/18/16 13:00 11/17/16 12:59 Ondansetron HCl (Zofran Inj) 4 mg Q6H PRN IV 10/18/16 13:00 11/17/16 12:59 Nitroglycerin (Nitrostat Tab) 0.4 mg UD PRN SL 10/18/16 13:00 11/17/16 12:59 Miscellaneous (Iv Fluids Completed) 1 ea PRN PRN N/A 10/18/16 13:15 10/18/17 13:14 Clopidogrel Bisulfate (plAVix TAB) 75 mg QAM PO 10/19/16 09:00 11/18/16 08:59 Aspirin (Ecotrin Tab) 81 mg DAILY PO 10/19/16 09:00 11/18/16 08:59 Donepezil HCl (Aricept Tab) 5 mg HS PO 10/18/16 21:00 11/17/16 20:59 10/18/16 20:14 5 MG Mirtazapine (Remeron Tab) 15 mg HS PO 10/18/16 21:00 11/17/16 20:59 10/18/16 20:14 15 MG Pravastatin Sodium (Pravachol Tab) 40 mg HS PO 10/18/16 21:00 11/17/16 20:59 10/18/16 20:17 40 MG Senna/Docusate Sodium (Senokot S Tab) 1 tab DAILY PRN PO 10/18/16 13:45 11/17/16 13:44 Tramadol HCl (Ultram Tab) 50 mg TID PRN PO 10/18/16 13:45 11/17/16 13:44 Triamcinolone Acetonide (Kenalog 0.5% Crm) 1 appln BID PRN EXT 10/18/16 13:45 11/17/16 13:44 Ferrous Sulfate (Feosol Tab) 325 mg BID PO 10/18/16 21:00 11/17/16 20:59 10/18/16 20:16 325 MG Meclizine HCl (Antivert Tab) 12.5 mg Q8 PRN PO 10/18/16 13:45 11/17/16 13:44 Pantoprazole Sodium (Protonix Tab) 40 mg QAM PO 10/19/16 09:00 11/18/16 08:59 Polyethylene (Miralax Powder Packet) 17 gm DAILY PRN PO 10/18/16 15:15 11/17/16 15:14 Insulin Aspart (novoLOG ASPART) SLIDING SCALE If C... ACHS SC 10/18/16 16:15 11/17/16 16:14 Glucose (Glucose 40% Gel) 15-30 GRAMS 15 GRAMS... UD PRN PO 10/18/16 14:00 11/17/16 13:59 Glucose (Glucose Chew Tab) 4-8 Tablets 4 Tabl... UD PRN PO 10/18/16 14:00 11/17/16 13:59 Dextrose (Dextrose 50% 50ML Syringe) 25-50ML OF 50% DW IV FOR... UD PRN IV 10/18/16 14:00 11/17/16 13:59 Glucagon 1 mg 1 mg UD PRN SQ 10/18/16 14:00 11/17/16 13:59 Sodium Chloride (Nss 1000ml) 1,000 ml @ 100 mls/hr Q10H IV 10/18/16 16:00 11/17/16 15:59 Future Hold 10/18/16 16:57 100 MLS/HR Levofloxacin (Consult) 1 ea UD PRN N/A 10/18/16 19:15 11/17/16 19:14 Piperacillin Sod/ Tazobactam Sod 1 ea 1 ea UD PRN N/A 10/18/16 19:15 11/17/16 19:14 Levofloxacin 750 mg/Prmx 150 ml @ 100 mls/hr Q2D@1800 IV 10/20/16 18:00 10/28/16 17:59 Levothyroxine Sodium 100 mcg/ Syringe 5 ml @ 2 mls/min DAILY@09 IV 10/19/16 09:00 11/18/16 08:59 10/19/16 10:36 2 MLS/MIN Hydrocortisone Sodium Succinate/ Syringe (Solu-Cortef IV/ Syringe) 1 ml @ 4 mls/min Q6H IV 10/19/16 00:00 11/18/16 00:00 10/19/16 12:27 4 MLS/MIN Albuterol/ Ipratropium (Duoneb) 3 ml QIDR INH 10/19/16 08:00 11/18/16 07:59 10/19/16 07:28 3 ML Vancomycin HCl (Consult) 1 ea UD PRN N/A 10/19/16 01:30 11/18/16 01:29 Haloperidol Lactate (Haldol Inj) 2 mg Q2H PRN IM 10/19/16 02:30 11/18/16 02:29 10/19/16 03:06 2 MG Haloperidol (Haldol Tab) 2 mg Q4H PRN PO 10/19/16 02:30 11/18/16 02:29 Albuterol/ Ipratropium 3 ml 3 ml QIDR INH 10/19/16 08:00 11/18/16 07:59 Norepinephrine Bitartrate 8 mg/ Dextrose 508 ml @ 0 mls/hr Q0M PRN IV 10/19/16 10:02 11/18/16 10:01 10/19/16 12:43 26.3 MLS/HR Piperacillin Sod/ Tazobactam Sod/ Dextrose (Zosyn Iv/D5 100ml) 115 ml @ 28.75 mls/ hr Q12@1000,2200 IV 10/19/16 22:00 10/28/16 21:59 Review of Systems Not obtainable because of patient's mental status Physical Exam Date Time Temp Pulse Resp B/P Pulse Ox O2 Delivery O2 Flow Rate FiO2 10/19/16 14:01 36.1 113 16 78/56 98 BiPAP 35 10/19/16 13:56 36.1 125 17 88/59 98 10/19/16 13:55 36.1 124 18 84/61 98 10/19/16 13:51 36.0 125 17 90/62 98 10/19/16 13:46 36.0 123 17 91/58 98 10/19/16 13:44 36.0 124 18 100/60 99 10/19/16 13:39 35.9 113 17 86/64 98 10/19/16 13:32 35.8 112 19 65/55 98 10/19/16 13:15 35.6 105 17 83/43 98 10/19/16 12:43 35.2 96 18 87/54 96 BiPAP 35 10/19/16 12:39 35.2 83 17 72/46 98 BiPAP 35 10/19/16 12:32 35.1 88 15 73/44 99 BiPAP 35 10/19/16 12:28 35.1 85 18 81/45 98 BiPAP 35 10/19/16 12:00 83 10/19/16 12:00 BiPAP 35 10/19/16 11:59 34.9 78 17 90/53 98 BiPAP 35 10/19/16 11:44 34.8 81 15 121/103 98 BiPAP 35 10/19/16 11:28 34.8 80 16 90/56 100 BiPAP 35 10/19/16 11:13 34.8 69 21 105/58 95 BiPAP 35 10/19/16 10:56 87 13 102/86 99 BiPAP 35 10/19/16 10:52 72 15 95/55 10/19/16 10:50 87 10/19/16 10:40 35.7 86 24 94 15.0 10/19/16 10:20 35.7 10/19/16 10:05 72 64/41 10/19/16 09:51 76 64/40 10/19/16 09:40 36.5 10/19/16 08:00 36.8 86 24 123/63 94 BiPAP 15.0 10/19/16 08:00 92 BiPAP 100 10/19/16 07:35 63 89 35 10/19/16 07:30 63 20 89 BiPAP/CPAP 35 10/19/16 06:03 61 100 35 10/19/16 04:00 92 BiPAP 100 10/19/16 03:55 80 94 100 10/19/16 03:54 80 22 94 BiPAP/CPAP 100 10/19/16 03:54 36.3 94 21 90/57 98 Non-Rebreather 15.0 10/19/16 01:02 86 20 93 Nasal Cannula 5.0 10/19/16 00:23 36.4 72 22 142/60 2 Nasal Cannula 6.0 10/19/16 00:00 92 Nasal Cannula 6.0 10/18/16 22:24 36.3 10/18/16 20:00 Nasal Cannula 2.0 10/18/16 20:00 34.3 10/18/16 18:45 63 18 91/50 98 General Appearance: WD/WN, + pertinent finding (Patient obtunded) Head: normocephalic, atraumatic Eyes: normal inspection, sclerae normal ENT: normal ENT inspection, + pertinent finding (BiPAP mask in place) Neck: supple, no adenopathy, trachea midline Respiratory/Chest: chest non-tender, lungs clear Cardiovascular: regular rate, rhythm, no gallop, no murmur Abdomen/GI: normal bowel sounds, non tender, soft, no organomegaly Extremities/Musculoskelatal: normal inspection, normal capillary refill Neurologic/Psych: + pertinent finding (Patient obtunded) Skin: normal color, no rash Lymphatic: no adenopathy Laboratory Results Date/Time Source Procedure Growth Status 10/18/16 19:44 Blood Blood Culture Pending Received 10/18/16 19:38 Blood Blood Culture Pending Received 10/19/16 00:00 Urine , Clean Catch Urine Culture Pending Received Last 24 Hours Test 10/18/16 16:36 10/18/16 17:15 10/18/16 17:18 10/18/16 20:30 Lactic Acid Level 0.8 mmol/L Sodium Level 137 mmol/L Potassium Level 5.3 mmol/L Chloride Level 102 mmol/L Carbon Dioxide Level 24 mmol/L Anion Gap 11.0 mmol/L Blood Urea Nitrogen 53 mg/dl Creatinine 2.30 mg/dl Est Creatinine Clear Calc Drug Dose 23.4 ml/min Estimated GFR () 28.5 Estimated GFR (Non- 24.6 BUN/Creatinine Ratio 23.1 Random Glucose 69 mg/dl Calcium Level 8.6 mg/dl Thyroid Stimulating Hormone (TSH) 62.500 uIu/ml Bedside Glucose 72 mg/dl 73 mg/dl Test 10/19/16 00:15 10/19/16 01:55 10/19/16 05:15 10/19/16 05:24 Arterial Blood pH 7.33 7.19 Arterial Blood Partial Pressure CO2 50 mmHg 70 mmHg Arterial Blood Partial Pressure O2 53 mm/Hg 241 mm/Hg Arterial Blood HCO3 25 mmol/L 26 mmol/L Arterial Blood Oxygen Saturation 83.5 % 99.6 % Arterial Blood Base Excess -0.9 mEq/L -2.6 mEq/L Arterial Blood Gas Delivery 5 L 100% Earnest Test POS POS Sodium Level 137 mmol/L 138 mmol/L Potassium Level 5.6 mmol/L 5.3 mmol/L Chloride Level 103 mmol/L 103 mmol/L Carbon Dioxide Level 25 mmol/L 28 mmol/L Anion Gap 9.0 mmol/L 7.0 mmol/L Blood Urea Nitrogen 54 mg/dl 53 mg/dl Creatinine 2.40 mg/dl 2.60 mg/dl Est Creatinine Clear Calc Drug Dose 22.4 ml/min 19.9 ml/min Estimated GFR () 27.1 24.6 Estimated GFR (Non- 23.4 21.2 BUN/Creatinine Ratio 22.5 20.5 Random Glucose 72 mg/dl 89 mg/dl Lactic Acid Level 1.0 mmol/L Calcium Level 8.1 mg/dl 7.9 mg/dl White Blood Count 11.95 K/uL Red Blood Count 2.75 M/uL Hemoglobin 9.0 g/dL Hematocrit 27.1 % Mean Corpuscular Volume 98.5 fL Mean Corpuscular Hemoglobin 32.7 pg Mean Corpuscular Hemoglobin Concent 33.2 g/dl Platelet Count 93 K/uL Mean Platelet Volume 12.0 fL Neutrophils (%) (Auto) 92.7 % Lymphocytes (%) (Auto) 2.1 % Monocytes (%) (Auto) 4.8 % Eosinophils (%) (Auto) 0.1 % Basophils (%) (Auto) 0.0 % Neutrophils # (Auto) 11.09 K/uL Lymphocytes # (Auto) 0.25 K/uL Monocytes # (Auto) 0.57 K/uL Eosinophils # (Auto) 0.01 K/uL Basophils # (Auto) 0.00 K/uL RDW Standard Deviation 61.6 fL RDW Coefficient of Variation 17.3 % Immature Granulocyte % (Auto) 0.3 % Immature Granulocyte # (Auto) 0.03 K/uL Platelet Estimate DECREASED Pappenheimer Bodies OCCASIONAL Triglycerides Level 77 mg/dl Cholesterol Level 94 mg/dl HDL Cholesterol 48 mg/dl LDL Cholesterol, Calculated 31 mg/dl VLDL Cholesterol, Calculated 15 mg/dl Cholesterol/HDL Ratio 2.0 Thyroid Stimulating Hormone (TSH) 70.100 uIu/ml Free Thyroxine 0.69 ng/dl Free Triiodothyronine 1.57 pg/ml Test 10/19/16 06:19 10/19/16 07:09 10/19/16 09:53 10/19/16 11:38 Bedside Glucose 71 mg/dl 85 mg/dl Arterial Blood pH 7.37 Arterial Blood Partial Pressure CO2 44 mmHg Arterial Blood Partial Pressure O2 73 mm/Hg Arterial Blood HCO3 24 mmol/L Arterial Blood Oxygen Saturation 93.9 % Arterial Blood Base Excess -1.1 mEq/L Arterial Blood Gas Delivery 100% Earnest Test POS Pass Blood Gas Sample Site L Radial Bedside Blood Gas pH (LAB) 7.15 Bedside Blood Gas pCO2 (LAB) 68 mmHg Bedside Blood Gas pO2 (LAB) 96 mmHg Bedside Blood Gas HCO3 (LAB) 24 meq/L Bedside Blood Gas Total CO2 26 mEq/l Bedside Blood Gas Base Excess (LAB) -5.0 meq/L Bedside Blood Gas O2 Saturation 95.0 % Oxygen Delivery Device BIPAP Bedside Oxygen Rate (breaths/min) 20 Bedside FiO2 35 % Blood Gas IPAP 18 Test 10/19/16 11:53 10/19/16 15:59 Bedside Glucose 109 mg/dl 192 mg/dl SINGLE VIEW CHEST CLINICAL HISTORY: Hypoxia. FINDINGS: An AP, portable, upright chest radiograph is compared to study dated 10/18/2016 and correlated with chest CT dated 03/22/2013. The examination is significantly degraded by portable technique and patient rotation. The heart is enlarged and there is atherosclerotic calcification with uncoiling of the thoracic aorta. The pulmonary vasculature is noncongested. Large bilateral calcified pleural plaques are similar to previous. There are layering pleural effusions with bibasilar consolidation. No pneumothorax is seen. The skeletal structures are osteopenic. Advanced arthritic change is noted in the shoulders and thoracic spine. IMPRESSION: 1. Cardiomegaly without radiographic evidence of congestive failure. 2. Layering pleural effusions with bibasilar consolidation. This has not significant change from 10/18/2016. 3. Large calcified pleural plaques are similar to previous. Electronically signed by: Mark Jc M.D Assessment & Plan 86-year-old male with diabetes mellitus being treated for osteomyelitis of the foot, now persistently hypotensive and intended with evidence severe hypothyroidism. Pending decision regarding comfort care, patient should be continued on broad-spectrum antibiotics with vancomycin and Zosyn. Will adjust once further culture results are available.
--- NOTE | 2016-10-19 17:30 | ECHOCARDIOGRAM REPORT ---
*NOTICE TO RECEIVING CONSTITUTION PARTY AGENCY This information is strictly Confidential and protected under [place] law. [place] law prohibits you from making any further disclosure of this information unless further disclosure is expressly permitted by the written consent of the person to whom it pertains or is authorized by law. A general authorization for the release of medical or other information is not sufficient for this purpose. Hospital accepts no responsibility if the information is made available to any other person, INCLUDING THE PATIENT. Interpretation Summary * Name: KATHARINE GREEN Study Date: 10/18/2016 04:02 PM BP: 111/68 mmHg * Patient Location: C.2T\S\S238\S\1 HR: 60 * : 1930 (M/d/yyy) Gender: Male Height: 70 in * Age: 86 yrs Ethnicity: CA Weight: 165 lb * Ordering Physician: Bonnie Amaya * Referring Physician: Tracey Owusu * Performed By: Kandy Perez RCS * * Reason For Study: CVA * BSA: 1.9 m2 * -- Conclusions -- * There is severe calcific aortic valve stenosis. * There is moderate concentric left ventricular hypertrophy. * Ejection Fraction = 55-60%. * The right ventricular systolic function is normal. * The left atrium is severely dilated. * The right atrium is severely dilated. * There is moderate mitral regurgitation. * There is moderate to severe tricuspid regurgitation. * Severe pulmonary hypertension. Procedure Details * A complete two-dimensional transthoracic echocardiogram was performed (2D, M-mode, Doppler and color flow Doppler). * A saline contrast injection was performed to assess for cardiac shunting. * The injection was performed through an intravenous line in the right arm. * The attending nurse who injected the saline contrast was MIGUEL SMITH, RN. * A total of 10 cc of agitated saline was given. Left Ventricle * The left ventricle is normal in size. * There is moderate concentric left ventricular hypertrophy. * Ejection Fraction = 55-60%. Right Ventricle * The right ventricle is grossly normal size. * The right ventricular systolic function is normal. Atria * The left atrium is severely dilated. * The right atrium is severely dilated. * The interatrial septum is intact with no evidence for an atrial septal defect. Mitral Valve * The mitral valve leaflets appear thickened, but open well. * There is moderate mitral annular calcification. * There is moderate mitral regurgitation. Tricuspid Valve * The tricuspid valve is not well visualized, but is grossly normal. * There is moderate to severe tricuspid regurgitation. Aortic Valve * There is severe calcific aortic valve stenosis. Great Vessels * Severe pulmonary hypertension. Pericardium/Pleural * There is no pericardial effusion. MMode 2D Measurements and Calculations IVSd 2.2 cm IVSs 2.5 cm LVIDd 3.8 cm LVIDs 2.6 cm LVPWd 1.3 cm LVPWs 1.4 cm IVS/LVPW 1.7 FS 30.2 % EDV(Teich) 60.5 ml ESV(Teich) 25.2 ml EF(Teich) 58.3 % EDV(cubed) 53.2 ml ESV(cubed) 18.1 ml EF(cubed) 66.0 % % IVS thick 14.4 % % LVPW thick 9.9 % LV mass(C)d 277.4 grams LV mass(C)dI 144.2 grams/m\S\2 LV mass(C)s 223.7 grams LV mass(C)sI 116.3 grams/m\S\2 SV(Teich) 35.3 ml SI(Teich) 18.3 ml/m\S\2 SV(cubed) 35.1 ml SI(cubed) 18.3 ml/m\S\2 Ao root diam 4.2 cm Ao root area 14.1 cm\S\2 LA dimension 3.5 cm LA/Ao 0.82 LVOT diam 2.0 cm LVOT area 3.0 cm\S\2 LVAd ap4 24.3 cm\S\2 LVLd ap4 6.7 cm EDV(MOD-sp4) 72.2 ml EDV(sp4-el) 74.7 ml LVAs ap4 11.9 cm\S\2 LVLs ap4 5.6 cm ESV(MOD-sp4) 22.1 ml ESV(sp4-el) 21.5 ml EF(MOD-sp4) 69.4 % EF(sp4-el) 71.2 % LVAd ap2 26.7 cm\S\2 LVLd ap2 7.1 cm EDV(MOD-sp2) 81.1 ml EDV(sp2-el) 85.9 ml LVAs ap2 15.8 cm\S\2 LVLs ap2 6.1 cm ESV(MOD-sp2) 34.5 ml ESV(sp2-el) 34.5 ml EF(MOD-sp2) 57.5 % EF(sp2-el) 59.8 % LVLd %diff 4.7 % EDV(MOD-bp) 78.4 ml LVLs %diff 8.9 % ESV(MOD-bp) 28.6 ml EF(MOD-bp) 63.5 % SV(MOD-sp4) 50.1 ml SI(MOD-sp4) 26.0 ml/m\S\2 SV(MOD-sp2) 46.6 ml SI(MOD-sp2) 24.2 ml/m\S\2 SV(MOD-bp) 49.8 ml SI(MOD-bp) 25.9 ml/m\S\2 SV(sp4-el) 53.2 ml SI(sp4-el) 27.7 ml/m\S\2 SV(sp2-el) 51.4 ml SI(sp2-el) 26.7 ml/m\S\2 Doppler Measurements and Calculations MV E max kei 100.3 cm/sec MV P1/2t max kei 118.9 cm/sec MV P1/2t 97.6 msec MVA(P1/2t) 2.3 cm\S\2 MV dec slope 356.6 cm/sec\S\2 MV dec time 0.24 sec MR max kei 480.1 cm/sec MR max PG 92.2 mmHg TR max kei 390.2 cm/sec
[2016-10-19] MEDS: DONEPEZIL HCL 5 MG TAB PO SCH (21:00)
[2016-10-19] MEDS: MIRTAZAPINE TAB 15 MG TAB PO SCH (21:00)
[2016-10-19] MEDS: PRAVASTATIN SOD 40 MG TAB PO SCH (21:00)
[2016-10-19] MEDS ORDERED: PIPERACILL/TAZOBAC IV 3.375 GM in DEXTROSE 5% 100ML IV SCH (22:00)
[2016-10-19] MEDS ORDERED: SCOPOLAMINE 1.5 MG TDSY TD SCH (22:00)
[2016-10-20] VITALS (10 sets, daily range): BP systolic 50–115; BP diastolic 32–58; PULSE 56–96; TEMP 33.7–35.7; O2SAT 86–100
--- NOTE | 2016-10-20 02:07 | Progress Note ---
Internal Med Progress Note Date of Service: Oct 20, 2016. Provider Documentation: Made aware by RN of arrival of px family members. Px requested for Levophed to be stopped. Appropriate comfort measures orders entered. Vital Signs: Date Time Temp Pulse Resp B/P Pulse Ox O2 Delivery O2 Flow Rate FiO2 10/20/16 04:58 35.7 74 12 69/39 100 10/20/16 04:00 100 Nasal Cannula 5.0 10/20/16 03:58 35.6 56 15 65/36 100 10/20/16 02:58 35.6 61 16 67/37 100 10/20/16 01:58 35.7 56 23 63/36 100 10/20/16 01:28 35.6 84 20 86/46 86 10/20/16 00:58 35.6 96 13 108/58 98 10/20/16 00:28 35.5 81 13 115/54 98 10/19/16 23:59 99 Nasal Cannula 2.0 10/19/16 23:58 35.5 80 14 115/54 98 10/19/16 23:28 35.6 76 29 96/49 96 10/19/16 23:13 35.6 76 17 86/45 97 10/19/16 22:00 76 16 105/50 91 Nasal Cannula 2.0 10/19/16 20:00 36.1 87 16 78/40 94 Nasal Cannula 2.0 10/19/16 20:00 97 Nasal Cannula 2.0 35 BiPAP 10/19/16 18:03 36.5 85 18 94/50 98 Nasal Cannula 2.0 10/19/16 16:00 97 BiPAP 35 10/19/16 16:00 36.6 105 19 92/54 97 BiPAP 35 10/19/16 14:01 36.1 113 16 78/56 98 BiPAP 35 10/19/16 13:56 36.1 125 17 88/59 98 10/19/16 13:55 36.1 124 18 84/61 98 10/19/16 13:51 36.0 125 17 90/62 98 10/19/16 13:46 36.0 123 17 91/58 98 10/19/16 13:44 36.0 124 18 100/60 99 10/19/16 13:39 35.9 113 17 86/64 98 10/19/16 13:32 35.8 112 19 65/55 98 10/19/16 13:15 35.6 105 17 83/43 98 10/19/16 12:43 35.2 96 18 87/54 96 BiPAP 35 10/19/16 12:39 35.2 83 17 72/46 98 BiPAP 35 10/19/16 12:32 35.1 88 15 73/44 99 BiPAP 35 10/19/16 12:28 35.1 85 18 81/45 98 BiPAP 35 10/19/16 12:00 83 10/19/16 12:00 BiPAP 35 10/19/16 11:59 34.9 78 17 90/53 98 BiPAP 35 10/19/16 11:44 34.8 81 15 121/103 98 BiPAP 35 10/19/16 11:28 34.8 80 16 90/56 100 BiPAP 35 10/19/16 11:13 34.8 69 21 105/58 95 BiPAP 35 10/19/16 10:56 87 13 102/86 99 BiPAP 35 10/19/16 10:52 72 15 95/55 10/19/16 10:50 87 10/19/16 10:40 35.7 86 24 94 15.0 10/19/16 10:20 35.7 10/19/16 10:05 72 64/41 10/19/16 09:51 76 64/40 10/19/16 09:40 36.5 10/19/16 08:00 36.8 86 24 123/63 94 BiPAP 15.0 10/19/16 08:00 92 BiPAP 100 Lab Results: Results Past 24 Hours Test 10/19/16 09:53 10/19/16 11:38 10/19/16 11:53 10/19/16 15:59 Range/Units Bedside Glucose 85 109 192 70-99 mg/dl Blood Gas Sample Site L Radial Bedside Blood Gas pH (LAB) 7.15 7.35-7.45 Bedside Blood Gas pCO2 (LAB) 68 35-46 mmHg Bedside Blood Gas pO2 (LAB) 96 80-95 mmHg Bedside Blood Gas HCO3 (LAB) 24 19-24 meq/L Bedside Blood Gas Total CO2 26 24-31 mEq/l Bedside Blood Gas Base Excess (LAB) -5.0 -9-1.8 meq/L Bedside Blood Gas O2 Saturation 95.0 90-95 % Earnest Test Pass Oxygen Delivery Device BIPAP Bedside Oxygen Rate (breaths/min) 20 Bedside FiO2 35 % Blood Gas IPAP 18 Test 10/19/16 21:20 Range/Units Bedside Glucose 205 70-99 mg/dl
[2016-10-20] MEDS ORDERED: LORAZEPAM INJ 1 MG in SYRINGE 0.5 ML IV PRN (02:15)
[2016-10-20] MEDS ORDERED: MoRPHine SULFATE 4 MG/ML 1 ML CARP\\VIAL IV PRN (02:15)
[2016-10-20] MEDS ORDERED: LORAZEPAM 2 MG/ML 1 ML VIAL IV PRN (02:30)
[2016-10-20] MEDS: CHECK SCOPOLAMINE PATCH PLACEMENT SCH ×2 (07:24→16:00)
--- NOTE | 2016-10-20 09:24 | Clinical Documentation Query ---
CASSANDRA Fritz : CLINICAL DOCUMENTATION QUERY Documentation includes "R FOOT ULCER", not otherwise specified. Patient noted to follow at the wound clinic. ID and WOCN nurse consulted. Wound clinic notes from 10/19/16 include documentation of a "Salazar grade 3 diabetic foot ulcer, right foot". If in agreement with this diagnostic statement, please consider documentation as suggested below to clarify the type and severity of foot ulceration in your patient. Thank you. In your clinical opinion is this patient being managed for: ( ) Osteomyelitis associated with Salazar grade 3 diabetic foot ulcer, right foot ( ) Other explanation of clinical findings (Please Explain) ( ) Unable to determine (Please Define) ( ) Need to Discuss ( ) Not Agree The medical record reflects the following clinical findings, treatment, and risk factors. Clinical Indicators: As above Treatment:ID and WOCN nurse consulted, Vancomycin, Zosyn, Levaquin Risk Factors: DM type 2, age Please clarify and document your clinical opinion in the progress notes and discharge summary. Terms such as "probable", "suspected", "likely", "questionable", "possible", or "still to be ruled out" are acceptable. IF IN AGREEMENT, YOU MUST DOCUMENT ABOVE DIAGNOSTIC STATEMENT IN DAILY PROGRESS NOTES AND DISCHARGE SUMMARY. This document is not part of the patient's record. Thank You, Jesus Granados, ALBINO [phone]
--- NOTE | 2016-10-20 10:13 | Palliative Care Progress Note ---
Palliative Care Progress Note Date of Service Oct 20, 2016. Subjective Pt evaluation today including: conversation w/ patient, conversation w/ family , physical exam, chart review, conversation w/ computing consultant, review of inpatient medication list Pain: 0/10 PO Intake: NPO at this time Voiding: vargas catheter in place Patient was made comfort measures only yesterday evening, taken off bipap, all medications unrelated to comfort discontinued. He is pleasantly confused today, now on nasal cannula. Able to answer questions appropriately and denies any complaints of pain or discomfort. Patient stated jokingly, "Hey, get me a flat- screen TV. Hurry up." The two sons, Herb (POA), and Carlitos were at bedside and are very pleased with patient's condition. manager logistic and I discussed discharge/hospice options with the two sons and patient: home with hospice and 24hr care, hospice at [facility], or [facility] hospice if patient has a clinical decline. They'd like to give it another 24 hours to see how the patient does. They were going to choose a hospice agency though. Review of Systems Constitutional: No problem reported Respiratory: No cough, No shortness of breath Cardiac: No chest pain Abdomen: No nausea, No pain, No vomiting Male : No problem reported Objective Vital Signs Date Time Temp Pulse Resp B/P Pulse Ox O2 Delivery O2 Flow Rate FiO2 10/20/16 04:58 35.7 74 12 69/39 100 10/20/16 04:00 100 Nasal Cannula 5.0 10/20/16 03:58 35.6 56 15 65/36 100 10/20/16 02:58 35.6 61 16 67/37 100 10/20/16 01:58 35.7 56 23 63/36 100 10/20/16 01:28 35.6 84 20 86/46 86 10/20/16 00:58 35.6 96 13 108/58 98 10/20/16 00:28 35.5 81 13 115/54 98 10/19/16 23:59 99 Nasal Cannula 2.0 10/19/16 23:58 35.5 80 14 115/54 98 10/19/16 23:28 35.6 76 29 96/49 96 10/19/16 23:13 35.6 76 17 86/45 97 10/19/16 22:00 76 16 105/50 91 Nasal Cannula 2.0 10/19/16 20:00 36.1 87 16 78/40 94 Nasal Cannula 2.0 10/19/16 20:00 97 Nasal Cannula 2.0 35 BiPAP 10/19/16 18:03 36.5 85 18 94/50 98 Nasal Cannula 2.0 10/19/16 16:00 97 BiPAP 35 10/19/16 16:00 36.6 105 19 92/54 97 BiPAP 35 10/19/16 14:01 36.1 113 16 78/56 98 BiPAP 35 10/19/16 13:56 36.1 125 17 88/59 98 10/19/16 13:55 36.1 124 18 84/61 98 10/19/16 13:51 36.0 125 17 90/62 98 10/19/16 13:46 36.0 123 17 91/58 98 10/19/16 13:44 36.0 124 18 100/60 99 10/19/16 13:39 35.9 113 17 86/64 98 10/19/16 13:32 35.8 112 19 65/55 98 10/19/16 13:15 35.6 105 17 83/43 98 10/19/16 12:43 35.2 96 18 87/54 96 BiPAP 35 10/19/16 12:39 35.2 83 17 72/46 98 BiPAP 35 10/19/16 12:32 35.1 88 15 73/44 99 BiPAP 35 10/19/16 12:28 35.1 85 18 81/45 98 BiPAP 35 10/19/16 12:00 83 10/19/16 12:00 BiPAP 35 10/19/16 11:59 34.9 78 17 90/53 98 BiPAP 35 10/19/16 11:44 34.8 81 15 121/103 98 BiPAP 35 10/19/16 11:28 34.8 80 16 90/56 100 BiPAP 35 10/19/16 11:13 34.8 69 21 105/58 95 BiPAP 35 10/19/16 10:56 87 13 102/86 99 BiPAP 35 10/19/16 10:52 72 15 95/55 10/19/16 10:50 87 10/19/16 10:40 35.7 86 24 94 15.0 10/19/16 10:20 35.7 10/19/16 10:05 72 64/41 Physical Exam General Appearance: no apparent distress Neck: no JVD Respiratory/Chest: no respiratory distress, no accessory muscle use, + decreased breath sounds, + pertinent finding (nasal cannula) Cardiovascular: no edema, + systolic murmur, + irregularly irregular, + normal peripheral pulses Abdomen: normal bowel sounds, non tender, + distended (obese abdomen) Neurologic/Psychiatric: alert, normal mood/affect, + disoriented (pleasantly confused) Skin: + pallor Assessment and Plan Problem list: Lethargy/altered mental status Hypotension Osteomyelitis of right foot Respiratory failure Atrial fibrillation CAD Asbestosis Acute on chronic kidney disease Goals of care (Z51.5) Palliative care plan: -Patient was made comfort measures only last evening -Transfer to medical floor today -Family will decide in next 24 hours on discharge planning: home with hospice and 24hr care vs. hospice at SNF vs. [facility] hospice if patient declines. Will continue to give support to family and patient on making this decision. -Continue current medications. Patient has not needed any PRN meds. Will continue to follow. Palliative Performance Scale: 20 %
[2016-10-20] MEDS ORDERED: LEVOFLOXACIN / D5W 750 MG in PREMIXED IN D5W 150 ML IV SCH (18:00)
--- NOTE | 2016-10-20 20:50 | Progress Note ---
Medicine Progress Note Date & Time of Visit: Oct 20, 2016 at 20:51. Subjective delayed entry date of service as noted above placed on comfort measures patient seen with family at bedside drowsy but comfortable denies pain, dyspnea requesting to have something to drink no other symptoms Objective Last 8 Hrs Date Time Temp Pulse Resp B/P Pulse Ox O2 Delivery O2 Flow Rate FiO2 10/20/16 16:00 33.7 59 12 50/32 100 Nasal Cannula 4.0 10/20/16 16:00 100 Nasal Cannula 4.0 Physical Exam: General- drowsy not in distress,no accessory muscle use Eyes- anicteric Neck- no JVD Lungs- mild rales bilaterally Heart- normal rate, regular rhythm Abdomen- normal bowel sounds, soft, nontender Extremities- no pretibial edema, no calf tenderness Skin- warm & dry Laboratory Results: Last 24 Hours Test 10/19/16 21:20 Bedside Glucose 205 mg/dl Assessment & Plan 86 year old male with history of Dementia, Chronic A fib, DM, HTN, CKD 3 other problems noted below for right sided weakness. HYPOTHERMIA, HYPOTENSION LIKELY SECONDARY TO SEPTIC SHOCK, PROFOUND HYPOTHYROIDISM - POSSIBLE ETIOLOGY OF SEPSIS: PNEUMONIA, OSTEOMYELITIS, R/O BACTEREMIA, UTI ordered blood and urine cultures, sputum cultures placed on Vanco, Zosyn, Levaquin required Levophed, IV fluid bolus also placed on Hydrocortisone 50mg QID - transferred to ICU Dr. Irvin Quirk Sander had a discussion with family, they have requested transitioning the patient to comfort measures status only - Comfort measures ordered , transferred to [facility] Surg remained comfortable, peaceful discussed plan of care with sons, they are all agreeable with the plan of care RIGHT SIDED WEAKNESS R/O CVA CT head :negative MRI ordered HYPOTHYROIDISM usually on Lthyroxine 25mcg daily Lthyroxine 100mcg IV ordered ACUTE RENAL FAILURE ON CKD 3 HYPERKALEMIA patient has declined dialysis evaluated by Nephrology ACUTE HYPERCAPNEIC RESPIRATORY FAILURE SECONDARY TO PLEURAL EFFUSIONS ABG improved with Bipap Lasix contraindicated due to acute renal failure Pulmonary consulted RIGHT FOOT OSTEOMYELITIS, ULCER -antibiotics as noted above THROMBOCYTOPENIA new likely from Sepsis CHRONIC ANEMIA stable CHRONIC AFIB -EKG + sinus kenia -recently taken off metoprolol and amiodarone due to bradycardia -no longer on anticoagulation due to fall risk WELL-CONTROLLED DM 2 -recent A1C 5.1 - ISS CHRONIC DIASTOLIC HEART FAILURE -recent echo 08/2016 EF 55-60% with mod aortic regurg, mod-severe aortic stenosis and mod pulm hypertension -held lasix and hydralazine for now due to acute renal failure and hypotension CORONARY ARTERY DISEASE -was on ASA -pt not on BB due to bradycardia no chest pain noted Current Inpatient Medications: Current Inpatient Medications Medications (Trade) Dose Ordered Sig/Perla Route Start Time Stop Time Status Last Admin Dose Admin Acetaminophen (Tylenol Tab) 650 mg Q4H PRN PO 10/18/16 13:00 11/17/16 12:59 Ondansetron HCl (Zofran Inj) 4 mg Q6H PRN IV 10/18/16 13:00 11/17/16 12:59 Glucose (Glucose 40% Gel) 15-30 GRAMS 15 GRAMS... UD PRN PO 10/18/16 14:00 11/17/16 13:59 Glucose (Glucose Chew Tab) 4-8 Tablets 4 Tabl... UD PRN PO 10/18/16 14:00 11/17/16 13:59 Dextrose (Dextrose 50% 50ML Syringe) 25-50ML OF 50% DW IV FOR... UD PRN IV 10/18/16 14:00 11/17/16 13:59 Glucagon 1 mg 1 mg UD PRN SQ 10/18/16 14:00 11/17/16 13:59 Sodium Chloride (Nss 1000ml) 1,000 ml @ 100 mls/hr Q10H IV 10/18/16 16:00 11/17/16 15:59 Future Hold 10/18/16 16:57 100 MLS/HR Scopolamine (Transderm-Scop Patch) 1.5 mg Q3D@2100 TD 10/19/16 22:00 11/18/16 21:59 10/19/16 21:52 1.5 MG Miscellaneous (Remove Transderm-Scop Patch) 1 ea Q3D@2058 N/A 10/22/16 20:59 11/21/16 20:58 Miscellaneous Information 1 ea 1 ea QS N/A 10/20/16 08:00 11/19/16 07:59 10/20/16 16:00 1 EA Lorazepam/Syringe (Ativan Inj/ Syringe) 1 ml @ 1 mls/min Q10M PRN IV 10/20/16 02:15 11/19/16 02:14 Morphine Sulfate (MoRPHine SULFATE INJ) 4 mg Q10M PRN IV 10/20/16 02:15 11/03/16 02:14 Lorazepam (Ativan Inj) 1 mg Q10M PRN IV 10/20/16 02:30 11/19/16 02:29 10/20/16 17:53 1 MG
--- NOTE | 2016-10-20 21:27 | Progress Note ---
Internal Med Progress Note Date of Service: Oct 20, 2016. Provider Documentation: Provider Documentation SUBJECTIVE: called to eval px for probable OBJECTIVE: Vital Signs-as noted below Exam: General-unresponsive to pain, no spont respiration HEENT- alopecia, pale palp conj, dilated pupils not reactive to light Heart-no heartbeat Lungs- no spont respiration Abdomen no distension Extremities-no gross deformities Patient pronounced at 945PM. Dr. Deleon to accomplish discharge summary. Vital Signs: Date Time Temp Pulse Resp B/P Pulse Ox O2 Delivery O2 Flow Rate FiO2 10/21/16 00:00 100 Nasal Cannula 4.0 35 10/20/16 16:00 33.7 59 12 50/32 100 Nasal Cannula 4.0 10/20/16 16:00 100 Nasal Cannula 4.0
[2016-10-21] VITALS: O2SAT 100
--- NOTE | 2016-10-21 19:59 | Discharge Summary ---
Discharge Summary Admission Date: Oct 19, 2016 at 07:58 Discharge Date: Oct 21, 2016 Discharge Disposition: Principal Diagnosis: HYPOTHERMIA, HYPOTENSION LIKELY SECONDARY TO SEPTIC SHOCK, PROFOUND HYPOTHYROIDISM - POSSIBLE ETIOLOGY OF SEPSIS: PNEUMONIA, OSTEOMYELITIS, R/O BACTEREMIA, UTI Secondary Diagnoses/Problems: Please refer to hospital course below. Consultations: Darkroom Technician Dr. Irvin, Skin Specialist Dr. Leigh, Pulmonary Dr. Sebastian Admission Information HPI (per Admitting provider): This is an 86 y/o male with PMHx of CKD stage 3, DM 2, Chromic Afib, CAD, Hypothyroidism, HTN, Dyslipidemia and other problems as outlined below who presents to the ED with R sided weakness/numbness that began yesterday. Pt is a poor historian due to dementia therefore history is obtained from both patient and son at bedside. Pt was recently admitted to [facility] from 09/29-10/05 with bradycardia, hyperkalemia, JO and R foot osteomyelitis. Pt was discharged to [facility] on Keflex and Levaquin. Pt reports that yesterday he developed R sided weakness and numbness. This morning patient was seen at the wound care clinic and they sent him to the ED for his sxs. Patient now states that his weakness is "all over his body" from his "toes to his jaw". His sxs are assoc with some blurred vision like there are "spider webs in my eyes". Pt has no history of CVA per son at bedside. Pt takes baby ASA daily but is not on any other anticoagulation. Pt was on Metoprolol and Amiodarone for chronic afib however both meds were discontinued by cardiology in August due to bradycardia. His is currently on Keflex and Levaquin for R foot osteomyelitis. He follows He is wheelchair bound. Pt denies fever/chills, diplopia, chest pain , SOB, abd pain, N/V, constipation, diarrhea, hematochezia, melena, dysuria, LE edema, calf pain, slurred speech, facial droop, difficulty swallowing, lightheadedness/dizziness. In the ED, pt is hypotensive on arrival. He is afebrile with no leukocytosis. HgB 9.7. creat 2.5. K+ 5.8. CT head is negative. CXR bilateral pleural effusions. EKG: sinus kenia with 1* Av block. Pt is stable and will be admitted for further evaluation and treatment. Hospital Course 86 year old male with history of Dementia, Chronic A fib, DM, HTN, CKD 3 other problems noted below for right sided weakness. HYPOTHERMIA, HYPOTENSION LIKELY SECONDARY TO SEPTIC SHOCK, PROFOUND HYPOTHYROIDISM - POSSIBLE ETIOLOGY OF SEPSIS: PNEUMONIA, OSTEOMYELITIS, R/O BACTEREMIA, UTI ordered blood and urine cultures, sputum cultures placed on Vanco, Zosyn, Levaquin required Levophed, IV fluid bolus also placed on Hydrocortisone 50mg QID - transferred to ICU Dr. Irvin Darkroom Technician had a discussion with family, they have requested transitioning the patient to comfort measures status only - Comfort measures ordered , transferred to [facility] Surg remained comfortable, peaceful patient pronounced in the evening of 10/20/16 RIGHT SIDED WEAKNESS R/O CVA CT head :negative MRI ordered HYPOTHYROIDISM usually on Lthyroxine 25mcg daily Lthyroxine 100mcg IV ordered ACUTE RENAL FAILURE ON CKD 3 HYPERKALEMIA patient has declined dialysis evaluated by Nephrology ACUTE HYPERCAPNEIC RESPIRATORY FAILURE SECONDARY TO PLEURAL EFFUSIONS ABG improved with Bipap Lasix contraindicated due to acute renal failure Pulmonary consulted RIGHT FOOT OSTEOMYELITIS, ULCER -antibiotics as noted above THROMBOCYTOPENIA new likely from Sepsis CHRONIC ANEMIA stable CHRONIC AFIB -EKG + sinus kenia -recently taken off metoprolol and amiodarone due to bradycardia -no longer on anticoagulation due to fall risk WELL-CONTROLLED DM 2 -recent A1C 5.1 - ISS CHRONIC DIASTOLIC HEART FAILURE -recent echo 08/2016 EF 55-60% with mod aortic regurg, mod-severe aortic stenosis and mod pulm hypertension -held lasix and hydralazine for now due to acute renal failure and hypotension CORONARY ARTERY DISEASE -was on ASA -pt not on BB due to bradycardia no chest pain noted Total time spent on discharge = This includes examination of the patient, discharge planning, medication reconciliation, and communication with other providers. Discharge Instructions Patient
--- NOTE | 2016-10-30 11:51 | EDITING REQUIRED CODING QUERY ---
CODING QUERY To promote full compliance with coding requirements relating to patient care, provider participation is requested in all cases of broadcast operations director uncertainty. Please assist us with the question(s) below: Coding Question(s): Dr. Deleon, Sepsis due to possible pneumonia, UTI, osteomyelitis is documented. Please clarify if these diagnoses were present during this admission based on the clinical indicators: ( ) UTI present and treated ( ) POA ( ) Not POA ( ) UTI ruled out ( X ) Other, please explain UTI suspected, treated ( ) Pneumonia present and treatedtreated ( ) POA ( ) Not POA ( ) Pneumonia ruled out ( X ) Other, please explain Pneumonia suspected, treated ( X ) Osteomyelitis present and treatedtreated ( ) Osteomyelitis ruled out ( ) Other, please explain Physician's Response(s): Thank you for your time, BRODY Tinsley, ADMISSIONS EVALUATOR
== END 2016-10-20 21:45 | disposition expired | DRG 871 ==
LOC: ENRESERVTM → ENRESERVDT → EDBD 10:09 → C.EDB 10:10 → C.2T 13:04 → OBSVTOIN 10-19 07:58 → C.MSICU 10-19 10:49 → C.MS2W 10-20 09:41
PROVIDERS: ADMIT Internal Medicine; ATTEND Internal Medicine
DX: A41.9 Sepsis, unspecified organism (principal); R65.21 Severe sepsis with septic shock; J18.9 Pneumonia, unspecified organism; J96.02 Acute respiratory failure with hypercapnia; J96.01 Acute respiratory failure with hypoxia; N39.0 Urinary tract infection, site not specified; M86.9 Osteomyelitis, unspecified; N17.9 Acute kidney failure, unspecified; J90 Pleural effusion, not elsewhere classified; I50.32 Chronic diastolic (congestive) heart failure; E03.9 Hypothyroidism, unspecified; R68.0 Hypothermia, not associated with low environmental temperature; R41.82 Altered mental status, unspecified; R53.1 Weakness; R20.0 Anesthesia of skin; E87.5 Hyperkalemia; D69.59 Other secondary thrombocytopenia; E11.621 Type 2 diabetes mellitus with foot ulcer; L97.519 Non-pressure chronic ulcer of other part of right foot with unspecified severity; E11.69 Type 2 diabetes mellitus with other specified complication; E11.22 Type 2 diabetes mellitus with diabetic chronic kidney disease; N18.3 Chronic kidney disease, stage 3 (moderate); I48.2 Chronic atrial fibrillation; D64.9 Anemia, unspecified; I27.2 Other secondary pulmonary hypertension; I35.2 Nonrheumatic aortic (valve) stenosis with insufficiency; J61 Pneumoconiosis due to asbestos and other mineral fibers; I25.10 Atherosclerotic heart disease of native coronary artery without angina pectoris; I12.9 Hypertensive chronic kidney disease with stage 1 through stage 4 chronic kidney disease, or unspecified chronic kidney disease; E78.5 Hyperlipidemia, unspecified; F03.90 Unspecified dementia, unspecified severity, without behavioral disturbance, psychotic disturbance, mood disturbance, and anxiety; Z51.5 Encounter for palliative care; Z66 Do not resuscitate; Z53.29 Procedure and treatment not carried out because of patient's decision for other reasons; Z91.11 Patient's noncompliance with dietary regimen; Z99.3 Dependence on wheelchair; Z96.652 Presence of left artificial knee joint; Z95.5 Presence of coronary angioplasty implant and graft; Z91.81 History of falling; Z86.73 Personal history of transient ischemic attack (TIA), and cerebral infarction without residual deficits; Z87.891 Personal history of nicotine dependence; Z79.82 Long term (current) use of aspirin; Z79.84 Long term (current) use of oral hypoglycemic drugs; Z79.899 Other long term (current) drug therapy; Z79.891 Long term (current) use of opiate analgesic; E11.40 Type 2 diabetes mellitus with diabetic neuropathy, unspecified; I48.91 Unspecified atrial fibrillation; I50.9 Heart failure, unspecified; K21.9 Gastro-esophageal reflux disease without esophagitis; I25.2 Old myocardial infarction; Z90.49 Acquired absence of other specified parts of digestive tract